=== PATIENT | male | born 1970 | race Caucasian/White ===

== ENCOUNTER 2017-11-21 08:00 | Emergency (ER) | payer OTHER, SELFPAY ==
[2017-11-21 08:02] VITALS: BP 144/76; PULSE 90; RESP 17; TEMP 36.9; O2SAT 96; BMI 34.4
--- NOTE | 2017-11-21 08:16 | VDLE_ITS ---
Reason For Study: swelling RIGHT LEFT GSV is normal. GSV is normal. CFV is compressible, spontaneous, phasic, CFV is compressible, spontaneous, phasic, competent and demonstrates normal competent, and demonstrates normal augmentation. augmentation. FV is compressible, spontaneous, phasic, FV is compressible, spontaneous, phasic, competent and demonstrates normal competent and demonstrates normal augmentation. augmentation. POP V is compressible, spontaneous, phasic, POP V is compressible, spontaneous, phasic, competent and demonstrates normal competent and demonstrates normal augmentation. augmentation. T/P Trunk is compressible. T/P Trunk is compressible. PTV is compressible. PTV is compressible. RT PerV is compressible. LT PerV is compressible. Procedure Exam performed portable in ED. The exam was diagnostic. A preliminary report was called and/or faxed to Dr. Young. Interpretation Summary 1. Bilateral lower extremities with no DVT or SVT. Ordering Physician: Walt Young Performed By: Jhonathan Corey RVT
--- NOTE | 2017-11-21 08:19 | ED.VISSUMM ---
- ER Visit Summary Date of Service: 11/21/17 Chief Complaint: [] Left leg pain swelling for months History of Present Illness: The patient is a 47 M [] as a dedicated truck driver smoker reports he has left leg pain swelling for months he was seen by his physicians put on Lasix as at one point time he had bilateral intermittent leg swelling he is on his feet a lot apparently was thought to be dependent edema. He indicates that he has had persistent swelling in the left leg and the right leg symptoms are resolved, and very mild pain behind behind the left knee, no trauma no paresthesias, no history of DVT PE or DE no fever no cough no chest pain abdominal pain eating drinking well bowel bladder habits are normal review of systems otherwise negative he has no history of CHF renal disorders Physical Examination: [] Head neck chest abdomen unremarkable vital signs are normal he is awake and alert back is unremarkable he has full range of motion of all 4 extremities including the legs the left leg there is 1+ edema to the anterior rosales region the ankle foot are unremarkable good perfusion normal dorsi and plantarflexion normal foot movement normal knee hip movement complains of some pain behind the knee but the exam here is unremarkable there is no signs of mass or Beard's cyst the knee exam shows normal flexion extension normal stability tib-fib unremarkable the left lower extremity is his chief complaint he has no symptoms with reference to the right lower extremity the right lower extremity exam is completely unremarkable neurovascular function examination normal he is able to walk without difficulty Test Results: [] Emergency Department Course and Treatment: [] His complaints differential is extensive and x-ray will be obtained duplex scan Duplex scan shows no signs of DVT, the x-ray of knee shows nothing acute see those reports I explained all the patient's given all the above at this time the patient will be asked to use Naprosyn as needed 500 twice daily for 5 days only in addition he is to stay on all his meds and he is will be referred to Dr. Herman Cheung orthopedics and also instruct off his family physician for further management he understands that the exact etiology of the above is unclear further outpatient management Treatment Plan: [] Disposition: [] Stable home Impression: [] Left lower extremity edema and pain etiology unclear This note was generated with [employer] software. It may contain incorrect words, spelling, and punctuation that were not noted in review of the chart prior to signing ED Disposition - Plan for ED Patient: Chief Complaint: Edema Referrals: Shira Zuniga DO [Primary Care Provider] -
--- NOTE | 2017-11-21 08:20 | RAD_ITS ---
STUDY: X-RAY - LEFT KNEE REASON FOR EXAM: Male, 47 years old. Posterior knee pain. No known injury. TECHNIQUE: 4 view(s) of the knee. COMPARISON: None. FINDINGS: Normal visualized distal femur. Normal visualized proximal tibia and fibula. Normal proximal tibiofibular articulation. Normal medial femorotibial compartment. Normal lateral femorotibial compartment. Normal patellofemoral articulation. The soft tissue structures are unremarkable. RAD/Knee 4 or More Views IMPRESSION: Normal x-ray examination of the knee. Electronically Signed: Jaxson Kramer MD at 9:18 EDT Tel [phone], Service support ,
[2017-11-21] MEDS: Naproxen 500 MG Tablet PO (08:21)
--- NOTE | 2017-11-21 09:29 | ED.DEP ---
ED Disposition - Plan for ED Patient: Chief Complaint: Edema Instructions: ED Leg Swelling Unilateral Prescriptions: Naproxen [Naprosyn] 500 mg PO BID PRN #20 tab Referrals: Shira Zuniga DO [Primary Care Provider] - Herman Cheung DO [STAFF PHYSICIAN] -
[2017-11-21 09:46] VITALS: BP 136/89; PULSE 68; RESP 18; O2SAT 98
== END 2017-11-21 09:46 | disposition home or self-care (01) ==
LOC: ED 09:11
PROVIDERS: Emergency Provider Emergency Medicine; Family Provider Family Medicine; PCP Family Medicine
DX: R60.0 Localized edema (principal); M79.605 Pain in left leg
CPT/HCPCS: 73564; 93970; 99283

== ENCOUNTER → 2018-03-13 05:40 | Outpatient (CLI) | payer OTHER, SELFPAY | PROVIDERS: Family Provider Family Medicine; PCP Family Medicine; Visit Provider Ophthalmology | DX: Z01.818 Encounter for other preprocedural examination (principal) ==

== ENCOUNTER 2018-03-14 06:36 | Day surgery (SDC) | payer OTHER, SELFPAY ==
[2018-03-14] VITALS (7 sets, daily range): BP systolic 124–146; BP diastolic 81–114; PULSE 61–79; RESP 16; TEMP 36.3–36.7; O2SAT 96–98; BMI 36.1
[2018-03-14] MEDS: Tetracaine 0.5% Ophthalmic Bottle 1 DRP OP (07:30)
--- NOTE | 2018-03-14 08:40 | DCINST_ITS ---
Discharge Diet: No Restrictions Discharge Activity: - - Take it easy the rest of the day of surgery. Be careful not to trip or fall. Avoid bumping the operated eye and do not rub the eye. You may stay alone, but need to be able to call and/or come in if necessary. Try to sleep on the unoperated side or on your back tonight. Call your doctor if you observe: - - new or increased pain, a worsening of vision, or if you have any questions. Also call the office if you are experiencing a severe headache on the operative side, nausea or vomiting. Allergies/Adverse Reactions: Allergies Ohpoahm-Pzn-Nts Reductase Inhibitor Adverse Reaction (Verified 03/07/18 10:34) painful joints Medications to take at Discharge Multivitamins,Ther W-Minerals [Multivitamin With Minerals] 1 tab PO DAILY Aspirin E.C. [Ecotrin] 81 mg PO DAILY@0800 03/16/17 Naproxen [Naprosyn] 500 mg PO BID PRN #20 tab 11/21/17 Primary Care Physician: Shira Zuniga DO [Primary Care Provider] - Test Results: Test results from this visit will be discussed in further detail at your follow- up appointment, if applicable. -Take a pain reliever such as Tylenol, Aspirin or Ibuprofen if needed for eye aching or pain. If this is not enough relief for you pain, call your doctor (or the doctor chief [facility] division), even at night. -You are scheduled for a follow-up appointment at [facility] the day after surgery. You should have someone drive you. -Transient pain and irritation are due to the incision that was made at the time of surgery and do not indicate any trouble. Our office numbers are or toll-free . If there is no answer, or if it is after our normal business hours, call your surgeon. Our home phone numbers are: Dr. Carvalho Dr. Vuong Dr. Junior Dr. Carter If you are still unable to reach your doctor, call the answering service and [facility] [place] , and the roto rooter operator can contact the on-call doctor through a long-range beeper system. INSTRUCTIONS FOLLOWING TOPICAL ANESTHETIC CATARACT SURGERY Protect operated eye with glasses or metal shield at all times. Instill one drop of Cipro (or other antibiotic drop), one drop of Prednisolone and one drop of Flurbiprofen in the operated eye four times a day (breakfast, lunch, dinner and bedtime) until the doctor tells you to quit or decrease them. Wait 3-5 minutes between each drop. Your first drop for today was given after surgery. INSTRUCTIONS FOLLOWING RETROBULBAR CATARACT SURGERY Keep the eye patch and metal shield on until you see your surgeon the day after surgery - these will be removed in the office that day. Do not drive while the patch is on your eye. You will be instructed about the use of drops for the operated eye at that visit.
== END 2018-03-14 09:40 | disposition home or self-care (01) ==
LOC: SDC 06:37 → AC 06:38
PROVIDERS: Family Provider Family Medicine; PCP Family Medicine; Visit Provider Ophthalmology
PROC: (CPT 66984; principal; 2018-03-14 08:10)
DX: H25.042 Posterior subcapsular polar age-related cataract, left eye (principal); Z96.1 Presence of intraocular lens; Z79.899 Other long term (current) drug therapy; F17.200 Nicotine dependence, unspecified, uncomplicated; Z85.828 Personal history of other malignant neoplasm of skin; Z79.82 Long term (current) use of aspirin; I10 Essential (primary) hypertension
CPT/HCPCS: 66984; J7120

== ENCOUNTER → 2018-10-09 14:42 | Outpatient (CLI) | payer OTHER, SELFPAY ==
[2018-10-08 14:49] VITALS: BMI 32.9
[2018-10-09 14:51] LABS: Bacteria 0 SEEN /hpf (None Seen); Mucous, Urine 0 SEEN /hpf (<or=2+); Red Blood Cells-Urine 0 SEEN /hpf (0-5)
[2018-10-09 15:27] LABS: Color, Urine Straw (Yellow); Glucose, Dipstick 1000 mg/dl (Normal); Ketone-Dipstick 5 mg/dl (Negative); Leukocyte Esterase-Dipstick Negative /ul (Negative); Nitrite-Dipstick Negative (Negative); Occult Blood-Urine Negative /ul (Negative); Protein-Dipstick Negative (Negative); Specific Gravity, Urine 1.015 (1.002-1.030); Urine Bilirubin Dipstick Negative (Negative); Urine Clarity Clear (Clear); Urine Urobilinogen Normal (Normal)
[2018-10-09 15:51] LABS: Squamous Epithelial Cells - UA 0-5 SEEN /hpf (0-5)
[2018-10-09 15:52] LABS: White Blood Cells 0-5 SEEN /hpf (0-5)
== END ==
PROVIDERS: Family Provider Family Medicine; PCP Family Medicine; Referring Provider Physician Assistant; Visit Provider Physician Assistant
DX: M54.5 Low back pain (principal)
CPT/HCPCS: 81001; 87086

== ENCOUNTER → 2019-01-15 | Outpatient (CLI) | payer OTHER, SELFPAY ==
[2019-01-15 10:58] VITALS: BMI 32.9
== END | disposition home or self-care (01) ==
LOC: LABSPEC 14:33
PROVIDERS: Family Provider Family Medicine; PCP Family Medicine; Referring Provider Physician Assistant; Visit Provider Physician Assistant
DX: J02.9 Acute pharyngitis, unspecified (principal)
CPT/HCPCS: 87081

== ENCOUNTER → 2019-08-01 16:56 | Outpatient (CLI) | payer OTHER, SELFPAY ==
[2019-07-31 16:13] VITALS: BMI 32.9
[2019-08-01 16:58] LABS: Bacteria 0 SEEN /hpf (None Seen); Mucous, Urine 0 SEEN /hpf (<or=2+); Red Blood Cells-Urine 0 SEEN /hpf (0-5); White Blood Cells 0 SEEN /hpf (0-5)
[2019-08-01 17:09] LABS: Color, Urine Yellow (Yellow); Glucose, Dipstick 1000 mg/dl (Normal); Ketone-Dipstick 5 mg/dl (Negative); Leukocyte Esterase-Dipstick Negative /ul (Negative); Nitrite-Dipstick Negative (Negative); Occult Blood-Urine Negative /ul (Negative); Protein-Dipstick Negative (Negative); Urine Bilirubin Dipstick Negative (Negative); Urine Clarity Clear (Clear); Urine Urobilinogen Normal (Normal)
[2019-08-01 17:27] LABS: Calcium Oxalate Crystals Ur 1+ /hpf (<or=2+); Squamous Epithelial Cells - UA 0-5 SEEN /hpf (0-5)
== END ==
PROVIDERS: Family Provider Family Medicine; PCP Family Medicine; Referring Provider Physician Assistant Surgical; Visit Provider Physician Assistant Surgical
DX: R10.9 Unspecified abdominal pain (principal)
CPT/HCPCS: 81001; 87086; 87088

== ENCOUNTER → 2020-01-07 | Outpatient (CLI) | payer OTHER, SELFPAY ==
[2019-07-31 16:13] VITALS: BMI 32.9
== END | disposition home or self-care (01) ==
LOC: LABSPEC 12:30
PROVIDERS: PCP Family Medicine; Referring Provider Dermatology; Visit Provider Dermatology
DX: L02.411 Cutaneous abscess of right axilla (principal); B95.61 Methicillin susceptible Staphylococcus aureus infection as the cause of diseases classified elsewhere; D23.39 Other benign neoplasm of skin of other parts of face
CPT/HCPCS: 87070; 87077; 87186; 87205

== ENCOUNTER 2020-02-18 06:23 | Observation (INO) | payer OTHER, SELFPAY ==
[2020-01-14 13:41] VITALS: BMI 32.9
[2020-02-18] VITALS (9 sets, daily range): BP systolic 139–168; BP diastolic 75–99; PULSE 67–103; RESP 17–18; TEMP 36.2–36.8; O2SAT 94–97; BMI 38.9; BMI 34.1
--- NOTE | 2020-02-18 06:29 | EKG12_ITS ---
Test Reason : REPEAT Blood Pressure : / mmHG Vent. Rate : 094 BPM Atrial Rate : 094 BPM P-R Int : 168 ms QRS Dur : 084 ms QT Int : 360 ms P-R-T Axes : 068 014 046 degrees QTc Int : 450 ms Normal sinus rhythm Nonspecific T wave abnormality Abnormal ECG Confirmed by LOR BARKER, NADIA ([id number]), editor map JOSÉ ANTONIO HUFFMAN ([id number]) on 02/23/2020 10:50:13 AM Referred By: Confirmed By:NADIA HOROWITZ MD
--- NOTE | 2020-02-18 06:29 | RAD_ITS ---
STUDY: X-RAY CHEST REASON FOR EXAM: Male, 50 years old. CP TECHNIQUE: Single AP portable view of the chest. COMPARISON: None. FINDINGS: The lungs are clear and expanded. There is no demonstrated pleural abnormality. Normal size heart. Normal mediastinum and tommy. Normal visualized pulmonary arteries. Normal visualized aortic arch and descending thoracic aorta. Normal visualized thoracic spine. Normal visualized ribs, clavicles, and shoulders. There is no demonstrated abnormality of the visualized soft tissue structures of the upper abdomen. RAD/Chest 1 View (Portable) IMPRESSION: Normal x-ray examination of the chest. Electronically Signed: Abraham Saucedo, at 7:14 EDT Tel , Service support ,
[2020-02-18] MEDS: Aspirin 81 MG TAB.CHEW 324 MG PO (06:33)
[2020-02-18 06:38] LABS: Absolute Lymphocyte Count 4.16 X10^3/uL (0.83-4.51); Absolute Neutrophil Count 6.2 X10^3/uL (2.0-7.7); Basophil# 0.09 X10^3/uL; Basophil% 0.7 % (0-1); Eosinophil# 0.63 X10^3/uL; Eosinophils% 5.2 % (0-5); Hematocrit 47.5 % (40-54); Hemoglobin 16.7 g/dL (13.0-16.5); Lymphocyte # 4.16 X10^3/ul (4.0); Lymphocyte % 34.1 % (19-41); Mean Corp Hgb Conc 35.2 g/dL (32-36); Mean Corpuscular Hgb 31.8 pg (27.0-32.0); Mean Corpuscular Volume 90.5 fL (80-94); Mean Platelet Vol. 10.9 fl (6.2-12.0); Monocyte# 1.04 X10^3/uL; Monocyte% 8.5 % (0-10); NRBC Flagged by Analyzer 0 % (0-5); Neutrophil # 6.21 X10^3/uL (2.7-7.7); Neutrophil % 50.9 % (47-70); Platelet Count 198 K/mm3 (150-450); RBC Distribution Width CV 12.1 % (11.6-14.6); RBC Distribution Width SD 40.1 fl (35.1-43.9); Red Blood Count 5.25 M/mm3 (4.6-6.2); White Blood Count 12.2 K/mm3 (4.4-11.0)
[2020-02-18] MEDS: Ondansetron 4 MG/2 ML Vial IV (06:38)
[2020-02-18] MEDS: Morphine 4 MG/ML Syringe IV ×2 (06:38→07:31)
--- NOTE | 2020-02-18 06:38 | ED.DCSUM_ITS ---
- ER Visit Summary Date of Service: 02/18/20 Chief Complaint: Chest pain History of Present Illness: The patient is a 50 M presenting with chest pain. Patient states this woke him up at 2:30 AM. Pain has been waxing and waning since. Currently 8 out of 10. He has substernal pain that radiates to his jaw. Pain is associated with diaphoresis and shortness of breath. Denies nausea or vomiting. He has a history of high triglycerides. He takes aspirin daily. He is a smoker. He has a family history of early heart disease. 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 No history of PE/DVT. He also complains of gradual onset headache which started 3 days ago. Physical Examination: Vitals are stable. Patient is afebrile. Alert no acute distress. HEENT exam is unremarkable. Neck is supple. Lungs are clear and equal bilaterally. Heart is regular rate and rhythm. Abdomen is soft nontender nondistended. Extremities are unremarkable. Skin is warm and dry. No focal neurologic deficit. Remainder of exam is unremarkable. Emergency Department Course and Treatment: Patient was given aspirin, morphine, Zofran. EKG is sinus tachycardia rate of 102. CBC shows white count 12.2. Chemistries show glucose 190. Troponin is negative. D-dimer negative. Chest x-ray shows no acute process. Patient's pain is improved, he was given additional dose of morphine. CT head shows normal unenhanced CT scan of the brain. Repeat EKG is unchanged. On reevaluation, he is resting comfortably and is chest pain-free. Discussed with hospitalist for observation. Disposition: Observation Impression: Chest pain This note was generated with [employer] dictation software. It may contain incorrect words, spelling, and punctuation that were not noted in review of the chart prior to signing ED Disposition - Plan for ED Patient: Referrals: Shira Zuniga DO [Primary Care Provider] -
[2020-02-18 06:55] LABS: D-Dimer Quantitative (DVT/PE) 0.47 FEU/ug/m (0.27-0.49)
--- NOTE | 2020-02-18 07:02 | CT_ITS ---
STUDY: CT BRAIN WITHOUT CONTRAST REASON FOR EXAM: Male, 50 years old. CP RADIATES TO JAW, RIBEIRO RADIATION DOSAGE (If Supplied By Facility): CTDIvol = ( 44.99 ) mGy, DLP = ( 762.36 ) mGycm TECHNIQUE: Transaxial CT imaging of the brain was performed without administration of intravenous contrast material. Individualized dose optimization techniques were used for this CT. COMPARISON: CT scan brain 03/16/2017. FINDINGS: Normal soft tissue structures. Normal calvarium. Normal size ventricles and extra-axial spaces for the patient''s age. Normal white matter tracts of the cerebral hemispheres. Normal basal ganglia and thalami. Normal brainstem. Normal cerebellum. There is mild atherosclerotic calcification of the cavernous carotid arteries. There is no intracranial hemorrhage. There are no findings of an acute ischemic infarction. There is a small polyp or retention cyst in the left sphenoid sinus. There is no evidence for acute sinusitis. CT/Brain/Head without Contrast IMPRESSION: Normal unenhanced CT scan of the brain. Mild atherosclerotic calcification of the cavernous carotid arteries. Electronically Signed: Richmond Flores MD at 7:30 EDT , Service support ,
[2020-02-18 07:05] LABS: Anion Gap 10 (5-15); BUN 17 mg/dL (7-18); BUN/Creat Ratio 19.2 RATIO (10-20); Chloride 105 mmol/L (98-107); Creatinine, Serum 0.89 mg/dL (0.70-1.30); EST Glomerular Filtration Rate 97 mL/min (>60); Est Glom Filt Rate - Afr Amer 117 mL/min (>60); Estimated Creatinine Clearance 87.34 ml/min; Glucose 190 mg/dL (74-106); Sodium Level 137 mmol/L (136-145)
--- NOTE | 2020-02-18 07:35 | EKG12_ITS ---
Test Reason : CP Blood Pressure : / mmHG Vent. Rate : 102 BPM Atrial Rate : 102 BPM P-R Int : 174 ms QRS Dur : 082 ms QT Int : 360 ms P-R-T Axes : 071 023 064 degrees QTc Int : 469 ms Sinus tachycardia Nonspecific T wave abnormality Abnormal ECG Confirmed by LOR BARKER, NADIA ([id number]), communications editor JOSÉ ANTONIO HUFFMAN ([id number]) on 02/23/2020 10:50:42 AM Referred By: Confirmed By:NADIA HOROWITZ MD
[2020-02-18] MEDS: Acetaminophen 500 MG Tablet 1000 MG PO (07:37)
--- NOTE | 2020-02-18 07:56 | HP.PCM_ITS ---
Problem List (1) TIA (transient ischemic attack) Status: Acute (2) New onset type 2 diabetes mellitus Status: Acute (3) HTN (hypertension) Status: Chronic Qualifiers: Hypertension type: essential hypertension Qualified Code(s): I10 - Essential (primary) hypertension (4) HLD (hyperlipidemia) Status: Chronic Qualifiers: Hyperlipidemia type: unspecified Qualified Code(s): E78.5 - Hyperlipidemia, unspecified (5) Obesity (BMI 30.0-34.9) Status: Chronic (6) Tobacco use Status: Chronic History of Present Illness Date of Admission: 02/18/20 Chief Complaint: Chest pain, paresthesias R sided, headache The patient is a 50 y/o M w/ PMHx: Tobacco use, Obesity, HTN, HLD who presents to the [facility] ED on 02/18/20 with history of 3 days of right lateral and posterior head headache described as a throbbing, worse with movement with blurry vision, right-sided discomfort and eye changes greater ongoing rated 7-8 out of 10 in severity within onset at approximately 2:30 AM upon day of ED presentation awakening him from sleep midsternal chest discomfort described as a pressure like sensation rated 8 out of 10 in severity with improvement following ED evaluation and and interventions to 3 out of 10 in severity with resolution upon evaluation with at that time also concurrent right upper extremity as well as right lower extremity and bilateral lower face and perioral paresthesias with improvement of right lower extremity and right upper extremity paresthesias limited to hand only upon ED presentation. Per discussion with patient spouse he had similar presentation although less severe approximately 10 years prior and had stroke evaluation at that time with eventual diagnosis of complex migraine. He denies any light or sound sensitivity at this time. Work-up in the ED included T 98, heart rate 103, BP 168/82, respiratory rate 18, 97% on room air, CBC with WC 12.2, hemoglobin 16.7, platelet 198 with no evidence of left shift, d-dimer 0.47, BMP with glucose 190 with patient noting that he had a Mountain Dew prior to presentation, troponin less than 0.015, EKG with sinus rhythm with no acute evidence of ischemia, chest x-ray with no acute cardiopulmonary findings, CT head with with no acute intracranial findings with noted mild atherosclerotic calcification of the cavernous carotid arteries. In the ED patient ministered Tylenol, aspirin, morphine 4 mg IV x2 and Zofran therapy. Patient with resolution of chest discomfort following morphine while in the ED. Past Medical History Past Medical History (Chronic Problems): Chronic Problems (Last Reviewed 01/14/20 @ 12:41 by Marquita Whittaker) HTN (hypertension) (Chronic) HLD (hyperlipidemia) (Chronic) Obesity (BMI 30.0-34.9) (Chronic) Tobacco use (Chronic) Nonischemic cardiomyopathy (Chronic) Allergies Ubrnmlr-Hgr-Xcv Reductase Inhibitor Adverse Reaction (Verified 02/18/20 06:26) painful joints Home Medications: Ambulatory Orders Medication Instructions Recorded Ascorbic Acid [Vitamin C] 1,000 mg PO DAILY 02/18/20 Aspirin [Aspir 81] 81 mg PO DAILY 02/18/20 Multivitamin 1 ea PO DAILY 02/18/20 Surgical History: - - Skin cancer interventions. Psychiatric History: No pertinent psych hx Lives: Spouse/ Significant Other Smoking Status: Current every day smoker - With ongoing 1.5 pack/day cigarette tobacco usage down from 2 pack/day previously. Tobacco Use: Cigarettes Alcohol: Occasional Drugs: None - *Family History Maternal History Items: Heart Disease - Patient notes a maternal family history of heart disease with CABG at age 69 required. Paternal History Items: Heart Disease - Patient notes a significant paternal family history of heart disease with patient's father's first UT at age 45. Review of Systems Constitutional: Reports: Malaise, Weakness, Fatigue. Denies: Anorexia, Chills, Fever, Weight Change HEENT: Reports: Head Aches, Visual Changes. Denies: Sinus Congestion, Sinus Drainage Cardiovascular: Reports: Chest Pain, Chest Pressure, Heaviness. Denies: Chest Tightness, Light Headedness, Orthopnea, Palpitations, Syncope Respiratory: Denies: Cough, Shortness of Breath, Shortness of breath at rest, Shortness of breath upon exertion, Sputum production, Wheezing Gastrointestinal: Denies: Abdominal Pain, Nausea, Vomiting Genitourinary: Denies: Dysuria Musculoskeletal: Reports: Joint Pain, Neck Pain. Denies: Joint Tenderness Skin: Denies: Rash, Wounds Neurological: Reports: Blurred vision, Numbness, Tingling. Denies: Focal weakness Psychiatric: Denies: Anxiety, Depression, Homicidal Ideations, Suicidal Ideations Hematologic/ Lymphatic: Denies: Easy Bruising, Easy Bleeding VTE Information - Inpt Only VTE Present on Admission: No VTE Mechan Device Prophylaxis: SCD's VTE Pharm Prophylaxis ordered?: Yes Patient Problems: Active and Suspected Problems (Last Reviewed 01/14/20 @ 12:41 by Marquita Whittaker) TIA (transient ischemic attack) (Acute) New onset type 2 diabetes mellitus (Acute) Subjective: Seated upright in the PCU bed, mildly fatigued appearance, notes feeling improved since initial ED presentation with resolution of chest discomfort, right-sided primarily ongoing headache, less severe, paresthesias still to right hand primarily fifth and fourth digits as well as bilateral lower sections of the face and perioral but less pronounced. Objective: Physical Examination: General: awake, alert, oriented x 3 and cooperative, seated upright in the PCU bed in no apparent distress, chest discomfort resolved, still mild right-sided headache. Skin: normal color, turgor, no icterus, cyanosis. HEENT: AT/NC, EOMI, PERRLA, MMM, no carotid bruits or JVD noted. Lungs: CTA bilaterally, moderate effort, mild decrease BL bases, no rales, ronchi or wheezing. Heart: Regular rate and rhythm; no gallop, rub audible. Abdomen: soft, obese, NTTP, ND, normal BS, no HSM. Extremities: no cyanosis, clubbing, or edema. Neurological: patient awake, alert, oriented x 3; cognitive function intact; pupils equally reactive to light and accomodation; cranial nerves II-XII grossly normal, moving all 4 extremities, no focal deficits, strength preserved, negative Babinski, finger-nose and [id number] appropriate, vision intact as well as peripheral burton of vision, subjective paresthesias to bilateral jaw region, perioral, right upper extremity hand primarily fifth and fourth digits with complete resolution of previous right lower extremity and right arm aside from hand paresthesias as noted. Psychiatric: affect appears mildly fatigued otherwise normal, no acute evidence of depressive or anxiety feelings. - Physical Exam Vitals/I&O's: Vital Signs Temp Pulse Resp BP Pulse Ox 98.0 F 103 H 18 168/82 H 97 02/18/20 06:24 02/18/20 06:24 02/18/20 06:24 02/18/20 06:24 02/18/20 06:24 Oxygen Delivery Method Room Air Weight: 233 lb 11.04 oz Body Mass Index (BMI) 38.9 Laboratory Results 02/18/20 06:30: WBC 12.2 H, RBC 5.25, Hgb 16.7 H, Hct 47.5, MCV 90.5, MCH 31.8, MCHC 35.2, RDW Std Deviation 40.1, RDW Coeff of Leela 12.1, Plt Count 198, MPV 10.9, Immature Gran % (Auto) 0.600, Neut % (Auto) 50.9, Lymph % (Auto) 34.1, Zapata % (Auto) 8.5, Eos % (Auto) 5.2 H, Baso % (Auto) 0.7, Absolute Neuts (auto) 6.2, Absolute Lymphs (auto) 4.16, Nucleated RBC % 0 02/18/20 06:30: Sodium 137, Potassium 4.0, Chloride 105, Carbon Dioxide 22.0, Anion Gap 10, BUN 17, Creatinine 0.89, Estim Creat Clear Calc 87.34, Est GFR (MDRD) Af Amer 117, Est GFR (MDRD) Non-Af 97, BUN/Creatinine Ratio 19.2, Glucose 190 H, Calcium 9.0, Troponin I < 0.015 02/18/20 06:30: D-Dimer Quant (PE/DVT) 0.47 Assessment/Plan All Active Problems (Last Reviewed 01/14/20 @ 12:41 by Marquita Whittaker) TIA (transient ischemic attack) (Acute) New onset type 2 diabetes mellitus (Acute) Pharyngitis (Acute) URI (upper respiratory infection) (Acute) Lumbar strain (Acute) Glucosuria (Acute) Chest pain (Acute) The patient is a 50 y/o M w/ PMHx: Tobacco use, Obesity, HTN, HLD who presents to the [facility] ED on 02/18/20 with history of 3 days of right lateral and posterior head headache described as a throbbing, worse with movement with blurry vision, right-sided discomfort and eye changes greater ongoing rated 7-8 out of 10 in severity within onset at approximately 2:30 AM upon day of ED presentation awakening him from sleep midsternal chest discomfort described as a pressure like sensation rated 8 out of 10 in severity with improvement following ED evaluation and and interventions to 3 out of 10 in severity with resolution upon evaluation with at that time also concurrent right upper extremity as well as right lower extremity and bilateral lower face and perioral paresthesias with improvement of right lower extremity and right upper extremity paresthesias limited to hand only. 1. Right-sided paresthesias, upper and lower extremity as well as facial, headache concerning for TIA/CVA versus Complex migraine: Work-up in the ED included T 98, heart rate 103, BP 168/82, respiratory rate 18, 97% on room air, CBC with WC 12.2, hemoglobin 16.7, platelet 198 with no evidence of left shift, d-dimer 0.47, BMP with glucose 190 with patient noting that he had a Mountain Dew prior to presentation, troponin less than 0.015, EKG with sinus rhythm with no acute evidence of ischemia, chest x-ray with no acute cardiopulmonary findings, CT head with with no acute intracranial findings with noted mild atherosclerotic calcification of the cavernous carotid arteries. Will admit to PCU, will obtain MRI Brain, MRA Head and Neck, also recent history of notable cervical discomfort therefore will obtain MRI cervical spine concurrently in case also possible etiology of paresthesias, obtain ECHO, PT/OT/Speech/Nutrition evaluation per protocol. Will allow permissive HTN, maintain on asa and add plavix, noted statin allergy, will obtain AM FLP, HgbA1c obtained and as noted confirmed diabetic with interventions as noted, obtain TSH. Maintain on fall precautions. Given presentation and prior history of complex migraine if MRI unremarkable would initiate IV VPA 500mg Q6 hours, IV Decadron 4mg Q6 hours, IV Toradol 30mg Q8 hours and PO Neurontin 100mg TID with meals. Will consider neurology consultation also once r esults are obtained. 2. Chest Pain: EKG in ED rhythm with no acute evidence of ischemia, CXR w/ no acute cardiopulmonary findings, initial trop x1. Will place on a monitored bed to assure no acute myocardial infarction with serial cardiac enzymes and EKGs. Given acute presentation #1 we will defer any stress testing but if MRI unremarkable and safe to pursue will obtain 02/19/2020 a.m. cardiac stress testing. Patient with chest pain admission with cardiac catheterization 2017 with normal left main coronary artery, dominant left circumflex artery with no significant stenosis, nondominant right coronary artery with no significant stenosis, left anterior descending artery with no high-grade stenosis with a normal EF of 53% at that time. ASA, NG, morphine. 3. Hypertension: Not on regimen per current list, given acute presentation will allow permissive pending MRI. 4. Hyperlipidemia: Not on regimen with statin allergy listed, FLP to be obtained in a.m. 5. Hyperglycemia with confirmed new onset diabetes mellitus type II: Admission hemoglobin 190, hemoglobin A1c obtained and noted to be 9.3%, will initiate ADA diet, consult nutrition for education and teaching, maintain on insulin sliding scale with Accu-Cheks with planned oral metformin upon discharge strong encouragement for lifestyle and diet changes. 6. Tobacco Abuse: Encouraged cessation, inpatient consultation per RT, NR if desired. 7. Obesity: Weight loss and lifestyle changes encouraged. 8. DVT prophylaxis: SCDs, Lovenox. OBSV E&M: 34790 Initial observation care L3
--- NOTE | 2020-02-18 09:42 | MRI_ITS ---
STUDY: MRA OF THE HEAD WITHOUT CONTRAST REASON FOR EXAM: Male, 50 years old. Right arm numbness TECHNIQUE: 3-D [id number]-[id number] (TOF) imaging was performed with MIPs. The study was performed unenhanced. COMPARISON: None. FINDINGS: Bilateral base of skull carotids, bifurcations, anterior and middle cerebral arteries and proximal branches are patent. Posterior communicating arteries are not seen Posterior cerebral arteries and superior cerebellar arteries and proximal branches are patent. Vertebral arteries, basilar arteries are patent. MRI/MRA Head ONLY without Contrast IMPRESSION: 1. Unremarkable tejon of Vargas and proximal branches. Electronically Signed: Ray Stout, at 17:33 EDT Tel , Service support ,
--- NOTE | 2020-02-18 09:42 | MRI_ITS ---
STUDY: MRA NECK WITHOUT CONTRAST REASON FOR EXAM: Male, 50 years old. Right arm numbness TECHNIQUE: Source images were obtained, MIPs were performed. The study was performed unenhanced. COMPARISON: None. FINDINGS: Examination is moderately degraded due to lack of IV contrast and motion artifact. Diagnostic information is available. Origins and intramediastinal portions of the great vessels are evaluated in a limited fashion due to pulsation artifact. Bilateral common carotid, internal and external carotid arteries are patent. Intraosseous cervical vertebral arteries are patent. MRI/MRA Neck without Contrast IMPRESSION: Unremarkable cervical arteries. Electronically Signed: Ray Stout, at 17:46 EDT Tel , Service support ,
--- NOTE | 2020-02-18 09:44 | ECHOCS_ITS ---
Reason For Study: TIA/CVA Procedure This was a 2D Doppler, Color Flow transthoracic echocardiogram. Contrast injection was performed. The study was technically difficult. Exam performed in department. Left Ventricle Normal LV size. The estimated ejection fraction is 55-60 %. No evidence for diastolic dysfunction. No regional wall motion abnormalities noted. Right Ventricle Normal RV size. Normal systolic function. Atria Normal left atrium. Normal right atrium. No doppler evidence for ASD. Mitral Valve There is no mitral valve stenosis. No mitral valve insufficiency. Tricuspid Valve There is no tricuspid stenosis. Trivial tricuspid valve insufficiency. Unable to estimate RV systolic pressure due to insufficient tricuspid regurgitant envelope. Aortic Valve There is no aortic stenosis. No aortic valve insufficiency. Pulmonic Valve There is no pulmonic valvular stenosis. No pulmonic valve insufficiency. Great Vessels Normal aortic root. Pericardium/Pleural No pericardial effusion. Medication Diluted definity 2ml given slow IV push to enhance endocardial definition. Performed a rapid injection of agitated mix of 9 cc saline and 1cc air to assess for atrial septal defect. MMode/2D Measurements & Calculations LVIDd: 4.9 cm IVSd: 1.0 cm LA dimension: 3.5 cm LVIDs: 3.2 cm LVPWd: 1.4 cm RVDd: 3.4 cm FS: 35.1 % LAV(MOD-bp): 43.6 ml LA A4 area: 15.1 cm2 RA A4 area: 12.7 cm2 LAV(MOD-bp) Indexed: 20.6 ml/m2 LAV(MOD-sp2): 49.0 ml LAV(MOD-sp4): 36.8 ml Time Measurements MV dec time: 0.24 sec Doppler Measurements & Calculations MV E max dov: 59.9 cm/sec Lat Peak E' Dov: 14.5 cm/sec Med Peak E' Dov: 8.5 cm/sec MV A max dov: 91.3 cm/sec E/E' lat: 4.1 E/E' med: 7.0 MV E/A: 0.66 MV V2 max: 100.9 cm/sec MV P1/2t max dov: 73.1 cm/sec Ao V2 max: 141.9 cm/sec MV max P.1 mmHg MV P1/2t: 61.0 msec Ao max P.1 mmHg MV V2 mean: 55.0 cm/sec MV dec slope: 351.0 cm/sec2 MV mean P.5 mmHg MV V2 VTI: 17.4 cm MVA(P1/2t): 3.6 cm2 LV V1 max: 106.9 cm/sec PA V2 max: 131.0 cm/sec LV V1 max P.6 mmHg Interpretation Summary The estimated ejection fraction is 55-60 %. No evidence for diastolic dysfunction. The study was technically difficult. Contrast injection was performed. Ordering Physician: Chastity Strickland Referring Physician: Shira Zuniga Performed By: Steven Castellanos RCS
--- NOTE | 2020-02-18 09:46 | MRI_ITS ---
STUDY: MRI BRAIN WITHOUT CONTRAST REASON FOR EXAM: Male, 50 years old. Headache, numbness TECHNIQUE: Standardized multiplanar fat and water weighted pulse sequences were obtained. COMPARISON: 18 February 2020 FINDINGS: Brain parenchyma is intact without focal lesions, mass effect, extra parenchymal fluid collections, hydrocephalus or herniation. Major vascular flow structures are intact. Craniocervical junction is unremarkable. MRI/Brain without Contrast IMPRESSION: 1. Unremarkable brain MRI. Electronically Signed: Ray Stout, at 17:17 EDT Tel , Service support ,
[2020-02-18 09:47] LABS: Magnesium 2.2 mg/dL (1.6-2.6)
[2020-02-18] MEDS: 0.9% Normal Saline 1,000 ML 100 ML IV ×2 (09:48→22:21)
--- NOTE | 2020-02-18 09:50 | MRI_ITS ---
STUDY: MRI CERVICAL SPINE WITHOUT CONTRAST REASON FOR EXAM: Male, 50 years old. Headache right arm numbness TECHNIQUE: Standardized fat and water weighted pulse sequences were obtained in the sagittal and axial planes. COMPARISON: June 15, 2014, April 15, 2014 FINDINGS: Examination is mildly degraded due to patient''s body habitus. Assessment of foraminal patency is moderately degraded/limited. Diagnostic information is available. Craniocervical junction and cervical spine are intact and aligned with normal marrow and paraspinal soft tissues. BMI is elevated. Spinal cord is mildly compressed centrally at C4-C5 and on the right at C5-C6 due to ventral spondylosis. There are multilevel various degree criminal stenoses. Spinal cord is normal in size with minor flattening of the compressing levels. Cord signal is difficult to evaluate and is probably normal. Degenerative change has expectedly progressed since 2013 within the interval of 6 years. MRI/Spine Cervical (Routine) IMPRESSION: 1. 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 2. Elevated BMI. This is associated with accelerated spinal degenerative disease. Electronically Signed: Ray Stout, at 17:39 EDT Tel , Service support ,
[2020-02-18 10:16] LABS: Hemoglobin A1c 9.3 % (3.8-5.6)
[2020-02-18 10:17] LABS: Thyroid Stim Hormone (TSH) 2.38 uIU/mL (0.358-3.74)
[2020-02-18] MEDS: Famotidine 20 MG Tablet PO ×2 (11:33→22:14)
[2020-02-18] MEDS: Clopidogrel Bisulfate 75 MG Tablet PO (11:33)
[2020-02-18] MEDS: Enoxaparin 40 MG/0.4 ML Syringe SC (11:34)
[2020-02-18] MEDS: Insulin Lispro 100 UNIT/ML INSULN.PEN SC ×3 (11:39→22:11)
[2020-02-18 11:46] LABS: Bedside Glucose 172 mg/dL (70-110)
[2020-02-18] MEDS: LORazepam 2 MG/ML Syringe 0.5 MG IV (15:30)
[2020-02-18 17:45] LABS: Bedside Glucose 171 mg/dL (70-110)
--- NOTE | 2020-02-18 17:46 | NURSING ---
Update provided to , Samantha via phone.
[2020-02-18] MEDS: dexAMETHasone 4 MG/ML Vial IV (19:11)
[2020-02-18] MEDS: Ketorolac 15 MG/ML Vial IV ×2 (19:13→22:14)
[2020-02-18] MEDS: Gabapentin 100 MG Capsule PO (19:15)
[2020-02-18] MEDS: 0.9% Saline Lock 10 ML Syringe IV (22:14)
[2020-02-18] MEDS: Temazepam 15 MG Capsule PO (22:29)
[2020-02-19] MEDS: dexAMETHasone 4 MG/ML Vial IV ×3 (00:22→11:28)
[2020-02-19 03:00] VITALS: PULSE 59
[2020-02-19 04:00] VITALS: BP 137/94; PULSE 85; RESP 18; TEMP 36.8; O2SAT 96
[2020-02-19] MEDS: 0.9% Saline Lock 10 ML Syringe IV (05:52)
[2020-02-19] MEDS: Ketorolac 15 MG/ML Vial IV (05:53)
[2020-02-19] MEDS: Clopidogrel Bisulfate 75 MG Tablet PO (05:54)
[2020-02-19] MEDS: Aspirin 81 MG TAB.CHEW PO (05:54)
--- NOTE | 2020-02-19 05:55 | EKG12_ITS ---
Test Reason : AM EKG Blood Pressure : / mmHG Vent. Rate : 082 BPM Atrial Rate : 082 BPM P-R Int : 172 ms QRS Dur : 086 ms QT Int : 380 ms P-R-T Axes : 067 005 047 degrees QTc Int : 443 ms Normal sinus rhythm Normal ECG When compared with ECG of 18-FEB-2020 07:46, MANUAL COMPARISON REQUIRED, DATA IS UNCONFIRMED Confirmed by LOR BARKER, NADIA ([id number]), telegraph editor JOSÉ ANTONIO HUFFMAN ([id number]) on 02/23/2020 11:01:28 AM Referred By: DR ABARCA Confirmed By:NADIA HOROWITZ MD
[2020-02-19 06:13] LABS: Basophil# 0.03 X10^3/uL; Basophil% 0.3 % (0-1); Eosinophil# 0.01 X10^3/uL; Eosinophils% 0.1 % (0-5); Hematocrit 47.5 % (40-54); Hemoglobin 15.7 g/dL (13.0-16.5); Lymphocyte % 13.5 % (19-41); Mean Corp Hgb Conc 33.1 g/dL (32-36); Mean Corpuscular Hgb 30.4 pg (27.0-32.0); Mean Corpuscular Volume 91.9 fL (80-94); Mean Platelet Vol. 11.3 fl (6.2-12.0); Monocyte# 0.19 X10^3/uL; NRBC Flagged by Analyzer 0 % (0-5); Neutrophil # 8.03 X10^3/uL (2.7-7.7); Neutrophil % 83.6 % (47-70); Platelet Count 182 K/mm3 (150-450); RBC Distribution Width CV 12.3 % (11.6-14.6); RBC Distribution Width SD 41.1 fl (35.1-43.9); Red Blood Count 5.17 M/mm3 (4.6-6.2); White Blood Count 9.6 K/mm3 (4.4-11.0)
[2020-02-19 06:32] LABS: ALB/GLOB Ratio 0.9 RATIO (0.9-2.4); AST(SGOT) 37 U/L (15-37); Alanine Aminotransfer ALT/SGPT 81 U/L (16-61); Albumin, Serum 3.3 g/dL (3.2-5.0); Alkaline Phosphatase 85 U/L (45-117); Anion Gap 8 (5-15); BUN 17 mg/dL (7-18); BUN/Creat Ratio 17.4 RATIO (10-20); Calcium,Total 8.7 mg/dL (8.5-10.1); Chloride 104 mmol/L (98-107); Cholesterol 273 mg/dL (200); Creatinine, Serum 0.98 mg/dL (0.70-1.30); EST Glomerular Filtration Rate 87 mL/min (>60); Est Glom Filt Rate - Afr Amer 105 mL/min (>60); Estimated Creatinine Clearance 91.18 ml/min; Globulin 3.7 g/dL (2.2-4.2); Glucose 304 mg/dL (74-106); High Density Lipoprotein 26 mg/dL; Potassium 4.3 mmol/L (3.5-5.1); Sodium Level 135 mmol/L (136-145); Triglycerides 864 mg/dL
[2020-02-19 06:51] VITALS: BP 139/81; PULSE 77; RESP 18; TEMP 36.4; O2SAT 95
[2020-02-19 07:00] VITALS: PULSE 71
--- NOTE | 2020-02-19 07:09 | PCM.PN.HOSP ---
Patient Problems: Active and Suspected Problems (Last Reviewed 01/14/20 @ 12:41 by Marquita Whittaker) TIA (transient ischemic attack) (Acute) New onset type 2 diabetes mellitus (Acute) Vitals/I&O's: Vital Signs Temp Pulse Resp BP Pulse Ox 97.5 F L 77 18 139/81 H 95 02/19/20 06:51 02/19/20 06:51 02/19/20 06:51 02/19/20 06:51 02/19/20 06:51 Oxygen Delivery Method Room Air Weight: 231 lb Body Mass Index (BMI) 34.1 Intake and Output for Last 24 Hours 02/17/20 02/18/20 02/19/20 23:59 23:59 23:59 Intake Total 1191.66 / 1191.66 753.34 / 753.34 Balance 1191.66 / 1191.66 753.34 / 753.34 Laboratory Results 02/18/20 09:24: Troponin I < 0.015 02/18/20 09:24: Magnesium 2.2 02/18/20 09:24: Hemoglobin A1c 9.3 H 02/18/20 09:24: TSH 2.38 02/18/20 11:32: POC Glucose 172 H 02/18/20 12:40: Troponin I < 0.015 02/18/20 17:29: POC Glucose 171 H 02/19/20 05:35: WBC Pending, RBC Pending, Hgb Pending, Hct Pending, MCV Pending, MCH Pending, MCHC Pending, RDW Std Deviation Pending, RDW Coeff of Leela Pending, Plt Count Pending, Neut % (Auto) Pending, Absolute Neuts (auto) Pending 02/19/20 05:35: Sodium 135 L, Potassium 4.3, Chloride 104, Carbon Dioxide 23.0, Anion Gap 8, BUN 17, Creatinine 0.98, Estim Creat Clear Calc 91.18, Est GFR (MDRD) Af Amer 105, Est GFR (MDRD) Non-Af 87, BUN/Creatinine Ratio 17.4, Glucose 304 H, Calcium 8.7, Total Bilirubin 0.30, AST 37, ALT 81 H, Alkaline Phosphatase 85, Total Protein 7.0, Albumin 3.3, Globulin 3.7, Albumin/Globulin Ratio 0.9, Triglycerides 864 H, Cholesterol 273 H, LDL Cholesterol TNP, VLDL Cholesterol TNP, HDL Cholesterol 26 L Current Medications Acetaminophen (Tylenol) 650 mg PO Q6H PRN PRN PRN Reason: Pain Score 1-10/Temp > 100.7 F Al Hydroxide/Mg Hydroxide (Mylanta Ii) 30 ml PO Q6H PRN PRN PRN Reason: Gastric Burning Albuterol Sulfate (Ventolin Aerosols) 2.5 mg INHALATION Q2H PRN PRN PRN Reason: Dyspnea, wheezing Aspirin (Aspirin, Baby) 81 mg PO DAILY@0800 [facility] Last Admin: 02/19/20 05:54 Dose: 81 mg Documented by: Clopidogrel Bisulfate (Plavix) 75 mg PO DAILY [facility] Last Admin: 02/19/20 05:54 Dose: 75 mg Documented by: Dexamethasone Sodium Phosphate (Decadron) 4 mg IV Q6 [facility] Last Admin: 02/19/20 05:53 Dose: 4 mg Documented by: Dextrose (D50w Syringe) 0 gm IV X1 PRN; Protocol PRN Reason: Hypoglycemia Enoxaparin Sodium (Lovenox) 40 mg SC DAILY [facility] Last Admin: 02/18/20 11:34 Dose: 40 mg Documented by: Famotidine (Pepcid) 20 mg PO BID [facility] Last Admin: 02/18/20 22:14 Dose: 20 mg Documented by: Fenofibrate (Tricor) 145 mg PO DAILY [facility] Gabapentin (Neurontin) 100 mg PO TIDCM [facility] Last Admin: 02/18/20 19:15 Dose: 100 mg Documented by: Glucagon () 1 mg IM .X1 PRN PRN Reason: Hypoglycemia Guaifenesin (Robitussin) 20 ml PO Q4H PRN PRN PRN Reason: COUGH Hydralazine HCl (Apresoline Iv) 5 mg IV Q30M PRN PRN Reason: to maintain BP goals Hydromorphone HCl (Dilaudid Inj) 0.5 mg IV Q4H PRN PRN PRN Reason: Pain Score 6-10/10 Sodium Chloride () 1,000 mls @ 100 mls/hr IV .Q10H [facility] Last Infusion: 02/19/20 06:58 Dose: 100 mls/hr Documented by: Valproic Acid 500 mg/ Dextrose 55 mls @ 50 mls/hr IV Q6 [facility] Last Infusion: 02/19/20 06:58 Dose: Infused Documented by: Insulin Human Lispro (Humalog Kwikpen (Bk)) 0 unit SC [facility]; Protocol Last Admin: 02/19/20 07:00 Dose: Not Given Documented by: Ketorolac Tromethamine (Toradol (Bkc)) 15 mg IV Q8 [facility] Stop: 02/23/20 18:09 Last Admin: 02/19/20 05:53 Dose: 15 mg Documented by: Labetalol HCl (Trandate) 10 - 20 mg IV Q10M PRN PRN PRN Reason: to maintain BP goals Magnesium Hydroxide (Milk Of Magnesia) 30 ml PO DAILY PRN PRN PRN Reason: Constipation Nitroglycerin (Nitrostat) 0.4 mg SUBLINGUAL Q5M PRN PRN Reason: CARDIAC/CHEST PAIN Ondansetron HCl (Zofran) 4 mg IV Q8H PRN PRN PRN Reason: NAUSEA/VOMITING Oxycodone HCl (Oxyir) 5 mg PO Q4H PRN PRN PRN Reason: Pain Score 4-5/10 Prochlorperazine Edisylate (Compazine Iv) 5 mg IV Q4H PRN PRN PRN Reason: Breakthrough Nausea/Vomiting Psyllium Hydrophilic Mucilloid (Metamucil) 1 packet PO DAILY PRN PRN PRN Reason: Constipation Senna/Docusate Sodium (Senokot-S, Maren-Colace) 2 tablet PO BID PRN PRN PRN Reason: Constipation Sodium Chloride () 10 - 40 ml IV UD PRN PRN Reason: SALINE FLUSH Last Admin: 02/19/20 05:52 Dose: 10 ml Documented by: Temazepam (Restoril) 15 mg PO QHS PRN PRN PRN Reason: INSOMNIA Last Admin: 02/18/20 22:29 Dose: 15 mg Documented by: Throat Lozenges (Cepacol Sore Throat Lozenge) 1 lozenge MUCOUS MEM Q2H PRN PRN PRN Reason: SORE THROAT STROKE Vital Signs/Narrative: Vital Signs Temp Pulse Resp BP Pulse Ox 02/19/20 06:51 97.5 F L 77 18 139/81 H 95 02/19/20 04:00 98.2 F 85 18 137/94 H 96 Medical Necessity - Tobacco Use Smoking Status: Current every day smoker Tobacco Use: Cigarettes Assessment/Plan All Active Problems (Last Reviewed 01/14/20 @ 12:41 by Marquita Whittaker) TIA (transient ischemic attack) (Acute) New onset type 2 diabetes mellitus (Acute) Pharyngitis (Acute) URI (upper respiratory infection) (Acute) Lumbar strain (Acute) Glucosuria (Acute) Chest pain (Acute)
[2020-02-19 07:10] LABS: Bedside Glucose 323 mg/dL (70-110)
[2020-02-19] MEDS: Fenofibrate 145 MG Tablet PO (09:54)
[2020-02-19] MEDS: Gabapentin 100 MG Capsule PO ×2 (09:54→11:27)
[2020-02-19] MEDS: Famotidine 20 MG Tablet PO (09:55)
[2020-02-19] MEDS: Enoxaparin 40 MG/0.4 ML Syringe SC (09:55)
--- NOTE | 2020-02-19 10:05 | DCINST_ITS ---
- Discharge Diagnoses Current Active Problems: 1. 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 Chest Pain, non-cardiac 3. Elevated BP without HTN (BP improved, normalized, normally SBP 100-110 at home) 4. Hyperlipidemia 5. Hyperglycemia with confirmed new onset diabetes mellitus type II 6. Tobacco Abuse 7. Obesity You will use the following diet at home:: Calorie/Carbohydrate Controlled (specify 1200, 1400, etc), Cardiac - Please maintain 1800 ADA, cardiac diet. Your food should be the consistency of: Regular Your liquids should be the consistency of: Regular/Thin Discharge Activity: - - Please continue routine activity but avoid anything that exacerbations neck discomfort. Please defer to Neurosurgery for any specific parameters once evaluated. Call your doctor if you observe: Fever of 101 or Higher, Inability to urinate, Inability to have a bowel movement, Shortness of breath, Dizziness, Fainting spells, Chest pain, Uncontrolled pain, - - Recurrent headaches and/or numbness/tingling to you extremities. Instructions: Understanding Neck Problems, Protecting Your Neck: Posture and Body Mechanics, Using a Blood Sugar Log, Long-Term Complications of Diabetes, What Is Type 2 Diabetes?, Oral Therapy for Type 2 Diabetes, Healthy Meals for Diabetes, Diabetes: Understanding Carbohydrates, Eating Out When You Have Diabetes, Exercise to Manage Your Blood Sugar, What Are Migraine and Tension Headaches?, Migraines and Cluster Headaches, Self-Care for Headaches, Why Do You Smoke?, Planning to Quit Smoking, Getting Support for Quitting Smoking, Coping with Smoking Withdrawal, Preventing Migraine Headaches: Triggers, Preventing Migraine Headaches: Medications and Lifestyle Changes Additional Instructions: During the admission you were evaluated for several concurrent processes: (1) Complex Migraine: This was felt likely brought on secondary to your cervical spine disease and recent discomfort. Please complete the medrol dose pack and gabapentin low dose. If you have recurrent migraines we may add additional agents. (2) Cervical spine disease: You have noted degenerative disease and cervical mild compression contributing to your right sided numbness/tingling. Please continue medrol dose pack to completion and plan follow-up with Neurosurgery and arranged. (3) New onset diabetes mellitus type II: YOU are diabetic. Please continue the newly initiated regimen and plan continued close follow-up with your primary care to assure regimen changes, following blood sugar trends and repeat HgbA1c trending. (4) TIA Treatment: We will still treat you as a concurrent transient ischemic attack. You did NOT have a stroke. The symptoms you had are more likely secondary to #1 and #2 as noted above. We will still continue aggressive treatment including continued aspirin, addition of tricor for your cholesterol given statin allergy and new diabetic treatment as noted. Your blood pressure at home per discussions is normally low normal therefore we have agreed to defer lisinopril low dose addition now but if repeat blood pressure testing at your PCP visit is elevated above goal we strongly recommend this regimen be initiated. Your total cholesterol was 273, triglycerides 864, HDL 26. The goal is to have your healthy cholesterol > 40. Avoiding tobacco products, eating healthy as well as regular aerobic exercise can help to increase the HDL. (5) Chest pain: The chest pain you experienced is not from your heart. The stress test is negative and your heart squeezed normally. The court recording monitor you wore showed no problem with the rhythm of your heart. Additionally, the cardiac enzyme series performed remained normal. Sometimes chest pain can come from a problem with the muscles or skeleton and/or associated with straining or doing some strenuous activity you do not normally perform. Generally Aleve or Motrin will help allieviate this discomfort if these medications are appropriate for you to take. Chest pain can also be associated with anxiety and with this you frequently have racing heart, trouble sleeping and irritability. It can also come from gastroesophageal reflux disease or heartburn. People who smoke experience increased heartburn because nicotine decreases the pressure in the lower esophageal sphincter and causes reflux. This type of discomfort is well treated with drinking a large glass of cold water which strips the acid out of the esophagus or taking Mylanta, Maalox or Pepto- Bismol. Other foods to avoid if you have reflux are chocolate, peppermint and calcium containing products such as Tums. Allergies/Adverse Reactions: Allergies Vzoubbf-Seg-Cos Reductase Inhibitor Adverse Reaction (Verified 02/18/20 06:26) painful joints Medications to take at Discharge Ascorbic Acid [Vitamin C] 1,000 mg PO DAILY 02/18/20 Aspirin [Aspir 81] 81 mg PO DAILY 02/18/20 Multivitamin 1 ea PO DAILY 02/18/20 Famotidine [Pepcid] 20 mg PO BID #60 tab 02/19/20 Fenofibrate [Tricor] 145 mg PO DAILYCM #30 tab 02/19/20 Gabapentin [Neurontin] 100 mg PO TIDCM #90 cap 02/19/20 Metformin HCl 500 mg PO BID #60 tab 02/19/20 MethylPREDNISolone DosePak [Medrol DosePak] 4 mg PO UD #1 box 02/19/20 The following prescriptions were given: MethylPREDNISolone DosePak [Medrol DosePak] 4 mg PO UD #1 box Transmission Status: Received by [facility] Metformin HCl 500 mg PO BID #60 tab Transmission Status: Received by [facility] Gabapentin [Neurontin] 100 mg PO TIDCM #90 cap Transmission Status: Received by [facility] Famotidine [Pepcid] 20 mg PO BID #60 tab Transmission Status: Received by [facility] Fenofibrate [Tricor] 145 mg PO DAILYCM #30 tab Transmission Status: Received by [facility] Primary Care Physician: Shira Zuniga DO [Primary Care Provider] - (Follow-up with Dr. Miles within 3- 5 days to review admission. ) Please follow up with your Primary Care Physician in: Follow-up with Dr. Miles within 3-5 days to review admission. Test Results: Test results from this visit will be discussed in further detail at your follow- up appointment, if applicable. Please Follow Up With: Ruben Jose When: Follow-up first open visit at [facility]. Proposed Discharge Date: 02/19/20
--- NOTE | 2020-02-19 10:29 | DS.PCM_ITS ---
Discharge Date and Diagnosis - Problem List Patient Problems: Active and Suspected Problems (Last Reviewed 01/14/20 @ 12:41 by Marquita Whittaker) TIA (transient ischemic attack) (Acute) New onset type 2 diabetes mellitus (Acute) Date of Admission: 02/18/20 Date of Discharge: 02/19/20 - Primary Discharge Diagnosis Acute Problems: 1. 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 Chest Pain, non-cardiac 3. Elevated BP without HTN (BP improved, normalized, normally SBP 100-110 at home) 4. Hyperlipidemia 5. Hyperglycemia with confirmed new onset diabetes mellitus type II 6. Tobacco Abuse 7. Obesity - Secondary Discharge Diagnosis Chronic Problems: Chronic Problems (Last Reviewed 01/14/20 @ 12:41 by Marquita Whittaker) HTN (hypertension) (Chronic) HLD (hyperlipidemia) (Chronic) Obesity (BMI 30.0-34.9) (Chronic) Tobacco use (Chronic) Nonischemic cardiomyopathy (Chronic) Hospital Course and Treatment Imaging Results: 02/19/20 05:55 Nuclear Stress Test - Chemical [NM] AM (NON MEDS) Neurology SOC Operations: None Procedures: EKG, Stress test Summary of Care Provided: The patient is a 50 y/o M w/ PMHx: Tobacco use, Obesity, HTN, HLD who presented to the [facility] ED on 02/18/20 with history of 3 days of right lateral and posterior head headache described as a throbbing, worse with movement with blurry vision, right-sided discomfort and eye changes greater ongoing rated 7-8 out of 10 in severity within onset at approximately 2:30 AM upon day of ED presentation awakening him from sleep midsternal chest discomfort described as a pressure like sensation rated 8 out of 10 in severity with improvement following ED evaluation and and interventions to 3 out of 10 in severity with resolution upon evaluation with at that time also concurrent right upper extremity as well as right lower extremity and bilateral lower face and perioral paresthesias with im provement of right lower extremity and right upper extremity paresthesias limited to hand only upon ED presentation. Per discussion with patient spouse he had similar presentation although less severe approximately 10 years prior and had stroke evaluation at that time with eventual diagnosis of complex migraine. He denies any light or sound sensitivity at this time. Work-up in the ED included T 98, heart rate 103, BP 168/82, respiratory rate 18, 97% on room air, CBC with WC 12.2, hemoglobin 16.7, platelet 198 with no evidence of left shift, d-dimer 0.47, BMP with glucose 190 with patient noting that he had a Mountain Dew prior to presentation, troponin less than 0.015, EKG with sinus rhythm with no acute evidence of ischemia, chest x-ray with no acute cardiopulmonary findings, CT head with with no acute intracranial findings with noted mild atherosclerotic calcification of the cavernous carotid arteries. In the ED patient administered Tylenol, aspirin, morphine 4 mg IV x2 and Zofran therapy. Patient with resolution of chest discomfort following morphine while in the ED. Patient admitted to the PCU, MRI brain obtained and noted to be unremarkable with no obvious acute infarct therefore eventually NIH stroke scale was discontinued, MRA of the head and neck unremarkable, cervical MRI with noted mild spondylitic cord compression at C4-C5 and C5-C6 associated with accelerated spinal degenerative disease. Given initial concerns of possible TIA/CVA, patient maintained on aspirin, initial addition of Plavix, FLP notable and with statin allergy placed on TriCor given elevated triglycerides with hemoglobin A1c obtained given hyperglycemia upon admission with new onset diabetes (hemoglobin A1c 9.3%) therefore ADA diet initiated with education and teaching and planned metformin initiation upon discharge. Given patient ongoing headache and history of prior complex migraine he was initiated on regimen of scheduled Depacon, Decadron, gabapentin low-dose as well as scheduled low-dose Toradol with clinical improvement therefore transition to Medrol Dosepak and low-dose gabapentin at discharge. SOC neurology was consulted and agreed with treatments initiated and agreed that likely cervical neck findings exacerbated in late onset of possible complex migraine. [facility] neurology agreed with continued Medrol dose pack, gabapentin, treatment with aspirin, addition of TriCor and new onset diabetic regimen as well as treatment with planned outpatient neurosurgery evaluation for cervical spine findings. Patient discharged to home following stress testing on 02/19/2020 given conc urrent chest pain complaints noted to be unremarkable for inducible ischemia with stable appearing EKG repeats and serial cardiac enzymes remained unremarkable. In addition to neurosurgery patient to follow-up with primary care physician within 3 to 5 days. DAY OF DISCHARGE PROGRESS NOTE: Subjective: Patient without acute event overnight per self and nursing report. Patient noted resolution of prior paresthesias and chest discomfort but had mild ongoing headache similar to prior although improved since initial ED presentation especially with migraine regimen initiation. Patient denies fever, chills, nausea, emesis, abdominal pain, chest pain or dyspnea. Patient agreeable to discharge to home. Patient will be discharged with follow-up with primary care physician within 3-5 days in addition to follow-up with neurosurgery. Objective: T 97.5, heart rate 77, BP 135/81, respiratory rate 18, 95% on room air. Physical Examination: General: awake, alert, oriented x 3 and cooperative, seated upright in the PCU bed, NAD. Skin: normal color, turgor, no icterus, cyanosis. HEENT: AT/NC, EOMI, PERRLA, MMM. Lungs: CTA bilaterally, moderate effort, mild decrease BL bases, no rales, ronch i or wheezing; Heart: Regular rate and rhythm; no gallop, rub audible. Abdomen: soft, obese, NTTP, ND, normal BS. Extremities: no cyanosis, clubbing, or edema. Neurological: patient awake, alert, oriented x 3; cognitive function appears intact upon questioning,; pupils equally reactive to light and accomodation; cranial nerves II-XII grossly normal, moving all 4 extremities, strength appropriate. Psychiatric: affect appears mildly overloaded with discussions about new onset diabetes, treatment of complex migraine and cervical spine findings but seems to understand the importance of medical treatment, no acute evidence of depressive or anxiety feelings. Assessment and Plan: Please see hospital summary above. Patient Problems: Active and Suspected Problems (Last Reviewed 01/14/20 @ 12:41 by Marquita Whittaker) TIA (transient ischemic attack) (Acute) New onset type 2 diabetes mellitus (Acute) - Physical Exam Vitals/I&O's: Vital Signs Temp Pulse Resp BP Pulse Ox 97.5 F L 71 18 139/81 H 95 02/19/20 06:51 02/19/20 07:00 02/19/20 06:51 02/19/20 06:51 02/19/20 06:51 Oxygen Delivery Method Room Air Weight: 231 lb Body Mass Index (BMI) 34.1 Intake and Output for Last 24 Hours 02/17/20 02/18/20 02/19/20 23:59 23:59 23:59 Intake Total 1191.66 / 1191.66 765.01 / 765.01 Balance 1191.66 / 1191.66 765.01 / 765.01 Laboratory Results 02/18/20 11:32: POC Glucose 172 H 02/18/20 12:40: Troponin I < 0.015 02/18/20 17:29: POC Glucose 171 H 02/19/20 05:35: WBC 9.6, RBC 5.17, Hgb 15.7, Hct 47.5, MCV 91.9, MCH 30.4, MCHC 33.1 D, RDW Std Deviation 41.1, RDW Coeff of Leela 12.3, Plt Count 182, MPV 11.3, Immature Gran % (Auto) 0.500, Neut % (Auto) 83.6 H, Lymph % (Auto) 13.5 L, Lamb % (Auto) 2.0, Eos % (Auto) 0.1, Baso % (Auto) 0.3, Absolute Neuts (auto) 8.0 H, Absolute Lymphs (auto) 1.30, Nucleated RBC % 0 02/19/20 05:35: Sodium 135 L, Potassium 4.3, Chloride 104, Carbon Dioxide 23.0, Anion Gap 8, BUN 17, Creatinine 0.98, Estim Creat Clear Calc 91.18, Est GFR (MDRD) Af Amer 105, Est GFR (MDRD) Non-Af 87, BUN/Creatinine Ratio 17.4, Glucose 304 H, Calcium 8.7, Total Bilirubin 0.30, AST 37, ALT 81 H, Alkaline Phosphatase 85, Total Protein 7.0, Albumin 3.3, Globulin 3.7, Albumin/Globulin Ratio 0.9, Triglycerides 864 H, Cholesterol 273 H, LDL Cholesterol TNP, VLDL Cholesterol TNP, HDL Cholesterol 26 L 02/19/20 06:49: POC Glucose 323 H Current Medications Acetaminophen (Tylenol) 650 mg PO Q6H PRN PRN PRN Reason: Pain Score 1-10/Temp > 100.7 F Al Hydroxide/Mg Hydroxide (Mylanta Ii) 30 ml PO Q6H PRN PRN PRN Reason: Gastric Burning Albuterol Sulfate (Ventolin Aerosols) 2.5 mg INHALATION Q2H PRN PRN PRN Reason: Dyspnea, wheezing Aspirin (Aspirin, Baby) 81 mg PO DAILY@0800 [facility] Last Admin: 02/19/20 05:54 Dose: 81 mg Documented by: Clopidogrel Bisulfate (Plavix) 75 mg PO DAILY [facility] Last Admin: 02/19/20 05:54 Dose: 75 mg Documented by: Dexamethasone Sodium Phosphate (Decadron) 4 mg IV Q6 [facility] Last Admin: 02/19/20 05:53 Dose: 4 mg Documented by: Dextrose (D50w Syringe) 0 gm IV X1 PRN; Protocol PRN Reason: Hypoglycemia Enoxaparin Sodium (Lovenox) 40 mg SC DAILY [facility] Last Admin: 02/19/20 09:55 Dose: 40 mg Documented by: Famotidine (Pepcid) 20 mg PO BID [facility] Last Admin: 02/19/20 09:55 Dose: 20 mg Documented by: Fenofibrate (Tricor) 145 mg PO DAILYCM [facility] Last Admin: 02/19/20 09:54 Dose: 145 mg Documented by: Gabapentin (Neurontin) 100 mg PO TIDCM [facility] Last Admin: 02/19/20 09:54 Dose: 100 mg Documented by: Glucagon () 1 mg IM .X1 PRN PRN Reason: Hypoglycemia Guaifenesin (Robitussin) 20 ml PO Q4H PRN PRN PRN Reason: COUGH Hydralazine HCl (Apresoline Iv) 5 mg IV Q30M PRN PRN Reason: to maintain BP goals Hydromorphone HCl (Dilaudid Inj) 0.5 mg IV Q4H PRN PRN PRN Reason: Pain Score 6-10/10 Sodium Chloride () 1,000 mls @ 100 mls/hr IV .Q10H [facility] [place] Last Infusion: 02/19/20 09:54 Dose: 100 mls/hr Documented by: Valproic Acid 500 mg/ Dextrose 55 mls @ 50 mls/hr IV Q6 [facility] [place] Last Infusion: 02/19/20 06:58 Dose: Infused Documented by: Insulin Human Lispro (Humalog Kwikpen (Bkc)) 0 unit SC ACHS [facility]; Protocol Last Admin: 02/19/20 07:00 Dose: Not Given Documented by: Ketorolac Tromethamine (Toradol (Bkc)) 15 mg IV Q8 [facility] Stop: 02/23/20 18:09 Last Admin: 02/19/20 05:53 Dose: 15 mg Documented by: Labetalol HCl (Trandate) 10 - 20 mg IV Q10M PRN PRN PRN Reason: to maintain BP goals Magnesium Hydroxide (Milk Of Magnesia) 30 ml PO DAILY PRN PRN PRN Reason: Constipation Nitroglycerin (Nitrostat) 0.4 mg SUBLINGUAL Q5M PRN PRN Reason: CARDIAC/CHEST PAIN Ondansetron HCl (Zofran) 4 mg IV Q8H PRN PRN PRN Reason: NAUSEA/VOMITING Oxycodone HCl (Oxyir) 5 mg PO Q4H PRN PRN PRN Reason: Pain Score 4-5/10 Prochlorperazine Edisylate (Compazine Iv) 5 mg IV Q4H PRN PRN PRN Reason: Breakthrough Nausea/Vomiting Psyllium Hydrophilic Mucilloid (Metamucil) 1 packet PO DAILY PRN PRN PRN Reason: Constipation Senna/Docusate Sodium (Senokot-S, Maren-Colace) 2 tablet PO BID PRN PRN PRN Reason: Constipation Sodium Chloride () 10 - 40 ml IV UD PRN PRN Reason: SALINE FLUSH Last Admin: 02/19/20 05:52 Dose: 10 ml Documented by: Temazepam (Restoril) 15 mg PO QHS PRN PRN PRN Reason: INSOMNIA Last Admin: 02/18/20 22:29 Dose: 15 mg Documented by: Throat Lozenges (Cepacol Sore Throat Lozenge) 1 lozenge MUCOUS MEM Q2H PRN PRN PRN Reason: SORE THROAT Discharge Activity: - - Please continue routine activity but avoid anything that exacerbations neck discomfort. Please defer to Neurosurgery for any specific parameters once evaluated. Call your doctor if you observe: Fever of 101 or Higher, Inability to urinate, Inability to have a bowel movement, Shortness of breath, Dizziness, Fainting spells, Chest pain, Uncontrolled pain, - - Recurrent headaches and/or numbness/tingling to you extremities. Home Medications: Medications to take at Discharge Ascorbic Acid [Vitamin C] 1,000 mg PO DAILY 02/18/20 Aspirin [Aspir 81] 81 mg PO DAILY 02/18/20 Multivitamin 1 ea PO DAILY 02/18/20 Famotidine [Pepcid] 20 mg PO BID #60 tab 02/19/20 Fenofibrate [Tricor] 145 mg PO DAILYCM #30 tab 02/19/20 Gabapentin [Neurontin] 100 mg PO TIDCM #90 cap 02/19/20 Metformin HCl 500 mg PO BID #60 tab 02/19/20 MethylPREDNISolone DosePak [Medrol DosePak] 4 mg PO UD #1 box 02/19/20 Following Prescrptions Were Given to Patient: MethylPREDNISolone DosePak [Medrol DosePak] 4 mg PO UD #1 box Transmission Status: Received by [facility] Metformin HCl 500 mg PO BID #60 tab Transmission Status: Received by [facility] Gabapentin [Neurontin] 100 mg PO TIDCM #90 cap Transmission Status: Received by [facility] Famotidine [Pepcid] 20 mg PO BID #60 tab Transmission Status: Received by [facility] Fenofibrate [Tricor] 145 mg PO DAILYCM #30 tab Transmission Status: Received by [facility] Primary Care Physician: Shira Zuniga DO [Primary Care Provider] - (Follow-up with Dr. Miles within 3- 5 days to review admission. ) Please follow up with your Primary Care Physician in: Follow-up with Dr. Miles within 3-5 days to review admission. Please Follow Up With: Ruben Jose When: Follow-up first open visit at [facility]. Patient Instructions: Understanding Neck Problems, Protecting Your Neck: Posture and Body Mechanics, Using a Blood Sugar Log, Long-Term Complications of Diabetes, What Is Type 2 Diabetes?, Oral Therapy for Type 2 Diabetes, Healthy Meals for Diabetes, Diabetes: Understanding Carbohydrates, Eating Out When You Have Diabetes, Exercise to Manage Your Blood Sugar, What Are Migraine and Tension Headaches?, Migraines and Cluster Headaches, Self-Care for Headaches, Why Do You Smoke?, Planning to Quit Smoking, Getting Support for Quitting Smoking, Coping with Smoking Withdrawal, Preventing Migraine Headaches: Triggers, Preventing Migraine Headaches: Medications and Lifestyle Changes Disposition: Home Minutes spent on discharge:: 35 Patient Condition:: Fair Medical Necessity - Tobacco Use Smoking Status: Current every day smoker Tobacco Use: Cigarettes Meaningful Use Info Meaningful Use Diagnoses (Choose all that apply): None applicable OBSV E&M: 52672 Observation care discharge
--- NOTE | 2020-02-19 10:50 | STRESSREP ---
Stress Test Report Date: 02/19/2020 Procedure: Pharmacologic stress nuclear imaging study Indications: [Chest pain] Consent: Per the patient Procedure: The patient underwent pharmacologic (Regadenoson) evaluation with a peak heart rate of 120 beats per minute (70%predicted maximal heart rate) and a peak blood pressure of 140/94 mmHg. The baseline ECG demonstrated normal sinus rhythm. EKG during lexiscan infusion revealed no significant ischemic changes. EKG post infusion revealed no significant ischemic changes [There were no cardiac dysrhythmias pretest, during pharmacologic infusion, or recovery]. [There was no complaint of chest discomfort during pharmacologic infusion or recovery]. The examination was discontinued secondary to completion of protocol. Impression: 1. Lexiscan stress test test is negative for Lexiscan infusion induced EKG changes of ischemia. 2. Lexiscan stress test test is negative for Lexiscan infusion induced chest pain. 3. Results of the nuclear portion of the test is as below Myocardial perfusion imaging study: Technique: The patient was injected with 14.5 millicuries of technetium 99m Cardiolite and subsequently rest SPECT Cardiolite nuclear imaging was obtained in the horizontal long, vertical long, and short axis views. The patient underwent pharmacologic (Regadenoson) evaluation. Please see above for details. The patient was injected with 44 millicuries of technetium 99m Cardiolite and subsequently stress SPECT Cardiolite nuclear imaging was obtained in the horizontal long, vertical long, and short axis views. A gated Cardiolite study at peak stress was obtained. Interpretation: Rest and stress SPECT Cardiolite nuclear imaging status post realignment, normalization, and attenuation correction demonstrate no evidence of significant ischemia or infarction. Gated images reveal no significant regional wall motion abnormalities. The reported LVEF is 59 %. Impression: 1. There is no evidence of significant ischemia or infarction. 2. Estimated ejection fraction is 59%. This note was generated with [employer] software. It may contain incorrect words, spelling, and punctuation that were not noted in checking the note before signing.
[2020-02-19 10:58] VITALS: BP 135/81; PULSE 77; RESP 18; TEMP 36.4; O2SAT 95
[2020-02-19 11:00] VITALS: PULSE 99
[2020-02-19] MEDS: Insulin Lispro 100 UNIT/ML INSULN.PEN SC (11:19)
[2020-02-19 11:46] LABS: Bedside Glucose 261 mg/dL (70-110)
[2020-02-20 09:40] LABS: Bedside Glucose 289 mg/dL (70-110)
[2020-02-20 09:40] LABS: Bedside Glucose 302 mg/dL (70-110)
== END 2020-02-19 12:55 | disposition home or self-care (01) ==
LOC: ED 06:51 → PCU 08:10
PROVIDERS: Admitting Provider Family Medicine; Emergency Provider Emergency Medicine; PCP Family Medicine; Visit Provider Family Medicine
DX: G45.9 Transient cerebral ischemic attack, unspecified (principal); R07.89 Other chest pain; E78.5 Hyperlipidemia, unspecified; E11.65 Type 2 diabetes mellitus with hyperglycemia; E66.9 Obesity, unspecified; R00.0 Tachycardia, unspecified; I42.8 Other cardiomyopathies; F17.210 Nicotine dependence, cigarettes, uncomplicated; Z79.82 Long term (current) use of aspirin; Z85.828 Personal history of other malignant neoplasm of skin; Z82.49 Family history of ischemic heart disease and other diseases of the circulatory system; Z68.38 Body mass index [BMI] 38.0-38.9, adult
CPT/HCPCS: 36415; 70450; 70544; 70547; 70551; 71045; 72141; 78452; 80048; 80053; 80061; 82962; 83036; 83735; 84443; 84484; 85025; 85379; 92523; 93005; 93017; 93306; 94762; 96361; 96365; 96366; 96372; 96375; 96376; 97161; 97802; 99218; 99285; 99406; A9500; J7030; Q9957; A4216; C8929; G0378; J2405; J2785

== ENCOUNTER 2020-04-18 07:30 | Outpatient (RCR) | payer OTHER, SELFPAY ==
[2020-02-18 16:21] VITALS: BMI 34.1
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
--- NOTE | 2020-07-04 18:04 | HP.PT.NRP ---
LUPE ROGERS was seen in my office for initial evaluation on 03/23/20. The following Plan of Care was established for this patient: Initial Frequency: 2-3x /Week Initial Duration: 4-6 Weeks Patient/Client Instruction: Educate patient on: Condition, Plan of Care, Risk Factors, Benefits of Fitness Program For the Purpose of:: To improve self management Therapeutic Exercise to Include: Strength training, Body mechanics, Postural training, Flexibilty training, Neuromotor development, Scapular Strength/Stabilization For the Purpose of:: To decrease pain, To increase ROM, To improve muscle performance and motor function, To increase tolerance to activity/condition/position, To improve ability of physical actions for home/community/work/leisure Manual Therapy Techniques to Include: Functional dry needling For the Purpose of:: To decrease pain, To decrease swelling/inflammation, To improve nutrient delivery to tissue TENS: Yes IF ES: Yes Cryotherapy (ice pack, ice massage): Yes Thermo therapy (hot pack): Yes Ultrasound (thermal/non thermal): Yes For the Purpose of:: To decrease pain, To improve nutrient delivery to tissue This patient was last seen in our office 04/18/20. Pertinent comments regarding their Physical therapy will appear below: This patient has not returned to Physical Therapy and is appropriate to return to MD for further follow-up as needed. At this point I will be discontinuing this patient from physical therapy. I would be happy to see this patient again in the future if found appropriate by the physician. Thank you! Diane Rosales, PT, Cert MDT
== END 2020-04-18 19:00 | disposition home or self-care (01) ==
LOC: PT 07:30
PROVIDERS: PCP Family Medicine
DX: M50.10 Cervical disc disorder with radiculopathy, unspecified cervical region (principal)
CPT/HCPCS: 97012; 97035; 97110; 97112; 97162; 97530

== ENCOUNTER 2020-11-18 13:58 | Outpatient (RCR) | payer OTHER, SELFPAY ==
[2020-02-18 16:21] VITALS: BMI 34.1
[2020-11-18] MEDS: COVID-19 VACC, MRNA(PFIZER)/PF 30 MCG/0.3 ML SYRINGE IM (16:08)
[2020-12-09] MEDS: COVID-19 VACC, MRNA(PFIZER)/PF 30 MCG/0.3 ML SYRINGE IM (15:56)
== END 2020-11-18 23:59 ==
LOC: IMMUN 13:58
PROVIDERS: PCP Family Medicine; Visit Provider Family Medicine
DX: Z23 Encounter for immunization (principal)
CPT/HCPCS: 0001A; 0002A; 91300

== ENCOUNTER → 2021-05-29 09:29 | Outpatient (CLI) | payer OTHER, SELFPAY ==
[2021-05-29 09:47] LABS: Absolute Lymphocyte Count 2.59 X10^3/uL (0.83-4.51); Absolute Neutrophil Count 6.4 X10^3/uL (2.0-7.7); Basophil# 0.07 X10^3/uL; Basophil% 0.7 % (0-1); Eosinophil# 0.46 X10^3/uL; Eosinophils% 4.5 % (0-5); Hematocrit 47.7 % (40-54); Hemoglobin 15.9 g/dL (13.0-16.5); Lymphocyte # 2.59 X10^3/ul (0.83-4.51); Lymphocyte % 25.4 % (19-41); Mean Corp Hgb Conc 33.3 g/dL (32-36); Mean Corpuscular Hgb 30.9 pg (27.0-32.0); Mean Corpuscular Volume 92.6 fL (80-94); Mean Platelet Vol. 10.7 fl (6.2-12.0); Monocyte# 0.66 X10^3/uL; Monocyte% 6.5 % (0-10); NRBC Flagged by Analyzer 0 % (0-5); Neutrophil # 6.38 X10^3/uL (2.7-7.7); Neutrophil % 62.6 % (47-70); Platelet Count 193 K/mm3 (150-450); RBC Distribution Width CV 13.1 % (11.6-14.6); RBC Distribution Width SD 44.4 fl (35.1-43.9); Red Blood Count 5.15 M/mm3 (4.6-6.2); White Blood Count 10.2 K/mm3 (4.4-11.0)
[2021-05-29 10:28] LABS: Hemoglobin A1c 6.4 % (3.8-5.6)
[2021-05-29 10:38] LABS: ALB/GLOB Ratio 1.1 RATIO (0.9-2.4); AST(SGOT) 26 U/L (15-37); Alanine Aminotransfer ALT/SGPT 47 U/L (16-61); Albumin, Serum 3.7 g/dL (3.2-5.0); Alkaline Phosphatase 61 U/L (45-117); Anion Gap 9 (5-15); BUN 10 mg/dL (7-18); BUN/Creat Ratio 10.1 RATIO (10-20); Calcium,Total 8.8 mg/dL (8.5-10.1); Chloride 110 mmol/L (98-107); Cholesterol 161 mg/dL (200); Creatinine, Serum 0.99 mg/dL (0.70-1.30); EST Glomerular Filtration Rate 85 mL/min (>60); Est Glom Filt Rate - Afr Amer 103 mL/min (>60); Globulin 3.3 g/dL (2.2-4.2); Glucose 125 mg/dL (74-106); High Density Lipoprotein 37 mg/dL; PSA,Total - Annual Screen 0.39 ng/mL (0.00-4.00); Potassium 4.2 mmol/L (3.5-5.1); Sodium Level 142 mmol/L (136-145); Triglycerides 131 mg/dL; Very Low Density Lipoprotein 26 mg/dL (5-40)
[2021-05-29 11:34] LABS: Microalbumin,Random Urine 7.2 mg/L (NO RANGE EST.); Microalbumin:Creatinine Ratio 5.9 mg/g CRE (<30 mg/g CRE)
== END ==
PROVIDERS: PCP Family Medicine; Referring Provider Family Medicine; Visit Provider Family Medicine
DX: Z00.00 Encounter for general adult medical examination without abnormal findings (principal); E11.65 Type 2 diabetes mellitus with hyperglycemia; Z12.5 Encounter for screening for malignant neoplasm of prostate
CPT/HCPCS: 36415; 80053; 80061; 82043; 82570; 83036; 84153; 85025; G0103

== ENCOUNTER 2021-09-20 13:34 | Outpatient (CLI) | payer OTHER, SELFPAY | END 2021-09-20 23:59 | disposition short-term general hospital (02) | LOC: LABSPEC 09-21 07:51 | PROVIDERS: PCP Family Medicine; Visit Provider Family Medicine | DX: R06.02 Shortness of breath (principal); R05.9 Cough, unspecified; R09.81 Nasal congestion; J02.9 Acute pharyngitis, unspecified; R53.83 Other fatigue; R52 Pain, unspecified | CPT/HCPCS: 87635; U0003; U0005 ==

== ENCOUNTER 2021-11-13 10:41 | Outpatient (CLI) | payer OTHER, SELFPAY ==
--- NOTE | 2021-11-13 11:45 | MRI_ITS ---
STUDY: MRI RIGHT KNEE REASON FOR EXAM: Anterior right knee pain inferior to the patella. TECHNIQUE: Standardized fat and water weighted pulse sequences were obtained in all 3 orthogonal planes. COMPARISON: Radiographs 02/01/2021, MRI images 07/09/2015. FINDINGS: Normal medial meniscus. Normal hyaline cartilage of the medial femorotibial compartment. Normal medial femoral condyle and tibial plateau. Normal medial collateral ligamentous complex (MCL). Normal distal semimembranosus, gracilis and semitendinosus tendons. Normal lateral meniscus. Normal hyaline cartilage of the lateral femorotibial compartment. Normal lateral femoral condyle and tibial plateau. Normal proximal tibiofibular articulation. Normal lateral collateral (fibular) ligament. Normal popliteus tendon. Normal biceps femoris tendon. Normal anterior cruciate ligament (ACL). Normal posterior cruciate ligament (PCL). Normal congruent patellofemoral articulation. Normal hyaline cartilage of the patellofemoral compartment. Normal medial and lateral patellar retinaculum. Normal visualized quadriceps tendon. Normal patellar tendon. Normal Hoffa''s fat pad. There is a small joint effusion. There is a thin medial patellar plica. There is mild edema in the anterior subcutis adipose space. The otherwise visualized osseous structures are unremarkable. MRI/Lower Ext Joint Only (Routine) IMPRESSION: Small joint effusion. No demonstrated meniscal or ligamentous injury. Electronically Signed: Dennis Gomez MD at 13:33 EDT ,
== END 2021-11-13 23:59 | disposition home or self-care (01) ==
LOC: MRI 10:43
PROVIDERS: PCP Family Medicine; Referring Provider Physician Assistant; Visit Provider Physician Assistant
DX: M23.91 Unspecified internal derangement of right knee (principal); M25.561 Pain in right knee
CPT/HCPCS: 73721

== ENCOUNTER 2021-12-20 10:30 | Outpatient (RCR) | payer OTHER, SELFPAY ==
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
== END 2021-12-20 19:00 | disposition home or self-care (01) ==
LOC: PT 10:30
PROVIDERS: PCP Family Medicine; Referring Provider Physician Assistant; Visit Provider Physician Assistant
DX: M25.561 Pain in right knee (principal); M79.4 Hypertrophy of (infrapatellar) fat pad
CPT/HCPCS: 97110; 97161

== ENCOUNTER 2022-02-01 14:58 | Emergency (ER) | payer OTHER, SELFPAY ==
[2022-02-01 14:59] VITALS: BP 150/92; PULSE 93; RESP 18; TEMP 36.8; O2SAT 95; BMI 34.4
--- NOTE | 2022-02-01 15:27 | ED.VIS.GI ---
HPI HPI - GI History of Present Illness Chief Complaint: Abd Pain Informant: patient Abdominal Pain/Flank Pain Onset: Days (2-3) Context: Gradual Onset Timing: Waxes and wanes Quality: Aching and Sharp Location: LLQ Worsened by: Movement (Bending forward) Relieved by: Nothing Nausea/Vomiting/Emesis GI Symptom: Negative for Nausea and Vomiting Diarrhea/Melena/Hematochezia GI Symptom: Positive for Hematochezia; Negative for Diarrhea and Melena Onset: Today Episodes: 1 Narrative Narrative: Patient presents with left lower quadrant abdominal pain that has been getting worse over the past 2 to 3 days. Patient states is a constant dull pain but is sharp at times. Patient states it waxes and wanes at times. Patient states it is mainly in the left lower quadrant. Patient states it occasionally radiates into the suprapubic area. Patient states it is worse whenever he bends forward. Patient denies any nausea or vomiting. Patient states he had 1 episode of hematochezia today but states all of his other bowel movements today have not had any blood. Patient denies any urinary complaints. PFSH [facility] Medical History Chest pain Exposure to COVID-19 virus Glucosuria HLD (hyperlipidemia) HTN (hypertension) Lumbar strain New onset type 2 diabetes mellitus Nonischemic cardiomyopathy Obesity (BMI 30.0-34.9) Pharyngitis TIA (transient ischemic attack) Tobacco use URI (upper respiratory infection) Home Medications ascorbic acid (vitamin C) 1,000 mg PO DAILY 02/18/20 [History Last Taken 02/17/20 09:00] aspirin 81 mg PO DAILY 02/18/20 [History Last Taken 02/17/20 09:00] multivitamin 1 ea PO DAILY 02/18/20 [History Last Taken 02/17/20 09:00] fenofibrate nanocrystallized 145 mg tablet ea PO 11/20/21 [History Last Taken Unknown] glipizide 10 mg tablet, extended release 24 hr ea PO 11/20/21 [History Last Taken Unknown] meloxicam 15 mg tablet 15 mg PO DAILY #30 tab 11/20/21 [Rx Last Taken Unknown] ciprofloxacin HCl 500 mg PO BID #20 tablet 02/01/22 [Rx Last Taken Unknown] metronidazole 500 mg PO Q6H #40 tab 02/01/22 [Rx Last Taken Unknown] Allergy/AdvReac Type Severity Reaction Status Date / Time [id number] Reductase AdvReac painful Verified 02/01/22 14:59 Inhibitor joints [Ltzzpvk-[id number]-Wjq Reductase Inhibitor] Social History Smoking Status: Current every day smoker tobacco type: cigarettes alcohol intake: current Alcohol type: beer ROS ROS ED Constitutional Constitutional ED: Denies chills or fever(s) Eyes Eyes: Denies blurry vision or change in vision ENT ENT ED: Denies rhinorrhea or sore throat Cardiovascular Cardiovascular: Denies chest pain or palpitations Respiratory/Chest Respiratory/Chest: Denies cough or dyspnea Gastrointestinal Gastrointestinal: Reports abdominal pain; Denies nausea or vomiting Genitourinary Genitourinary ED: Denies dysuria or hematuria Musculoskeletal Musculoskeletal: Denies back pain or neck pain Integumentary Denies abscess or rash Neurologic Neurologic: Denies headache(s) or weakness Allergic/Immunologic Allergic/Immunologic ED: Denies mouth swelling or urticaria EXAM Physical Exam Const Vital Signs: 02/01/22 14:59 02/01/22 16:59 02/01/22 18:00 Temperature 98.3 F Temperature Source Temporal Pulse Rate 93 72 78 Respiratory Rate 18 14 14 Blood Pressure 150/92 H 136/76 H 134/64 H Blood Pressure Mean 111 96 87 Pulse Ox 95 98 98 Oxygen Delivery Method Room Air Room Air Room Air Positive well nourished and well developed General Appearance ED: well developed and NAD HEENT Reports moist mucous membranes Neck supple and no JVD Resp normal respiratory effort and clear to auscultation bilaterally Cardio regular rate, regular rhythm and no murmurs GI normal to inspection, nondistended, normoactive bowel sounds Auscultation: normoactive bowel sounds Palpation: soft and tender LLQ; Negative for guarding or rebound tenderness present Extremity normal to inspection General Extremety ED: Negative for edema or tenderness General Extremity: Negative for edema Neuro oriented x3, CN's II-XII intact bilaterally and no sensory deficits noted Sensorium / Orientation: alert Motor Exam: strength 5/5 throughout Psych mental status grossly normal Skin no rashes or lesions noted MDM MDM MDM Narrative Medical decision making narrative: Patient was given IV fluids, morphine, and Zofran. CBC shows a mild leukocytosis of 15.5. Comprehensive metabolic profile was essentially within normal limits. Urinalysis does not show any evidence of urinary tract infection or hematuria. CT scan of the abdomen pelvis was obtained. There is distal descending diverticulitis noted. There is no evidence of any abscess or perforation. This was interpreted by the radiologist and reviewed by myself. Patient was given a dose of Cipro and Flagyl here. Patient was given prescriptions for Cipro and Flagyl. Patient was instructed to follow-up with his primary care physician in 5 to 7 days. Patient understood and was agreeable with the plan. All questions were answered. Lab Data Attestation: I reviewed the patient's lab results. Labs: Laboratory Results - last 24 hr 02/01/22 02/01/22 02/01/22 15:45 15:45 16:20 WBC 15.5 H RBC 5.27 Hgb 16.2 Hct 48.3 MCV 91.7 MCH 30.7 MCHC 33.5 RDW Std Deviation 42.5 RDW Coeff of Leela 12.7 Plt Count 202 MPV 11.2 Immature Gran % (Auto) 0.500 Neut % (Auto) 68.9 Lymph % (Auto) 17.4 L Dooly % (Auto) 9.6 Eos % (Auto) 3.0 Baso % (Auto) 0.6 Absolute Neuts (auto) 10.7 H Absolute Lymphs (auto) 2.70 Nucleated RBC % 0 Sodium 140 Potassium 3.6 Chloride 108 H Carbon Dioxide 25.0 Anion Gap 7 BUN 15 Creatinine 0.90 Estim Creat Clear Calc 101.39 Est GFR (MDRD) Af Amer 114 Est GFR (MDRD) Non-Af 94 BUN/Creatinine Ratio 16.6 Glucose 113 H Calcium 9.7 Total Bilirubin 0.30 AST 17 ALT 38 Alkaline Phosphatase 64 Total Protein 7.5 Albumin 4.0 Globulin 3.5 Albumin/Globulin Ratio 1.1 Urine Color Yellow Urine Clarity Clear Urine pH 5.0 Ur Specific Humphreys 1.025 Urine Protein Negative Urine Glucose (UA) Normal Urine Ketones Negative Urine Occult Blood Negative Urine Nitrite Negative Urine Bilirubin Negative Urine Urobilinogen Normal Ur Leukocyte Esterase Negative Urine RBC 0 SEEN Urine WBC 0 SEEN Ur Squamous Epith Cells 0 SEEN Urine Bacteria 0 SEEN Urine Mucus 0 SEEN Radiography Diagnostic Testing: Clinical Impression(s) from Imaging Studies Abdomen/Pelvis CT 02/01/22 15:33 IMPRESSION: 1. Distal descending colon acute diverticulitis. No pneumoperitoneum or focal fluid collection. 2. Annular wall thickening of the proximal sigmoid colon without adjacent stranding could be artifact from nondistention versus neoplasm versus muscular hyperplasia versus subclinical colitis. Follow-up colonoscopy recommended, if not recently performed. Electronically Signed: Tank Contreras MD ([place]) at 18:08 EDT , Discharge Plan Triage Chief Complaint: Abd Pain ED Provider: Mani Shaw Dx/Rx/DC Orders Clinical Impression: Diverticulitis large intestine, Abdominal pain, acute, left lower quadrant Instructions: ED Diverticulitis Prescriptions: New metronidazole [metronidazole] 500 MG tablet 500 mg PO Q6H Qty: 40 RF: 0 ciprofloxacin HCl [ciprofloxacin HCl] 500 MG tablet 500 mg PO BID Qty: 20 RF: 0 No Action glipizide 10 mg tablet extended release 24hr PO RF: 0 fenofibrate nanocrystallized 145 mg tablet PO RF: 0 meloxicam 15 mg tablet 15 mg PO DAILY Qty: 30 RF: 0 multivitamin 1 EACH tablet 1 ea PO DAILY RF: 0 ascorbic acid (vitamin C) 1,000 MG tablet 1,000 mg PO DAILY RF: 0 aspirin 81 MG tablet,delayed release (DR/EC) 81 mg PO DAILY RF: 0 Primary Care Provider: Leonidas Miles Referrals: Leonidas Miles DO [Primary Care Provider] - 5-7 Days Disposition Disposition: Home, Self Care
--- NOTE | 2022-02-01 15:33 | CT_ITS ---
STUDY: CT ABDOMEN AND PELVIS WITH CONTRAST REASON FOR EXAM: Male, 51 years old. Left lower quadrant pain for 2 days RADIATION DOSAGE (If Supplied By Facility): CTDIvol = ( 14.76 ) mGy, DLP = ( 1183.54 ) mGycm TECHNIQUE: Transaxial images were obtained from the dome of the diaphragm to the symphysis pubis without oral contrast. Oral and amp; IV Gastrografin and amp; 100mL Isovue-300 was administered. Sagittal and coronal images were reconstructed. Individualized dose optimization techniques were used for this CT. COMPARISON: None. FINDINGS: The visualized lung bases are unremarkable. The visualized portions of the heart are within normal limits. Normal liver. Normal gallbladder and extrahepatic biliary system. Normal spleen. Normal pancreas. Normal bilateral adrenal glands. Normal right kidney. Normal left kidney. Normal visualized stomach. Normal small intestine. There is diverticulosis, with thickening of the distal descending colon wall, and pericolonic inflammation changes consistent with acute diverticulitis. Relative wall thickening of the proximal sigmoid colon on image 85 of series 2 without adjacent stranding. The appendix is visualized and appears normal. There is diffuse atherosclerotic calcification of the abdominal aorta, without a demonstrated aneurysm. Normal inferior vena cava. Normal retroperitoneum. Normal urinary bladder. Normal abdominal wall. There are diffuse degenerative changes of the visualized lumbar spine. CT/Abdomen/Pelvis WITH Contrast IMPRESSION: 1. Distal descending colon acute diverticulitis. No pneumoperitoneum or focal fluid collection. 2. Annular wall thickening of the proximal sigmoid colon without adjacent stranding could be artifact from nondistention versus neoplasm versus muscular hyperplasia versus subclinical colitis. Follow-up colonoscopy recommended, if not recently performed. Electronically Signed: Tank Contreras MD ([place]) at 18:08 EDT ,
[2022-02-01] MEDS: 0.9% Normal Saline 1,000 ML 1000 ML IV (15:47)
[2022-02-01] MEDS: Ondansetron 4 MG/2 ML Vial IV (15:47)
[2022-02-01] MEDS: Morphine 4 MG/ML Syringe IV (15:47)
[2022-02-01 16:07] LABS: Absolute Neutrophil Count 10.7 X10^3/uL (2.0-7.7); Basophil# 0.09 X10^3/uL; Basophil% 0.6 % (0-1); Eosinophil# 0.47 X10^3/uL; Hematocrit 48.3 % (40-54); Hemoglobin 16.2 g/dL (13.0-16.5); Lymphocyte % 17.4 % (19-41); Mean Corp Hgb Conc 33.5 g/dL (32-36); Mean Corpuscular Hgb 30.7 pg (27.0-32.0); Mean Corpuscular Volume 91.7 fL (80-94); Mean Platelet Vol. 11.2 fl (6.2-12.0); Monocyte# 1.49 X10^3/uL; Monocyte% 9.6 % (0-10); NRBC Flagged by Analyzer 0 % (0-5); Neutrophil # 10.66 X10^3/uL (2.7-7.7); Neutrophil % 68.9 % (47-70); Platelet Count 202 K/mm3 (150-450); RBC Distribution Width CV 12.7 % (11.6-14.6); RBC Distribution Width SD 42.5 fl (35.1-43.9); Red Blood Count 5.27 M/mm3 (4.6-6.2); White Blood Count 15.5 K/mm3 (4.4-11.0)
[2022-02-01 16:18] LABS: ALB/GLOB Ratio 1.1 RATIO (0.9-2.4); AST(SGOT) 17 U/L (15-37); Alanine Aminotransfer ALT/SGPT 38 U/L (16-61); Alkaline Phosphatase 64 U/L (45-117); Anion Gap 7 (5-15); BUN 15 mg/dL (7-18); BUN/Creat Ratio 16.6 RATIO (10-20); Calcium,Total 9.7 mg/dL (8.5-10.1); Chloride 108 mmol/L (98-107); EST Glomerular Filtration Rate 94 mL/min (>60); Est Glom Filt Rate - Afr Amer 114 mL/min (>60); Estimated Creatinine Clearance 101.39 ml/min; Globulin 3.5 g/dL (2.2-4.2); Glucose 113 mg/dL (74-106); Potassium 3.6 mmol/L (3.5-5.1); Protein, Total 7.5 g/dL (6.4-8.2); Sodium Level 140 mmol/L (136-145)
[2022-02-01 16:23] LABS: Bacteria 0 SEEN /hpf (None Seen); Mucous, Urine 0 SEEN /hpf (<or=2+); Red Blood Cells-Urine 0 SEEN /hpf (0-5); Squamous Epithelial Cells - UA 0 SEEN /hpf (0-5); White Blood Cells 0 SEEN /hpf (0-5)
[2022-02-01 16:26] LABS: Color, Urine Yellow (Yellow); Glucose, Dipstick Normal (Normal); Ketone-Dipstick Negative (Negative); Leukocyte Esterase-Dipstick Negative /ul (Negative); Nitrite-Dipstick Negative (Negative); Occult Blood-Urine Negative /ul (Negative); Protein-Dipstick Negative (Negative); Specific Gravity, Urine 1.025 (1.002-1.030); Urine Bilirubin Dipstick Negative (Negative); Urine Clarity Clear (Clear); Urine Urobilinogen Normal (Normal)
[2022-02-01 16:59] VITALS: BP 136/76; PULSE 72; RESP 14; O2SAT 98
[2022-02-01 18:00] VITALS: BP 134/64; PULSE 78; RESP 14; O2SAT 98
[2022-02-01] MEDS: metroNIDAZOLE 500 MG Tablet PO (19:08)
[2022-02-01] MEDS: Ciprofloxacin 500 MG Tablet PO (19:08)
== END 2022-02-01 19:09 | disposition home or self-care (01) ==
PROVIDERS: Emergency Provider Emergency Medicine; PCP Family Medicine; Visit Provider Emergency Medicine
DX: K57.32 Diverticulitis of large intestine without perforation or abscess without bleeding (principal); I42.8 Other cardiomyopathies; E11.9 Type 2 diabetes mellitus without complications; R10.32 Left lower quadrant pain; I10 Essential (primary) hypertension; E78.5 Hyperlipidemia, unspecified; F17.210 Nicotine dependence, cigarettes, uncomplicated; E66.9 Obesity, unspecified; Z79.82 Long term (current) use of aspirin; Z79.84 Long term (current) use of oral hypoglycemic drugs; Z79.1 Long term (current) use of non-steroidal anti-inflammatories (NSAID); Z86.73 Personal history of transient ischemic attack (TIA), and cerebral infarction without residual deficits
CPT/HCPCS: 74177; 80053; 81001; 85025; 96374; 96375; 99284; J7030; Q9967; A4216; J2405

== ENCOUNTER 2022-07-18 09:00 | Day surgery (SDC) | payer OTHER, SELFPAY ==
[2022-07-18] VITALS (8 sets, daily range): BP systolic 113–156; BP diastolic 81–103; PULSE 78–90; RESP 16; TEMP 36.6–37.2; O2SAT 97–100; BMI 33.2
--- NOTE | 2022-07-18 | COLBX_PTH ---
PATIENT: LUPE ROGERS LOC: [facility] U#:[id number] AGE/SX: 52/M ROOM: RE07/18/[address]: Dr. Joseph Bee DO : 1970 BED: DIS: 07/18/2022 SPEC #: [id number] RECD: 07/18/22 13:17 STATUS: KYLE REAníbal #: [id number] JACKIE: 07/18/22 00:[address]: Joseph Bee DEPT: SURGICAL PATHOLOGY RECD BY: Nickolas Nelson ENTERED: 07/18/22 13:18 SP TYPE: COLON BX OTHR DR: Dr. Leonidas Miles DO Tissues: A - Ileum, NOS B - COLON BIOPSY Procedures: Surgery Specimen Level IV HEADER OPERATION: Colonoscopy (MAC), biopsies PRE-OP DIAGNOSIS: Diverticulitis, constipation TISSUE SUBMITTED: A. Terminal ileum biopsy, B. Random colon biopsy MICROSCOPIC DIAGNOSIS A. Terminal ileum biopsy: Fragments of small intestinal mucosa, no pathologic diagnosis. B. Random colon biopsy: Fragments of colonic mucosa, no pathologic diagnosis. /SJ: 07/19/22 MICROSCOPIC DESCRIPTION Slides are reviewed. GROSS DESCRIPTION A. Received is one container labeled with the patient name and designated terminal ileumThe specimen consists of two irregular fragments of light florian soft tissue that in aggregate measure 0.8 x 0.4 x 0.1 cm. The specimen is totally submitted in one cassette. B. Received is one container labeled with the patient name and designated random colon. The specimen consists of multiple irregular fragments of light florian soft tissue that in aggregate measure 2 x 0.6 x 0.1 cm. The specimen is totally submitted in one cassette. /ANA PAULA:lesly 07/18/2022 TC:4 CPT:88529 x2
[2022-07-18] MEDS: Lactated Ringers 1,000 ML 15 ML IV (09:27)
[2022-07-18 09:51] LABS: Bedside Glucose 181 mg/dL (74-106)
--- NOTE | 2022-07-18 10:11 | PCM.HP.BLA ---
History and Physical Date of Admission: 07/18/22 FRANCISCO ROGERS, is a 52 M who presents to the office today for Initial consult. Francisco established with this clinic 05.09.22 following [facility] ED presentation 02.01.22 with LLQ abdominal pain with worsening of intensity with one episode of bloody stools. Biochemical workup and imaging performed with suggestion of diverticulitis and he was discharged with cipro and flagyl. During office presentation he had continued difficulty with postprandial rectal pressure (usually just flatulence, no BM) and increased flatulence and LLQ tenderness several times a week. BM varies between constipation and diarrhea: He has BM most days with incomplete evacuation and small movements with individual pellets for 3-5 days and will then have either normal movements or several days of loose stools. PMH DMII; skin cancer s/p MOHS; HTN; hyperlipidemia; sleep apnea CT abd/pel 02.01.22 with diverticulosis with changes consistent with diverticulitis of descending and sigmoid colon. ROS Const Constitutional: No anorexia, fatigue, fever(s), weight change or sleep problems Eyes Eyes: No change in vision ENT ENT: No abnormal hearing, difficulty swallowing, mouth lesions, tongue swelling or throat swelling Resp Respiratory: No cough or shortness of breath Cardio Cardiology: No chest pain at rest, chest pain with exertion, shortness of breath or dyspnea on exertion Gastro GI: No difficulty swallowing Genitourinary Male: No difficulty urinating or burning urination Musc Musculoskeletal: No joint pain, joint swelling, muscle weakness or decreased muscle mass Skin Skin: No hair loss in leg, yellowing of the eye, itchy eyes, rash, skin ulcer or skin swelling Neuro Neurology: No abnormal hearing, abnormal movements, confusion, unsteady gait/balance or memory loss Psych Psychiatric: No anxiety, No confusion and No memory loss Endo Endocrine: No fatigue or weight change Aller/Imm Allergy/Immunologic: No itchy eyes, throat swelling or tongue swelling Remy/Lymp Hematologic/Lymphatic: No easy bleeding, easy bruising or enlarged lymph nodes Exam Const General: cooperative and comfortable Nutritional Appearance: average body habitus and well nourished HENCO Head: normal to inspection Ears: hearing grossly normal bilaterally Nose: external nose normal Face and sinus: normal facial exam Mouth: oral mucosae normal Throat: posterior oropharynx normal Eyes General: appearance normal, both eyes and all related structures Neck Neck: normal visual inspection Chest Chest palpation & inspection: normal inspection of the chest and normal palpation of entire chest wall Resp Effort & Inspection: normal respiratory effort Auscultation: Bilateral: Clear to Auscultation Cardio Palpation: normal PMI Rate: regular rate Rhythm: regular rhythm GI Inspection: normal to inspection Auscultation: normal bowel sounds Percussion: normal to percussion Palpation: no hepatosplenomegaly Skin General: no rashes or lesions noted Neuro General: patient alert Extrem General: normal to inspection Psych Affect: normal affect Quality Reporting Tobacco Screening ([facility] 138) Smoking Status: Current every day smoker Assessment and Plan Assessment and Plan (1) Constipation: ?Status:?Chronic ?Plan: I think his chronic constipation is multifactorial.? I think is secondary to diabetes mellitus, poor diet, lack of fiber and diverticular disease.? Recommended Fiber Choice 1 tab a day.? Also this could be secondary to scarring secondary to chronic diverticulitis.? I will give him a course of antibiotic therapy as he is having left lower quadrant pain associated with cramping and obstipation.? He will call me in approximately 14 days to see how he is doing regarding his symptoms of chronic constipation.? Also recommended aloe vera twice a day and chromium vitamin supplement as it will help stabilize his blood sugars. (2) Diverticulitis: ?Status:?Resolved ?Plan: We will repeat his CBC and check his ESR CRP have not any residual inflammation as he still having symptoms of diverticulitis. ? ? ? Orders: Orders CRP Today K57.92 - Diverticulitis of intestine, part unspecified, without perforation or abscess without bleeding, K59.00 - Constipation, unspecified ? CBC W/Diff, Automated Today K57.92 - Diverticulitis of intestine, part unspecified, without perforation or abscess without bleeding, K59.00 - Constipation, unspecified ? Erythrocyte Sed Rate Today K57.92 - Diverticulitis of intestine, part unspecified, without perforation or abscess without bleeding, K59.00 - Constipation, unspecified ? Medications: New levofloxacin 500 mg? PO DAILY 14 tabs 0RF ? ? Changed From metronidazole 500 mg? PO Q6H 40 tabs ? ? To metronidazole 500 mg? PO Q8H 14 days 42 tabs 0RF ? ? Discontinued ciprofloxacin HCl ?? Discontinued Reason:? Discontinued by PCP/other physicians 500 mg? PO BID 20 TABLETS 0RF ? ? I have examined the patient and the H&P has been reviewed. There are no clinical changes since date of exam.
--- NOTE | 2022-07-18 10:55 | OP.COLON_ITS ---
Patient Name: Francicso Caputo Procedure Date: 07/18/2022 10:17 AM Date of : 1970 Age: 52 Procedure: Colonoscopy Indications: Screening for colorectal malignant neoplasm Providers: Joseph Bee DO Medicines: Monitored Anesthesia Care Patient Profile: This is a 52 year old male. Refer to note in patient chart for documentation of history and physical. Last Colonoscopy: none. The patient's first colonoscopy is today. Complications: No immediate complications. Procedure: Pre-Anesthesia Assessment: - Prior to the procedure, a History and Physical was performed, and patient medications and allergies were reviewed. The patient is competent. The risks and benefits of the procedure and the sedation options and risks were discussed with the patient. All questions were answered and informed consent was obtained. Patient identification and proposed procedure were verified by the physician in the pre-procedure area. Mental Status Examination: alert and oriented. Airway Examination: normal oropharyngeal airway and neck mobility. Respiratory Examination: clear to auscultation. CV Examination: normal. Prophylactic Antibiotics: The patient does not require prophylactic antibiotics. Prior Anticoagulants: The patient has taken no previous anticoagulant or antiplatelet agents. ASA Grade Assessment: II - A patient with mild systemic disease. After reviewing the risks and benefits, the patient was deemed in satisfactory condition to undergo the procedure. The anesthesia plan was to use moderate sedation / analgesia (conscious sedation). Immediately prior to administration of medications, the patient was re-assessed for adequacy to receive sedatives. The heart rate, respiratory rate, oxygen saturations, blood pressure, adequacy of pulmonary ventilation, and response to care were monitored throughout the procedure. The physical status of the patient was re-assessed after the procedure. After I obtained informed consent, the scope was passed under direct vision. Throughout the procedure, the patient's blood pressure, pulse, and oxygen saturations were monitored continuously. The Colonoscope was introduced through the anus and advanced to the terminal ileum. The colonoscopy was performed without difficulty. The patient tolerated the procedure well. The quality of the bowel preparation was good. Scope In: 10:29:49 AM Scope Withdrawal Time 0 hours 13 minutes 14 seconds Scope Out: 10:47:44 AM Total Procedure Duration Time 0 hours 17 minutes 55 seconds Findings: The perianal and digital rectal examinations were normal. An area of moderately congested mucosa was found in the entire colon. Biopsies were taken with a cold forceps for histology. Verification of patient identification for the specimen was done. Estimated blood loss was minimal. A few small-mouthed diverticula were found in the recto-sigmoid colon and sigmoid colon. The terminal ileum appeared normal. Biopsies were taken with a cold forceps for histology. Verification of patient identification for the specimen was done. Estimated blood loss was minimal. Non-bleeding external and internal hemorrhoids were found during retroflexion. The hemorrhoids were moderate and Grade I (internal hemorrhoids that do not prolapse). Impression: - Congested mucosa in the entire examined colon. Biopsied. - Diverticulosis in the recto-sigmoid colon and in the sigmoid colon. - The examined portion of the ileum was normal. Biopsied. Recommendation: - Discharge patient to home. - Resume previous diet. - Continue present medications. - Await pathology results. - Repeat colonoscopy in 10 years for surveillance. Procedure Code(s): --- Professional --- 76570, Colonoscopy, flexible; with biopsy, single or multiple CPT copyright 2017 [employer]. All rights reserved. The codes documented in this report are preliminary and upon proc tech review may be revised to meet current compliance requirements. Joseph Bee DO 07/18/2022 10:55:15 AM This report has been signed electronically. Number of Addenda: 0 Note Initiated On: 07/18/2022 10:17 AM
--- NOTE | 2022-07-18 10:56 | OP.CCLET_ITS ---
07/18/2022 Leonidas Miles [address] [facility] [place] [address] Re : Colonoscopy procedure for Francisco Caputo Dear Dr. Miles This procedure was performed on Monday, July 18, 2022. My impressions and recommendations are as follows: Impressions : - Congested mucosa in the entire examined colon. Biopsied. - Diverticulosis in the recto-sigmoid colon and in the sigmoid colon. - The examined portion of the ileum was normal. Biopsied. Recommendations : - Discharge patient to home. - Resume previous diet. - Continue present medications. - Await pathology results. - Repeat colonoscopy in 10 years for surveillance. My findings are described in the full procedure note, which is enclosed. If I can be of further assistance, please feel free to contact me at . Sincerely, Joseph Bee, 07/18/2022 10:55:15 AM This report has been signed electronically.
== END 2022-07-18 11:40 | disposition home or self-care (01) ==
LOC: EN 09:00 → AC 09:01
PROVIDERS: PCP Family Medicine; Referring Provider Internal Medicine Gastroenterology; Visit Provider Internal Medicine Gastroenterology
PROC: 0DJD8ZZ Inspection of Lower Intestinal Tract, Via Natural or Artificial Opening Endoscopic (ICD-10-PCS; CPT 45378; principal; 2022-07-18 10:10)
DX: Z12.11 Encounter for screening for malignant neoplasm of colon (principal); E11.9 Type 2 diabetes mellitus without complications; K57.30 Diverticulosis of large intestine without perforation or abscess without bleeding; K64.0 First degree hemorrhoids; K59.09 Other constipation; F17.200 Nicotine dependence, unspecified, uncomplicated; Z79.82 Long term (current) use of aspirin; Z79.84 Long term (current) use of oral hypoglycemic drugs; Z79.899 Other long term (current) drug therapy; Z87.19 Personal history of other diseases of the digestive system
CPT/HCPCS: 45380; 82962; 88305; J7120; J2405

== ENCOUNTER → 2022-09-14 | Outpatient (CLI) | payer OTHER, SELFPAY ==
--- NOTE | 2022-09-14 11:50 | RAD_ITS ---
INDICATION: neck pain EXAMINATION/TECHNIQUE: X-RAY - XR Spine Cervical 2 or 3 Views COMPARISON: None. FINDINGS: VERTEBRAE: Preserved vertebral body height. No fracture. No spondylolisthesis. Loss of the normal cervical lordosis. No significant facet arthropathy. DISCS: Disc spaces are maintained. Minor endplate spurring at C4-5 and C5-6 NECK SOFT TISSUES: No prevertebral soft tissue widening. LUNG APICES: Clear. RAD/Cerv Spine 2 or 3 Views IMPRESSION: Mild spondylosis No evidence of acute fracture or spondylolisthesis. Electronically Signed: Ryan Bhatia MD at 19:18 EST ,
== END | disposition home or self-care (01) ==
LOC: MTRAD 11:50
PROVIDERS: PCP Family Medicine; Referring Provider Physician Assistant; Visit Provider Physician Assistant
DX: M47.812 Spondylosis without myelopathy or radiculopathy, cervical region (principal); M54.2 Cervicalgia
CPT/HCPCS: 72040

== ENCOUNTER 2022-10-14 10:58 | Observation (INO) | payer OTHER, SELFPAY ==
[2022-10-14] VITALS (12 sets, daily range): BP systolic 137–183; BP diastolic 82–101; PULSE 67–114; RESP 14–20; TEMP 36.4–36.9; O2SAT 95–98; BMI 34.4; BMI 33.4
--- NOTE | 2022-10-14 11:09 | CT_ITS ---
INDICATION: Neuro deficit, acute, stroke suspected EXAMINATION: CT BRAIN - CT Head Stroke Protocol W/O Contrast Injection TECHNIQUE: Multiple axial images were obtained of the head without intravenous contrast. A radiation dose optimization technique was used for this scan. IV Contrast dosage and agent: None. COMPARISON: 02/18/2020 FINDINGS: BRAIN PARENCHYMA: No intra- or extra-axial hemorrhage. No evidence of acute infarct. No intracranial mass or mass effect. There is preservation of the elam/white matter interface. Posterior fossa structures are unremarkable. CSF SPACES: Appropriate for age. No hydrocephalus. Basal cisterns are patent. CALVARIUM, SKULL BASE, PARANASAL SINUSES AND MASTOID AIR CELLS: Clear. No discrete lytic or blastic abnormalities. ORBITS: Both globes, extraocular muscles, optic nerves and retrobulbar fat appear unremarkable. ASPECTS Score for Acute Strokes: 10 CT/STROKE Brain/Head without Cont IMPRESSION: Negative Brain CT without contrast. N.B. : The above Results were Read Back by Pete Darling MD to Walter Cahpa MD, and understanding confirmed on 10/14/2022 11:32:36 (ET). Electronically Signed: Pete Darling MD at 11:34 EST ,
--- NOTE | 2022-10-14 11:09 | EKG12_ITS ---
Test Reason : DIZZINESS Blood Pressure : / mmHG Vent. Rate : 105 BPM Atrial Rate : 105 BPM P-R Int : 160 ms QRS Dur : 076 ms QT Int : 318 ms P-R-T Axes : 071 035 053 degrees QTc Int : 420 ms Sinus tachycardia Nonspecific T wave abnormality Abnormal ECG Confirmed by LOR BARKER, NADIA ([id number]), fashion editor JOSÉ ANTONIO HUFFMAN ([id number]) on 10/15/2022 11:43:39 AM Referred By: JEN Confirmed By:NADIA HOROWITZ MD
--- NOTE | 2022-10-14 11:16 | EDS_ITS ---
HPI History of Present Illness Chief Complaint: Dizziness Informant: patient and spouse/S.O. Onset/Context/Timing Onset: Today Narrative Narrative: Presents for evaluation of sudden symptoms started around 9 AM. States she just finished breakfast in the garage was getting ready work on car. Reported he had blurry vision bilaterally, spaced out people are talking to him he did not recall this. When he came around, he states there was pain to his right arm and both face with numbness. He states he had to focus on what he was trying to say. He has headache. He now describes chest tightness. Denies cardiac history he had nonischemic cardiomyopathy 10 years ago from viral syndrome from some sort of bite for significant other with a heart cath that was negative. He is a diabetic on oral medications. He states he feels a little shaky. He drinks occasionally but not every day he did drink last night. Denies vomiting. Denies recent travel or surgeries or immobilizations. No history of PE or DVT. Prior similar symptoms: No PFSH PFS Medical History Alcohol use Cardiology follow-up encounter Chest pain Diabetes Dietary restriction Exposure to COVID-19 virus Glucosuria H/O Mohs micrographic surgery for skin cancer History of echocardiogram History of stress test HLD (hyperlipidemia) HTN (hypertension) Leg cramps Lumbar strain Malignant neoplasm of skin New onset type 2 diabetes mellitus Nonischemic cardiomyopathy Obesity (BMI 30.0-34.9) KRISTOFER (obstructive sleep apnea) Pharyngitis TIA (transient ischemic attack) Tobacco use URI (upper respiratory infection) Varicose veins of both lower extremities Home Medications ascorbic acid (vitamin C) 1,000 mg tablet 1,000 mg PO DAILY supplement 02/18/20 [History Last Taken 10/14/22] aspirin 81 mg tablet,delayed release 81 mg PO DAILY health maintenance 02/18/20 [History Last Taken 10/14/22] multivitamin 1 ea PO DAILY supplement 02/18/20 [History Last Taken 10/14/22] fenofibrate nanocrystallized 145 mg tablet 145 mg PO DAILY 11/20/21 [History Last Taken 10/13/22] glipizide 10 mg tablet, extended release 24 hr 10 mg PO DAILY 11/20/21 [History Last Taken 10/14/22] Allergy/AdvReac Type Severity Reaction Status Date / Time Xtppbgi-SLV-IsT Reductase AdvReac painful Verified 10/14/22 11:05 Inhibitor joints [Emsatyj-Isa-Yjk Reductase Inhibitor] Family History Father Heart disease Hypertension Hypercholesteremia Surgical History History of cardiac catheterization Hx of left cataract extraction Hx of right cataract extraction Social History Smoking Status: Current every day smoker tobacco type: cigarettes alcohol intake: current Alcohol type: beer ROS ROS ED Constitutional Constitutional ED: Denies chills, fever(s) or sweats Eyes Eyes: Reports change in vision ENT ENT ED: Denies dysphagia or sore throat Cardiovascular Cardiovascular: Reports chest pain; Denies leg edema, palpitations or racing heartbeat Respiratory/Chest Respiratory/Chest: Denies cough, dyspnea or dyspnea on exertion Gastrointestinal Gastrointestinal: Denies abdominal pain, diarrhea, nausea or vomiting Genitourinary Genitourinary ED: Denies dysuria, hematuria or urinary frequency Musculoskeletal Musculoskeletal: Denies back pain, extremity pain or neck pain Integumentary Denies rash or wounds Neurologic Neurologic: Reports headache(s) and paresthesias; Denies weakness EXAM Physical Exam Const Vital Signs: 10/14/22 10:59 10/14/22 11:05 10/14/22 11:44 Temperature 98.2 F Temperature Source Temporal Pulse Rate 114 H 102 H Respiratory Rate 20 H Respiratory Effort Normal Respiratory Pattern Normal Blood Pressure 183/101 H 158/86 H Blood Pressure Mean 128 Pulse Ox 96 Oxygen Delivery Method Room Air 10/14/22 11:45 10/14/22 11:34 10/14/22 11:48 Temperature Temperature Source Pulse Rate 101 H 105 H Respiratory Rate 18 Respiratory Effort Respiratory Pattern Blood Pressure 157/97 H 161/92 H Blood Pressure Mean 117 Pulse Ox 96 95 Oxygen Delivery Method Room Air Room Air 10/14/22 11:55 Temperature Temperature Source Pulse Rate 105 H Respiratory Rate Respiratory Effort Respiratory Pattern Blood Pressure 149/82 H Blood Pressure Mean Pulse Ox Oxygen Delivery Method Positive well nourished and well developed General Appearance ED: well developed and NAD HEENT Reports moist mucous membranes normocephalic and atraumatic Eyes PERRL, EOMs intact bilaterally and conjunctivae normal Eyes Narrative: Visual burton intact in all 4 quadrants. No nystagmus. General Eye ED: Yes normal appearance of both eyes Neck no lymphadenopathy and supple General: Negative for tenderness Chest Wall Chest: Negative for tenderness Resp normal respiratory effort and normal air movement Effort and Inspection: symmetric chest movement; Negative for respiratory distress Cardio regular rhythm and no murmurs Rate: tachycardic Peripheral Pulses: pulses 2+ throughout GI normal to inspection, nondistended, normoactive bowel sounds and non-tender Palpation: Negative for guarding or rebound tenderness present Back/Spine no CVA tenderness and no thoracic nor lumbar tenderness Extremity normal to inspection General Extremety ED: Negative for edema or tenderness General Extremity: Negative for edema Neuro oriented x3, CN's II-XII intact bilaterally and no sensory deficits noted Neuro Narrative: NIH of 0. Normal cerebellar upper and lower extremities. No paresthesias. Sensorium / Orientation: awake and alert Skin no rashes or lesions noted and no wounds MDM MDM MDM Narrative Medical decision making narrative: Interventions / MDM: Differential diagnosis:TIA, ACS, cervical radiculopathy Diagnosis considered but do not suspect:Pulmonary embolism however no hypoxia My EKG interpretation: Sinus rate of 105, No ST changes T wave inversions inferior lateral leads this is new compared to 2019. Imaging independently reviewed and interpreted by myself: CT brain in addition discussion with radiologist no acute process. 1 view chest x-ray no acute process. External documents reviewed: N/A Test considered but not ordered:N/A ED course: Patient NIH of 0 reporting blurry vision with no focal deficits. CT brain was obtained. He had bilateral facial pain and paresthesias which is not typical of stroke symptoms. He is deals with radiculopathy of the right arm however he reports left arm pain also. He has new EKG changes with T wave inversions. After CT brain bedside swallow per nursing is given aspirin nitroglycerin x3 his chest tightness improved. He had residual left shoulder pain on the left for which morphine was given. His initial troponin was normal. Glucose 454 he is on oral medicines, normal anion gap therefore no DKA. He reports he ate just before arrival he took his diabetes medicines this morning. Due to new EKG changes, I do feel her work admission for further work-up. Re-evaluation: stable Disposition discussed with patient/family/significant other: Significant other and patient Case discussed with consulting clinician: Hospitalist, Dr. Sharp Lab Data Attestation: I reviewed the patient's lab results. Labs: Laboratory Results - last 24 hr 10/14/22 10/14/22 10/14/22 11:02 11:08 11:08 WBC 11.0 RBC 5.30 Hgb 16.2 Hct 48.6 MCV 91.7 MCH 30.6 MCHC 33.3 RDW Std Deviation 43.1 RDW Coeff of Leela 12.9 Plt Count 214 MPV 11.0 Immature Gran % (Auto) 0.700 Neut % (Auto) 55.8 Lymph % (Auto) 31.8 Mercer % (Auto) 8.1 Eos % (Auto) 2.9 Baso % (Auto) 0.7 Absolute Neuts (auto) 6.2 Absolute Lymphs (auto) 3.50 Nucleated RBC % 0 PT 12.6 INR 1.0 APTT 24.5 Sodium Potassium Chloride Carbon Dioxide Anion Gap BUN Creatinine Estim Creat Clear Calc Est GFR (MDRD) Af Amer Est GFR (MDRD) Non-Af BUN/Creatinine Ratio Glucose Calcium Troponin I High Sens POC Glucose 454 H* 10/14/22 11:08 WBC RBC Hgb Hct MCV MCH MCHC RDW Std Deviation RDW Coeff of Leela Plt Count MPV Immature Gran % (Auto) Neut % (Auto) Lymph % (Auto) Mercer % (Auto) Eos % (Auto) Baso % (Auto) Absolute Neuts (auto) Absolute Lymphs (auto) Nucleated RBC % PT INR APTT Sodium 136 Potassium 4.7 Chloride 102 Carbon Dioxide 26.0 Anion Gap 8 BUN 22 H Creatinine 1.49 H Estim Creat Clear Calc 60.56 Est GFR (MDRD) Af Amer 64 Est GFR (MDRD) Non-Af 53 L BUN/Creatinine Ratio 14.8 Glucose 431 H Calcium 9.1 Troponin I High Sens 12 POC Glucose Radiography Diagnostic Testing: Clinical Impression(s) from Imaging Studies Brain CT 10/14/22 11:09 IMPRESSION: Negative Brain CT without contrast. N.B. : The above Results were Read Back by Pete Darling MD to Walter Chapa MD, and understanding confirmed on 10/14/2022 11:32:36 (ET). Electronically Signed: Pete Darling MD at 11:34 EST , ADDENDUM: 10/14/22 1141 IMPRESSION: Negative Brain CT without contrast. N.B. : The above Results were Read Back by Pete Darling MD to Walter Chapa MD, and understanding confirmed on 10/14/2022 11:32:36 (ET). Electronically Signed: Pete Darling MD at 11:34 EST , Chest X-Ray 10/14/22 11:19 IMPRESSION: Normal x-ray examination of the chest. Electronically Signed: Pete Darling MD at 11:34 EST , EKG Initial EKG: Attestation: I personally reviewed and interpreted this EKG as follows: Comments: Sinus rate of 105, No ST changes T wave inversions inferior lateral leads this is new compared to 2019. Discharge Plan Dx/Rx/DC Orders Clinical Impression: Chest pain, Abnormal ECG, Hyperglycemia due to type 2 diabetes mellitus Disposition Disposition: Acute Care Hospital [facility] Discharge Date/Time: 10/14/22 12:53
[2022-10-14 11:19] LABS: Absolute Neutrophil Count 6.2 X10^3/uL (2.0-7.7); Basophil# 0.08 X10^3/uL; Basophil% 0.7 % (0-1); Eosinophil# 0.32 X10^3/uL; Eosinophils% 2.9 % (0-5); Hematocrit 48.6 % (40-54); Hemoglobin 16.2 g/dL (13.0-16.5); Lymphocyte % 31.8 % (19-41); Mean Corp Hgb Conc 33.3 g/dL (32-36); Mean Corpuscular Hgb 30.6 pg (27.0-32.0); Mean Corpuscular Volume 91.7 fL (80-94); Monocyte# 0.89 X10^3/uL; Monocyte% 8.1 % (0-10); NRBC Flagged by Analyzer 0 % (0-5); Neutrophil # 6.15 X10^3/uL (2.7-7.7); Neutrophil % 55.8 % (47-70); Platelet Count 214 K/mm3 (150-450); RBC Distribution Width CV 12.9 % (11.6-14.6); RBC Distribution Width SD 43.1 fl (35.1-43.9)
--- NOTE | 2022-10-14 11:19 | RAD_ITS ---
STUDY: X-RAY CHEST REASON FOR EXAM: Male, 52 years old. Mental status change TECHNIQUE: Single AP portable view of the chest. COMPARISON: None. FINDINGS: EKG leads overlie the chest The lungs are clear and expanded. There is no demonstrated pleural abnormality. Normal size heart. Normal mediastinum and tommy. Normal visualized pulmonary arteries. Normal visualized aortic arch and descending thoracic aorta. Normal visualized thoracic spine. Normal visualized ribs, clavicles, and shoulders. There is no demonstrated abnormality of the visualized soft tissue structures of the upper abdomen. RAD/Chest 1 View IMPRESSION: Normal x-ray examination of the chest. Electronically Signed: Pete Darling MD at 11:34 EST ,
[2022-10-14 11:20] LABS: Bedside Glucose 454 mg/dL (74-106)
[2022-10-14 11:28] LABS: Partial Thromboplast Time 24.5 Seconds (24.1-36.2); Prothrombin Time (Protime)PT. 12.6 SECONDS (11.7-14.9)
[2022-10-14 11:34] LABS: Anion Gap 8 (5-15); BUN 22 mg/dL (7-18); BUN/Creat Ratio 14.8 RATIO (10-20); Calcium,Total 9.1 mg/dL (8.5-10.1); Chloride 102 mmol/L (98-107); Creatinine, Serum 1.49 mg/dL (0.70-1.30); EST Glomerular Filtration Rate 53 mL/min (>60); Est Glom Filt Rate - Afr Amer 64 mL/min (>60); Estimated Creatinine Clearance 60.56 ml/min; Glucose 431 mg/dL (74-106); Potassium 4.7 mmol/L (3.5-5.1); Sodium Level 136 mmol/L (136-145); Troponin-I HS (w/2H Reflex) 12 pg/mL (3.0-78.0)
[2022-10-14] MEDS: Aspirin 81 MG TAB.CHEW 324 MG PO (11:41)
[2022-10-14] MEDS: Nitroglycerin SL (ED/IMG/CATH) 0.4 MG TABLET SL ×3 (11:44→11:55)
[2022-10-14] MEDS: Morphine 4 MG/ML Syringe IV (12:19)
--- NOTE | 2022-10-14 12:29 | MRI_ITS ---
HISTORY: dizziness, visual disturbances. TECHNIQUE: Multiplanar and multisequence MR images of the brain were obtained without contrast. 284 images. COMPARISON: CT prior day, MRI 02/18/2020. FINDINGS: Motion artifact lowers the sensitivity of examination. BRAIN PARENCHYMA: No significant signal abnormality in the brain parenchyma. No abnormal focus of restricted diffusion. No acute intracranial hemorrhage identified. CSF SPACES: Cerebral ventricles, cortical sulci, and other extra-axial CSF spaces within normal limits in size. No significant midline shift or other mass effect.No extra-axial fluid collection. VASCULAR SYSTEM: Major intracranial flow voids are maintained. PARANASAL SINUSES AND MASTOID AIR CELLS: Minimal paranasal sinus mucosal thickening. ORBITS: Bilateral lens resections. MRI/Brain without Contrast IMPRESSION: Unremarkable examination. No evidence for acute infarct or other significant signal abnormality in the brain. Electronically Signed: Shanique Betancourt MD at 11:24 EST ,
--- NOTE | 2022-10-14 12:29 | ECHOD_ITS ---
Reason For Study: Chest Pain Procedure This was a 2D Doppler, Color Flow transthoracic echocardiogram. Exam performed portable in patient room. Left Ventricle Normal LV size. The estimated ejection fraction is 53 %. Stage 1 diastolic dysfunction. No regional wall motion abnormalities noted. Right Ventricle Normal RV size. Normal systolic function. Atria Normal left atrium. Normal right atrium. Mitral Valve Normal mitral valve. Tricuspid Valve Normal tricuspid valve. Aortic Valve Trisinus/trileaflet aortic valve. Pulmonic Valve Normal pulmonic valve. Great Vessels Normal aortic root. The pulmonary artery is normal size. Normal inferior vena cava. Pericardium/Pleural No pericardial effusion. MMode/2D Measurements & Calculations LVIDd: 5.3 cm IVSd: 1.2 cm Ao root diam: 2.6 cm LVIDs: 3.9 cm LVPWd: 1.1 cm RVDd: 3.7 cm FS: 26.6 % LAV(MOD-bp): 23.6 ml LVAd ap4: 31.9 cm2 SV(MOD-sp4): 50.9 ml LAV(MOD-bp) Indexed: 10.6 ml/m2 LVLd ap4: 9.1 cm LAV(MOD-sp2): 23.4 ml EDV(MOD-sp4): 91.4 ml LAV(MOD-sp4): 21.9 ml EDV(sp4-el): 95.1 ml LVAs ap4: 18.3 cm2 LVLs ap4: 7.0 cm ESV(MOD-sp4): 40.5 ml ESV(sp4-el): 40.7 ml EF(MOD-sp4): 55.6 % EF(sp4-el): 57.2 % SV(sp4-el): 54.4 ml LA A4 area: 11.6 cm2 LA dimension(2D): 3.8 cm RA A4 area: 10.2 cm2 Time Measurements MV dec time: 0.23 sec Doppler Measurements & Calculations MV E max dov: 59.9 cm/sec Lat Peak E' Dov: 12.8 cm/sec Med Peak E' Dov: 8.2 cm/sec MV A max dov: 65.2 cm/sec E/E' lat: 4.7 E/E' med: 7.3 MV E/A: 0.92 Ao V2 max: 112.7 cm/sec LV V1 max: 94.6 cm/sec MV dec slope: 259.6 cm/sec2 Ao max P.1 mmHg LV V1 max P.6 mmHg Ao V2 mean: 78.9 cm/sec Ao mean P.9 mmHg Ao V2 VTI: 21.5 cm PA V2 max: 130.5 cm/sec ECHO/Echo Complete Interpretation Summary Normal LV size. The estimated ejection fraction is 53 %. Stage 1 diastolic dysfunction. Structurally normal valves. Ordering Physician: Leonidas Sharp Referring Physician: Leonidas Miles Performed By: Misti Mccarty RDCS, RVT
[2022-10-14 13:16] LABS: Reflex Troponin-HS? (from REC) Y
[2022-10-14] MEDS: 0.9% Normal Saline 1,000 ML 100 ML IV ×2 (13:30→23:57)
--- NOTE | 2022-10-14 14:24 | EKG12_ITS ---
Test Reason : CP Blood Pressure : / mmHG Vent. Rate : 077 BPM Atrial Rate : 077 BPM P-R Int : 168 ms QRS Dur : 078 ms QT Int : 360 ms P-R-T Axes : 071 014 053 degrees QTc Int : 407 ms Normal sinus rhythm Nonspecific T wave abnormality Abnormal ECG When compared with ECG of 19-FEB-2020 05:31, Nonspecific T wave abnormality, worse in Inferior leads Nonspecific T wave abnormality now evident in Anterior leads Confirmed by LOR BARKER, NADIA ([id number]), offline editor JOSÉ ANTONIO HUFFMAN ([id number]) on 10/16/2022 9:36:56 AM Referred By: AKHIL Confirmed By:NADIA HOROWITZ MD
[2022-10-14 14:44] LABS: Troponin-I HS 9 pg/mL (3.0-78.0)
[2022-10-14] MEDS: Insulin Lispro 100 UNIT/ML INSULN.PEN SC ×2 (16:43→20:48)
--- NOTE | 2022-10-14 16:54 | MRI_ITS ---
STUDY: MRI CERVICAL SPINE WITHOUT CONTRAST REASON FOR EXAM: Male, 52 years old. RT arm pain, weakness TECHNIQUE: Standardized fat and water weighted pulse sequences were obtained in the sagittal and axial planes. COMPARISON: MRI of the cervical spine dated February 18, 2020 FINDINGS: Normal foramen magnum and brainstem-cervical cord junction. Normal craniovertebral junction. Normal anterior atlantoaxial articulation. Normal odontoid process. There is reversal of the normal cervical lordosis. Normal vertebral bodies and posterior osseous elements. C2-3: Normal endplates. Diffuse disc desiccation. Normal disc height and morphology. Normal central canal and intervertebral neural foramina. C3-4: Normal endplates. Diffuse disc desiccation. Normal disc height and morphology. Normal central canal and intervertebral neural foramina. C4-5: Normal endplates. Diffuse disc desiccation with mild to moderate disc space narrowing resulting in broad-based disc herniation as well as a prominent midline disc protrusion causing compression on anterior aspect of the cord slightly more eccentric to the left and causing moderate central canal stenosis. Severe right foraminal stenosis is present due to combined uncovertebral facet joint hypertrophy with nerve root compression. Normal left neural foramen. C5-6: Normal endplates. Diffuse disc desiccation with moderate disc space narrowing cause in a diffuse disc bulge and superimposed midline to left paracentral disc protrusion causing midline and left anterior compression of the spinal cord with mild to moderate central canal stenosis. Mild right foraminal stenosis. Normal left neural foramen. C6-7: Normal endplates. Diffuse disc desiccation. Normal disc height and morphology. Normal central canal and intervertebral neural foramina. C7-T1: Normal endplates. Normal disc height, signal and morphology. Normal central canal and intervertebral neural foramina. Normal cervical cord. There is no demonstrated cervical cord syrinx cavity. Normal visualized soft tissue structures. MRI/Spine Cervical (Routine) IMPRESSION: 1. Multilevel degenerative changes, as described above. 2. Severe right foraminal stenosis with nerve root compression at C4-C5 3. Mild to moderate central canal stenosis with compression on the anterior aspect of the cord from disc bulges at C4-C5 and C5-C6 Electronically Signed: Kendell Rubin MD at 11:51 EST ,
--- NOTE | 2022-10-14 16:57 | CT_ITS ---
STUDY: CTA HEAD AND NECK WITH CONTRAST REASON FOR EXAM: Male, 52 years old. Facial numbness and arm pain. RADIATION DOSAGE (If Supplied By Facility): CTDIvol = ( 25.52 ) mGy, DLP = ( 1176.28 ) mGycm TECHNIQUE: CT angiography was performed with a multi-detector CT scanner. Data acquisition was obtained from the skull base through the vertex following intravenous administration of IV 100mL Isovue-370. MIP images were reconstructed from the axial data set. Post-processing of the angiographic images was performed, with multiplanar reformation and 3D reconstruction. Individualized dose optimization techniques were used for this CT. COMPARISON: CT abdomen, October 14, 2022. FINDINGS: Normal bilateral petrous carotid arteries. There is calcified plaque formation of the right cavernous carotid artery, without a cross-sectional luminal stenosis. There is calcified plaque formation of the left cavernous carotid artery, without a cross-sectional luminal stenosis. Normal right A1 segments of the anterior cerebral artery. Normal left A1 segments of the anterior cerebral artery. The axillary Normal bilateral A2 segments of the anterior cerebral arteries. Normal right M1 and M2 segments of the middle cerebral arteries, with a normal M1 bifurcation. Normal left M1 and M2 segments of the middle cerebral arteries, with a normal M1 bifurcation. Normal right posterior communicating artery (PCOM). Normal left posterior communicating artery (PCOM). Normal bilateral vertebral arteries. Normal basilar artery with a normal basilar bifurcation. The visualized bilateral superior cerebellar (SCA) arteries are normal. Normal bilateral P1, P2 and visualized P3 segments of the posterior cerebral arteries. There is no demonstrated aneurysm of the [place]. There is no demonstrated abnormality of the visualized brain. AORTIC ARCH: Normal visualized aortic arch. Normal origins of the brachiocephalic, left common carotid, and left subclavian arteries. RIGHT CAROTID ARTERIES: Normal right common carotid artery (CCA). Normal right common carotid bulb. Normal origin of the right internal carotid (ICA) artery without a hemodynamically significant stenosis. Normal visualized cervical portion of the right internal carotid artery. Normal origin of the right external carotid artery (ECA). LEFT CAROTID ARTERIES: Normal left common carotid artery (CCA). Normal left common carotid bulb. Normal origin of the left internal carotid (ICA) artery without a hemodynamically significant stenosis. Normal visualized cervical portion of the left internal carotid artery. Normal origin of the left external carotid artery (ECA). VERTEBRAL ARTERIES: Normal bilateral vertebral arteries. CT/CTA Head AND Neck W/ Contrast IMPRESSION: Minimal atherosclerotic changes of the carotid siphons. Otherwise normal CTA Head and neck with contrast. Electronically Signed: Howard Leija DO at 18:44 EST ,
[2022-10-14 17:06] LABS: Bedside Glucose 296 mg/dL (74-106)
[2022-10-14 17:33] LABS: Troponin-I HS 11 pg/mL (3.0-78.0)
--- NOTE | 2022-10-14 17:41 | HP.PCM.HOS_ITS ---
HPI - General General Date of Admission: 10/14/22 Date of Service: 10/14/22 Chief Complaint: Chest pain, facial numbness HPI Narrative LUPE ROGERS, is a 52 M who presents to the emergency room at [facility] after being transported for evaluation of facial numbness, chest discomfort, blurred vision, and difficulty speaking (forming sentences) which started approximately 10 AM this morning. Patient also complained of pain in both of his arms-he has had a history of arm pain however as he has a history of severe disc disease of his neck. Patient denied any focal weakness, he denied any slurred speech, he did say that his vision was blurred at one time because he felt as if he was going to pass out. Patient denied any dizziness, and he denied any syncope. At the time of my examination, patient is still complaining of chest discomfort which she describes as sharp in nature, patient's cardiac enzymes have been un remarkable. Labs were performed in the emergency room, patient CBC was unremarkable, patient's creatinine was elevated at 1.49 and his BUN was 22. Patient's glucose level was 431-patient's states that the patient has been on a high dose of prednisone for his degenerative disc disease of his neck recently, he has a history of diabetes however. Brain CT was performed without contrast, this was unremarkable, patient had chest x-ray which was also unremarkable. EKG was performed which showed some T wave changes in the lateral precordial leads which appear to be different from the previous EKG he had done several years ago. Patient related to a past history of cardiomyopathy, he had seen a product test engineer many years ago and ultimately the cardiomyopathy resolved and his EF returned to normal. The etiology of the cardiomyopathy was felt to be viral in nature. Patient will be placed in observation status on PCU, NIH scores will be monitored, patient is already on an 81 mg aspirin per day at home this will be continued, patient will have an MRI of the brain performed and in addition I have decided to order a CTA of the head and neck. Finally, patient's cardiac enzymes will be cycled, if they remain normal, patient will have an exercise stress test performed tomorrow. Patient was to have an MRI of his cervical spine performed on Saturday of this week in preparation for possible decompressive surgery of his neck, I will attempt to order this and have it done while he is hospitalized [facility] Medical History Alcohol use Cardiology follow-up encounter Chest pain Diabetes Dietary restriction Exposure to COVID-19 virus Glucosuria H/O Mohs micrographic surgery for skin cancer History of echocardiogram History of stress test HLD (hyperlipidemia) HTN (hypertension) Leg cramps Lumbar strain Malignant neoplasm of skin New onset type 2 diabetes mellitus Nonischemic cardiomyopathy Obesity (BMI 30.0-34.9) KRISTOFER (obstructive sleep apnea) Pharyngitis TIA (transient ischemic attack) Tobacco use URI (upper respiratory infection) Varicose veins of both lower extremities Home Medications ascorbic acid (vitamin C) 1,000 mg tablet 1,000 mg PO DAILY supplement 02/18/20 [History Last Taken 10/14/22] aspirin 81 mg tablet,delayed release 81 mg PO DAILY health maintenance 02/18/20 [History Last Taken 10/14/22] multivitamin 1 ea PO DAILY supplement 02/18/20 [History Last Taken 10/14/22] fenofibrate nanocrystallized 145 mg tablet 145 mg PO DAILY 11/20/21 [History Last Taken 10/13/22] glipizide 10 mg tablet, extended release 24 hr 10 mg PO DAILY 11/20/21 [History Last Taken 10/14/22] Allergy/AdvReac Type Severity Reaction Status Date / Time Bdhjhlg-QPZ-TqQ Reductase AdvReac painful Verified 10/14/22 11:05 Inhibitor joints [Iyxbvvg-Qjp-Tjv Reductase Inhibitor] Family History Father Heart disease Hypertension Hypercholesteremia Surgical History History of cardiac catheterization Hx of left cataract extraction Hx of right cataract extraction Social History Smoking Status: Current every day smoker tobacco type: cigarettes alcohol intake: current Alcohol type: beer ROS Constitutional Constitutional: Denies anorexia, change in weight, chills, fatigue, fever(s), night sweats or weakness Eyes Eyes: Reports blurry vision and change in vision bilateral; Denies discharge from eye(s) or eye pain ENT HEENT: Denies abnormal hearing, dysphagia or ear pain Cardiovascular Cardiovascular: Reports chest pain and lightheadedness; Denies claudication, dyspnea on exertion, edema or palpitations Respiratory/Chest Respiratory/Chest: Denies cough, hemoptysis, shortness of breath at rest or shortness of breath with exertion Gastrointestinal Gastrointestinal: Denies abdominal pain, constipation, diarrhea, hematemesis, hematochezia, melena, nausea or vomiting Genitourinary Genitourinary: Denies dysuria, hematuria, urinary frequency, urinary hesitancy, urinary incontinence or urinary urgency Musculoskeletal Musculoskeletal: Reports myalgias and other Details: Bilateral arm and shoulder pain ; Denies back pain, joint pain, joint stiffness, joint swelling or neck pain Neurologic Neurologic: Reports numbness and other Details: Difficulty forming sentences during the patient's episode today at home ; Denies abnormal gait, abnormal speech, dizziness, focal weakness, headache(s), loss of vision, other visual disturbances, paresthesias, syncope or tingling Psychiatric Psychiatric: Denies anxiety, cognitive impairment, depression, irritability, mood swings or suicidal ideation Endocrine Endocrinology: Denies change in body appearance, cold intolerance, excessive sweating, heat intolerance, polydipsia or polyuria Hematologic/Lymphatic Hematologic/Lymphatic: Denies none, anemia, easy bleeding, easy bruising or lymphadenopathy Allergic/Immunologic Allergic/Immunologic: Denies rhinitis, urticaria, eczemia or asthma Vital Signs Vital Signs Vital Signs: 10/14/22 10:59 10/14/22 11:05 10/14/22 11:44 Temperature 98.2 F Temperature Source Temporal Pulse Rate 114 H 102 H Respiratory Rate 20 H Respiratory Effort Normal Respiratory Pattern Normal Blood Pressure 183/101 H 158/86 H Blood Pressure Mean 128 Blood Pressure Source Blood Pressure Position Blood Pressure Location Pulse Ox 96 Oxygen Delivery Method Room Air 10/14/22 11:45 10/14/22 11:34 10/14/22 11:48 Temperature Temperature Source Pulse Rate 101 H 105 H Respiratory Rate 18 Respiratory Effort Respiratory Pattern Blood Pressure 157/97 H 161/92 H Blood Pressure Mean 117 Blood Pressure Source Blood Pressure Position Blood Pressure Location Pulse Ox 96 95 Oxygen Delivery Method Room Air Room Air 10/14/22 11:55 10/14/22 12:44 10/14/22 13:13 Temperature 98.2 F 98 F Temperature Source Temporal Oral Pulse Rate 105 H 96 97 Respiratory Rate 16 14 Respiratory Effort Respiratory Pattern Blood Pressure 149/82 H 139/92 H 150/92 H Blood Pressure Mean 107 111 Blood Pressure Source Monitor Blood Pressure Position Semi-Fowlers Blood Pressure Location Right Arm Pulse Ox 95 97 Oxygen Delivery Method Room Air Room Air 10/14/22 15:17 10/14/22 16:33 Temperature 98.5 F Temperature Source Oral Pulse Rate 84 Respiratory Rate 18 Respiratory Effort Respiratory Pattern Blood Pressure 145/86 H Blood Pressure Mean 105 Blood Pressure Source Monitor Blood Pressure Position Semi-Fowlers Blood Pressure Location Right Arm Pulse Ox 95 97 Oxygen Delivery Method Room Air Room Air Weight Weight: 105.7 kg Body Mass Index (BMI) 33.4 Physical Exam Const alert, oriented x3, no apparent distress, average body habitus and healthy appearing General Appearance: cooperative, well kempt and well developed Orientation / Consciousness: awake, oriented to person, oriented to place and oriented to time HEENT normocephalic, head/scalp atraumatic, hearing grossly normal bilaterally and moist oral mucous membranes Eyes PERRL, EOMs intact bilaterally and conjunctivae normal Neck supple, no JVD, thyroid normal and no carotid bruits General: trachea midline Resp normal respiratory effort, no retractions, no use of accessory muscles and clear to auscultation bilaterally Auscultation: Negative for rales, rhonchi or wheezes Cardio regular rate, regular rhythm, S1 normal heart sound, S2 normal heart sound, no murmurs, no rub and no gallops GI normal to inspection, nondistended, normoactive bowel sounds, soft to palpation, non-tender and non-distended Extremity no clubbing, cyanosis or edema Skin no rashes or lesions noted General Skin Exam: no breakdown Neuro oriented x3, CN's II-XII intact bilaterally, moves all extremities, no focal motor deficits and no sensory deficits noted Sensorium / Orientation: awake, alert, oriented to person, oriented to place and oriented to time Speech: speech normal Psych affect normal Results Lab / Micro Data Result Diagrams: 10/14/22 11:08 10/14/22 11:08 Labs: Laboratory Results - last 24 hr 10/14/22 11:02: POC Glucose 454 H* 10/14/22 11:08: WBC 11.0, RBC 5.30, Hgb 16.2, Hct 48.6, MCV 91.7, MCH 30.6, MCHC 33.3, RDW Std Deviation 43.1, RDW Coeff of Leela 12.9, Plt Count 214, MPV 11.0, Immature Gran % (Auto) 0.700, Neut % (Auto) 55.8, Lymph % (Auto) 31.8, [place] % (Auto) 8.1, Eos % (Auto) 2.9, Baso % (Auto) 0.7, Absolute Neuts (auto) 6.2, Absolute Lymphs (auto) 3.50, Nucleated RBC % 0 10/14/22 11:08: PT 12.6, INR 1.0, APTT 24.5 10/14/22 11:08: Sodium 136, Potassium 4.7, Chloride 102, Carbon Dioxide 26.0, Anion Gap 8, BUN 22 H, Creatinine 1.49 H, Estim Creat Clear Calc 60.56, Est GFR (MDRD) Af Amer 64, Est GFR (MDRD) Non-Af 53 L, BUN/Creatinine Ratio 14.8, Glucose 431 H, Calcium 9.1, Troponin I High Sens 12 10/14/22 14:03: Troponin I High Sens 9 10/14/22 16:32: POC Glucose 296 H 10/14/22 16:56: Troponin I High Sens [address] 10/14/22 11:09 IMPRESSION: Negative Brain CT without contrast. N.B. : The above Results were Read Back by Pete Darling MD to Walter Chapa MD, and understanding confirmed on 10/14/2022 11:32:36 (ET). Electronically Signed: Pete Darling MD at 11:34 EST Reading Location ID and State: [facility] / [place] , Service support , ADDENDUM: 10/14/22 1141 IMPRESSION: Negative Brain CT without contrast. N.B. : The above Results were Read Back by Pete Darling MD to Walter Chapa MD, and understanding confirmed on 10/14/2022 11:32:36 (ET). Electronically Signed: Pete Darling MD at 11:34 EST , Chest X-Ray 10/14/22 11:19 IMPRESSION: Normal x-ray examination of the chest. Electronically Signed: Pete Darling MD at 11:34 EST , Assessment & Plan Assessment/Plan (1) Chest pain: PLAN: Plan 1. Facial paresthesias-etiology unclear-patient will be placed in observation status on PCU, NIH scores will be monitored, patient will remain on 81 mg aspirin daily, he will have an MRI of the brain performed as well as a CT of the head and neck performed. #2 chest pain-etiology unclear, patient's cardiac enzymes remain normal at this time and he still complains of sharp chest discomfort, patient will have an echocardiogram performed tomorrow, cardiac enzymes will continue to be cycled, patient will have an exercise stress test tomorrow if enzymes remain normal. #3 bilateral arm pain-I think this is probably secondary to degenerative disc disease of his cervical spine-I will attempt to obtain an MRI of the cervical spine while he is hospitalized during this admission, patient was scheduled to have one done this Saturday, he requires premedication for the MRI and I think it is better for the patient to have his cervical MRI performed while he is here in the hospital rather than come back on Saturday to have it performed. #4 degenerative disc disease of the cervical spine-complicates care, medical course, recovery, and prognosis #5 type 2 diabetes-blood sugars will be monitored, sliding scale insulin will be administered as needed, blood sugars may be elevated at this time due to his rec ent use of prednisone. #6 hyperlipidemia-patient is on Tricor as an outpatient, this will be held d uring his hospitalization, patient has an allergy to statins Total clinical time spent by myself addressing the patient's medical issues, reviewing all of the data, and collaborating with patient's care team: 75- minutes Charges/Coding Visit Charges Inpatient E&M: 90608 Init Hosp L3
[2022-10-14] MEDS: oxyCODONE 5 MG Tablet PO (18:35)
[2022-10-14 22:05] LABS: Bedside Glucose 280 mg/dL (74-106)
[2022-10-15] VITALS (11 sets, daily range): BP systolic 127–174; BP diastolic 74–98; PULSE 65–86; RESP 14–18; TEMP 36.5–36.8; O2SAT 93–99; BMI 33.4
--- NOTE | 2022-10-15 05:55 | EKG12_ITS ---
Test Reason : AM EKG Blood Pressure : / mmHG Vent. Rate : 073 BPM Atrial Rate : 073 BPM P-R Int : 172 ms QRS Dur : 082 ms QT Int : 376 ms P-R-T Axes : 073 025 071 degrees QTc Int : 414 ms Sinus rhythm with marked sinus arrhythmia Nonspecific T wave abnormality Abnormal ECG When compared with ECG of 14-OCT-2022 14:24, MANUAL COMPARISON REQUIRED, DATA IS UNCONFIRMED Confirmed by LOR BARKER, NADIA ([id number]), photograph editor JOSÉ ANTONIO HUFFMAN ([id number]) on 10/16/2022 9:33:59 AM Referred By: Dave Meredith Confirmed By:NADIA HOROWITZ MD
[2022-10-15] MEDS: Aspirin E.C. 81 MG Tablet PO (06:16)
[2022-10-15 07:00] LABS: Bedside Glucose 164 mg/dL (74-106)
[2022-10-15 07:01] LABS: Cholesterol 242 mg/dL (200); High Density Lipoprotein 38 mg/dL; Triglycerides 426 mg/dL
[2022-10-15] MEDS: 0.9% Saline Lock 10 ML Syringe IV (09:08)
[2022-10-15] MEDS: LORazepam 2 MG/ML Syringe IV (09:08)
[2022-10-15] MEDS: glipiZIDE XL 5 MG Tablet 10 MG PO (11:00)
[2022-10-15 11:15] LABS: Bedside Glucose 198 mg/dL (74-106)
--- NOTE | 2022-10-15 12:48 | STRESSREP ---
Stress Test Report Exercise myocardial perfusion stress test. 52-year-old man with a history of a cardiomyopathy and chest pain Stress protocol: Resting EKG demonstrates normal sinus rhythm with a rate of 74 bpm resting blood pressure is 164/102 mmHg. The patient exercised according to the regular Robert protocol for a total duration of 5 minutes attaining a maximum heart rate of 155 bpm which was 91% of maximum predicted heart rate; the maximum workload was 7 metabolic equivalents. At rest there were no ST or T wave changes noted to suggest ischemia and at peak exercise upsloping ST changes only were noted which did not meet the criteria for ischemia. No clinical angina was noted the test was terminated due to the target heart rate being achieved/fatigue. The peak blood pressure was 222/110 mmHg. Rate-pressure product was 33,900. Myocardial perfusion protocol. 14.0 mCi of technetium 99m sestamibi was injected at rest. The patient exercised according to regular Robert protocol for total duration of 5 minutes and at peak exercise 44.4 mCi of technetium 99m sestamibi was injected stress images were obtained stress and rest images were reconstructed in comparing the short axis vertical long and horizontal long axis. Gated images were also obtained. Perfusion SPECT analysis: Review of the stress images demonstrate normal uptake of tracer noted in all areas of the myocardium with mild reduction noted in the anterior wall. The resting images similarly demonstrate normal uptake of tracer noted in all areas of the myocardium, and similar changes noted in the anterior wall.. No areas of reversibility are noted to suggest ischemia no previous infarct was noted. Gated SPECT analysis: The gated ejection fraction is 46%. Conclusion: Normal exercise myocardial perfusion stress test at a moderate workload Mildly reduced ejection fraction. Hypertensive response to exercise
--- NOTE | 2022-10-15 15:17 | DCINST_ITS ---
Discharge Instructions Diet Discharge Diet: 1800 Calorie Control Diet Activity Discharge Activity: Return to Normal Activity Weight Bearing Status: Full weight bearing Follow Up Care Test Results: Test results from this visit will be discussed in further detail at your follow- up appointment, if applicable. Discharge Plan Admission Admit Date/Time: 10/14/22 12:22 Primary Reason for Your Visit: facial parathesias, chest pain Attending Provider: Leonidas Sharp Primary Care Provider: Leonidas Miles Discharge Orders/Prescriptions Prescriptions: New rosuvastatin [Crestor] 10 mg tablet 10 mg PO DAILY Qty: 90 0RF fenofibrate micronized 200 mg capsule 200 mg PO DAILY Qty: 90 0RF Continued glipizide 10 mg tablet extended release 24hr 10 mg PO DAILY multivitamin 1 EACH tablet 1 ea PO DAILY ascorbic acid (vitamin C) 1,000 MG tablet 1,000 mg PO DAILY aspirin 81 MG tablet,delayed release (DR/EC) 81 mg PO DAILY Discontinued fenofibrate nanocrystallized 145 mg tablet 145 mg PO DAILY Referrals / Follow Up: Leonidas Miles DO [Primary Care Provider] - Disposition Disposition (needs filled in before D/C Order can be placed): Home, Self Care
--- NOTE | 2022-10-15 15:22 | PCM.DC.SUM ---
Providers Date of Admission: 10/14/22 Date of Discharge: 10/15/22 Primary Care Physician: Dr. Leonidas Miles, Reason For Visit: CHEST PAIN, DIZZINESS Diagnosis Discharge Diagnosis (1) Chest pain: Status: Acute Code(s): R07.9 - Chest pain, unspecified Plan 1. Facial paresthesias-etiology unclear-patient will be placed in observation status on PCU, NIH scores will be monitored, patient will remain on 81 mg aspirin daily, he will have an MRI of the brain performed as well as a CT of the head and neck performed. #2 chest pain-etiology unclear, patient's cardiac enzymes remain normal at this time and he still complains of sharp chest discomfort, patient will have an echocardiogram performed tomorrow, cardiac enzymes will continue to be cycled, patient will have an exercise stress test tomorrow if enzymes remain normal. #3 bilateral arm pain-I think this is probably secondary to degenerative disc disease of his cervical spine-I will attempt to obtain an MRI of the cervical spine while he is hospitalized during this admission, patient was scheduled to have one done this Saturday, he requires premedication for the MRI and I think it is better for the patient to have his cervical MRI performed while he is here in the hospital rather than come back on Saturday to have it performed. #4 degenerative disc disease of the cervical spine-complicates care, medical course, recovery, and prognosis #5 type 2 diabetes-blood sugars will be monitored, sliding scale insulin will be administered as needed, blood sugars may be elevated at this time due to his recent use of prednisone. #6 hyperlipidemia-patient is on Tricor as an outpatient, this will be held during his hospitalization, patient has an allergy to statins Total clinical time spent by myself addressing the patient's medical issues, reviewing all of the data, and collaborating with patient's care team: 75-minutes Medications at Discharge Home Medications ascorbic acid (vitamin C) 1,000 mg tablet 1,000 mg PO DAILY supplement 02/18/20 aspirin 81 mg tablet,delayed release 81 mg PO DAILY health maintenance 02/18/20 multivitamin 1 ea PO DAILY supplement 02/18/20 glipizide 10 mg tablet, extended release 24 hr 10 mg PO DAILY diabetes 11/20/21 fenofibrate micronized 200 mg capsule 200 mg PO DAILY #90 caps 10/15/22 rosuvastatin 10 mg tablet (Crestor) 10 mg PO DAILY #90 tabs 10/15/22 Hospital Course Operations None Procedures 2-D Echocardiogram and Stress test Summary of Care Provided Minutes Spent on Discharge: 32 Hospital Course: This 52-year-old white male was seen in the emergency room at [facility] after being transported by squad for evaluation of facial numbness, chest discomfort, difficulty forming sentences, and blurred vision which started at 10 AM that morning. Work-up in the emergency room included a brain CT without contrast which was unremarkable, EKG was performed which shows some T wave changes in the lateral precordial leads, chest x-ray was unremarkable. Patient had cardiac enzymes performed which were normal, patient's creatinine was elevated at 1.49 BUN was 22. Patient's glucose level was 431-this was felt to be secondary to recent administration of corticosteroids for degenerative disc disease of the neck. Patient was placed in observation status on PCU, NIH scores were monitored, patient underwent an MRI and a CTA of the head and neck all of which were unremarkable. Patient's cardiac enzymes remain negative, he underwent an echocardiogram which was unremarkable, patient then underwent a nuclear stress test which showed no evidence of reversible ischemic changes. Finally, patient had an MRI of his neck due to chronic cervical neck pain, this showed degenerative disc disease of the cervical spine-patient was to follow-up with an orthopedic surgeon regarding treatment. On 10/15/2022, patient was seen and examined: On examination he appeared in good health and spirits. Vital signs as documented. Skin warm and dry and without overt rashes. Neck without JVD, neck was supple, trachea midline, thyroid was normal. Lungs clear bilaterally, normal air movement was noted. Heart exam notable for regular rhythm, normal sounds and absence of murmurs, rubs or gallops. Abdomen unremarkable and without evidence of organomegaly, masses, or abdominal aortic enlargement. Bowel sounds are present, abdomen is not distended. Extremities nonedematous, no cyanosis was noted, no clubbing was noted. Neuro: Cranial nerves II through XII are grossly intact, no focal motor deficits were noted, sensation to light touch and pinprick intact, motor exam 5/5 throughout. Psych: Patient is alert and oriented x3, he does not appear anxious or depressed, he does not appear agitated. On 10/15/2022, patient was seen and examined and felt to be in stable condition for discharge home, the etiology of the patient's symptomology was unknown, patient was instructed to take a baby aspirin daily and go on a statin. Weight / BMI Weight Weight: 105.7 kg Body Mass Index (BMI) 33.4 ABG / Lab / Microbiology Data Result Diagrams: 10/14/22 11:08 10/14/22 11:08 Laboratory: Laboratory Results - last 24 hr 10/14/22 16:32: POC Glucose 296 H 10/14/22 16:56: Troponin I High Sens 11 10/14/22 20:45: POC Glucose 280 H 10/15/22 06:11: Triglycerides 426 H, Cholesterol 242 H, LDL Cholesterol TNP, VLDL Cholesterol TNP, HDL Cholesterol 38 L 10/15/22 06:15: POC Glucose 164 H 10/15/22 10:55: POC Glucose 198 H Radiography Diagnostic Testing: Radiology Impression Brain MRI 10/14/22 12:29 IMPRESSION: Unremarkable examination. No evidence for acute infarct or other significant signal abnormality in the brain. Electronically Signed: Shanique Betancourt MD at 11:24 EST , Echocardiogram 10/14/22 12:29 Interpretation Summary Normal LV size. The estimated ejection fraction is 53 %. Stage 1 diastolic dysfunction. Structurally normal valves. Ordering Physician: Leonidas Sharp Referring Physician: Leonidas Miles Performed By: Misti Mccarty, MAKENNACS, RVT Cervical Spine MRI 10/14/22 16:54 IMPRESSION: 1. Multilevel degenerative changes, as described above. 2. Severe right foraminal stenosis with nerve root compression at C4-C5 3. Mild to moderate central canal stenosis with compression on the anterior aspect of the cord from disc bulges at C4-C5 and C5-C6 Electronically Signed: Kendell Rubin MD at 11:51 EST Reading Location ID and State: [facility] / [place] , Service support , Head/Neck CTA 10/14/22 16:57 IMPRESSION: Minimal atherosclerotic changes of the carotid siphons. Otherwise normal CTA Head and neck with contrast. Electronically Signed: Howard Leija DO at 18:44 EST Reading Location ID and State: [facility] / [place] Tel [phone], Service support , D/C Instructions Discharge Diet: 1800 Calorie Control Diet Weight Bearing Status: Full weight bearing Meaningful Use Info Meaningful Use Diagnoses (Choose all that apply): None applicable Discharge Plan Admission Admit Date/Time: 10/14/22 12:22 Primary Reason for Your Visit: facial parathesias, chest pain Attending Provider: Leonidas Sharp Primary Care Provider: Leonidas Miles Discharge Orders/Prescriptions Prescriptions: New rosuvastatin [Crestor] 10 mg tablet 10 mg PO DAILY Qty: 90 0RF fenofibrate micronized 200 mg capsule 200 mg PO DAILY Qty: 90 0RF Continued glipizide 10 mg tablet extended release 24hr 10 mg PO DAILY multivitamin 1 EACH tablet 1 ea PO DAILY ascorbic acid (vitamin C) 1,000 MG tablet 1,000 mg PO DAILY aspirin 81 MG tablet,delayed release (DR/EC) 81 mg PO DAILY Discontinued fenofibrate nanocrystallized 145 mg tablet 145 mg PO DAILY Referrals / Follow Up: Leonidas Miles DO [Primary Care Provider] - Disposition Disposition (needs filled in before D/C Order can be placed): Home, Self Care Charges/Coding Visit Charges Inpatient E&M: 75908 Disch Hosp >30min
== END 2022-10-15 15:22 | disposition home or self-care (01) ==
LOC: ED 12:25 → PCU 13:52
PROVIDERS: Admitting Provider Internal Medicine; Emergency Provider Emergency Medicine; PCP Family Medicine; Visit Provider Internal Medicine
DX: R07.89 Other chest pain (principal); I42.8 Other cardiomyopathies; E11.65 Type 2 diabetes mellitus with hyperglycemia; R42 Dizziness and giddiness; E78.5 Hyperlipidemia, unspecified; F17.210 Nicotine dependence, cigarettes, uncomplicated; Z79.84 Long term (current) use of oral hypoglycemic drugs; M25.512 Pain in left shoulder; Z79.82 Long term (current) use of aspirin; M50.30 Other cervical disc degeneration, unspecified cervical region; I10 Essential (primary) hypertension; Z79.899 Other long term (current) drug therapy; R20.0 Anesthesia of skin; G47.33 Obstructive sleep apnea (adult) (pediatric); E66.9 Obesity, unspecified; Z68.33 Body mass index [BMI] 33.0-33.9, adult; R94.31 Abnormal electrocardiogram [ECG] [EKG]
CPT/HCPCS: 36415; 70450; 70496; 70498; 70551; 71045; 72141; 78452; 80048; 80061; 82962; 84484; 85025; 85610; 85730; 93005; 93017; 93306; 96361; 96374; 96375; 99221; 99285; A9500; J7030; Q9967; A4216; G0378

== ENCOUNTER → 2022-10-18 | Outpatient (CLI) | payer OTHER, SELFPAY ==
[2022-10-18 12:45] LABS: Hemoglobin A1c 8.7 % (3.8-5.6)
[2022-10-20 10:46] LABS: Fructosamine 336 umol/L (0-285)
== END | disposition home or self-care (01) ==
PROVIDERS: PCP Family Medicine; Referring Provider Orthopaedic Surgery; Visit Provider Orthopaedic Surgery
DX: E11.9 Type 2 diabetes mellitus without complications (principal)
CPT/HCPCS: 36415; 82985; 83036

== ENCOUNTER → 2022-11-09 | Outpatient (CLI) | payer OTHER, SELFPAY ==
[2022-11-11 20:26] LABS: Fructosamine 281 umol/L (0-285)
== END | disposition home or self-care (01) ==
LOC: MTLAB 12:34
PROVIDERS: PCP Family Medicine; Referring Provider Family Medicine; Visit Provider Family Medicine
DX: E11.40 Type 2 diabetes mellitus with diabetic neuropathy, unspecified (principal)
CPT/HCPCS: 36415; 82985

== ENCOUNTER → 2022-11-19 | Outpatient (CLI) | payer OTHER, SELFPAY ==
[2022-11-19 16:03] LABS: Hemoglobin A1c 8.1 % (3.8-5.6)
== END | disposition home or self-care (01) ==
LOC: MTLAB 11:40
PROVIDERS: PCP Family Medicine; Referring Provider Orthopaedic Surgery; Visit Provider Orthopaedic Surgery
DX: E11.9 Type 2 diabetes mellitus without complications (principal)
CPT/HCPCS: 36415; 83036

== ENCOUNTER → 2023-01-17 | Outpatient (CLI) | payer OTHER, SELFPAY ==
[2023-01-17 10:37] LABS: Hemoglobin A1c 7.2 % (3.8-5.6)
== END | disposition home or self-care (01) ==
LOC: MTLAB 09:16
PROVIDERS: PCP Family Medicine; Referring Provider Orthopaedic Surgery; Visit Provider Orthopaedic Surgery
DX: E11.9 Type 2 diabetes mellitus without complications (principal)
CPT/HCPCS: 36415; 83036

== ENCOUNTER → 2023-07-30 | Outpatient (CLI) | payer OTHER, SELFPAY ==
[2023-08-05 08:29] LABS: Absolute Lymphocyte Count 2.15 X10^3/uL (0.83-4.51); Absolute Neutrophil Count 5.4 X10^3/uL (2.0-7.7); Basophil# 0.08 X10^3/uL; Basophil% 0.9 % (0-1); Eosinophil# 0.52 X10^3/uL; Eosinophils% 5.8 % (0-5); Hematocrit 46.9 % (40-54); Hemoglobin 15.4 g/dL (13.0-16.5); Lymphocyte # 2.15 X10^3/ul (0.83-4.51); Lymphocyte % 23.9 % (19-41); Mean Corp Hgb Conc 32.8 g/dL (32-36); Mean Corpuscular Hgb 30.2 pg (27.0-32.0); Monocyte# 0.81 X10^3/uL; NRBC Flagged by Analyzer 0 % (0-5); Neutrophil # 5.41 X10^3/uL (2.7-7.7); Platelet Count 209 K/mm3 (150-450); RBC Distribution Width CV 12.7 % (11.6-14.6); RBC Distribution Width SD 43.4 fl (35.1-43.9)
[2023-08-05 08:57] LABS: Anion Gap 5 (5-15); BUN 15 mg/dL (7-18); BUN/Creat Ratio 16.1 RATIO (10-20); Calcium,Total 9.2 mg/dL (8.5-10.1); Chloride 109 mmol/L (98-107); Creatinine, Serum 0.93 mg/dL (0.70-1.30); EST Glomerular Filtration Rate 91 mL/min (>60); Est Glom Filt Rate - Afr Amer 110 mL/min (>60); Glucose 223 mg/dL (74-106); Potassium 4.1 mmol/L (3.5-5.1); Sodium Level 137 mmol/L (136-145)
[2023-08-05 09:03] LABS: Magnesium 2.4 mg/dL (1.6-2.6)
[2023-08-05 09:46] LABS: HIV - WCH Non-Reactive (Nonreactive); Hepatitis B Surface Antibody Non-Reactive; Hepatitis C Antibody Non-Reactive (Nonreactive)
[2023-08-05 10:11] LABS: Hemoglobin A1c 8.4 % (3.8-5.6)
[2023-08-06 05:07] LABS: Hepatitis A AB, Total Negative (Negative)
== END | disposition home or self-care (01) ==
LOC: PAT 08-28 12:22
PROVIDERS: Anesthesiology; PCP Family Medicine; Visit Provider Orthopaedic Surgery
DX: Z01.818 Encounter for other preprocedural examination (principal)
CPT/HCPCS: 36415; 80048; 83036; 83735; 85025; 86703; 86706; 86708; 86803; 87081; 93005

== ENCOUNTER 2024-03-11 09:30 | Observation (INO) | payer OTHER, SELFPAY ==
[2024-03-11] VITALS (15 sets, daily range): BP systolic 124–161; BP diastolic 74–96; PULSE 63–89; RESP 15–28; TEMP 36.5–36.7; O2SAT 93–98; BMI 31.2; BMI 30.4
--- NOTE | 2024-03-11 09:32 | ED.VIS.CHEST ---
HPI History of Present Illness Chief Complaint: Chest Pain Informant: patient Onset/Context/Timing Onset: Today Activity at onset: sudden Timing: Continuous Quality: Positive for Heaviness and Tightness Location: Left Chest Worsened By: Nothing Relieved By: Nothing Associated Symptoms: Positive for Dyspnea, Acid Reflux and Palpitations; Negative for Nausea, Vomiting, Diaphoresis, Cough, Fever or Lightheadedness Narrative Narrative: Patient presents with chest pain that began this morning. Patient states he was getting ready for work around 2 AM when the pain began. Patient states the pain is mainly over the left side of his chest that radiates into his neck, left shoulder, and left arm. Patient describes the pain as tightness and heaviness. Patient states nothing makes it better and nothing makes it worse. Patient states it has been constant for the past several hours. Patient does admit to some shortness of breath and palpitations. Patient also admits to some recent reflux symptoms. CVD Risk Factors: Positive for Diabetes, Hypercholesterolemia, Family History 1' </=55 and Smoking; Negative for Hypertension PE Risk Factors: Positive for Cancer (Skin cancer); Negative for Recent Travel/Surgery, Recent Immobilization, Prior DVT or PE or OCP + Smoking + >/=35 PFSH PFS Medical History Arthritis High cholesterol Injury of head and neck Syncope History of diverticulitis Smoker Hyperglycemia due to type 2 diabetes mellitus Abnormal ECG Alcohol use Diabetes Dietary restriction Cardiology follow-up encounter History of echocardiogram History of stress test H/O Mohs micrographic surgery for skin cancer Malignant neoplasm of skin Varicose veins of both lower extremities Exposure to COVID-19 virus Tobacco use Obesity (BMI 30.0-34.9) HLD (hyperlipidemia) HTN (hypertension) New onset type 2 diabetes mellitus TIA (transient ischemic attack) Pharyngitis URI (upper respiratory infection) Lumbar strain Glucosuria Nonischemic cardiomyopathy Chest pain Home Medications ?Medication ?Instructions ?Recorded ?Last Taken ?Type ascorbic acid (vitamin C) 1,000 mg 1,000 mg PO DAILY supplement 02/18/20 03/10/24 History tablet aspirin 81 mg tablet,delayed 81 mg PO DAILY health maintenance 02/18/20 03/11/24 History release multivitamin 1 ea PO DAILY supplement 02/18/20 10/14/22 History citalopram 20 mg tablet 10 - 20 mg PO QHS 03/11/24 03/10/24 History fenofibrate nanocrystallized 145 145 mg PO DAILY 03/11/24 Unknown History mg tablet gabapentin 300 mg capsule 300 - 600 mg PO QHS PRN PRN pain 03/11/24 03/10/24 History tirzepatide 5 mg/0.5 mL 5 mg subcut MO 03/11/24 03/09/24 History subcutaneous pen injector (Maco) Allergy/AdvReac Type Severity Reaction Status Date / Time [id number] Reductase AdvReac painful Verified 03/11/24 09:36 Inhibitor (Azduckq-Bpw-Ljq joints Reductase Inhibitor) Family History Father Heart disease Hypertension Hypercholesteremia Surgical History Hx of colonoscopy History of cardiac catheterization Hx of right cataract extraction Hx of left cataract extraction Social History Smoking Status: Current every day smoker tobacco type: cigarettes alcohol intake: current Alcohol type: beer ROS ROS ED Constitutional Constitutional ED: Denies chills or fever(s) Eyes Eyes: Denies blurry vision or change in vision ENT ENT ED: Denies rhinorrhea or sore throat Cardiovascular Cardiovascular: Reports chest pain and palpitations Respiratory/Chest Respiratory/Chest: Reports dyspnea; Denies cough Gastrointestinal Gastrointestinal: Denies nausea or vomiting Genitourinary Genitourinary ED: Denies dysuria or hematuria Musculoskeletal Musculoskeletal: Reports neck pain; Denies back pain Integumentary Denies abscess or rash Neurologic Neurologic: Reports headache(s); Denies weakness Allergic/Immunologic Allergic/Immunologic ED: Denies mouth swelling or urticaria EXAM Physical Exam Const Vital Signs: 03/11/24 09:31 03/11/24 09:31 03/11/24 09:40 Temperature 97.7 F L Temperature Source Temporal Pulse Rate 78 84 Respiratory Rate 28 H 21 H Blood Pressure 158/95 H 158/95 H Blood Pressure Mean 116 116 Pulse Ox 96 98 Oxygen Delivery Method Room Air Room Air Room Air 03/11/24 10:31 03/11/24 11:00 03/11/24 11:49 Temperature Temperature Source Pulse Rate 68 89 64 Respiratory Rate 19 H 16 Blood Pressure 161/93 H 145/85 H 145/78 H Blood Pressure Mean 115 105 Pulse Ox 95 98 Oxygen Delivery Method Room Air Room Air 03/11/24 11:54 03/11/24 12:00 03/11/24 12:01 Temperature Temperature Source Pulse Rate 82 83 81 Respiratory Rate 18 Blood Pressure 135/83 H 127/75 H 127/75 H Blood Pressure Mean 92 Pulse Ox 93 Oxygen Delivery Method Room Air 03/11/24 12:09 Temperature Temperature Source Pulse Rate 71 Respiratory Rate 25 H Blood Pressure 128/83 H Blood Pressure Mean 98 Pulse Ox 93 Oxygen Delivery Method Room Air Positive well nourished and obese Nutritional Appearance: obese HEENT Reports moist mucous membranes Neck supple and no JVD Resp normal respiratory effort Auscultation: wheezes expiratory wheezes (Slight) Cardio regular rate and regular rhythm GI soft to palpation, non-tender and non-distended Extremity normal to inspection Neuro oriented x3, CN's II-XII intact bilaterally and no sensory deficits noted Sensorium / Orientation: awake and alert Motor Exam: strength 5/5 throughout Psych mental status grossly normal Heart Score History: Moderately Suspicious ECG: Nonspecific Repolarization Age: >45 - <65 years Risk Factors: >/= 3 Risk Factors or History of CAD Troponin: </= Normal Limit Score: 5 MDM MDM MDM Narrative Medical decision making narrative: Differential diagnosis includes cardiac dysrhythmia, cardiac ischemia, pulmonary embolism, pneumonia, pneumothorax, electrolyte abnormality, and musculoskeletal pain. EKG will be obtained to assess for cardiac dysrhythmia and cardiac ischemia. Chest x-ray will be obtained to assess for pneumonia and pneumothorax. CBC will be obtained to assess for leukocytosis and anemia. Basic metabolic profile will be obtained to assess for electrolyte abnormality and renal function. High-sensitivity troponin will be obtained to assess for cardiac ischemia. 2-hour repeat high-sensitivity troponin will be obtained to assess for ongoing cardiac ischemia. D-dimer will be obtained to assess for pulmonary embolism. Lab Data Attestation: I reviewed the patient's lab results. Lab results narrative: CBC was reviewed and was within normal limits. Basic metabolic profile was reviewed. Glucose was mildly elevated at 210. D-dimer was reviewed and was normal at 0.34. High-sensitivity troponin was reviewed and was normal at 7. Labs: Laboratory Results - last 24 hr 03/11/24 03/11/24 09:35 12:03 WBC 9.0 RBC 5.31 Hgb 16.2 Hct 48.3 MCV 91.0 MCH 30.5 MCHC 33.5 RDW Std Deviation 43.7 RDW Coeff of Leela 13.0 Plt Count 202 MPV 10.5 Immature Gran % (Auto) 0.400 Neut % (Auto) 55.2 Lymph % (Auto) 28.6 [place] % (Auto) 7.4 Eos % (Auto) 7.5 H Baso % (Auto) 0.9 Absolute Neuts (auto) 5.0 Absolute Lymphs (auto) 2.58 Nucleated RBC % 0 D-Dimer Quant (PE/DVT) 0.34 Sodium 137 Potassium 3.8 Chloride 106 Carbon Dioxide 25.0 Anion Gap 6 BUN 14 Creatinine 1.02 Estim Creat Clear Calc 98.70 Est GFR (MDRD) Af Amer 98 Est GFR (MDRD) Non-Af 81 BUN/Creatinine Ratio 13.7 Glucose 210 H Hemoglobin A1c 6.0 H Calcium 9.3 Troponin I High Sens 7 7 Radiography Chest X-Ray - ED: 1 View, Read by ED Physician, Read by Radiologist and No Acute Disease Diagnostic Testing: Clinical Impression(s) from Imaging Studies Chest X-Ray 03/11/24 09:40 IMPRESSION: Hyperinflation. The lungs are clear. Electronically Signed: Jaxson Kramer MD at 10:03 EDT , Portable 1 view chest x-ray was obtained. On my independent interpretation, lung burton are hyperinflated but clear. There is normal cardiac silhouette. Bony thorax is normal. There is no acute process noted. Radiologist also interpreted the x-ray and agrees. EKG Initial EKG: Attestation: I personally reviewed and interpreted this EKG as follows: Interpretation: Sinus Rhythm (81) and Non-Specific ST Changes Comments: EKG was obtained. On my independent interpretation, it showed a normal sinus rhythm with a rate of 81. AL interval, QRS interval, and QTc intervals were all normal. [place] was normal. There are nonspecific ST-T wave changes. Prior EKG tracings: available for review Prior: Unchanged (08/05/2023) Management Discussion w/another healthcare provider: Hospitalist Treatment and Re-Evaluation :: Smoking cessation was discussed. Patient was ordered aspirin and nitroglycerin here. Patient had a normal stress test with an ejection fraction of 46% on 10/15/2022. Patient was advised of his findings. Patient has a HEART score of 5. Because of this, recommended admission to the hospital. Patient is agreeable with plan. Case was discussed with the hospitalist. He will admit the patient to his service. Patient and spouse understood and were agreeable with the plan. All questions were answered. Discharge Plan Dx/Rx/DC Orders Clinical Impression: Chest pain, Diabetes, Tobacco use Disposition Disposition: Acute Care Hospital [facility] Discharge Date/Time: 03/11/24 12:53
--- NOTE | 2024-03-11 09:39 | EKG12_ITS ---
Test Reason : CP Blood Pressure : / mmHG Vent. Rate : 081 BPM Atrial Rate : 081 BPM P-R Int : 168 ms QRS Dur : 088 ms QT Int : 374 ms P-R-T Axes : 070 003 048 degrees QTc Int : 434 ms Normal sinus rhythm Nonspecific T wave abnormality Abnormal ECG Confirmed by NICOLASA BARKER, YOLA ([id number]), material expeditor JOSÉ ANTONIO HUFFMAN ([id number]) on 03/18/2024 10:26:02 A M Referred By: SHANNA Confirmed By:DUKE BALDWIN MD
--- NOTE | 2024-03-11 09:40 | RAD_ITS ---
STUDY: X-RAY CHEST REASON FOR EXAM: Male, 54 years old. Chest pain TECHNIQUE: Single AP portable view of the chest. COMPARISON: Comparison is made with prior study of October 14, 2022. FINDINGS: EKG electrodes are seen. Hyperinflation. The lungs are clear. There is no demonstrated pleural abnormality. Normal size heart. Normal mediastinum and tommy. Normal visualized pulmonary arteries. Normal visualized aortic arch and descending thoracic aorta. Normal visualized thoracic spine. Normal visualized ribs, clavicles, and shoulders. There is no demonstrated abnormality of the visualized soft tissue structures of the upper abdomen. RAD/Chest 1 View (Portable) IMPRESSION: Hyperinflation. The lungs are clear. Electronically Signed: Jaxson Kramer MD at 10:03 EDT ,
[2024-03-11] MEDS: Aspirin 81 MG TAB.CHEW 324 MG PO (09:43)
[2024-03-11 09:51] LABS: Absolute Lymphocyte Count 2.58 X10^3/uL (0.83-4.51); Basophil# 0.08 X10^3/uL; Basophil% 0.9 % (0-1); Eosinophil# 0.68 X10^3/uL; Eosinophils% 7.5 % (0-5); Hematocrit 48.3 % (40-54); Hemoglobin 16.2 g/dL (13.0-16.5); Lymphocyte # 2.58 X10^3/ul (0.83-4.51); Lymphocyte % 28.6 % (19-41); Mean Corp Hgb Conc 33.5 g/dL (32-36); Mean Corpuscular Hgb 30.5 pg (27.0-32.0); Mean Platelet Vol. 10.5 fl (6.2-12.0); Monocyte# 0.67 X10^3/uL; Monocyte% 7.4 % (0-10); NRBC Flagged by Analyzer 0 % (0-5); Neutrophil # 4.98 X10^3/uL (2.7-7.7); Neutrophil % 55.2 % (47-70); Platelet Count 202 K/mm3 (150-450); RBC Distribution Width SD 43.7 fl (35.1-43.9); Red Blood Count 5.31 M/mm3 (4.6-6.2)
[2024-03-11 10:01] LABS: D-Dimer Quantitative (DVT/PE) 0.34 FEU/ug/m (0.27-0.49)
[2024-03-11 11:00] LABS: Anion Gap 6 (5-15); BUN 14 mg/dL (7-18); BUN/Creat Ratio 13.7 RATIO (10-20); Calcium,Total 9.3 mg/dL (8.5-10.1); Chloride 106 mmol/L (98-107); Creatinine, Serum 1.02 mg/dL (0.70-1.30); EST Glomerular Filtration Rate 81 mL/min (>60); Est Glom Filt Rate - Afr Amer 98 mL/min (>60); Glucose 210 mg/dL (74-106); Potassium 3.8 mmol/L (3.5-5.1); Sodium Level 137 mmol/L (136-145); Troponin-I HS (w/2H Reflex) 7 pg/mL (3.0-78.0)
[2024-03-11 11:44] LABS: Reflex Troponin-HS? (from REC) Y
[2024-03-11] MEDS: Nitroglycerin SL (ED/IMG/CATH) 0.4 MG TABLET SL ×3 (11:49→12:01)
[2024-03-11] MEDS: Morphine 4 MG/ML Syringe IV (12:12)
[2024-03-11 12:24] LABS: Troponin-I HS 7 pg/mL (3.0-78.0)
--- NOTE | 2024-03-11 12:40 | HP.PCM.HOS_ITS ---
HPI - General General Date of Admission: 03/11/24 Date of Service: 03/11/24 Chief Complaint: chest pain HPI Narrative LUPE ROGERS, is a 54 M who presents with chest pain. Symptoms began at 2 AM while patient was getting ready for work. Had left-sided chest pain, radiated down his left arm. Associated diaphoresis and shortness of breath. Patient has a history of spinal stenosis but typically gets neuropathy down his right arm. This was different than that. He presented to the emergency room where he underwent a workup with D-dimer that was negative and 2 troponins are negative. He did have resolution of his symptoms with nitroglycerin. He was also having headache which actually got better with the nitroglycerin. [facility] Medical History Arthritis High cholesterol Injury of head and neck Syncope History of diverticulitis Smoker Hyperglycemia due to type 2 diabetes mellitus Abnormal ECG Alcohol use Diabetes Dietary restriction Cardiology follow-up encounter History of echocardiogram History of stress test H/O Mohs micrographic surgery for skin cancer Malignant neoplasm of skin Varicose veins of both lower extremities Exposure to COVID-19 virus Tobacco use Obesity (BMI 30.0-34.9) HLD (hyperlipidemia) HTN (hypertension) New onset type 2 diabetes mellitus TIA (transient ischemic attack) Pharyngitis URI (upper respiratory infection) Lumbar strain Glucosuria Nonischemic cardiomyopathy Chest pain Home Medications ?Medication ?Instructions ?Recorded ?Last Taken ?Type ascorbic acid (vitamin C) 1,000 mg 1,000 mg PO DAILY supplement 02/18/20 10/14/22 History tablet aspirin 81 mg tablet,delayed 81 mg PO DAILY health maintenance 02/18/20 10/14/22 History release multivitamin 1 ea PO DAILY supplement 02/18/20 10/14/22 History citalopram 20 mg tablet 10 - 20 mg PO QHS 03/11/24 03/10/24 History fenofibrate nanocrystallized 145 145 mg PO DAILY 03/11/24 Unknown History mg tablet gabapentin 300 mg capsule 300 - 600 mg PO QHS PRN PRN pain 03/11/24 03/10/24 History tirzepatide 5 mg/0.5 mL 5 mg subcut MO 03/11/24 03/09/24 History subcutaneous pen injector (Mounjaro) Allergy/AdvReac Type Severity Reaction Status Date / Time Jyutdjl-LLA-GyC Reductase AdvReac painful Verified 03/11/24 09:36 Inhibitor (Vtelbuq-Zzz-Zbx joints Reductase Inhibitor) Family History Father Heart disease Hypertension Hypercholesteremia Surgical History Hx of colonoscopy History of cardiac catheterization Hx of right cataract extraction Hx of left cataract extraction Social History Smoking Status: Current every day smoker tobacco type: cigarettes alcohol intake: current Alcohol type: beer ROS ROS Narrative All review of systems were negative except as mentioned above in the history of present illness and the other review of systems. Vital Signs Vital Signs Vital Signs: 03/11/24 09:31 03/11/24 09:31 03/11/24 09:40 Temperature 36.5 C L Temperature Source Temporal Pulse Rate 78 84 Respiratory Rate 28 H 21 H Blood Pressure 158/95 H 158/95 H Blood Pressure Mean 116 116 Pulse Ox 96 98 Oxygen Delivery Method Room Air Room Air Room Air 03/11/24 10:31 03/11/24 11:00 03/11/24 11:49 Temperature Temperature Source Pulse Rate 68 89 64 Respiratory Rate 19 H 16 Blood Pressure 161/93 H 145/85 H 145/78 H Blood Pressure Mean 115 105 Pulse Ox 95 98 Oxygen Delivery Method Room Air Room Air 03/11/24 11:54 03/11/24 12:00 03/11/24 12:01 Temperature Temperature Source Pulse Rate 82 83 81 Respiratory Rate 18 Blood Pressure 135/83 H 127/75 H 127/75 H Blood Pressure Mean 92 Pulse Ox 93 Oxygen Delivery Method Room Air 03/11/24 12:09 Temperature Temperature Source Pulse Rate 71 Respiratory Rate 25 H Blood Pressure 128/83 H Blood Pressure Mean 98 Pulse Ox 93 Oxygen Delivery Method Room Air Weight Weight: 98.8 kg Body Mass Index (BMI) 31.2 Physical Exam Const alert and no apparent distress General Appearance: cooperative HEENT normocephalic and head/scalp atraumatic Eyes conjunctivae normal Resp normal respiratory effort, no retractions, no use of accessory muscles and clear to auscultation bilaterally Cardio regular rate, regular rhythm, S1 normal heart sound and S2 normal heart sound GI normal to inspection, nondistended, normoactive bowel sounds, soft to palpation, non-tender and non-distended Extremity normal to inspection, full ROM and no clubbing, cyanosis or edema Neuro Sensorium / Orientation: awake and alert Psych affect normal Results Lab / Micro Data 03/11/24 09:35 03/11/24 09:35 Labs: Laboratory Results - last 24 hr 03/11/24 09:35: WBC 9.0, RBC 5.31, Hgb 16.2, Hct 48.3, MCV 91.0, MCH 30.5, MCHC 33.5, RDW Std Deviation 43.7, RDW Coeff of Leela 13.0, Plt Count 202, MPV 10.5, Immature Gran % (Auto) 0.400, Neut % (Auto) 55.2, Lymph % (Auto) 28.6, [place] % (Auto) 7.4, Eos % (Auto) 7.5 H, Baso % (Auto) 0.9, Absolute Neuts (auto) 5.0, Absolute Lymphs (auto) 2.58, Nucleated RBC % 0, D-Dimer Quant (PE/DVT) 0.34, Sodium 137, Potassium 3.8, Chloride 106, Carbon Dioxide 25.0, Anion Gap 6, BUN 14, Creatinine 1.02, Estim Creat Clear Calc 98.70, Est GFR (MDRD) Af Amer 98, Est GFR (MDRD) Non-Af 81, BUN/Creatinine Ratio 13.7, Glucose 210 H, Calcium 9.3, Troponin I High Sens 7 03/11/24 12:03: Troponin I High Sens 7 Imaging Radiology Impression Chest X-Ray 03/11/24 09:40 IMPRESSION: Hyperinflation. The lungs are clear. Electronically Signed: Jaxson Kramer MD at 10:03 EDT , Assessment & Plan Assessment/Plan (1) Unstable angina: PLAN: Plan Unstable angina * Resolved * troponins negative x2. D-dimer negative. * Plan for stress in AM. Check FLP * Continue ASA. H/p myocarditis * remote. Had a non-ischemic cardiomyopathy. * check echo DM2 * takes Monjauro * SSI * check a1c VTE prophylaxis: low risk. not indicated. Charges/Coding Visit Charges Inpatient E&M: 49604 Init Hosp L2
--- NOTE | 2024-03-11 12:53 | ECHOD_ITS ---
Reason For Study: CARDIOMYOPATHY Procedure This was a 2D Doppler, Color Flow transthoracic echocardiogram. Exam performed portable in patient room. Left Ventricle Normal LV size. Left ventricular systolic function is normal. The left ventricular ejection fraction is 55 %. No regional wall motion abnormalities noted. Right Ventricle Normal right ventricle. Normal systolic function. Atria Normal left atrium. Normal right atrium. Mitral Valve Normal mitral valve. Tricuspid Valve Normal tricuspid valve. Aortic Valve Trisinus/trileaflet aortic valve. Pulmonic Valve Normal pulmonic valve. Great Vessels Normal aortic root. The pulmonary artery is normal size. Normal inferior vena cava. Pericardium/Pleural No pericardial effusion. MMode/2D Measurements & Calculations LVIDd: 5.1 cm IVSd: 1.0 cm Ao root diam: 3.0 cm LVIDs: 3.6 cm LVPWd: 0.96 cm RVDd: 3.5 cm FS: 30.4 % LAV(MOD-bp): 43.4 ml LVAd ap4: 36.0 cm2 SV(MOD-sp4): 74.1 ml LAV(MOD-bp) Indexed: 20.1 ml/m2 LVLd ap4: 8.7 cm LAV(MOD-sp2): 42.0 ml EDV(MOD-sp4): 123.2 ml LAV(MOD-sp4): 37.0 ml EDV(sp4-el): 126.3 ml LVAs ap4: 20.7 cm2 LVLs ap4: 7.4 cm ESV(MOD-sp4): 49.1 ml ESV(sp4-el): 49.1 ml EF(MOD-sp4): 60.2 % EF(sp4-el): 61.1 % SV(sp4-el): 77.2 ml LA A4 area: 15.9 cm2 LA dimension(2D): 3.6 cm RA A4 area: 15.1 cm2 TAPSE: 2.2 cm Time Measurements MV dec time: 0.19 sec Doppler Measurements & Calculations MV E max dov: 76.8 cm/sec Lat Peak E' Dov: 16.4 cm/sec Med Peak E' Dov: 11.8 cm/sec MV A max dov: 46.7 cm/sec E/E' lat: 4.7 E/E' med: 6.5 MV E/A: 1.6 Ao V2 max: 127.9 cm/sec LV V1 max: 115.0 cm/sec PA V2 max: 84.0 cm/sec Ao max P.5 mmHg LV V1 max P.3 mmHg ECHO/Echo Complete Interpretation Summary Normal LV size. Left ventricular systolic function is normal. The left ventricular ejection fraction is 55 %. Structurally normal valves. Ordering Physician: Mani Lubin Referring Physician: KIMMY RONDON Performed By: Gavi Alvarenga, RDCS
--- NOTE | 2024-03-11 15:36 | EKG12_ITS ---
Test Reason : AM EKG Blood Pressure : / mmHG Vent. Rate : 063 BPM Atrial Rate : 063 BPM P-R Int : 176 ms QRS Dur : 080 ms QT Int : 438 ms P-R-T Axes : 075 032 059 degrees QTc Int : 448 ms Sinus rhythm with marked sinus arrhythmia Nonspecific T wave abnormality Abnormal ECG When compared with ECG of 11-MAR-2024 20:01, MANUAL COMPARISON REQUIRED, DATA IS UNCONFIRMED Confirmed by Pedro Pablo Boo ([id number]), editor farm journal JOSÉ ANTONIO UHFFMAN ([id number]) on 03/13/2024 6:19:01 AM Referred By: NAVEED Confirmed By:Pedro Pablo Boo
[2024-03-11] MEDS: Morphine 2 MG/ML Syringe IV ×2 (15:38→20:20)
[2024-03-11] MEDS: 0.9% Saline Lock 10 ML Syringe IV (15:44)
[2024-03-11 15:50] LABS: Bedside Glucose 109 mg/dL (74-106)
[2024-03-11 16:20] LABS: Troponin-I HS 8 pg/mL (3.0-78.0)
[2024-03-11] MEDS: Nitroglycerin (INPATIENT USE) 0.4 MG TAB.SUBL SL ×3 (19:40→19:56)
--- NOTE | 2024-03-11 21:26 | EKG12_ITS ---
Test Reason : CP Blood Pressure : / mmHG Vent. Rate : 065 BPM Atrial Rate : 065 BPM P-R Int : 170 ms QRS Dur : 086 ms QT Int : 420 ms P-R-T Axes : 062 014 019 degrees QTc Int : 436 ms Normal sinus rhythm with sinus arrhythmia Nonspecific T wave abnormality Abnormal ECG When compared with ECG of 11-MAR-2024 15:04, MANUAL COMPARISON REQUIRED, DATA IS UNCONFIRMED Confirmed by Pedro Pablo Boo ([id number]), editor publications JOSÉ ANTONIO HUFFMAN ([id number]) on 03/13/2024 6:20:32 AM Referred By: TEVIN Confirmed By:Pedro Pablo Boo
[2024-03-11 21:36] LABS: Bedside Glucose 100 mg/dL (74-106)
[2024-03-12 03:35] VITALS: BP 149/72; PULSE 72; RESP 14; TEMP 36.6; O2SAT 98
--- NOTE | 2024-03-12 05:55 | EKG12_ITS ---
Test Reason : routine Blood Pressure : / mmHG Vent. Rate : 069 BPM Atrial Rate : 069 BPM P-R Int : 166 ms QRS Dur : 078 ms QT Int : 434 ms P-R-T Axes : 075 003 056 degrees QTc Int : 465 ms Normal sinus rhythm with sinus arrhythmia Normal ECG When compared with ECG of 11-MAR-2024 09:27, MANUAL COMPARISON REQUIRED, DATA IS UNCONFIRMED Confirmed by Pedro Pablo Boo ([id number]), loan expeditor JOSÉ ANTONIO HUFFMAN ([id number]) on 03/13/2024 6:21:31 AM Referred By: Confirmed By:Pedro Pablo Boo
[2024-03-12 06:15] VITALS: BP 130/73; PULSE 55; RESP 14; TEMP 36.6; O2SAT 98
[2024-03-12] MEDS: Aspirin E.C. 81 MG Tablet PO (06:21)
[2024-03-12 06:55] LABS: Cholesterol 194 mg/dL (200); High Density Lipoprotein 42 mg/dL; Triglycerides 250 mg/dL; Very Low Density Lipoprotein 50 mg/dL (5-40)
[2024-03-12 07:00] LABS: Bedside Glucose 128 mg/dL (74-106)
--- NOTE | 2024-03-12 09:04 | STRESSREP_ITS ---
Stress Test Report Date: 03/12/2024 Procedure: Exercise tolerance test/imaging study Indications: Chest pain Consent: Per the patient Procedure: The patient exercised on a Robert protocol for 6 minutes and 15 seconds achieving a peak heart rate of 146 bpm (87% predicted maximal heart rate) with a peak blood pressure 182/90 mmHg and a peak MET capacity of 7.7 METs. The baseline ECG demonstrated sinus rhythm. The peak exercise ECG demonstrated no ischemic changes. There were no cardiac dysrhythmias pretest, during exercise, or recovery. The functional capacity was considered average. There was no complaint of chest discomfort during exercise or recovery. The examination was discontinued secondary to target heart rate being achieved and dyspnea. The patient was injected with 14.2 mCi of technetium 99m Cardiolite and subsequently rest SPECT Cardiolite nuclear imaging was obtained in the horizontal long, vertical long, and short axis views. Post-exercise, the patient was injected with 44.6 mCi of technetium 99m Cardiolite and subsequently stress SPECT Cardiolite nuclear imaging was obtained in the horizontal long, vertical long, and short axis views. A gated Cardiolite study at peak stress was obtained. Rest and stress SPECT Cardiolite nuclear imaging status post realignment, normalization, and attenuation correction, demonstrates mildly reduced perfusion of the anterior wall at rest which actually improves on the postexercise images. Consider attenuation artifact.. There is end systolic thickening and brightening. The gated Cardiolite study demonstrates myocardial thickening and inward wall motion. The reported LVEF is 51%. Impression: 1. Technically adequate (percent predicted maximal heart rate greater than 85%) exercise tolerance test 2. Peak exercise ECG with no ischemic changes. No chest pain reported with exercise. 3. There were no cardiac dysrhythmias pretest, during exercise, or recovery 4. Rest and stress SPECT Cardiolite nuclear imaging demonstrate no fixed or reversible perfusion defects.. 5. The gated Cardiolite study reports an LVEF of 51%. This note was generated with NetDragonation software. It may contain incorrect words, spelling, and punctuation that were not noted in checking the note before signing.
[2024-03-12 09:15] VITALS: BP 161/91; PULSE 82; RESP 16; TEMP 36.5; O2SAT 99
--- NOTE | 2024-03-12 09:28 | PN.HOSP_ITS ---
Reason for Visit Reason for Visit: Diagnoses Unstable angina (03/11/24) Subjective Subjective Has some chest pain last night but resolved. No associated shortness of breath. Objective Data Objective Data Vital Signs: Vital Signs Temp Pulse Resp BP Pulse Ox O2 Del Method O2 Flow Rate 36.5 C L 82 16 161/91 H 99 Room Air 2 03/12/24 09:15 03/12/24 09:15 03/12/24 09:15 03/12/24 09:15 03/12/24 09:15 03/12/24 09:15 03/11/24 20:29 Oxygen Flow Rate (L/min) 2 Oxygen Delivery Method Room Air Weight: 96.2 kg Body Mass Index (BMI) 30.4 Intake & Output: Intake and Output for Last 24 Hours 03/10/24 03/11/24 03/12/24 23:59 23:59 23:59 Intake Total 400 / 400 Output Total 0 / 0 Balance 400 / 400 0 / 0 Lab / Micro Data 03/11/24 09:35 03/11/24 09:35 Labs: Laboratory Results - last 24 hr 03/11/24 09:35: WBC 9.0, RBC 5.31, Hgb 16.2, Hct 48.3, MCV 91.0, MCH 30.5, MCHC 33.5, RDW Std Deviation 43.7, RDW Coeff of Leela 13.0, Plt Count 202, MPV 10.5, Immature Gran % (Auto) 0.400, Neut % (Auto) 55.2, Lymph % (Auto) 28.6, [place] % (Auto) 7.4, Eos % (Auto) 7.5 H, Baso % (Auto) 0.9, Absolute Neuts (auto) 5.0, Absolute Lymphs (auto) 2.58, Nucleated RBC % 0, D-Dimer Quant (PE/DVT) 0.34, Sodium 137, Potassium 3.8, Chloride 106, Carbon Dioxide 25.0, Anion Gap 6, BUN 14, Creatinine 1.02, Estim Creat Clear Calc 98.70, Est GFR (MDRD) Af Amer 98, Est GFR (MDRD) Non-Af 81, BUN/Creatinine Ratio 13.7, Glucose 210 H, Hemoglobin A1c 6.0 H, Calcium 9.3, Troponin I High Sens 7 03/11/24 12:03: Troponin I High Sens 7 07/10/24 15:32: POC Glucose 109 H 03/11/24 15:40: Troponin I High Sens 8 03/11/24 21:17: POC Glucose 100 03/12/24 06:17: Triglycerides 250 H, Cholesterol 194, LDL Cholesterol 102, VLDL Cholesterol 50 H, HDL Cholesterol 42 03/12/24 06:23: POC Glucose 128 H Radiography Diagnostic Testing: Radiology Impression Chest X-Ray 03/11/24 09:40 IMPRESSION: Hyperinflation. The lungs are clear. Electronically Signed: Jaxson Kramer MD at 10:03 EDT , Echocardiogram 03/11/24 12:53 Interpretation Summary Normal LV size. Left ventricular systolic function is normal. The left ventricular ejection fraction is 55 %. Structurally normal valves. Ordering Physician: Mani Lubin Referring Physician: KIMMY RONDON Performed By: Gavi Alvarenga RDCS Physical Exam Const alert and no apparent distress HEENT head/scalp atraumatic and moist oral mucous membranes Neuro oriented x3 Sensorium / Orientation: awake and alert Assessment & Plan Assessment/Plan (1) Chest pain: PLAN: Plan Chest pain * Resolved. Workup negative. Noncardiac. Possible patient may have had some radicular left-sided pain due to his known spinal stenosis and then may have panicked and may have had a panic attack along with that. * troponins negative x2. D-dimer negative. * Stress test negative * Continue ASA. H/p myocarditis * remote. Had a non-ischemic cardiomyopathy. * Echo shows an EF of 55%. DM2 * takes Monjauro * SSI * check a1c Degenerative disc disease * Pulled up his MRI from October 2022 where he had multilevel degenerative changes. Severe right foraminal stenosis with nerve root compression at C4-5 and mild to moderate central canal stenosis with compression on the anterior aspect of the cord with disc bulges at C4-C5 and C5-C6. * I personally reviewed those images with the patient and his at bedside. Explained that he is at high risk for radiculopathy. Patient has seen a chiropractor. I did advise against high velocity maneuvers with his neck as that may potentiate his core stenosis and possible lead to paralysis. His did ask about if he can resume motorcycle riding. I explained I will have any new recommendations for that just other than the inherent risks associated with operating motorcycle. * I did advise the patient that if he does have worsening paresthesias numbness, weakness of his extremities, despite this workup being negative, it could be a sign of worsening disc disease and potential concern for cord compression or even paralysis. I advised to come to the emergency room if he were to experience anything like that. VTE prophylaxis: low risk. not indicated.
--- NOTE | 2024-03-12 11:21 | DS.PCM_ITS ---
Providers Date of Admission: 03/11/24 Primary Care Physician: Dr. Kimmy Miles, DO Reason For Visit: CHEST PAIN, DIABETES Diagnosis Discharge Diagnosis (1) Chest pain: Status: Acute Code(s): R07.9 - Chest pain, unspecified Plan Chest pain * Resolved. Workup negative. Noncardiac. Possible patient may have had some radicular left-sided pain due to his known spinal stenosis and then may have panicked and may have had a panic attack along with that. * troponins negative x2. D-dimer negative. * Stress test negative * Continue ASA. H/p myocarditis * remote. Had a non-ischemic cardiomyopathy. * Echo shows an EF of 55%. DM2 * takes Monjauro * SSI * check a1c Degenerative disc disease * Pulled up his MRI from October 2022 where he had multilevel degenerative changes. Severe right foraminal stenosis with nerve root compression at C4-5 and mild to moderate central canal stenosis with compression on the anterior aspect of the cord with disc bulges at C4-C5 and C5-C6. * I personally reviewed those images with the patient and his at bedside. Explained that he is at high risk for radiculopathy. Patient has seen a chiropractor. I did advise against high velocity maneuvers with his neck as that may potentiate his core stenosis and possible lead to paralysis. His did ask about if he can resume motorcycle riding. I explained I will have any new recommendations for that just other than the inherent risks associated with operating motorcycle. * I did advise the patient that if he does have worsening paresthesias numbness, weakness of his extremities, despite this workup being negative, it could be a sign of worsening disc disease and potential concern for cord compression or even paralysis. I advised to come to the emergency room if he were to experience anything like that. VTE prophylaxis: low risk. not indicated. Medications at Discharge Home Medications ascorbic acid (vitamin C) 1,000 mg tablet 1,000 mg PO DAILY supplement 02/18/20 aspirin 81 mg tablet,delayed release 81 mg PO DAILY health maintenance 02/18/20 multivitamin 1 ea PO DAILY supplement 02/18/20 citalopram 20 mg tablet 10 - 20 mg PO QHS 03/11/24 fenofibrate nanocrystallized 145 mg tablet 145 mg PO DAILY 03/11/24 gabapentin 300 mg capsule 300 - 600 mg PO QHS PRN PRN pain 03/11/24 tirzepatide 5 mg/0.5 mL subcutaneous pen injector (Mounjaro) 5 mg subcut MO 03/11/24 Hospital Course Operations None Procedures 2-D Echocardiogram and Stress test Summary of Care Provided Minutes Spent on Discharge: 35 Hospital Course: Patient presents with chest pain and shortness of breath. Patient also had left arm paresthesias. Patient underwent cardiac workup which was negative. Patient had history of myocarditis in the past which is why an echocardiogram was performed and showed an EF of 51%. Did review his past CT images of his neck that showed cord compression at C4-C5 and C5-C6. It is possible patient may have had some radicular symptoms in his left arm that he may have sustained panic attack. Patient acknowledged that without even bring that up. But did advise the patient to seek treatment if he does have worsening radicular symptoms in his extremities. Weight / BMI Weight Weight: 96.2 kg Body Mass Index (BMI) 30.4 ABG / Lab / Microbiology Data 03/11/24 09:35 03/11/24 09:35 Laboratory: Laboratory Results - last 24 hr 03/11/24 09:35: Hemoglobin A1c 6.0 H 03/11/24 12:03: Troponin I High Sens 7 03/11/24 15:32: POC Glucose 109 H 03/11/24 15:40: Troponin I High Sens 8 03/11/24 21:17: POC Glucose 100 03/12/24 06:17: Triglycerides 250 H, Cholesterol 194, LDL Cholesterol 102, VLDL Cholesterol 50 H, HDL Cholesterol 42 03/12/24 06:23: POC Glucose 128 H Radiography Diagnostic Testing: Radiology Impression Echocardiogram 03/11/24 12:53 Interpretation Summary Normal LV size. Left ventricular systolic function is normal. The left ventricular ejection fraction is 55 %. Structurally normal valves. Ordering Physician: Mani Lubin Referring Physician: KIMMY MILES Performed By: Gavi Alvarenga, KEEGAN D/C Instructions Discharge Diet: 1999 Calorie Control Diet Meaningful Use Info Meaningful Use Meaningful Use Diagnoses (Choose all that apply): None applicable Ischemic Stroke Statin Dosing Therapy Reference: STATIN DOSE THERAPY REFERENCE: * Patients > 75 years receive moderate or high dose statin therapy. * Patients 75 years or YOUNGER should receive HIGH intensity statin dose unless contraindicated. You will be required to document reason for non-treatment if statin daily dose does not meet guidelines. HIGH DOSE STATIN THERAPY DAILY Atorvastatin > than or = to 40 mg Rosuvastatin > than or = to 20 mg Amlodipine + Atorvastatin > than or = to 2.5/40 mg Ezetimibe + Simvastatin 10/80 mg Simvastatin 80mg Discharge Plan Admission Admit Date/Time: 03/11/24 12:34 Primary Reason for Your Visit: Chest pain Attending Provider: Mani Lubin Primary Care Provider: Kimmy Miles Instructions Additional Instructions / Restrictions: Your cardiac workup was negative. You did not have a heart attack. Per our review with of your MRI from 2022, you do have significant narrowing in your neck. Because of that, you may be at risk for further numbness, and or weakness in your extremities. If you do experience that and if it does not go away after a brief period of time, notify your physician or return to the emergency room. Discharge Orders/Prescriptions Prescriptions: Continued multivitamin 1 EACH tablet 1 ea PO DAILY ascorbic acid (vitamin C) 1,000 MG tablet 1,000 mg PO DAILY aspirin 81 MG tablet,delayed release (DR/EC) 81 mg PO DAILY citalopram 20 mg tablet 10 - 20 mg PO QHS gabapentin 300 mg capsule 300 - 600 mg PO QHS PRN PRN (Reason: pain) fenofibrate nanocrystallized 145 mg tablet 145 mg PO DAILY Patient Comments: PT DOESNT ALWAYS REMEMBER TO TAKE Mounjaro 5 mg/0.5 mL pen injector 5 mg subcut MO Referrals / Follow Up: Kimmy Miles DO [Primary Care Provider] - Disposition Disposition (needs filled in before D/C Order can be placed): Home, Self Care Charges/Coding Visit Charges Inpatient E&M: 26677 Disch Hosp >30min
--- NOTE | 2024-03-12 11:53 | PHA.DC.MR.R ---
Pharmacy [place] Med Reconciliation Pharmacy Service has performed discharge medication reconciliation for this patient. No new medications at time of discharge medication review. Medications reviewed are from previously reported home medications. The patient's discharge medication list was reviewed for discrepancies and discrepancies were resolved. Medications at Discharge Home Medications ascorbic acid (vitamin C) 1,000 mg tablet 1,000 mg PO DAILY supplement 02/18/20 aspirin 81 mg tablet,delayed release 81 mg PO DAILY health maintenance 02/18/20 multivitamin 1 ea PO DAILY supplement 02/18/20 citalopram 20 mg tablet 10 - 20 mg PO QHS depression/anxiety 03/11/24 fenofibrate nanocrystallized 145 mg tablet 145 mg PO DAILY cholesterol 03/11/24 gabapentin 300 mg capsule 300 - 600 mg PO QHS PRN PRN pain 03/11/24 tirzepatide 5 mg/0.5 mL subcutaneous pen injector (Mounjaro) 5 mg subcut MO diabetes 03/11/24
--- NOTE | 2024-03-12 12:14 | CASEMGMT ---
Discharge order in, RN CM into pt room. Pt denies any home going needs at this time. Pt denies any questions or concerns.
== END 2024-03-12 12:31 | disposition home or self-care (01) ==
LOC: ED 12:23 → PCU 13:38
PROVIDERS: Emergency Provider Emergency Medicine; PCP Family Medicine
DX: R07.89 Other chest pain (principal); I42.8 Other cardiomyopathies; E11.9 Type 2 diabetes mellitus without complications; I10 Essential (primary) hypertension; Z79.82 Long term (current) use of aspirin; R06.02 Shortness of breath; Z79.85 Long-term (current) use of injectable non-insulin antidiabetic drugs; E78.5 Hyperlipidemia, unspecified; Z79.899 Other long term (current) drug therapy
CPT/HCPCS: 36415; 71045; 78452; 80048; 80061; 82962; 83036; 84484; 85025; 85379; 93005; 93017; 93306; 96374; 96376; 99221; 99283; A9500; A4216; G0378

== ENCOUNTER → 2025-02-12 | Outpatient (CLI) | payer OTHER, SELFPAY ==
[2025-02-12 12:35] LABS: Absolute Lymphocyte Count 2.14 X10^3/uL (0.83-4.51); Absolute Neutrophil Count 8.6 X10^3/uL (2.0-7.7); Basophil# 0.09 X10^3/uL; Basophil% 0.8 % (0-1); Eosinophil# 0.34 X10^3/uL; Eosinophils% 2.8 % (0-5); Hematocrit 49.8 % (40-54); Hemoglobin 16.6 g/dL (13.0-16.5); Lymphocyte # 2.14 X10^3/ul (0.83-4.51); Lymphocyte % 17.9 % (19-41); Mean Corp Hgb Conc 33.3 g/dL (32-36); Mean Corpuscular Hgb 30.8 pg (27.0-32.0); Mean Corpuscular Volume 92.4 fL (80-94); Mean Platelet Vol. 11.9 fl (6.2-12.0); Monocyte# 0.84 X10^3/uL; NRBC Flagged by Analyzer 0 % (0-5); Neutrophil # 8.55 X10^3/uL (2.7-7.7); Neutrophil % 71.3 % (47-70); POSITIVE COUNT YES; Platelet Count 179 K/mm3 (150-450); RBC Distribution Width SD 44.1 fl (35.1-43.9); Red Blood Count 5.39 M/mm3 (4.6-6.2)
[2025-02-12 13:11] LABS: Differential Indicated SCAN CRITERIA MET
[2025-02-12 13:12] LABS: Differential Comment SCANNED
[2025-02-12 14:01] LABS: Cholesterol 167 mg/dL (<=200); High Density Lipoprotein 60 mg/dL; Low Density Lipoprotein Calc. 94 mg/dL; Triglycerides 63 mg/dL; Very Low Density Lipoprotein 13 mg/dL (5-40); cholesterol:hdl ratio screen 2.77
[2025-02-12 14:26] LABS: Hemoglobin A1c 6.1 % (<=5.6)
[2025-02-12 14:28] LABS: ALB/GLOB Ratio 1.7 RATIO (0.9-2.4); AST(SGOT) 22 U/L (<=37); Alanine Aminotransfer ALT/SGPT 24 U/L (<=46); Albumin, Serum 4.4 g/dL (3.5-5.0); Alkaline Phosphatase 70 U/L (40-129); Anion Gap 12 (5-15); BUN 13 mg/dL (4-19); BUN/Creat Ratio 16.4 RATIO (10-20); Calcium,Total 9.3 mg/dL (7.6-11.0); Carbon Dioxide 22.8 mmol/L (21.0-32.0); Chloride 105 mmol/L (98-108); EST Glomerular Filtration Rate 105 (>60); Globulin 2.7 g/dL (2.2-4.2); Glucose 122 mg/dL (70-99); Potassium 4.2 mmol/L (3.3-5.1); Protein, Total 7.1 g/dL (5.9-8.4); Sodium Level 140 mmol/L (133-145); Total Bilirubin 0.28 mg/dL (0.00-1.30)
[2025-02-12 15:02] LABS: CRP < 3.00 mg/L (0.0-3.0)
--- OUTSIDE RECORDS SUMMARY | 2025-02-12 17:49 | XMS RPT_ITS | CCD ---
Author Organization [facility] Care Team Providers Care Financial Sales Representative Name Role Phone Roof CUTTER MACHINE, Felice Chambers Unavailable Norma RN, Enedina Diaz Unavailable Unavailable Gordon Nino Unavailable Unavailable Dr. Kimmy Miles Primary Care Provider [phone] Dr. Kimmy Miles Referring Provider Alexei BARAJAS PA Jeffery Attending Provider [phone] Dr. Kimmy Miles Primary Care Provider [phone] Dr. Kimmy Miles Referring Provider KARL Schaeffer Attending Provider Dr. Joseph Bee Attending Provider [phone] Dr. Kimmy Miles Primary Care Provider [phone] Dr. Kimmy Miles Referring Provider Dr. Joseph Bee Attending Provider [phone] Dr. Joseph Bee Referring Provider [phone] Dr. Joseph Bee Other Provider [phone] Kimmy Miles Primary Care Provider [phone] Dr. Joseph Bee Attending Provider [phone] Dr. Kimmy Miles Referring Provider Latrice LYON, CUTTER MACHINE-Leonel Alvarado Attending Provider [phone] Dr. Angus Finn Attending Provider [phone] Walter Chapa Emergency Provider Dr. Kimmy Sharp Admit Provider Dr. Kimmy Sharp Attending Provider Dr. Kimmy Sharp Other Provider Dr. Torey Rodriguez Attending Provider [phone] Kimmy Miles Primary Care Provider Dr. Kimmy Miles Referring Provider Latrice CUTTER MACHINE, CUTTER MACHINEAnniaC Flavia Alvarado Attending Provider [phone] Dr. Angus Finn Attending Provider Dr. Torey Rodriguez Attending Provider [phone] Kimmy Sharp Referring Provider Dr. Walter Chapa Emergency Provider Dr. Kimmy Sharp Admit Provider Dr. Kimmy Sharp Attending Provider Dr. Kimmy Sharp Other Provider Dr. Kimmy Miles Primary Care Provider [phone] Stephanie Coe Attending Provider Dr. Angus Finn Referring Provider Torey Rodriguez Attending Unavailable Ginger, Kimmy Primary Care Unavailable Ginger, Kimmy Primary Care Unavailable Jopperi, Mani Admitting Unavailable Jopperi, Mani Consulting Unavailable Jopperi, Mani Attending Unavailable Jopperi, Mani Admitting Unavailable Jopperi, Mani Consulting Unavailable Jopperi, Mani Attending Unavailable Ginger, Kimmy Primary Care Unavailable Ginger, Kimmy Primary Care Unavailable Angus Finn Admitting Unavailable Angus Finn Attending Unavailable Jopperi, Mani Attending Unavailable Jopperi, Mani Admitting Unavailable Ginger, Kimmy Primary Care Unavailable Ginger, Kimmy Referring Unavailable Angus Finn Attending Unavailable Ginger, Kimmy Primary Care Unavailable Angus Finn Referring Unavailable Stephanie Coe Attending Unavailable Ginger, Kimmy Primary Care Unavailable SaravananStephanie wallace Attending Unavailable Allergies Allergy Classification Reported Allergen(s) Allergy Type Date of Onset Reaction(s) Facility (5 sources) codeine drug allergy 3 Vomiting [facility] Work Phone: (5 sources) simvastatin drug allergy 3 Myalgias [facility] Work Phone: (9 sources) Emafpwo-Eff-Ayo Reductase Inhibitor; Translations: [Jtyrryp-Vky-Pe a Reductase Inhibitor] Propensity to adverse reactions 2 painful joints [facility] Medications Current Medications Medication Drug Class(es) Dates Sig (Normalized) Sig (Original) ascorbic acid 1000 mg oral tablet (13 sources) Start: 02-18-2020 take 1000 mg by mouth once daily Ascorbic Acid (Vitamin C) Active 1000 MG PO DAILY February 17, 2020 11:00pm Start: 11-15-2015 take 1 tablet by jeanne th once daily SM VITAMIN C 500 MG TABS 1 po qd ASCORBIC ACID [id number] Shira Zuniga DO fenofibrate 200 mg oral capsule (20 sources) Peroxisome Proliferator Receptor alpha Agonist Start: 10-15-2022 take 200 mg by mouth once daily Fenofibrate Micronized Active 200 MG PO DAILY October 15, 2022 12:00am Start: 11-20-2021 End: 10-15-2022 take 145 mg by mouth once daily Fenofibrate Nanocrystallized Discontinued 145 MG PO DAILY November 19, 2021 11:00pm October 15, 2022 3:19pm Start: 02-19-2020 End: 02-01-2021 take 145 mg by mouth once daily at mealtime Fenofibrate Nanocrystallized Discontinued 145 MG PO DAILY WITH MEALS February 18, 2020 11:00pm February 01, 2021 7:09am Start: 04-17-2017 take 1 tablet by jeanne th once daily TRICOR 145 MG TABS One tablet by mouth daily FENOFIBRATE [id number] Felice Mccarty CUTTER MACHINE glipiZIDE er 10 mg 24 hr extended release oral tablet (8 sources) Sulfonylurea Start: 11-20-2021 take 10 mg by mouth once daily Glipizide Active 10 MG PO DAILY November 19, 2021 11:00pm levoFLOXacin 500 mg oral tablet (1 source) Quinolone Antimicrobial Start: 05-09-2022 take 500 mg by mouth once daily Levofloxacin Active 500 MG PO DAILY May 09, 2022 12:00am Multivitamin preparation (8 sources) Start: 02-18-2020 Multivitamin Active 1 EACH PO DAILY February 18, 2020 6:27am Start: 02-18-2020 Multivitamin A ctive 1 EACH PO DAILY February 17, 2020 11:00pm Start: 02-18-2020 Multivitamin A ctive 1 EACH PO DAILY February 18, 2020 12:00am rosuvastatin calcium 10 mg oral tablet (5 sources) HMG-CoA Reductase Inhibitor Start: 07-30-2023 take 1 tablet by mouth every other day Rosuvastatin (Crestor) 10 mg tablet Active 10 MG PO .QOD July 30, 2023 12:00am Start: 10-15-2022 End: 07-30-2023 take 1 tablet by mouth once daily Rosuvastatin (Crestor) 10 mg tablet Discontinued 10 MG PO DAILY October 15, 2022 12:00am July 30, 2023 9:11am Completed/Discontinued Medications Medication Drug Class(es) Dates Sig (Normalized) Sig (Original) acetaminophen / HYDROcodone (10 sources) Opioid Agonist Start: 05-26-2013 End: 06-16-2014 take 1 tablet by mouth every four hours as needed VICODIN 5-500 MG TABS One tablet by mouth every 4 hours as needed HYDROCODONE-ACETAM INOPHEN [id number] Conrad Rowland MD Start: 05-26-2013 take 1 tablet by jeanne th every four hours as needed VICODIN 5-500 MG TABS One tablet by mout h every 4 hours as needed HYDROCODONE-ACETAMINOPHEN [id number] Enedina Green RN amoxicillin 500 mg oral capsule (8 sources) Penicillin-class Antibacterial Start: 01-19-2019 End: 01-29-2019 take 1000 mg by mouth twice daily Amoxicillin Discontinued 1000 MG PO TWICE A DAY 40 10 January 18, 2019 11:00pm January 28, 2019 11:06pm aspirin 81 mg chewable tablet (20 sources) Nonsteroidal Anti-inflammatory Drug Start: 02-19-2020 End: 02-19-2020 take 81 mg by mouth once daily Aspirin Discontinued 81 MG PO DAILY@0800 February 18, 2020 11:00pm February 19, 2020 9:29am Start: 02-18-2020 take 81 mg by mouth once daily Aspirin Active 81 MG PO DAILY February 17, 2020 11:00pm Start: 03-16-2017 End: 10-08-2018 take 81 mg by mouth once daily Aspirin Discontinued 81 MG PO DAILY@0800 March 15, 2017 11:00pm October 08, 2018 2:49pm Start: 02-05-2011 take 1 tablet by jeanne th once daily ASPIRIN 81 MG TABS One tablet by mouth daily ASPIRIN [id number] Kim Avendaño atorvastatin 20 mg oral tablet (10 sources) HMG-CoA Reductase Inhibitor Start: 05-26-2013 End: 05-28-2013 take 1 tablet by mouth once daily LIPITOR 20 MG TABS One tablet by mouth daily ATORVASTATIN CALCIUM [id number] Sherlyn Coelho PA-C carvedilol 3.125 mg oral tablet (20 sources) alpha-Adrenergic Dannie, beta-Adrenergic Dannie Start: 05-26-2013 take 1 tablet by mouth once daily COREG 3.125 MG TABS One tablet by mouth daily CARVEDILOL [id number] Enedina Green RN Start: 02-05-2011 End: 04-19-2017 take 3.125 mg by mouth twice daily Carvedilol Discontinued 3.125 MG PO TWICE A DAY September 16, 2013 12:00am April 19, 2017 2:32pm ciprofloxacin 500 mg oral tablet (7 sources) Quinolone Antimicrobial Start: 02-01-2022 End: 05-09-2022 take 500 mg by mouth twice daily Ciprofloxacin Hcl Discontinued 500 MG PO TWICE A DAY January 31, 2022 11:00pm May 09, 2022 2:32pm clopidogrel 75 mg oral tablet (5 sources) P2Y12 Platelet Inhibitor Start: 04-17-2017 take 1 tablet by mouth once daily PLAVIX 75 MG TABS One tablet by mouth daily CLOPIDOGREL BISULFATE [id number] Felice Mccarty CUTTER MACHINE cyclobenzaprine hydrochloride 10 mg oral tablet (16 sources) Muscle Relaxant Start: 10-08-2018 End: 08-06-2019 take 10 mg by mouth three times daily Cyclobenzaprine Discontinued 10 MG PO THREE TIMES A DAY 19 01July 31, 2019 12:00am August 06, 2019 12:07am diclofenac potassium 50 mg oral tablet (10 sources) Nonsteroidal Anti-inflammatory Drug Start: 10-29-2016 DICLOFENAC POTASSIUM 50 MG TABS as needed DICLOFENAC POTASSIUM [id number] Felice Chambers Bibiana CUTTER MACHINE ezetimibe 10 mg oral tablet (10 sources) Dietary Cholesterol Absorption Inhibitor Start: 05-19-2012 End: 05-26-2013 take 1 tablet by mouth once daily ZETIA 10 MG TABS one tablet by mouth daily EZETIMIBE [id number] Enedina Green RN famotidine 20 mg oral tablet (8 sources) Histamine-2 Receptor Antagonist Start: 02-19-2020 End: 02-01-2021 take 20 mg by mouth twice daily Famotidine Discontinued 20 MG PO TWICE A DAY 60 February 18, 2020 11:00pm February 01, 2021 7:09am fish oil (10 sources) Start: 05-19-2012 End: 05-26-2013 take 1 tablet by mouth once daily FISH OIL CAPS One tablet by mouth daily OMEGA-3 FATTY ACIDS CAPS [id number] Enedina Green RN Start: 05-19-2012 take 1 tablet by jeanne th once daily FISH OIL CAPS One tablet by mouth daily OMEGA-3 FATTY ACIDS CAPS [id number] Pietro Apple MD gabapentin 100 mg oral capsule (8 sources) Anti-epileptic Agent Start: 02-19-2020 End: 02-01-2021 take 100 mg by mouth three times daily at mealtime Gabapentin Discontinued 100 MG PO 3 TIMES DAILY WITH MEALS 90 February 18, 2020 11:00pm February 01, 2021 7:08am lisinopril 5 mg oral tablet (15 sources) Angiotensin Converting Enzyme Inhibitor Start: 05-26-2013 End: 05-28-2013 take 1 tablet by mouth once daily LISINOPRIL 5 MG TABS One tablet by mouth daily LISINOPRIL [id number] Sherlyn Coelho PA-C Start: 02-05-2011 take 1 tablet by jeanne th twice daily LISINOPRIL 2.5 MG TABS One tablet by mouth twice daily LISINOPRIL [id number] Pietro Apple MD meloxicam 15 mg oral tablet (10 sources) Nonsteroidal Anti-inflammatory Drug Start: 11-20-2021 End: 11-20-2021 take 15 mg by mouth once daily Meloxicam Discontinued 15 MG PO DAILY November 19, 2021 11:00pm November 20, 2021 7:33am metFORMIN hydrochloride 500 mg oral tablet (8 sources) Biguanide Start: 02-19-2020 End: 02-01-2021 take 500 mg by mouth twice daily Metformin Discontinued 500 MG PO TWICE A DAY 60 February 18, 2020 11:00pm February 01, 2021 7:08am methylPREDNISolone 4 mg oral tablet (15 sources) Corticosteroid Start: 03-19-2022 End: 03-25-2022 take 1 tablet by mouth once Methylprednisolone (Medrol (Aleks)) 4 mg tablets,dose pack Discontinued 4 MG PO per package directions 20 02March 18, 2022 11:00pm March 24, 2022 11:04pm Start: 02-19-2020 End: 02-01-2021 Methylprednisolone Discontin ued 4 MG PO DIRECTED 1 February 18, 2020 11:00pm February 01, 2021 7:08am metroNIDAZOLE 500 mg oral tablet (14 sources) Nitroimidazole Antimicrobial Start: 05-09-2022 End: 05-23-2022 take 500 mg by mouth every eight hours Metronidazole Discontinued 500 MG PO Q8H 42 14 May 09, 2022 2:31pm May 22, 2022 11:03pm Start: 02-01-2022 End: 05-09-2022 take 500 mg by mouth every six hours Metronidazole Discontinued 500 MG PO EVERY 6 HOURS 40 January 31, 2022 11:00pm May 09, 2022 2:34pm Multivitamin,Dr-Ityv-Fkuvmwc s (8 sources) Start: 09-16-2013 End: 10-08-2018 take 1 tablet by mouth once daily Multivitamin,Ib-Jqcd-Lxmliign Discontinued 1 TABLET PO DAILY September 16, 2013 10:41am October 08, 2018 3:49pm Start: 09-16-2013 End: 10-08-2018 take 1 tablet by mouth once daily Multivitamin,Aa-Ogsq-Nczgxczm Discontinu ed 1 TABLET PO DAILY September 16, 2013 12:00am October 08, 2018 2:49pm Start: 09-16-2013 End: 10-08-2018 take 1 tablet by mouth once daily Multivitamin,Om-Sfdf-Wmkqkbhs Discontinu ed 1 TABLET PO DAILY September 16, 2013 1:00am October 08, 2018 3:49pm naproxen 500 mg oral tablet (8 sources) Nonsteroidal Anti-inflammatory Drug Start: 11-21-2017 End: 10-08-2018 take 500 mg by mouth twice daily as needed Naproxen Discontinued 500 MG PO TWICE DAILY NEEDED November 20, 2017 11:00pm October 08, 2018 2:49pm phentermine hydrochloride 37.5 mg oral tablet (10 sources) Sympathomimetic Amine Anorectic Start: 11-15-2015 End: 04-17-2017 take 1 tablet by mouth once daily PHENTERMINE HCL 37.5 MG TABS 1 po daily PHENTERMINE HCL [id number] Shira Zuniga DO simvastatin 20 mg oral tablet (10 sources) HMG-CoA Reductase Inhibitor Start: 02-05-2011 End: 05-19-2012 take 1 tablet by mouth at bedtime ZOCOR 20 MG TABS One tablet by mouth at bedtime. SIMVASTATIN [id number] Pietro Apple MD SUMAtriptan 100 mg oral tablet (10 sources) Serotonin-1b and Serotonin-1d Receptor Agonist Start: 05-26-2013 End: 06-16-2014 take 1 tablet by mouth once daily as needed, then take 3 tablets by mouth every week as needed IMITREX 100 MG TABS One tablet by mouth daily as needed for migraine, no more than 3 per week SUMATRIPTAN SUCCINATE [id number] Enedina Green RN traMADol hydrochloride 50 mg oral tablet (5 sources) Opioid Agonist Start: 11-15-2015 take 1 tablet by mouth every eight hours as needed for pain TRAMADOL HCL 50 MG TABS 1 po every 8 hours as needed for pain TRAMADOL HCL [id number] Shira Zuniga DO triamcinolone acetonide 40 mg/ml injectable suspension (2 sources) Corticosteroid Start: 10-25-2021 End: 10-25-2021 Kenalog (triamcinolone acetonide) 40 mg/mL suspension for injection Discontinued 80 MG INTRAARTIC ONCE 2 October 25, 2021 10:28am October 25, 2021 11:41am Start: 02-01-2021 End: 02-01-2021 Kenalog (triamcinolone aceto nide) 40 mg/mL suspension for injection Discontinued 80 MG INTRAARTIC ONCE 2 February 01, 2021 7:53am February 01, 2021 9:06am valACYclovir 1000 mg oral tablet (7 sources) Herpesvirus Nucleoside Analog DNA Polymerase Inhibitor, Herpes Simplex Virus Nucleoside Analog DNA Polymerase Inhibitor, Herpes Zoster Virus Nucleoside Analog DNA Polymerase Inhibitor Start: 03-19-2022 End: 03-26-2022 take 1000 mg by mouth three times daily Valacyclovir Discontinued 1000 MG PO THREE TIMES A DAY 22 03March 18, 2022 11:00pm March 25, 2022 11:03pm Problems Active Problems Problem Classification Problem Date Documented Da te Episodic/Chronic Abdominal pain (7 sources) Acute abdominal pain; Translations: [Left lower quadrant pain] 02-09-2022 Episodic Coronary atherosclerosis and other heart disease (1 source) Unstable angina; Translations: [Unstable angina] Onset: Chronic Diabetes mellitus with complications (5 sources) Hyperglycemia due to type 2 diabetes mellitus; Translations: [Type 2 diabetes mellitus with hyperglycemia] 10-14-2022 Chronic Diabetes mellitus without complication (11 sources) Type 2 diabetes mellitus; Translations: [Type 2 diabetes mellitus without complications] 10-25-2021 Chronic Diabetes mellitus without complication (8 sources) Glycosuria; Translations: [Glycosuria] 10-25-2021 Episodic Disorders of lipid metabolism (13 sources) Hyperlipidemia; Translations: [Hyperlipidemia, unspecified] Onset: 1 02-05-2011 Chronic Diverticulosis and diverticulitis (20 sources) Diverticulitis; Translations: [Diverticulitis of intestine, part unspecified, without perforation or abscess without bleeding] Chronic Essential hypertension (13 sources) Hypertensive disorder; Translations: [Essential (primary) hypertension] Onset: 1 02-05-2011 Chronic Immunizations and screening for infectious disease (8 sources) Contact with or exposure to other viral diseases; Translations: [Exposure to COVID-19 virus] 10-25-2021 Episodic Joint disorders and dislocations; trauma-related (15 sources) Derangement of knee; Translations: [Derangement of right knee] Onset: 5 06-23-2015 Chronic Nonspecific chest pain (20 sources) Precordial pain; Translations: [Chest pain] Onset: 1 02-05-2011 Episodic Other and ill-defined heart disease (5 sources) Cardiomegaly; Translations: [Cardiomegaly] Onset: 1 02-05-2011 Chronic Other gastrointestinal disorders (7 sources) Constipation; Translations: [Constipation, unspecified] 05-09-2022 Episodic Other gastrointestinal disorders (6 sources) Constipation, unspecified; Translations: [Constipation, unspecified] Episodic Other nervous system disorders (3 sources) Paresthesia of upper limb; Translations: [Anesthesia of skin] 10-18-2022 Episodic Other non-traumatic joint disorders (10 sources) Pain in right knee; Translations: [Right knee pain] Episodic Other nutritional; endocrine; and metabolic disorders (5 sources) Obesity; Translations: [Obesity, unspecified] Onset: 6 12-05-2015 Chronic Other nutritional; endocrine; and metabolic disorders (8 sources) Obese class I; Translations: [Obesity, unspecified] 10-25-2021 Chronic Other screening for suspected conditions (not mental disorders or infectious disease) (5 sources) Electrocardiogram abnormal; Translations: [Abnormal electrocardiogram [ECG] [EKG]] 10-14-2022 Episodic Other upper respiratory infections (16 sources) Upper respiratory infection; Translations: [Acute upper respiratory infection, unspecified] 10-25-2021 Episodic Maren-; endo-; and myocarditis; cardiomyopathy (13 sources) Dilated cardiomyopathy; Translations: [Cardiomyopathy] Onset: 1 02-05-2011 Chronic Residual codes; unclassified (8 sources) Tobacco use and exposure - finding; Translations: [Tobacco use] 10-25-2021 Episodic Screening or history of mental health and substance abuse (5 sources) Tobacco dependence syndrome; Translations: [Nicotine dependence, unspecified, uncomplicated] Onset: 1 02-05-2011 Chronic Spondylosis; intervertebral disc disorders; other back problems (19 sources) Herniation of nucleus pulposus; Translations: [Other cervical disc displacement, unspecified cervical region] 09-17-2022 Chronic Spondylosis; intervertebral disc disorders; other back problems (5 sources) Neck pain; Translations: [Cervicalgia] 09-12-2022 Episodic Sprains and strains (8 sources) Low back strain; Translations: [Strain of muscle, fascia and tendon of lower back, initial encounter] 10-25-2021 Episodic Transient cerebral ischemia (8 sources) Transient cerebral ischemia; Translations: [Transient cerebral ischemic attack, unspecified] 10-25-2021 Chronic Unclassified (5 sources) Sleep apnea; Translations: [Sleep apnea, unspecified] Onset: 02-05-2011 Chronic Viral infection (8 sources) Herpes zoster; Translations: [Zoster without complications] Episodic Past or Other Problems Problem Classification Problem Date Documented Da te Episodic/Chronic Conditions associated with dizziness or vertigo (5 sources) Dizziness and giddiness; Translations: [Dizziness and giddiness] Onset: 02-05-2011 02-05-2011 Episodic Joint disorders and dislocations; trauma-related (5 sources) Tear of lateral meniscus of knee; Translations: [Other tear of lateral meniscus, current injury, unspecified knee, initial encounter] Onset: 02-14-2015 02-14-2015 Episodic Other aftercare (5 sources) Other skilled nursing (current) drug therapy; Translations: [Other intermodal truck driver (current) drug therapy] Onset: 02-05-2011 02-05-2011 Episodic Other non-traumatic joint disorders (10 sources) Knee pain; Translations: [Pain in right knee] Onset: 02-14-2015 02-14-2015 Episodic Unclassified (10 sources) Family history of ischemic heart disease; Translations: [Chronic pain syndrome] Onset: 02-05-2011 02-05-2011 Episodic Results Test Name Value Interpretation Reference Range Facility 12 Lead EKGon 03-12-2024 12 Lead EKG [facility] Cardiovascular Services [address] [place] [address] 12 Lead EKG 03/11/24 1504 MR#: [id number] Acct: [id number] Name: LUPE ROGERS Rep #: [id number] : 1970 54 From: Pedro Pablo Boo MD Attending Dr: Dr. Mani Lubin DO Status: DIS JOAQUIN Ordering Dr: Mani Lubin DO Date: 03/12/24 Location: [facility] Sex: M C Admitted: 03/11/24 Test Reason : routine Blood Pressure : / mmHG Vent. Rate : 069 BPM Atrial Rate : 069 BPM P-R Int : 166 ms QRS Dur : 078 ms QT Int : 434 ms P-R-T Axes : 075 003 056 degrees QTc Int : 465 ms Normal sinus rhythm with sinus arrhythmia Normal ECG When compared with ECG of 11-MAR-2024 09:27, MANUAL COMPARISON REQUIRED, DATA IS UNCONFIRMED Confirmed by Pedro Pablo Boo ([id number]), continuity editor JOSÉ ANTONIO HUFFMAN ([id number]) on 03/13/2024 6:21:31 AM Referred By: Confirmed By:Pedro Pablo Boo 03/13/24 0621 Date Pedro Pablo Boo MD CC: Dr. Mani Lubin, DO; Dr. Kimmy Miles, DO Signed Normal [facility] Bedside Glucoseon 03-12-2024 FINGERSTICK GLU 128 mg/dL High 74-106 [facility] Comment on above: Result Comment: BROOKLYNN MARIANO OF PATIENT CARE PER NURSING PROTOCOL Performed By: #### L 501.080 #### [facility] Laboratory [address] [place], [address] Lipid Profileon 03-12-2024 Cholesterol [Mass/Vol] 194 mg/dL Normal 200 [facility] Comment on above: Result Comment: <200 mg/dL Desirable 200-240 mg/dL Borderline >240 mg/dL High Risk Performed By: #### L 500.4100 ####[facility] [address] [place], [address] Cholesterol in HDL [Mass/Vol] 42 mg/dL Normal [facility] Comment on above: Result Comment: The drugs N-Acetylcysteine and Metamizole may falsely depress this assay. Reference Range HDL <40 mg/dL Low HDL Cholesterol HDL >or= 60 mg/dL High HDL Cholesterol Performed By: #### L 500.4100 ####[facility] [address] [place], [address] Cholesterol in LDL [Mass/Vol] 102 mg/dL Normal 0-130 [facility] Comment on above: Performed By: #### L 500.4100 ####[facility] [address] [place], [address] Cholesterol in VLDL [Mass/Vol] 50 mg/dL High 5-40 [facility] Comment on above: Performed By: #### L 500.4100 ####[facility] [address] [place], [address] Triglyceride [Mass/Vol] 250 mg/dL High [facility] Comment on above: Result Comment: The drugs N-Acetylcysteine and Metamizole may falsely depress this assay. Serum Triglycerides Reference Interval Normal <150 mg/dL Borderline high 150 - 199 mg/dL High 200 - 499 mg/dL Very High > or = 500 mg/dL Performed By: #### L 500.4100 ####[facility] [address] [facility] [place], [address] Stress Reporton 03-12-2024 Stress Report [facility] [address] [place] [address] MR#: [id number] Acct: [id number] Name: LUPE ROGERS Rep #: [id number] : 1970 54 From: Stephanie Coe MD Primary Care: Dr. Kimmy Miles, DO Status: ADM JOAQUIN Referring Dr: Sex: M C Stress Test Report Date: 03/12/2024 Procedure: Exercise tolerance test/imaging study Indications: Chest pain Consent: Per the patient Procedure: The patient exercised on a Robert protocol for 6 minutes and 15 seconds achieving a peak heart rate of 146 bpm (87% predicted maximal heart rate) with a peak blood pressure 182/90 mmHg and a peak MET capacity of 7.7 METs. The baseline ECG demonstrated sinus rhythm. The peak exercise ECG demonstrated no ischemic changes. There were no cardiac dysrhythmias pretest, during exercise, or recovery. The functional capacity was considered average. There was no complaint of chest discomfort during exercise or recovery. The examination was discontinued secondary to target heart rate being achieved and dyspnea. The patient was injected with 14.2 mCi of technetium 99m Cardiolite and subsequently rest SPECT Cardiolite nuclear imaging was obtained in the horizontal long, vertical long, and short axis views. Post-exercise, the patient was injected with 44.6 mCi of technetium 99m Cardiolite and subsequently stress SPECT Cardiolite nuclear imaging was obtained in the horizontal long, vertical long, and short axis views. A gated Cardiolite study at peak stress was obtained. Rest and stress SPECT Cardiolite nuclear imaging status post realignment, normalization, and attenuation correction, demonstrates mildly reduced perfusion of the anterior wall at rest which actually improves on the postexercise images. Consider attenuation artifact.. There is end systolic thickening and brightening. The gated Cardiolite study demonstrates myocardial thickening and inward wall motion. The reported LVEF is 51%. Impression: 1. Technically adequate (percent predicted maximal heart rate greater than 85%) exercise tolerance test 2. Peak exercise ECG with no ischemic changes. No chest pain reported with exercise. 3. There were no cardiac dysrhythmias pretest, during exercise, or recovery 4. Rest and stress SPECT Cardiolite nuclear imaging demonstrate no fixed or reversible perfusion defects.. 5. The gated Cardiolite study reports an LVEF of 51%. This note was generated with [employer] software. It may contain incorrect words, spelling, and punctuation that were not noted in checking the note before signing. 03/12/24906 Date Stephanie Coe MD CC: Dr. Mani Lubin DO; Dr. Mani Shaw DO; Dr. Kimmy Miles DO Date Dictated: 03/12/24903 Date Transcribed: 03/12/24903 Territory Sales Representative: REID Signed Normal [facility] 12 Lead EKGon 03-11-2024 12 Lead EKG [facility] Cardiovascular Services [address] [place] [address] 12 Lead EKG 03/11/242000 MR#: [id number] Acct: [id number] Name: LUPE ROGERS Rep #: [id number] : 1970 54 From: Pedro Pablo Boo MD Attending Dr: Dr. Mani Lubin DO Status: DIS JOAQUIN Ordering Dr: Mani Lubin DO Date: 03/11/24 Location: U Sex: M C Admitted: 03/11/24 Test Reason : CP Blood Pressure : / mmHG Vent. Rate : 065 BPM Atrial Rate : 065 BPM P-R Int : 170 ms QRS Dur : 086 ms QT Int : 420 ms P-R-T Axes : 062 014 019 degrees QTc Int : 436 ms Normal sinus rhythm with sinus arrhythmia Nonspecific T wave abnormality Abnormal ECG When compared with ECG of 11-MAR-2024 15:04, MANUAL COMPARISON REQUIRED, DATA IS UNCONFIRMED Confirmed by Pedro Pablo Boo ([id number]), continuity editor JOSÉ ANTONIO HUFFMAN ([id number]) on 03/13/2024 6:20:32 AM Referred By: TEVIN Confirmed By:Pedro Pablo Boo 03/13/24619 Date Pedro Pablo Boo MD CC: Dr. Mani Lubin DO; Dr. Kimmy Miles DO Signed Normal [facility] 12 Lead EKG [facility] Cardiovascular Services [address] [place] [address] 12 Lead EKG 03/12/24 0556 MR#: [id number] Acct: [id number] Name: LUPE ROGERS Rep #: [id number] : 1970 54 From: Pedro Pablo Boo MD Attending Dr: Dr. Mani Lubin DO Status: DIS JOAQUIN Ordering Dr: Mani Lubin DO Date: 03/11/24 Location: [facility] Sex: M C Admitted: 03/11/24 Test Reason : AM EKG Blood Pressure : / mmHG Vent. Rate : 063 BPM Atrial Rate : 063 BPM P-R Int : 176 ms QRS Dur : 080 ms QT Int : 438 ms P-R-T Axes : 075 032 059 degrees QTc Int : 448 ms Sinus rhythm with marked sinus arrhythmia Nonspecific T wave abnormality Abnormal ECG When compared with ECG of 11-MAR-2024 20:01, MANUAL COMPARISON REQUIRED, DATA IS UNCONFIRMED Confirmed by Pedro Pablo Boo ([id number]), continuity editor JOSÉ ANTONIO HUFFMAN ([id number]) on 03/13/2024 6:19:01 AM Referred By: NAVEED Confirmed By:Pedro Pablo Boo 03/13/24618 Date Pedro Pablo Boo MD CC: Dr. Mani Lubin DO; Dr. Kimmy Miles DO Signed Normal [facility] 12 Lead EKG [facility] Cardiovascular Services [address] [place] [address] 12 Lead EKG 03/11/24 0927 MR#: [id number] Acct: [id number] Name: LUPE ROGERS Rep #: [id number] : 1970 54 From: Leonard Stevens MD Attending Dr: Dr. Mani Lubin DO Status: DIS JOAQUIN Ordering Dr: Mani Shaw DO Date: 03/11/24 Location: [facility] Sex: M C Admitted: 03/11/24 Test Reason : CP Blood Pressure : / mmHG Vent. Rate : 081 BPM Atrial Rate : 081 BPM P-R Int : 168 ms QRS Dur : 088 ms QT Int : 374 ms P-R-T Axes : 070 003 048 degrees QTc Int : 434 ms Normal sinus rhythm Nonspecific T wave abnormality Abnormal ECG Confirmed by NICOLASA BARKER, YOLA ([id number]), continuity editor JOSÉ ANTONIO HUFFMAN ([id number]) on 03/18/2024 10:26:02 AM Referred By: ES Confirmed By:DUKE STEVENS MD 03/18/24 1026 Date Leonard Stevens MD CC: Dr. Mani Lubin DO; Dr. Mani Shaw DO; Dr. Kimmy Miles DO Signed Normal [facility] Basic Metabolic Profile (BMP )on 03-11-2024 BUN/CRE 13.7 RATIO Normal 10-20 [facility] Comment on above: Order Comment: 1Y Performed By: #### L 501.5458, L500.2500, L300.8000, L100.0100 ####[facility] [address] [place], [address] CA,Total 9.3 mg/dL Normal 8.5-10.1 [facility] Comment on above: Order Comment: 1Y Performed By: #### L 501.5425, L500.2500, L300.8000, L100.0100 ####[facility] [address] [place], [address] Chloride [Moles/Vol] 106 mmol/L Normal 98-107 [facility] Comment on above: Order Comment: 1Y Performed By: #### L 501.5425, L500.2500, L300.8000, L100.0100 ####[facility] [address] [place], [address] CO2 [Moles/Vol] 25.0 mmol/L Normal 21.0-32.0 [facility] Comment on above: Order Comment: 1Y Performed By: #### L 501.5425, L500.2500, L300.8000, L100.0100 ####[facility] [address] [place], [address] Creatinine [Mass/Vol] 1.02 mg/dL Normal 0.70-1.30 [facility] Comment on above: Order Comment: 1Y Result Comment: The validity of the calculated GFR GFRAA in patients over 70 years has not been determined. Clinical correlation is essential. Performed By: #### L 501.5425, L500.2500, L300.8000, L100.0100 ####[facility] [address] [place], [address] ECRCL 98.70 ml/min Normal [facility] Comment on above: Order Comment: 1Y Performed By: #### L 501.5425, L500.2500, L300.8000, L100.0100 ####[facility] [address] [place], [address] EST GFR - AA 98 mL/min Normal >60 [facility] Comment on above: Order Comment: 1Y Result Comment: Afri can Cymro GFR Calc Performed By: #### L 501.5425, L500.2500, L300.8000, L100.0100 ####[facility] [address] [place], [address] GAP 6 Normal 5-15 [facility] Comment on above: Order Comment: 1Y Performed By: #### L 501.5425, L500.2500, L300.8000, L100.0100 ####[facility] [address] [place], [address] GFR/1.73 sq M.predicted among non-blacks MDRD (S/P/Bld) [Vol rate/Area] 81 mL/min/{1.73_m2} Normal >60 [facility] Comment on above: Order Comment: 1Y Result Comment: Non- GFR Calc Performed By: #### L 501.5425, L500.2500, L300.8000, L100.0100 ####[facility] [address] [place], [address] Glucose [Mass/Vol] 210 mg/dL High 74-[address] [facility] Comment on above: Order Comment: 1Y Result Comment: Gluc ose result greater than or equal to 200 mg/dL suggests DIABETES MELLITUS per A.D.A. criteria. Performed By: #### L 501.5425, L500.2500, L300.8000, L100.0100 ####[facility] [address] [place], [address] Potassium [Moles/Vol] 3.8 mmol/L Normal 3.5-5.1 [facility] Comment on above: Order Comment: 1Y Performed By: #### L 501.5425, L500.2500, L300.8000, L100.0100 ####[facility] [address] [place], [address] Sodium [Moles/Vol] 137 mmol/L Normal 136-[address] [facility] Comment on above: Order Comment: 1Y Performed By: #### L 501.5425, L500.2500, L300.8000, L100.0100 ####[facility] [address] [place], [address] Urea nitrogen [Mass/Vol] 14 mg/dL Normal 7-18 [facility] Comment on above: Order Comment: 1Y Performed By: #### L 501.5425, L500.2500, L300.8000, L100.0100 ####[facility] [address] [place], [address] Bedside Glucoseon 03-11-2024 FINGERSTICK GLU 100 mg/dL Normal 74-106 [facility] Comment on above: Result Comment: [place] GEMENT OF PATIENT CARE PER NURSING PROTOCOL Performed By: #### L 501.4020 #### [facility] Laboratory [address] [place], [address] FINGERSTICK GLU 109 mg/dL High 74-106 [facility] Comment on above: Result Comment: [place] GEMENT OF PATIENT CARE PER NURSING PROTOCOL Performed By: #### L 501.080 #### [facility] [address] [place], [address] CBC W/Diff, Automatedon 03-02 Absolute Lymph 2.58 X10 3/uL Normal 0.83-4.51 [facility] Comment on above: Performed By: #### L 501.5425, L500.2500, L300.8000, L100.0100 ####[facility] [address] [place], [address] Absolute Neut 5.0 X10 3/uL Normal 2.0-7.7 [facility] Comment on above: Performed By: #### L 501.5425, L500.2500, L300.8000, L100.0100 ####[facility] [address] [place], [address] Basophils/100 WBC (Bld) 0.9 % Normal 0-1 [facility] Comment on above: Performed By: #### L 501.5425, L500.2500, L300.8000, L100.0100 ####[facility] [address] [place], [address] Eosinophils/100 WBC (Bld) 7.5 % High 0-5 [facility] Comment on above: Performed By: #### L 501.5425, L500.2500, L300.8000, L100.0100 ####[facility] [address] [place], [address] Erythrocyte distribution width (RBC) [Ratio] 13.0 % Normal 11.6-14.6 [facility] Comment on above: Performed By: #### L 501.5425, L500.2500, L300.8000, L100.0100 ####[facility] [address] [place], [address] Hematocrit (Bld) [Volume fraction] 48.3 % Normal 40-54 [facility] Comment on above: Performed By: #### L 501.5425, L500.2500, L300.8000, L100.0100 ####[facility] [address] [place], [address] Hemoglobin (Bld) [Mass/Vol] 16.2 g/dL Normal 13.0-16.5 [facility] Comment on above: Performed By: #### L 501.5425, L500.2500, L300.8000, L100.0100 ####[facility] [address] [place], [address] IG% 0.400 Normal 0.0-0.9 [facility] Comment on above: Result Comment: IG% - Immature Granulocytes (promyelocytes, myelocytes and metamyelocytes) > 1% indicates that a LEFT SHIFT is Present. Performed By: #### L 501.5425, L500.2500, L300.8000, L100.0100 ####[facility] [address] [place], [address] Lymphocytes/100 WBC (Bld) 28.6 % Normal 19-41 [facility] Comment on above: Performed By: #### L 501.5425, L500.2500, L300.8000, L100.0100 ####[facility] [address] [place], [address] MCH (RBC) [Entitic mass] 30.5 pg Normal 27.0-32.0 [facility] Comment on above: Performed By: #### L 501.5425, L500.2500, L300.8000, L100.0100 ####[facility] [address] [place], [address] MCHC (RBC) [Mass/Vol] 33.5 g/dL Normal 32-36 [facility] Comment on above: Performed By: #### L 501.5425, L500.2500, L300.8000, L100.0100 ####[facility] [address] [place], [address] MCV (RBC) [Entitic vol] 91.0 fL Normal 80-94 [facility] Comment on above: Performed By: #### L 501.5425, L500.2500, L300.8000, L100.0100 ####[facility] [address] [place], [address] Monocytes/100 WBC (Bld) 7.4 % Normal 0-10 [facility] Comment on above: Performed By: #### L 501.5425, L500.2500, L300.8000, L100.0100 ####[facility] [address] [place], [address] Neutrophils/100 WBC (Bld) 55.2 % Normal 47-70 [facility] Comment on above: Performed By: #### L 501.5425, L500.2500, L300.8000, L100.0100 ####[facility] [address] [place], [address] Nucleated RBC (Bld) [#/Vol] 0 10*3/uL Normal 0-5 [facility] Comment on above: Performed By: #### L 501.5425, L500.2500, L300.8000, L100.0100 ####[facility] [address] [place], [address] Platelet mean volume (Bld) [Entitic vol] 10.5 fL Normal 6.2-12.0 [facility] Comment on above: Performed By: #### L 501.5425, L500.2500, L300.8000, L100.0100 ####[facility] [address] [place], [address] Platelets (Bld) [#/Vol] 202 10*3/uL Normal 150-450 [facility] Comment on above: Performed By: #### L 501.5425, L500.2500, L300.8000, L100.0100 ####[facility] [address] [place], [address] RBC (Bld) [#/Vol] 5.31 10*6/uL Normal 4.6-6.2 [facility] Comment on above: Performed By: #### L 501.5425, L500.2500, L300.8000, L100.0100 ####[facility] [address] [place], [address] RDW SD 43.7 fl Normal 35.1-43.9 [facility] Comment on above: Performed By: #### L 501.5425, L500.2500, L300.8000, L100.0100 ####[facility] [address] [place], [address] WBC (Bld) [#/Vol] 9.0 10*3/uL Normal 4.4-11.[address] [facility] Comment on above: Performed By: #### L 501.5425, L500.2500, L300.8000, L100.0100 ####[facility] [address] [facility] [place], [address] Chest 1 View (Portable)on Chest 1 View (Portable) [facility] Imaging Services [address] [facility] [facility] [place] [address] Chest 1 View (Portable) MR#: [id number] Acct: [id number] Name: LUPE ROGERS Rep #: [id number] : 1970 M 54 From: Jaxson mccollum MD PCP: Dr. Kimmy Miels, Status: REG ER Study: Chest 1 View (Portable) Date of Exam: 03/11/24 Exam# [id number] Ordering Dr: Mani Shaw DO [id number] STUDY: X-RAY CHEST REASON FOR EXAM: Male, 54 years old. Chest pain TECHNIQUE: Single AP portable view of the chest. COMPARISON: Comparison is made with prior study of October 14, 2022. FINDINGS: EKG electrodes are seen. Hyperinflation. The lungs are clear. There is no demonstrated pleural abnormality. Normal size heart. Normal mediastinum and tommy. Normal visualized pulmonary arteries. Normal visualized aortic arch and descending thoracic aorta. Normal visualized thoracic spine. Normal visualized ribs, clavicles, and shoulders. There is no demonstrated abnormality of the visualized soft tissue structures of the upper abdomen. RAD/Chest 1 View (Portable) IMPRESSION: Hyperinflation. The lungs are clear. Electronically Signed: Jaxson Kramer MD at 10:03 EDT , CC: Dr. Mani Shaw, DO; Dr. Kimmy Miles, DO Territory Sales Representative: Signed Normal [facility] D-Dimer Quantitative (DVT/PE )on 03-11-2024 D-DIMER QUANT 0.34 FEU/ug/m Normal 0.27-0.49 [facility] Comment on above: Result Comment: NORM AL D-Dimer level (<0.50) indicates no DVT or PE. Performed By: #### L 501.5406, L500.2500, L300.8000, L100.0100 ####[facility] [address] [place], [place], [address] Echo Completeon 03-11-2024 Echo Complete [facility] Cardiovascular Services [address] [place] [address] Echo Complete 03/11/24 1557 MR#: [id number] Acct: [id number] Name: LUPE ROGERS Rep #: [id number] : 1970 54 From: Torey Rodriguez MD Attending Dr: Dr. Mani Lubin DO Status: ADM JOAQUIN Ordering Dr: Mani Lubin DO Date: 03/11/24 Location: PCU Sex: M C Admitted: 03/11/24 Reason For Study: CARDIOMYOPATHY Procedure This was a 2D Doppler, Color Flow transthoracic echocardiogram. Exam performed portable in patient room. Left Ventricle Normal LV size. Left ventricular systolic function is normal. The left ventricular ejection fraction is 55 %. No regional wall motion abnormalities noted. Right Ventricle Normal right ventricle. Normal systolic function. Atria Normal left atrium. Normal right atrium. Mitral Valve Normal mitral valve. Tricuspid Valve Normal tricuspid valve. Aortic Valve Trisinus/trileaflet aortic valve. Pulmonic Valve Normal pulmonic valve. Great Vessels Normal aortic root. The pulmonary artery is normal size. Normal inferior vena cava. Pericardium/Pleural No pericardial effusion. MMode/2D Measurements Calculations LVIDd: 5.1 cm IVSd: 1.0 cm Ao root diam: 3.0 cm LVIDs: 3.6 cm LVPWd: 0.96 cm RVDd: 3.5 cm FS: 30.4 % _ LAV(MOD-bp): 43.4 ml LVAd ap4: 36.0 cm2 SV(MOD-sp4): 74.1 ml LAV(MOD-bp) Indexed: 20.1 ml/m2 LVLd ap4: 8.7 cm LAV(MOD-sp2): 42.0 ml EDV(MOD-sp4): 123.2 ml LAV(MOD-sp4): 37.0 ml EDV(sp4-el): 126.3 ml LVAs ap4: 20.7 cm2 LVLs ap4: 7.4 cm ESV(MOD-sp4): 49.1 ml ESV(sp4-el): 49.1 ml EF(MOD-sp4): 60.2 % EF(sp4-el): 61.1 % _ SV(sp4-el): 77.2 ml LA A4 area: 15.9 cm2 LA dimension(2D): 3.6 cm _ RA A4 area: 15.1 cm2 TAPSE: 2.2 cm Time Measurements MV dec time: 0.19 sec Doppler Measurements Calculations MV E max demetrio: 76.8 cm/sec Lat Peak E' Demetrio: 16.4 cm/sec Med Peak E' Demetrio: 11.8 cm/sec MV A max demetrio: 46.7 cm/sec E/E' lat: 4.7 E/E' med: 6.5 MV E/A: 1.6 _ Ao V2 max: 127.9 cm/sec LV V1 max: 115.0 cm/sec PA V2 max: 84.0 cm/sec Ao max P.5 mmHg LV V1 max P.3 mmHg ECHO/Echo Complete Interpretation Summary Normal LV size. Left ventricular systolic function is normal. The left ventricular ejection fraction is 55 %. Structurally normal valves. Ordering Physician: Mani Lubin Referring Physician: KIMMY MILES Performed By: Gavi Alvarenga RDCS 03/11/241633 Date Torey Rodriguez MD CC: Dr. Mani Lubin DO; Dr. Kimmy Miles DO Date Dictated: 03/11/24 1557 Date Transcribed: 03/11/241633 Territory Sales Representative: Signed Julieta [facility] Emergency Department Summary on 03-11-2024 Emergency Department Summary [facility] Medical Records Department [address] [place] [address] Emergency Department Summary 03/11/24 MR#: [id number] Acct: [id number] Name: LUPE ROGERS Rep #: [id number] : 1970 54 From: Mani Shaw DO PCP: Dr. Kimmy Miles DO Status:ADM JOAQUIN Location: [place] [address] HPI History of Present Illness Chief Complaint: Chest Pain Informant: patient Onset/Context/Timing Onset: Today Activity at onset: sudden Timing: Continuous Quality: Positive for Heaviness and Tightness Location: Left Chest Worsened By: Nothing Relieved By: Nothing Associated Symptoms: Positive for Dyspnea, Acid Reflux and Palpitations; Negative for Nausea, Vomiting, Diaphoresis, Cough, Fever or Lightheadedness Narrative Narrative: Patient presents with chest pain that began this morning. Patient states he was getting ready for work around 2 AM when the pain began. Patient states the pain is mainly over the left side of his chest that radiates into his neck, left shoulder, and left arm. Patient describes the pain as tightness and heaviness. Patient states nothing makes it better and nothing makes it worse. Patient states it has been constant for the past several hours. Patient does admit to some shortness of breath and palpitations. Patient also admits to some recent reflux symptoms. CVD Risk Factors: Positive for Diabetes, Hypercholesterolemia , Family History 1' Negative for Hypertension PE Risk Factors: Positive for Cancer (Skin cancer); Negative for Recent Travel/Surgery, Recent Immobilization, Prior DVT or PE or OCP + Smoking + >/=35 PFSH PFSH Medical History Arthritis High cholesterol Injury of head and neck Syncope History of diverticulitis Smoker Hyperglycemia due to type 2 diabetes mellitus Abnormal ECG Alcohol use Diabetes Dietary restriction Cardiology follow-up encounter History of echocardiogram History of stress test H/O Mohs micrographic surgery for skin cancer Malignant neoplasm of skin Varicose veins of both lower extremities Exposure to COVID-19 virus Tobacco use Obesity (BMI 30.0-34.9) HLD (hyperlipidemia) HTN (hypertension) New onset type 2 diabetes mellitus TIA (transient ischemic attack) Pharyngitis URI (upper respiratory infection) Lumbar strain Glucosuria Nonischemic cardiomyopathy Chest pain Home Medications ???Medication ???Instructions ???Recorded ???Last Taken ???Type ascorbic acid (vitamin C) 1,000 mg 1,000 mg PO DAILY supplement 02/18/20 03/10/24 History tablet aspirin 81 mg tablet,delayed 81 mg PO DAILY health maintenance 02/18/20 03/11/24 History release multivitamin 1 ea PO DAILY supplement 02/18/20 10/14/22 History citalopram 20 mg tablet 10 - 20 mg PO QHS 03/11/24 03/10/24 History fenofibrate nanocrystallized 145 145 mg PO DAILY 03/11/24 Unknown History mg tablet gabapentin 300 mg capsule 300 - 600 mg PO QHS PRN PRN pain 03/11/24 03/10/24 History tirzepatide 5 mg/0.5 mL 5 mg subcut MO 03/11/24 03/09/24 History subcutaneous pen injector (Maco) Allergy/AdvReac Type Severity Reaction Status Date / Time Nheqcmi-OMY-FhN Reductase AdvReac painful Verified 03/11/24 09:36 Inhibitor (Hwhhslu-Lkk-Msm joints Reductase Inhibitor) Family History Father Heart disease Hypertension Hypercholesteremia Surgical History Hx of colonoscopy History of cardiac catheterization Hx of right cataract extraction Hx of left cataract extraction Social History Smoking Status: Current every day smoker tobacco type: cigarettes alcohol intake: current Alcohol type: beer ROS ROS ED Constitutional Constitutional ED: Denies chills or fever(s) Eyes Eyes: Denies blurry vision or change in vision ENT ENT ED: Denies rhinorrhea or sore throat Cardiovascular Cardiovascular: Reports chest pain and palpitations Respiratory/Chest Respiratory/Chest: Reports dyspnea; Denies cough Gastrointestinal Gastrointestinal: Denies nausea or vomiting Genitourinary Genitourinary ED: Denies dysuria or hematuria Musculoskeletal Musculoskeletal: Reports neck pain; Denies back pain Integumentary Denies abscess or rash Neurologic Neurologic: Reports headache(s); Denies weakness Allergic/Immunologic Allergic/Immunologic ED: Denies mouth swelling or urticaria EXAM Physical Exam Const Vital Signs: 03/11/24 09:31 03/11/24 09:31 03/11/24 09:40 Temperature 97.7 F L Temperature Source Temporal Pulse Rate 78 84 Respiratory Rate 28 H 21 H Blood Pressure 158/95 H 158/95 H Blood Pressure Mean 116 116 Pulse Ox 96 98 Oxygen Delivery Method (more content not included)... Normal [facility] H AND P Exam - Hospitaliston 03-11-2024 H&P Exam - Hospitalist [facility] Medical Records Department [address] [place] [address] H P Exam - Hospitalist 03/11/24 1240 MR#: [id number] Acct: [id number] Name: LUPE ROGERS Rep #: [id number] : 1970 54 From: Mani Lubin DO PCP: Dr. Kimmy Miles DO Status:ADM JOAQUIN Location: [place] [address] HPI - General General Date of Admission: 03/11/24 Date of Service: 03/11/24 Chief Complaint: chest pain HPI Narrative LUPE ROGERS, is a 54 M who presents with chest pain. Symptoms began at 2 AM while patient was getting ready for work. Had left-sided chest pain, radiated down his left arm. Associated diaphoresis and shortness of breath. Patient has a history of spinal stenosis but typically gets neuropathy down his right arm. This was different than that. He presented to the emergency room where he underwent a workup with D-dimer that was negative and 2 troponins are negative. He did have resolution of his symptoms with nitroglycerin. He was also having headache which actually got better with the nitroglycerin. [facility] Medical History Arthritis High cholesterol Injury of head and neck Syncope History of diverticulitis Smoker Hyperglycemia due to type 2 diabetes mellitus Abnormal ECG Alcohol use Diabetes Dietary restriction Cardiology follow-up encounter History of echocardiogram History of stress test H/O Mohs micrographic surgery for skin cancer Malignant neoplasm of skin Varicose veins of both lower extremities Exposure to COVID-19 virus Tobacco use Obesity (BMI 30.0-34.9) HLD (hyperlipidemia) HTN (hypertension) New onset type 2 diabetes mellitus TIA (transient ischemic attack) Pharyngitis URI (upper respiratory infection) Lumbar strain Glucosuria Nonischemic cardiomyopathy Chest pain Home Medications ???Medication ???Instructions ???Recorded ???Last Taken ???Type ascorbic acid (vitamin C) 1,000 mg 1,000 mg PO DAILY supplement 02/18/20 10/14/22 History tablet aspirin 81 mg tablet,delayed 81 mg PO DAILY health maintenance 02/18/20 10/14/22 History release multivitamin 1 ea PO DAILY supplement 02/18/20 10/14/22 History citalopram 20 mg tablet 10 - 20 mg PO QHS 03/11/24 03/10/24 History fenofibrate nanocrystallized 145 145 mg PO DAILY 03/11/24 Unknown History mg tablet gabapentin 300 mg capsule 300 - 600 mg PO QHS PRN PRN pain 03/11/24 03/10/24 History tirzepatide 5 mg/0.5 mL 5 mg subcut MO 03/11/24 03/09/24 History subcutaneous pen injector (Maco) Allergy/AdvReac Type Severity Reaction Status Date / Time Vzjtwtf-OVI-XgC Reductase AdvReac painful Verified 03/11/24 09:36 Inhibitor (Nnftmpu-Lwj-Aru joints Reductase Inhibitor) Family History Father Heart disease Hypertension Hypercholesteremia Surgical History Hx of colonoscopy History of cardiac catheterization Hx of right cataract extraction Hx of left cataract extraction Social History Smoking Status: Current every day smoker tobacco type: cigarettes alcohol intake: current Alcohol type: beer ROS ROS Narrative All review of systems were negative except as mentioned above in the history of present illness and the other review of systems. Vital Signs Vital Signs Vital Signs: 03/11/24 09:31 03/11/24 09:31 03/11/24 09:40 Temperature 36.5 C L Temperature Source Temporal Pulse Rate 78 84 Respiratory Rate 28 H 21 H Blood Pressure 158/95 H 158/95 H Blood Pressure Mean 116 116 Pulse Ox 96 98 Oxygen Delivery Method Room Air Room Air Room Air 03/11/24 10:31 03/11/24 11:00 03/11/24 11:49 Temperature Temperature Source Pulse Rate 68 89 64 Respiratory Rate 19 H 16 Blood Pressure 161/93 H 145/85 H 145/78 H Blood Pressure Mean 115 105 Pulse Ox 95 98 Oxygen Delivery Method Room Air Room Air 03/11/24 11:54 03/11/24 12:00 03/11/24 12:01 Temperature Temperature Source Pulse Rate 82 83 81 Respiratory Rate 18 Blood Pressure 135/83 H 127/75 H 127/75 H Blood Pressure Mean 92 Pulse Ox 93 Oxygen Delivery Method Room Air 03/11/24 12:09 Temperature Temperature Source Pulse Rate 71 Respiratory Rate 25 H Blood Pressure 128/83 H Blood Pressure Mean 98 Pulse Ox 93 Oxygen Delivery Method Room Air Weight Weight: 98.8 kg Body Mass Index (BMI) 31.2 Physical Exam Const alert and no apparent distress General Appearance: cooperative HEENT normocephalic and head/scalp atraumatic Eyes conjunctivae normal Resp normal respiratory effort, no retractions, no use of accessory muscl (more content not included)... Normal [facility] Hemoglobin A1con 03-11-2024 HbA1c (Bld) [Mass fraction] 6.0 % High 3.8-5.6 [facility] Comment on above: Result Comment: Norm al < 5.7 % Prediabetic 5.7 - 6.4 % Diabetic >or= 6.5 % Please note range changes. Performed By: #### L 501.4020 #### [facility] [address] [place], [place], [address] L501.4020on 03-11-2024 TROPONIN-I HS 8 pg/mL Normal 3.0-78.0 [facility] Comment on above: Order Comment: 'TROP ' Serial specimen #1, #2 or #3: 3 Result Comment: Plea se Note: New Test Units and Gender Specific Reference Ranges. For more information see Policy Stat Procedure [place] High Sensitivity Troponin (TNIH) and attachments. Performed By: #### L 501.4020 ####[facility] [address] [place], [place], [address] TROPONIN-I HS 7 pg/mL Normal 3.0-78.0 [facility] Comment on above: Result Comment: Alli arreola Note: New Test Units and Gender Specific Reference Ranges. For more information see Policy Stat Procedure [place] High Sensitivity Troponin (TNIH) and attachments. Performed By: #### L 501.4020 #### [facility] [address] [place], [place], [address] Order Comment: 1Y Performed By: #### L 501.5425, L500.2500, L300.8000, L100.0100 ####[facility] [address] [place], [place], [id number] Hepatitis A AB, Totalon HEPATITIS A,TOT Negative Normal Negative [facility] Comment on above: Result Comment: Comm ent: The HAV total antibody assay detects both IgG and IgM but does not differentiate between them. A negative result suggests susceptibility to infection. A positive result could be due to vaccination, previously resolved infection or active infection. Testing for HAV IgM should be performed if active HAV infection is suspected. [employer] offers profiles that will automatically reflex positive HAV total antibody results to IgM (e.g., panel #[id number] HAV Antibody w/ Rfx). Performed at: [address] [id number] Document Reviewer: Bari Driscoll PhD, Phone: [phone] Performed By: #### L 3100.0300, L500.2500, L3890.6005, L3890.6200, M100.651, L100.0100, L3890.6300 ####[facility] [address] [place], [place], [id number] MRSA/SAID NASAL SCREENon MRSA+SAID SCRN Reason for Exam: PREOP PREOP MRSA MRSA Negative S. AUREUS S. aureus Negative Normal [facility] Comment on above: Performed By: #### L 3100.0300, L500.2500, L3890.6005, L3890.6200, M100.651, L100.0100, L3890.6300 ####[facility] [address] [place], [address] Absolute lymphocyte countOrd ered By: Angus Finn on 08-05-2023 Lymphocytes Auto (Unsp spec) [#/Vol] 2.15 10*3/uL 0.83-4.51 [facility] Basic Metabolic Profile (BMP )on 08-05-2023 BUN/CRE 16.1 RATIO Normal 10-20 [facility] Comment on above: Performed By: #### L 3100.0300, L500.2500, L3890.6005, L3890.6200, M100.651, L100.0100, L3890.6300 #### [facility] [address] [place], [address] CA,Total 9.2 mg/dL Normal 8.5-10.1 [facility] Comment on above: Performed By: #### L 3100.0300, L500.2500, L3890.6005, L3890.6200, M100.651, L100.0100, L3890.6300 #### [facility] [address] [place], [address] Chloride [Moles/Vol] 109 mmol/L High 98-107 [facility] Comment on above: Performed By: #### L 3100.0300, L500.2500, L3890.6005, L3890.6200, M100.651, L100.0100, L3890.6300 #### [facility] [address] [place], [address] CO2 [Moles/Vol] 23.0 mmol/L Normal 21.0-32.0 [facility] Comment on above: Performed By: #### L 3100.0300, L500.2500, L3890.6005, L3890.6200, M100.651, L100.0100, L3890.6300 #### [facility] [address] [place], [address] Creatinine [Mass/Vol] 0.93 mg/dL Normal 0.70-1.30 [facility] Comment on above: Result Comment: The validity of the calculated GFR GFRAA in patients over 70 years has not been determined. Clinical correlation is essential. Performed By: #### L 3100.0300, L500.2500, L3890.6005, L3890.6200, M100.651, L100.0100, L3890.6300 #### [facility] [address] [place], [address] EST GFR - AA 110 mL/min Normal >60 [facility] Comment on above: Result Comment: Afri can Cymro GFR Calc Performed By: #### L 3100.0300, L500.2500, L3890.6005, L3890.6200, M100.651, L100.0100, L3890.6300 #### [facility] [address] [place], [address] GAP 5 Normal 5-15 [facility] Comment on above: Performed By: #### L 3100.0300, L500.2500, L3890.6005, L3890.6200, M100.651, L100.0100, L3890.6300 #### [facility] [address] [place], [address] GFR/1.73 sq M.predicted among non-blacks MDRD (S/P/Bld) [Vol rate/Area] 91 mL/min/{1.73_m2} Normal >60 [facility] Comment on above: Result Comment: Non- GFR Calc Performed By: #### L 3100.0300, L500.2500, L3890.6005, L3890.6200, M100.651, L100.0100, L3890.6300 #### [facility] [address] [place], [address] Glucose [Mass/Vol] 223 mg/dL High 74-[address] [facility] Comment on above: Result Comment: Gluc ose result greater than or equal to 200 mg/dL suggests DIABETES MELLITUS per A.D.A. criteria. Performed By: #### L 3100.0300, L500.2500, L3890.6005, L3890.6200, M100.651, L100.0100, L3890.6300 #### [facility] [address] [place], [address] Potassium [Moles/Vol] 4.1 mmol/L Normal 3.5-5.1 [facility] Comment on above: Performed By: #### L 3100.0300, L500.2500, L3890.6005, L3890.6200, M100.651, L100.0100, L3890.6300 #### [facility] [address] [place], [address] Sodium [Moles/Vol] 137 mmol/L Normal 136-[address] [facility] Comment on above: Performed By: #### L 3100.0300, L500.2500, L3890.6005, L3890.6200, M100.651, L100.0100, L3890.6300 #### [facility] [address] [place], [address] Urea nitrogen [Mass/Vol] 15 mg/dL Normal 7-18 [facility] Comment on above: Performed By: #### L 3100.0300, L500.2500, L3890.6005, L3890.6200, M100.651, L100.0100, L3890.6300 #### [facility] [address] [place], [address] Basophil percentageOrdered B y: Angus Finn on 08-05-2023 Basophils/100 WBC (Bld) 0.9 % 0-1 [facility] Chloride [Moles/Vol] 109 mmol/L 98-107 [facility] Eosinophils/100 WBC (Bld) 5.8 % 0-5 [facility] Glucose [Mass/Vol] 223 mg/dL 74-[address] [facility] Comment on above: Glucose result great er than or equal to 200 mg/dLsuggests DIABETES MELLITUS per A.D.A. criteria. Neutrophils (Bld) [#/Vol] 5.4 10*3/uL 2.0-7.7 [facility] Neutrophils/100 WBC (Bld) 60.0 % 47-70 [facility] Potassium [Moles/Vol] 4.1 mmol/L 3.5-5.1 [facility] Sodium [Moles/Vol] 137 mmol/L 136-[address] [facility] WBC (Bld) [#/Vol] 9.0 10*3/uL 4.4-11.[address] [facility] Blood erythrocytes count (nu mber/volume)Ordered By: Angus Finn on 08-05-2023 RBC (Bld) [#/Vol] 5.10 10*6/uL 4.6-6.2 [facility] Blood hemoglobin measurement (mass/volume)Ordered By: Angus Finn on 08-05-2023 Hemoglobin (Bld) [Mass/Vol] 15.4 g/dL 13.0-16.5 [facility] Blood lymphocytes/100 leukoc ytesOrdered By: Angus Finn on 08-05-2023 Lymphocytes/100 WBC (Bld) 23.9 % 19-41 [facility] Blood monocytes/100 leukocyt esOrdered By: Angus Finn on 08-05-2023 Monocytes/100 WBC (Bld) 9.0 % 0-10 [facility] Blood platelet mean volumeOr dered By: Angus Finn on 08-05-2023 Platelet mean volume (Bld) [Entitic vol] 11.0 fL 6.2-12.0 [facility] CBC W/Diff, Automatedon Absolute Lymph 2.15 X10 3/uL Normal 0.83-4.51 [facility] Comment on above: Performed By: #### L 3100.0300, L500.2500, L3890.6005, L3890.6200, M100.651, L100.0100, L3890.6300 #### [facility] [address] [place], [address] Absolute Neut 5.4 X10 3/uL Normal 2.0-7.7 [facility] Comment on above: Performed By: #### L 3100.0300, L500.2500, L3890.6005, L3890.6200, M100.651, L100.0100, L3890.6300 #### [facility] [address] [place], [address] Basophils/100 WBC (Bld) 0.9 % Normal 0-1 [facility] Comment on above: Performed By: #### L 3100.0300, L500.2500, L3890.6005, L3890.6200, M100.651, L100.0100, L3890.6300 #### [facility] [address] [place], [address] Eosinophils/100 WBC (Bld) 5.8 % High 0-5 [facility] Comment on above: Performed By: #### L 3100.0300, L500.2500, L3890.6005, L3890.6200, M100.651, L100.0100, L3890.6300 #### [facility] [address] [place], [address] Erythrocyte distribution width (RBC) [Ratio] 12.7 % Normal 11.6-14.6 [facility] Comment on above: Performed By: #### L 3100.0300, L500.2500, L3890.6005, L3890.6200, M100.651, L100.0100, L3890.6300 #### [facility] [address] [place], [address] Hematocrit (Bld) [Volume fraction] 46.9 % Normal 40-54 [facility] Comment on above: Performed By: #### L 3100.0300, L500.2500, L3890.6005, L3890.6200, M100.651, L100.0100, L3890.6300 #### [facility] [address] [place], [address] Hemoglobin (Bld) [Mass/Vol] 15.4 g/dL Normal 13.0-16.5 [facility] Comment on above: Performed By: #### L 3100.0300, L500.2500, L3890.6005, L3890.6200, M100.651, L100.0100, L3890.6300 #### [facility] [address] [place], [address] IG% 0.400 Normal 0.0-0.9 [facility] Comment on above: Result Comment: IG% - Immature Granulocytes (promyelocytes, myelocytes and metamyelocytes) > 1% indicates that a LEFT SHIFT is Present. Performed By: #### L 3100.0300, L500.2500, L3890.6005, L3890.6200, M100.651, L100.0100, L3890.6300 #### [facility] [address] [place], [address] Lymphocytes/100 WBC (Bld) 23.9 % Normal 19-41 [facility] Comment on above: Performed By: #### L 3100.0300, L500.2500, L3890.6005, L3890.6200, M100.651, L100.0100, L3890.6300 #### [facility] [address] [place], [address] MCH (RBC) [Entitic mass] 30.2 pg Normal 27.0-32.0 [facility] Comment on above: Performed By: #### L 3100.0300, L500.2500, L3890.6005, L3890.6200, M100.651, L100.0100, L3890.6300 #### [facility] [address] [place], [address] MCHC (RBC) [Mass/Vol] 32.8 g/dL Normal 32-36 [facility] Comment on above: Performed By: #### L 3100.0300, L500.2500, L3890.6005, L3890.6200, M100.651, L100.0100, L3890.6300 #### [facility] [address] [place], [address] MCV (RBC) [Entitic vol] 92.0 fL Normal 80-94 [facility] Comment on above: Performed By: #### L 3100.0300, L500.2500, L3890.6005, L3890.6200, M100.651, L100.0100, L3890.6300 #### [facility] [address] [place], [address] Monocytes/100 WBC (Bld) 9.0 % Normal 0-10 [facility] Comment on above: Performed By: #### L 3100.0300, L500.2500, L3890.6005, L3890.6200, M100.651, L100.0100, L3890.6300 #### [facility] [address] [place], [address] Neutrophils/100 WBC (Bld) 60.0 % Normal 47-70 [facility] Comment on above: Performed By: #### L 3100.0300, L500.2500, L3890.6005, L3890.6200, M100.651, L100.0100, L3890.6300 #### [facility] [address] [place], [address] Nucleated RBC (Bld) [#/Vol] 0 10*3/uL Normal 0-5 [facility] Comment on above: Performed By: #### L 3100.0300, L500.2500, L3890.6005, L3890.6200, M100.651, L100.0100, L3890.6300 #### [facility] [address] [place], [address] Platelet mean volume (Bld) [Entitic vol] 11.0 fL Normal 6.2-12.0 [facility] Comment on above: Performed By: #### L 3100.0300, L500.2500, L3890.6005, L3890.6200, M100.651, L100.0100, L3890.6300 #### [facility] [address] [place], [address] Platelets (Bld) [#/Vol] 209 10*3/uL Normal 150-450 [facility] Comment on above: Performed By: #### L 3100.0300, L500.2500, L3890.6005, L3890.6200, M100.651, L100.0100, L3890.6300 #### [facility] [address] [place], [address] RBC (Bld) [#/Vol] 5.10 10*6/uL Normal 4.6-6.2 [facility] Comment on above: Performed By: #### L 3100.0300, L500.2500, L3890.6005, L3890.6200, M100.651, L100.0100, L3890.6300 #### [facility] [address] [place], [address] RDW SD 43.4 fl Normal 35.1-43.9 [facility] Comment on above: Performed By: #### L 3100.0300, L500.2500, L3890.6005, L3890.6200, M100.651, L100.0100, L3890.6300 #### [facility] [address] [place], [place], [id number] WBC (Bld) [#/Vol] 9.0 10*3/uL Normal 4.4-11.[address] [facility] Comment on above: Performed By: #### L 3100.0300, L500.2500, L3890.6005, L3890.6200, M100.651, L100.0100, L3890.6300 #### [facility] [address] [place], [address] Determination of erythrocyte mean corpuscular volume (MCV)Ordered By: Angus Finn on 08-05-2023 MCV (RBC) [Entitic vol] 92.0 fL 80-94 [facility] HIV - WCHon 08-05-2023 HIV Non-Reactive Normal Nonreactive [facility] Comment on above: Order Comment: Reaso n for Exam: PAT Performed By: #### L 3100.0300, L500.2500, L3890.6005, L3890.6200, M100.651, L100.0100, L3890.6300 #### [facility] [address] [place], [place], [id number] HIV 1 and HIV-2 antibody ass ay with HIV-1 p24 antigen detectionOrdered By: Angus Finn on 08-05-2023 HIV 1+2 Ab+HIV1 p24 Ag IA Ql Non-Reactive Nonreactive [facility] Hematocrit Auto (Bld) [Volum e fraction]Ordered By: Angus Finn on 08-05-2023 Hematocrit (Bld) [Volume fraction] 46.9 % 40-54 [facility] Hemoglobin A1con 08-05-2023 HbA1c (Bld) [Mass fraction] 8.4 % High 3.8-5.6 [facility] Comment on above: Result Comment: Norm al < 5.7 % Prediabetic 5.7 - 6.4 % Diabetic >or= 6.5 % Please note range changes. Performed By: #### L 501.5200, L501.9985 #### [facility] [address] [place], [address] Hepatitis B Surface Antibody on 08-05-2023 HEP B Surf Ab Non-Reactive Normal [facility] Comment on above: Order Comment: Reaso n for Exam: PAT Result Comment: Non Reactive: Inconsistent with immunity less than <10 mIU/mL Reactive: Consistent with immunity greater than or equal to 10 mIU/mL Performed By: #### L 3100.0300, L500.2500, L3890.6005, L3890.6200, M100.651, L100.0100, L3890.6300 ####[facility] [address], [address] Hepatitis C Antibodyon 08-05 Hepatitis C Ab Non-Reactive Normal Nonreactive [facility] Comment on above: Order Comment: Reaso n for Exam: PAT Result Comment: Non Reactive: < 0.8 Equivocal: >/= 0.8 to < 1.0 Reactive: >/= 1.0 The CDC recommends that a reactive/equivocal HCV antibody result be followed up by the HCV Nucleic Acid Amplification test (574661) Performed By: #### L 3100.0300, L500.2500, L3890.6005, L3890.6200, M100.651, L100.0100, L3890.6300 ####[facility] [address] [place], [address] Laboratory - Chemistry and C hemistry - challengeOrdered By: Angus Finn on 08-05-2023 CO2 [Moles/Vol] 23.0 mmol/L 21.0-32.0 [facility] Urea nitrogen/Creatinine [Mass ratio] 16.1 mg/mg 10-20 [facility] Laboratory - Chemistry and C hemistry - challengeOrdered By: Jefferson Lama on 08-05-2023 Magnesium [Mass/Vol] 2.4 mg/dL 1.6-2.6 [facility] Laboratory - Hematology and Cell countsOrdered By: Angus Finn on 08-05-2023 Erythrocyte distribution width (RBC) [Entitic vol] 43.4 fL 35.1-43.9 [facility] Erythrocyte distribution width (RBC) [Ratio] 12.7 % 11.6-14.6 [facility] Immature granulocytes/100 WBC (Bld) 0.400 % 0.0-0.9 [facility] Comment on above: IG% - Immature Granu locytes (promyelocytes, myelocytes and metamyelocytes) > 1% indicates that a LEFT SHIFT is Present. MCH (RBC) [Entitic mass] 30.2 pg 27.0-32.0 [facility] Nucleated RBC/100 WBC (Bld) [Ratio] 0 % 0-5 [facility] MCHC Auto (RBC) [Mass/Vol]Or dered By: Angus Finn on 08-05-2023 MCHC (RBC) [Mass/Vol] 32.8 g/dL 32-36 [facility] Magnesiumon 08-05-2023 Magnesium [Mass/Vol] 2.4 mg/dL Normal 1.6-2.6 [facility] Comment on above: Performed By: #### L 501.5200, L501.9985 #### [facility] Laboratory [facility] [place], [address] No Panel InformationOrdered By: Angus Finn on 08-05-2023 Estimated GFR (MDRD) Amer 110 mL/min >60 [facility] Comment on above: GFR Calc Estimated GFR (MDRD) Non-Af Amer 91 mL/min >60 [facility] Comment on above: Non- GFR Calc Hepatitis A Antibody Total Negative Negative [facility] Comment on above: Comment: The HAV tot al antibody assay detects both IgG andIgM but does not differentiate between them. A negativeresult suggests susceptibility to infection. A positiveresult could be due to vaccination, previously resolvedinfection or active infection. Testing for HAV IgM shouldbe performed if active HAV infection is suspected. [facility] profiles that will automatically reflex positive HAVtotal antibody results to IgM (e.g., panel #[id number] HAVAntibody w/ Rfx).Performed at: [address] [id number] Director: Bari Driscoll PhD, Phone: [phone] Hepatitis C Antibody Non-Reactive Nonreactive [facility] Comment on above: Non Reactive: < 0.8 Equivocal: >/= 0.8 to < 1.0 Reactive: >/= 1.0The CDC recommends that a reactive/equivocal HCV antibody result be followed up by the HCV Nucleic Acid Amplificationtest (726985) Nasal Screen MRSA/MSSA [facility] Platelets bldOrdered By: Lily Finn on 08-05-2023 Platelets (Bld) [#/Vol] 209 10*3/uL 150-450 [facility] Serum hepatitis B virus surf cole antibody IgG detectionOrdered By: Angus Finn on 08-05-2023 HBV surface IgG Ql (S) Non-Reactive [facility] Comment on above: Non Reactive: Incons istent with immunity less than <10 mIU/mL Reactive: Consistent with immunity greater than or equal to 10 mIU/mL Serum or plasma calcium luis urement (mass/volume)Ordered By: Angus Finn on 08-05-2023 Calcium [Mass/Vol] 9.2 mg/dL 8.5-10.[address] [facility] Serum or plasma creatinine m easurement (mass/volume)Ordered By: Angus Finn on 08-05-2023 Creatinine [Mass/Vol] 0.93 mg/dL 0.70-1.30 [facility] Comment on above: The validity of the calculated GFR & GFRAA in patients over 70 years has not been determined. Clinical correlation is essential. Serum or plasma urea nitroge n measurement (mass/volume)Ordered By: Angus Finn on 08-05-2023 Urea nitrogen [Mass/Vol] 15 mg/dL 7-18 [facility] Thin prep Papanicolaou smear with manual screeningOrdered By: Angus Finn on 08-05-2023 Thin prep Papanicolaou smear with manual screening 5 5-15 [facility] Whole blood hemoglobin A1c/t otal hemoglobin ratio (mass fraction)Ordered By: Jefferson Lama on 08-05-2023 HbA1c (Bld) [Mass fraction] 8.4 % 3.8-5.6 [facility] Comment on above: Normal < 5.7 % Predi abetic 5.7 - 6.4 % Diabetic >or= 6.5 % Please note range changes. Whole blood hemoglobin A1c/t otal hemoglobin ratio (mass fraction)Ordered By: Dr. Finn on 11-19-2022 HbA1c (Bld) [Mass fraction] 8.1 % 3.8-5.6 [facility] Comment on above: Normal < 5.7 % Predi abetic 5.7 - 6.4 % Diabetic >or= 6.5 % Please note range changes. No Panel InformationOrdered By: Dr. Miles on 11-09-2022 Fructosamine 281 umol/L 0-285 [facility] Comment on above: Published reference interval for apparently healthysubjects between age 20 and 60 is 205 - 285 umol/L and in apoorly controlled diabetic population is 228 - 563 umol/Lwith a mean of 396 umol/L.Performed at: [facility] Director: Bari Driscoll PhD, Phone: [phone] No Panel InformationOrdered By: Dr. Finn on 10-18-2022 Fructosamine 336 umol/L 0-285 [facility] Comment on above: Published reference interval for apparently healthysubjects between age 20 and 60 is 205 - 285 umol/L and in apoorly controlled diabetic population is 228 - 563 umol/Lwith a mean of 396 umol/L.Performed at: [facility] [id number] Director: Bari Driscoll PhD, Phone: [phone] Whole blood hemoglobin A1c/t otal hemoglobin ratio (mass fraction)Ordered By: Dr. Finn on 10-18-2022 HbA1c (Bld) [Mass fraction] 8.7 % 3.8-5.6 [facility] Comment on above: Normal < 5.7 % Predi abetic 5.7 - 6.4 % Diabetic >or= 6.5 % Please note range changes. Basophil percentageOrdered B y: Dr. Sharp on 10-15-2022 Cholesterol [Mass/Vol] 242 mg/dL <200 [facility] Comment on above: <200 mg/dL Desirable 200-240 mg/dL Borderline >240 mg/dL High Risk Triglyceride [Mass/Vol] 426 mg/dL <199 [facility] Comment on above: The drugs N-Acetylcy steine and Metamizole may falsely depress this assay. TRIGLYCERIDE IS GREATER THAN 400 mg/dL. LDL RESULT IS INVALID AND WILL NOT BE REPORTED.Serum Triglycerides Reference Interval Normal <150 mg/dL Borderline high 150 - 199 mg/dL High 200 - 499 mg/dL Very High > or = 500 mg/dL Glucose Glucometer (BldC) [M ass/Vol]Ordered By: Dr. Sharp on 10-15-2022 Glucose [Mass/Vol] 198 mg/dL 74-[address] [facility] Comment on above: MANAGEMENT OF PATIEN T CARE PER NURSING PROTOCOL Serum or plasma cholesterol in HDL measurement (mass/volume)Ordered By: Dr. Sharp on 10-15-2022 Cholesterol in HDL [Mass/Vol] 38 mg/dL >40 [facility] Comment on above: The drugs N-Acetylcy steine and Metamizole may falsely depress this assay. Reference Range HDL <40 mg/dL Low HDL Cholesterol HDL >or= 60 mg/dL High HDL Cholesterol Serum or plasma cholesterol in VLDL measurement (mass/volume)Ordered By: Dr. Sharp on 10-15-2022 Cholesterol in VLDL [Mass/Vol] [facility] Comment on above: Test not performed Serum or plasma low density lipoprotein (LDL) cholesterol measurement (mass/volume)Ordered By: Dr. Sharp on 10-15-2022 Cholesterol in LDL [Mass/Vol] [facility] Comment on above: Test not performed Absolute lymphocyte countOrd ered By: Dr. Chapa on 10-14-2022 Lymphocytes Auto (Unsp spec) [#/Vol] 3.50 10*3/uL 0.83-4.51 [facility] Basophil percentageOrdered B y: Dr. Chapa on 10-14-2022 Basophils/100 WBC (Bld) 0.7 % 0-1 [facility] Chloride [Moles/Vol] 102 mmol/L 98-107 [facility] Eosinophils/100 WBC (Bld) 2.9 % 0-5 [facility] Glucose [Mass/Vol] 431 mg/dL 74-[address] [facility] Comment on above: Slight Lipemia, Resu lt may be falsely increased.Glucose result greater than or equal to 200 mg/dLsuggests DIABETES MELLITUS per A.D.A. criteria. Neutrophils (Bld) [#/Vol] 6.2 10*3/uL 2.0-7.7 [facility] Neutrophils/100 WBC (Bld) 55.8 % 47-70 [facility] Potassium [Moles/Vol] 4.7 mmol/L 3.5-5.1 [facility] Comment on above: Slight Hemolysis, Re sult may be falsely increased.-Slight Lipemia, Result may be falsely increased. Sodium [Moles/Vol] 136 mmol/L 136-[address] [facility] WBC (Bld) [#/Vol] 11.0 10*3/uL 4.4-11.0 [facility] Blood erythrocytes count (nu mber/volume)Ordered By: Dr. Chapa on 10-14-2022 RBC (Bld) [#/Vol] 5.30 10*6/uL 4.6-6.2 [facility] Blood hemoglobin measurement (mass/volume)Ordered By: Dr. Chapa on 10-14-2022 Hemoglobin (Bld) [Mass/Vol] 16.2 g/dL 13.0-16.5 [facility] Blood lymphocytes/100 leukoc ytesOrdered By: Dr. Chapa on 10-14-2022 Lymphocytes/100 WBC (Bld) 31.8 % 19-41 [facility] Blood monocytes/100 leukocyt esOrdered By: Dr. Chapa on 10-14-2022 Monocytes/100 WBC (Bld) 8.1 % 0-10 [facility] Blood platelet mean volumeOr dered By: Dr. Chapa on 10-14-2022 Platelet mean volume (Bld) [Entitic vol] 11.0 fL 6.2-12.0 [facility] Determination of erythrocyte mean corpuscular volume (MCV)Ordered By: Dr. Chapa on 10-14-2022 MCV (RBC) [Entitic vol] 91.7 fL 80-94 [facility] Hematocrit Auto (Bld) [Volum e fraction]Ordered By: Dr. Chapa on 10-14-2022 Hematocrit (Bld) [Volume fraction] 48.6 % 40-54 [facility] INR in Blood by Coagulation assayOrdered By: Dr. Chapa on 10-14-2022 INR Coag (Bld) [Relative time] 1.0 {INR} [facility] Laboratory - Chemistry and C hemistry - challengeOrdered By: Dr. Chapa on 10-14-2022 CO2 [Moles/Vol] 26.0 mmol/L 21.0-32.0 [facility] Comment on above: Slight Lipemia, Resu lt may be falsely increased. Urea nitrogen/Creatinine [Mass ratio] 14.8 mg/mg 10-20 [facility] Laboratory - CoagulationOrde red By: Dr. Chapa on 10-14-2022 aPTT Coag (Bld) [Time] 24.5 s 24.1-36.2 [facility] PT Coag (PPP) [Time] 12.6 s 11.7-14.9 [facility] Laboratory - Hematology and Cell countsOrdered By: Dr. Chapa on 10-14-2022 Erythrocyte distribution width (RBC) [Entitic vol] 43.1 fL 35.1-43.9 [facility] Erythrocyte distribution width (RBC) [Ratio] 12.9 % 11.6-14.6 [facility] Immature granulocytes/100 WBC (Bld) 0.700 % 0.0-0.9 [facility] Comment on above: IG% - Immature Granu locytes (promyelocytes, myelocytes and metamyelocytes) > 1% indicates that a LEFT SHIFT is Present. MCH (RBC) [Entitic mass] 30.6 pg 27.0-32.0 [facility] Nucleated RBC/100 WBC (Bld) [Ratio] 0 % 0-5 [facility] MCHC Auto (RBC) [Mass/Vol]Or dered By: Dr. Chapa on 10-14-2022 MCHC (RBC) [Mass/Vol] 33.3 g/dL 32-36 [facility] No Panel InformationOrdered By: Dr. Sharp on 10-14-2022 Troponin I High Sensitivity 11 pg/mL 3.0-78.0 [facility] Comment on above: Please Note: New Xochilt t Units and Gender Specific Reference Ranges. For more information see Policy Stat Procedure [place] High Sensitivity Troponin (TNIH) and attachments. No Panel InformationOrdered By: Dr. Chapa on 10-14-2022 Estimated Creatinine Clearance Calc 60.56 ml/min [facility] Estimated GFR (MDRD) Amer 64 mL/min >60 [facility] Comment on above: GFR Calc Estimated GFR (MDRD) Non-Af Amer 53 mL/min >60 [facility] Comment on above: Non- GFR Calc Platelets bldOrdered By: Dr. Chapa on 10-14-2022 Platelets (Bld) [#/Vol] 214 10*3/uL 150-450 [facility] Serum or plasma calcium ulis urement (mass/volume)Ordered By: Dr. Chapa on 10-14-2022 Calcium [Mass/Vol] 9.1 mg/dL 8.5-10.[address] [facility] Comment on above: Slight Lipemia, Resu lt may be falsely increased. Serum or plasma creatinine m easurement (mass/volume)Ordered By: Dr. Chapa on 10-14-2022 Creatinine [Mass/Vol] 1.49 mg/dL 0.70-1.30 [facility] Comment on above: Slight Lipemia, Resu lt may be falsely increased.The validity of the calculated GFR & GFRAA in patients over 70 years has not been determined. Clinical correlation is essential. Serum or plasma urea nitroge n measurement (mass/volume)Ordered By: Dr. Chapa on 10-14-2022 Urea nitrogen [Mass/Vol] 22 mg/dL 7-18 [facility] Comment on above: Slight Lipemia, Resu lt may be falsely increased. Thin prep Papanicolaou smear with manual screeningOrdered By: Dr. Chapa on 10-14-2022 Thin prep Papanicolaou smear with manual screening 8 5-15 [facility] Glucose Glucometer (BldC) [M ass/Vol]Ordered By: Joseph Bee on 07-18-2022 Glucose [Mass/Vol] 181 mg/dL 74-[address] [facility] Comment on above: MANAGEMENT OF PATIEN T CARE PER NURSING PROTOCOL Laboratory - Microbiology an d Antimicrobial susceptibilityon 09-20-2021 SARS-CoV-2 (COVID-19) RNA ASHLEY+probe Ql (Unsp spec) Not detected Not Detect [facility] Work Phone: Comment on above: Normal Reference Ran ge: Not DetectedMethod:(RT-PCR) real-time reverse transcriptase PCRLuminex MATTY Instrument*The Food and Drug Administration (FDA) has issued an Emergency Use Authorization (EAU) for the MATTY SARS-CoV-2 Assay for the rapid detection of the virus that causes COVID-19. This test has been validated, but the FDAs independent review of this validation is pending.*Negative results do not preclude infection and should not be used as the sole basis for treatment or patient management. Optimum specimen types and timing for peak viral levels during infections caused by SARS-CoV-2 have not been determined. Collection of multiple specimens from the same patient may be necessary to detect the virus. The possibility of a false negative result should be considered if the patient has clinical presentation or has had recent exposure. CNOVon 03-16-2020 CNOV Office Visit (SPNSLU) LUPE ROGERS ([id number]) 1970 M Date Time Provider Department 03/16/20 1:00 PM BLUE [place]) ALVARO During your visit today, we recorded the following information about you: Blue Cleveland PA-C 03/16/2020 1:45 PM Signed SPINE SURGERY NEW PATIENT PCP: No primary care provider on file. REFERRING PROVIDER: Call center SUBJECTIVE HISTORY OF PRESENT ILLNESS: Lupe Rogers is a 50 year old male presenting alone. CHIEF COMPLAINT: Posterior neck pain and pain between shoulder blades, with numbness and tingling into 4th and 5th digits. Only mild rare pain down arms. Pt has had sx's for about 3 weeks. Pt fell a couple weeks prior to onset of sx's. He tripped while running and fell on left shoulder and neck. Sx's didn't start until a coule weeks later. Occasional problem with balance being off. Denies weakness or lack of coordination of hands. Pt reports pain down right leg to the foot a couple times a week. Lasting up to a couple hours. No LBP Denies aggravating or relieving factors DURATION OF SYMPTOMS: 4 weeks PAIN EVALUATION 03/16/2020 1256 Pain Level: 4 Pain Location: Neck-Anterior Description: Aching;Throbbing Duration Amount of Time: 3 Duration Units: Weeks Frequency: Intermittent Intervention: Medication;Positioni ng DERMATOMAL DISTRIBUTION: Right: C7 Left: C7 AMBULATORY STATUS: [facility] ANTIPLATELET OR ANTICOAGULATION STATUS: No PREVIOUS CONSERVATIVE TREATMENTS: No treatment PREVIOUS SPINAL SURGERY: None There is no problem list on file for this patient. No past medical history on file. No past surgical history on file. No family history on file. Social History Tobacco Use - Smoking status: Not on file Substance Use Topics - Alcohol use: Not on file - Drug use: Not on file ALLERGIES Allergies not on file MEDICATIONS: metFORMIN (GLUCOPHAGE) 500 mg tablet Take 500 mg by mouth twice daily with meals. REVIEW OF SYSTEMS: PAIN ASSESSMENT: See HPI. GENERAL: Denies fever, chills malaise and weight loss. HEENT: No recent change in vision or hearing. CARDIOVASCULAR: Denies chest pain, history of A-fib, valvular disease, or pacemaker/ICD. RESPIRATORY: Denies SOB, sputum production, and hemoptysis. GI: Denies GI ulcers, inflammatory disease, or liver disease. : Denies change in frequency or urgency, kidney disease, and burning with urination. MUSCULOSKELETAL: Negative for joint pain or swelling, back pain or muscle pain., See HPI SKIN: Denies rash or itching. PSYCHOLOGICAL: Denies uncontrolled depression or anxiety. NEURO: Denies CVA, seizures, headaches. ENDOCRINE: type 2 DM HEMATOLOGY/LYMPHOLOG Y: Denies cancer, bleeding or clotting disorders, anemia,and DVT's. ALLERGIC/IMMUNOLOGIC AL: Denies risks for infection, or recent MRSA infections. Patient Entered Questionnaires PROMIS Score Percentiles Percentiles provide an indication of how the patient's score ranks in relation to the general population. Higher percentile rankings indicate better function/quality of life. 50th percentile is the average of the general population and indicates half of respondents had a worse score. Depression Screening: PHQ-9 Self-Harm (Item 9) response options: 0 Not at all 1 Several days 2 More than half the days 3 Nearly every day PHQ-9 Levels: 0-4 No to mild depression 5-9 Mild depression 10-14 Moderate depression 15-19 Moderately severe depression 20-27 Severe depression OBJECTIVE: PHYSICAL EXAM There were no vitals taken for this visit. GENERAL APPEARANCE: Well nourished, well developed, and no apparent distress. NEURO PSYCH: Patient oriented to person, place, and time. Mood pleasant. Benign affect. CARDIOVASCULAR: Palpable pulses. No edema noted. No varicosities. SKIN: Head, neck, trunk, and extremities dry, intact and without lesions. LYMPHATICS: No palpable nodes in cervical or axillae areas. Groin exam deferred. MUSCULOSKELETAL VISUAL INSPECTION CERVICAL: WNL THORACIC: WNL LUMBAR: WNL PALPATION: SPINOUS PROCESS: No pain. PARASPINALS: Tender to palpation posterior cervical area MUSCLE BULK: Normal and symmetrical in the upper AND lower extremities. MUSCLE TONE: Normal. MOTOR: 5/5 in all muscle groups. SENSORY: Normal sensory exam GAIT: Normal. REFLEXES: +2 to bilateral U/L extremities. PROPRIOCEPTION: Normal. LONG TRACT SIGNS: No clonus. No Hoffmans. STRAIGHT LEG TEST: Negative L'HERMITTES SIGN: Negative. SPURLING'S TEST: Negative. DATA REVIEW [facility] records reviewed [facility] records reviewed ASSESSMENT/PLAN No diagnosis found. Pt has cervical disc protrusion at C5-6 without significant foraminal stenosis. He will start PT. Mobic, Tramadol and Tizanidine called in. Pt will f/u again in 6 weeks. Consider C5-6 RINA Lupe Rogers will continue with medical management of his/her condition and has a condition that requires further workup. 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] Order(s):meloxicam (MOBIC) 15 mg tabletTake 1 tablet by mouth once daily.Disp: 30 tabletRfl: 0 traMADol (ULTRAM) 50 mg tabletTake 1 tablet by mouth every 6 hours as needed for up to 7 days.Disp: 28 tabletRfl: 0 tiZANidine (ZANAFLEX) 4 mg tabletTake 1 tablet by mouth every 8 hours as needed.Disp: 21 tabletRfl: 1 CONSULT TO PHYSICAL THERAPY [4612] Order #: [id number]: 1 FUTURE Prescriptions as of 03/16/2020 Sig: METFORMIN 500 MG TABLET Take 500 mg by mouth twice da* MELOXICAM 15 MG TABLET Take 1 tablet by mouth once d* TRAMADOL 50 MG TABLET Take 1 tablet by mouth every * TIZANIDINE 4 MG TABLET Take 1 tablet by mouth every * Problem List As Of Date: 03/16/2020 (None) Prescriptions ordered this encounter Disp Refills Start End MELOXICAM 15 MG TABLET 30 t* 0 03/16/2020 Route: ORAL Sig: Take 1 tablet by mouth once daily. TRAMADOL 50 MG TABLET 28 t* 0 03/16/2020 03/23/2020 Route: ORAL Sig: Take 1 tablet by mouth every 6 hours as needed for up to 7 days. TIZANIDINE 4 MG TABLET 21 t* 1 03/16/2020 Route: ORAL Sig: Take 1 tablet by mouth every 8 hours as needed. Encounter Status:Closed by BLUE [place] PA-C on 03/16/20 [facility] PROGRESSon 03-16-2020 PROGRESS HNO ID: [id number] Author: Blue Diaz (Alix) Ady Service: ? Author Type: Physician Coder Type: Progress Notes Filed: 03/16/2020 1:45 PM Note Text: SPINE SURGERY NEW PATIENT PCP: No primary care provider on file. REFERRING PROVIDER: Call center SUBJECTIVE HISTORY OF PRESENT ILLNESS: Lupe Rogers is a 50 year old male presenting alone. CHIEF COMPLAINT: Posterior neck pain and pain between shoulder blades, with numbness and tingling into 4th and 5th digits. Only mild rare pain down arms. Pt has had sx's for about 3 weeks. Pt fell a couple weeks prior to onset of sx's. He tripped while running and fell on left shoulder and neck. Sx's didn't start until a coule weeks later. Occasional problem with balance being off. Denies weakness or lack of coordination of hands. Pt reports pain down right leg to the foot a couple times a week. Lasting up to a couple hours. No LBP Denies aggravating or relieving factors DURATION OF SYMPTOMS: 4 weeks PAIN EVALUATION 03/16/2020 1256 Pain Level: 4 Pain Location: Neck-Anterior Description: Aching;Throbbing Duration Amount of Time: 3 Duration Units: Weeks Frequency: Intermittent Intervention: Medication;Positioni ng DERMATOMAL DISTRIBUTION: Right: C7 Left: C7 AMBULATORY STATUS: Independent [facility] ANTIPLATELET OR ANTICOAGULATION STATUS: No PREVIOUS CONSERVATIVE TREATMENTS: No treatment PREVIOUS SPINAL SURGERY: None There is no problem list on file for this patient. No past medical history on file. No past surgical history on file. No family history on file. Social History Tobacco Use - Smoking status: Not on file Substance Use Topics - Alcohol use: Not on file - Drug use: Not on file ALLERGIES Allergies not on file MEDICATIONS: metFORMIN (GLUCOPHAGE) 500 mg tablet Take 500 mg by mouth twice daily with meals. REVIEW OF SYSTEMS: PAIN ASSESSMENT: See HPI. GENERAL: Denies fever, chills malaise and weight loss. HEENT: No recent change in vision or hearing. CARDIOVASCULAR: Denies chest pain, history of A-fib, valvular disease, or pacemaker/ICD. RESPIRATORY: Denies SOB, sputum production, and hemoptysis. GI: Denies GI ulcers, inflammatory disease, or liver disease. : Denies change in frequency or urgency, kidney disease, and burning with urination. MUSCULOSKELETAL: Negative for joint pain or swelling, back pain or muscle pain., See HPI SKIN: Denies rash or itching. PSYCHOLOGICAL: Denies uncontrolled depression or anxiety. NEURO: Denies CVA, seizures, headaches. ENDOCRINE: type 2 DM HEMATOLOGY/LYMPHOLOG Y: Denies cancer, bleeding or clotting disorders, anemia,and DVT's. ALLERGIC/IMMUNOLOGIC AL: Denies risks for infection, or recent MRSA infections. Patient Entered Questionnaires PROMIS Score Percentiles Percentiles provide an indication of how the patient's score ranks in relation to the general population. Higher percentile rankings indicate better function/quality of life. 50th percentile is the average of the general population and indicates half of respondents had a worse score. Depression Screening: PHQ-9 Self-Harm (Item 9) response options: 0 Not at all 1 Several days 2 More than half the days 3 Nearly every day PHQ-9 Levels: 0-4 No to mild depression 5-9 Mild depression 10-14 Moderate depression 15-19 Moderately severe depression 20-27 Severe depression OBJECTIVE: PHYSICAL EXAM There were no vitals taken for this visit. GENERAL APPEARANCE: Well nourished, well developed, and no apparent distress. NEURO PSYCH: Patient oriented to person, place, and time. Mood pleasant. Benign affect. CARDIOVASCULAR: Palpable pulses. No edema noted. No varicosities. SKIN: Head, neck, trunk, and extremities dry, intact and without lesions. LYMPHATICS: No palpable nodes in cervical or axillae areas. Groin exam deferred. MUSCULOSKELETAL VISUAL INSPECTION CERVICAL: WNL THORACIC: WNL LUMBAR: WNL PALPATION: SPINOUS PROCESS: No pain. PARASPINALS: Tender to palpation posterior cervical area MUSCLE BULK: Normal and symmetrical in the upper AND lower extremities. MUSCLE TONE: Normal. MOTOR: 5/5 in all muscle groups. SENSORY: Normal sensory exam GAIT: Normal. REFLEXES: +2 to bilateral U/L extremities. PROPRIOCEPTION: Normal. LONG TRACT SIGNS: No clonus. No Hoffmans. STRAIGHT LEG TEST: Negative L'HERMITTES SIGN: Negative. SPURLING'S TEST: Negative. DATA REVIEW [facility] records reviewed [facility] records reviewed ASSESSMENT/PLAN No diagnosis found. Pt has cervical disc protrusion at C5-6 without significant foraminal stenosis. He will start PT. Mobic, Tramadol and Tizanidine called in. Pt will f/u again in 6 weeks. Consider C5-6 RINA Lupe Rogers will continue with medical management of his/her condition and has a condition that requires further workup. SIGNATURE: Blue Cleveland PA-C PATIENT NAME: Lupe Rogers DATE: March 16, 2020 TIME: 1:07 PM PAGER: Julieta [facility] PROGRESSon 02-22-2020 PROGRESS HNO ID: [id number] Author: Tavia Rey Service: ? Author Type: ? Type: Progress Notes Filed: 02/29/2020 1:21 PM Note Text: Patient name: Lupe Rogers Are you being referred by a [facility] Provider or [facility] Management Provider at [facility]? No If answer is YES please schedule directly with surgeon, triage does not need to be completed. Is this a self-referral No If not, who is the Referring Provider [facility] MRI/CT/myelogram within 12 months? Yes If NO, please refer to medical spine or PCP to complete above imaging, triage does not need to be completed MRI/CT/myelogram viewable in Epic: No If not, please provide [phone] to fax in imaging reports for review. Also, please inform patient to hand carry imaging disc to appointment. XR (spine) within 12 months: Not sure If YES,? please ask for the name/address of the facility where the XR was completed: Requested provider (First and Last name): Ruben Jose 1. Where are you having symptoms related to this visit? Numbness and tingling in face and right arm; severe headache; stabbing pain in back 2. Are you having any of the following symptoms: Difficulty walking No Numbness Yes Weakness Yes Trouble using your hands? No 3. Have you had any injections or physical therapy in the last 12 months? No If YES then please ask for the name/address of the facility where the injections and/or physical therapy was completed Have you tried any other kinds of non-surgical treatments in the last 12 months? (For example: NSAIDS, muscle relaxants, analgesics, oral steroids, Chiropractor, Acupuncture): chiropractor; muscle relaxants; oral steroids 4. Are you currently taking daily prescribed narcotic medications for your current symptoms (For example Oxycodone, Hydrocodone, Tramadol, Morphine, Other)? No 5. Have you had previous spinal surgery for this same symptoms? No If YES? please ask for the name of facility/address of where the surgery was completed: Additional Comments Normal [facility] CR-Chest 1 View (Portable) I MPORTon 02-18-2020 CR-Chest 1 View (Portable) IMPORT Images were obtained outside of [facility] [id number] CN Normal [facility] Lab Report: Basic Metabolic Profile (BMP)on 04-18-2017 Anion gap 6 mmol/L Invalid Interpretation Code 5-[address] Work Phone: [phone] BUN/Creatinine Ratio 14.6 RATIO Invalid Interpretation Code 10-[address] Work Phone: [phone] Calcium 9.0 mg/dL Invalid Interpretation Code 8.5-10.[address] [facility] Work Phone: [phone] Chloride 108 mmol/L High 98-[address] Work Phone: [phone] CO2 27.0 mmol/L Invalid Interpretation Code 21.0-32.[address] [facility] Work Phone: [phone] Creatinine 1.03 mg/dL Invalid Interpretation Code 0.70-1.30 [facility] Work Phone: [phone] eGFR (non-black) 83 mL/min/{1.73_m2} Invalid Interpretation Code >[address] [facility] Work Phone: [phone] eGFR (non-black) 100 mL/min/{1.73_m2} Invalid Interpretation Code >[address] [facility] Work Phone: [phone] Glucose 113 mg/dL High 70-[address] [facility] Work Phone: [phone] Potassium 4.1 mmol/L Invalid Interpretation Code 3.5-5.[address] [facility] Work Phone: [phone] Sodium 141 mmol/L Invalid Interpretation Code 136-[address] [facility] Work Phone: [phone] Urea nitrogen 15 mg/dL Invalid Interpretation Code 7-[address] [facility] Work Phone: [phone] Lab Report: CBC-Complete Blo od Cnt No Diffon 04-18-2017 Erythrocytes (RBC) 4.80 10*6/uL Invalid Interpretation Code 4.6-6.2 [facility]: [phone] Hematocrit (HCT) 44.4 % Invalid Interpretation Code 40-54 [facility]: [phone] Hemoglobin (HGB) 14.6 g/dL Invalid Interpretation Code 13.0-16.5 [place] [facility] Phone: [phone] MCH 30.4 pg Invalid Interpretation Code 27.0-32.0 [place] [facility] Phone: [phone] MCHC 32.9 G/GL Invalid Interpretation Code 32-[address] Work Phone: [phone] MCV 92.5 fL Invalid Interpretation Code 80-[address] Work Phone: [phone] Platelets 205 10*3/mm3 Invalid Interpretation Code 150-450 [place] [facility] Phone: [phone] PMV by Shawn 10.9 fL Invalid Interpretation Code 6.2-12.0 [facility] Phone: [phone] RDW-CA 12.6 % Invalid Interpretation Code 11.6-14.[address] Work Phone: [phone] red blood cell distribution width, size density 42.6 fL Invalid Interpretation Code 35.1-43.[address] Work Phone: [phone] WBC (Leukocytes) 7.0 10*3/uL Invalid Interpretation Code 4.4-11.[address] Work Phone: [phone] Lab Report: Lipid Profileon 04-18-2017 Cholesterol 178 mg/dL Invalid Interpretation Code [address] Work Phone: [phone] HDL Cholesterol 35 mg/dL Low [facility] Work Phone: [phone] LDL Cholesterol 112 mg/dL Invalid Interpretation Code 0-[address] Work Phone: [phone] Triglyceride 155 mg/dL Invalid Interpretation Code [facility] Work Phone: [phone] very low density lipoproteins 31 mg/dL Invalid Interpretation Code 5-[address] Work Phone: [phone] Lab Report: Liver Profileon 04-18-2017 Alanine aminotransferase (ALT) 86 U/L High 12-[address] Work Phone: [phone] Albumin 3.8 g/dL Invalid Interpretation Code 3.4-5.0 [facility]: [phone] Alkaline phosphatase (ALP) 63 U/L Invalid Interpretation Code 45-[address] Work Phone: [phone] Aspartate aminotransferase (AST) 35 U/L Invalid Interpretation Code 15-37 [place] [facility]: [phone] Bilirubin (direct) 0.11 mg/dL Invalid Interpretation Code 0.00-0.[address] Work Phone: [phone] Bilirubin (total) 0.30 mg/dL Invalid Interpretation Code 0.20-1.[address] Work Phone: [phone] Globulin 3.3 g/dL Invalid Interpretation Code 2.3-3.[address] Work Phone: [phone] Protein 7.1 g/dL Invalid Interpretation Code 6.4-8.2 [facility]: [phone] Lab Report: Partial Thrombop last Timeon 04-18-2017 aPTT 24.8 s Invalid Interpretation Code 24.1-36.2 [place] [facility] Phone: [phone] Lab Report: Prothrombin Time w/INRon 04-18-2017 Coagulation tissue factor induced in platelet poor plasma 12.7 s Invalid Interpretation Code 11.7-14.9 [place] [facility]: [phone] INR in blood by coagulation 1.0 {INR} Invalid Interpretation Code [facility] [employer]: [phone] Office Visit: [facility] 04-17-20 Dietary management education, guidance, and counseling (procedure) yes Invalid Interpretation Code [facility] Work Phone: [phone] Documentation of current medications (procedure) Done Invalid Interpretation Code [facility]: [phone] Fall risk assessment No Invalid Interpretation Code [facility] [employer]: [phone] Replaced Document: [facility] E CG Observationson 04-17-2017 electrocardiogram interpretation Sinus Rhythm - Nonspecific T-abnormality. ABNORMAL Invalid Interpretation Code [facility] Phone: [phone] GE use only - for [employer] import when terms are not otherwise specified 438 ms Invalid Interpretation Code [place] [facility] [employer]: [phone] P wave axis, electrocardiogram 63 deg Invalid Interpretation Code [facility] Phone: [phone] AR interval, electrocardiogram 160 ms Invalid Interpretation Code [facility] [employer]: [phone] Pulse (Heart Rate) 91 /min Invalid Interpretation Code [facility]: [phone] QRS axis, electrocardiogram 18 deg Invalid Interpretation Code [facility] Work Phone: [phone] QRS duration, electrocardiogram 96 ms Invalid Interpretation Code [facility] Phone: [phone] QT interval, electrocardiogram new path ms Invalid Interpretation Code [facility]: [phone] T wave axis, electrocardiogram -1 deg Invalid Interpretation Code [facility]: [phone] Office Visiton 10-29-2016 Alcoholism counseling (procedure) no Invalid Interpretation Code [facility] [facility] Phone: [phone] Dietary management education, guidance, and counseling (procedure) yes Invalid Interpretation Code [facility] Phone: [phone] Documentation of current medications (procedure) Done Invalid Interpretation Code [facility] Work Phone: [phone] Smoking cessation education (procedure) yes Invalid Interpretation [facility] Work Phone: [phone] Tobacco smoking status NHIS Never Invalid Interpretation Code [facility] Work Phone: [phone] Tobacco use CPHS Current every day smoker Invalid Interpretation Code [facility] Work Phone: [phone] Office Visiton 06-12-2014 Cholesterol 191 mg/dL Invalid Interpretation Code [facility] Work Phone: [phone] HDL Cholesterol 29 mg/dL Low [facility] Work Phone: [phone] Thyroid stimulating hormone (TSH) 2.61 u[iU]/mL Invalid Interpretation Code [facility] Work Phone: [phone] Triglyceride 516 mg/dL [facility] Work Phone: [phone] very low density lipoproteins 103 mg/dL [facility] Work Phone: [phone] Office Visiton 06-11-2014 Anion gap 8 mmol/L Invalid Interpretation Code [facility] Work Phone: [phone] BUN/Creatinine Ratio 17.8 mg/mg Invalid Interpretation Code [facility] Work Phone: [phone] Chloride 105 mmol/L Invalid Interpretation Code [facility] Work Phone: [phone] CO2 25.0 mmol/L Invalid Interpretation Code [facility] Work Phone: [phone] Creatinine 0.9 mg/dL Invalid Interpretation Code [facility] Work Phone: [phone] Erythrocytes (RBC) 5.01 10*6/uL Invalid Interpretation Code [facility] Work Phone: [phone] Glucose 101 mg/dL Invalid Interpretation Code [facility] Work Phone: [phone] Hematocrit (HCT) 44.9 % Invalid Interpretation Code [facility] Work Phone: [phone] Hemoglobin (HGB) 15.5 g/dL Invalid Interpretation Code [facility] Work Phone: [phone] MCH 30.9 pg Invalid Interpretation Code [facility] Work Phone: [phone] MCHC 34.5 g/dL Invalid Interpretation Code [facility] Work Phone: [phone] MCV 89.6 fL Invalid Interpretation Code [facility] Work Phone: [phone] Platelets 198 10*3/mm3 Invalid Interpretation Code [facility] Work Phone: [phone] Potassium 3.7 mmol/L Invalid Interpretation Code [facility] Work Phone: [phone] Sodium 138 mmol/L Invalid Interpretation Code [facility] [employer] Phone: [phone] Urea nitrogen 16 mg/dL Invalid Interpretation Code [facility] Work Phone: [phone] WBC (Leukocytes) 8.9 10*3/uL Invalid Interpretation Code [facility] Work Phone: [phone] Clinical Lists Update: 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 Kimmy Miles Work Phone: [facility] 10-15-2022 15:47-0500 Body temperature 98.2 [degF] Dr. Kimmy Miles Work Phone: [facility] 10-15-2022 15:47-0500 Diastolic blood pressure 74 mm[Hg] Dr. Kimmy Miles Work Phone: [facility] 10-15-2022 15:47-0500 Heart rate 84 /min Dr. Kimmy Miles Work Phone: [facility] 10-15-2022 15:47-0500 Respiratory rate 16 /min Dr. Kimmy Miles Work Phone: [facility] 10-15-2022 15:47-0500 SaO2% (BldA) [Mass fraction] 97 % Dr. Kimmy Miles Work Phone: [facility] 10-15-2022 15:47-0500 Systolic blood pressure 149 mm[Hg] Dr. Kimmy Miles Work Phone: [facility] 10-15-2022 10:56-0500 Body temperature 98.3 [degF] Dr. Kimmy Miles Work Phone: [facility] 10-15-2022 10:56-0500 Diastolic blood pressure 98 mm[Hg] Dr. Kimmy Miles Work Phone: [facility] 10-15-2022 10:56-0500 Heart rate 85 /min Dr. Kimmy Miles Work Phone: [facility] 10-15-2022 10:56-0500 Respiratory rate 18 /min Dr. Kimmy Miles Work Phone: [facility] 10-15-2022 10:56-0500 SaO2% (BldA) [Mass fraction] 97 % Dr. Kimmy Miles Work Phone: [facility] 10-15-2022 10:56-0500 Systolic blood pressure 145 mm[Hg] Dr. Kimmy Miles Work Phone: [facility] 10-14-2022 22:56-0500 Body mass index (BMI) [Ratio] 33.4 kg/m2 Dr. Kimmy Miles Work Phone: [facility] 10-14-2022 13:02-0500 Body height 177.[address] Kimmy Miles Work Phone: [facility] 10-14-2022 13:02-0500 Body weight 105.[address] Kimmy Miles Work Phone: [facility] 09-17-2022 08:19-0500 Body weight 111.[address] Kimmy Miles Work Phone: [facility] 08-17-2022 14:03-0500 Body height 177.[address] Kimmy Miles Work Phone: [facility] 08-17-2022 14:03-0500 Body mass index (BMI) [Ratio] 35.2 kg/m2 Dr. Kimmy Miles Work Phone: [facility] 08-17-2022 14:03-0500 Body weight 111.[address] Kimmy Miles Work Phone: [facility] 07-18-2022 11:15-0500 Body temperature 97.8 [degF] Dr. Kimmy Miles Work Phone: [facility] 07-18-2022 11:15-0500 Diastolic blood pressure 93 mm[Hg] Dr. Kimmy Miles Work Phone: [facility] 07-18-2022 11:15-0500 Heart rate 78 /min Dr. Kimmy Miles Work Phone: [facility] 07-18-2022 11:15-0500 Respiratory rate 16 /min Dr. Kimmy Miles Work Phone: [facility] 07-18-2022 11:15-0500 SaO2% (BldA) [Mass fraction] 99 % Dr. Kimmy Miles Work Phone: [facility] 07-18-2022 11:15-0500 Systolic blood pressure 156 mm[Hg] Dr. Kimmy Miles Work Phone: [facility] 07-18-2022 09:21-0500 Body height 177.[address] Kimmy Miles Work Phone: [facility] Work Phone: 07-18-2022 09:21-0500 Body mass index (BMI) [Ratio] 33.2 kg/m2 Dr. Kimmy Miles Work Phone: [facility] 07-18-2022 09:21-0500 Body weight [address] Kimmy Miles Work Phone: [facility] 03-19-2022 10:54-0400 Body temperature 98.2 [degF] Dr. Kimmy Miles Work Phone: [facility] Work Phone: 03-19-2022 10:54-0400 Diastolic blood pressure 82 mm[Hg] Dr. Kimmy Miles Work Phone: [facility] Work Phone: 03-19-2022 10:54-0400 Heart rate 91 /min Dr. Kimmy Miles Work Phone: [facility] Work Phone: 03-19-2022 10:54-0400 Respiratory rate 14 /min Dr. Kimmy Miles Work Phone: [facility] Work Phone: 03-19-2022 10:54-0400 SaO2% (BldA) [Mass fraction] 97 % Dr. Kimmy Miles Work Phone: [facility] Work Phone: 03-19-2022 10:54-0400 Systolic blood pressure 142 mm[Hg] Dr. Kimmy Miles Work Phone: [facility] Work Phone: 04-17-2017 11:43-0400 BMI (Body Mass Index) 34.06 kg/m2 Felice [facility] Work Phone: 04-17-2017 11:43-0400 BP Diastolic 78 mm[Hg] Felice Mccarty NP [facility] Work Phone: 04-17-2017 11:43-0400 BP Systolic 118 mm[Hg] Felice Mccarty NP [facility] Work Phone: 04-17-2017 11:43-0400 Height 177.8 cm Felice Mccarty NP [facility] Work Phone: 04-17-2017 11:43-0400 Pulse (Heart Rate) 91 /min Felice Mccarty NP [facility] Work Phone: 04-17-2017 11:43-0400 Weight 107.68 kg Felice Mccarty [employer] [facility] Work Phone: 11-15-2015 08:01-0400 BMI (Body Mass Index) 32.74 kg/m2 Enedina Green RN [facility] Work Phone: 11-15-2015 08:01-0400 Body Temperature 98.3 [degF] Enedina Green RN [facility] Work Phone: 11-15-2015 08:01-0400 BP Diastolic 92 mm[Hg] Enedina Green RN [facility] Work Phone: 11-15-2015 08:01-0400 BP Systolic 140 mm[Hg] Enedina Green RN [facility] Work Phone: 11-15-2015 08:01-0400 BSA (Body Surface Area) 2.21 m2 Enedina Green RN [facility] Work Phone: 11-15-2015 08:01-0400 Pulse (Heart Rate) 86 /min Enedina Green RN [facility] Work Phone: 11-15-2015 08:01-0400 Respiratory Rate 18 /min Enedina Green RN [facility] Work Phone: 11-15-2015 08:01-0400 Weight 103.51 kg Enedina Green RN [facility] Work Phone: 05-19-2012 09:21-0400 Height 177.8 cm Enedina Green RN [facility] Work Phone: Encounters Encounter Date Encounter Type Care Provider Facility Start: 03-11-2024 ambulatory Torey Rodriguez Facility:[facility] Start: 03-11-2024 End: 03-12-2024 ambulatory Mani Lubin Facility:[facility] Start: 08-29-2023 Encounter for other preprocedural examination Angus Finn [facility] Start: 08-09-2023 ambulatory Kimmy Miles Facility: [facility] Start: 08-05-2023 End: 08-05-2023 ambulatory Angus Finn Facility:[facility] Start: 08-05-2023 End: 08-05-2023 Non-patient / Non-visit Dr. Kimmy Miles Work Phone: [facility] Work Phone: Start: 07-30-2023 End: 07-30-[address] Kimmy Miles Work Phone: [facility] Work Phone: Start: 07-30-2023 End: 07-30-[address] Kimmy Miles Work Phone: [facility]-Pre-Admission Testing Work Phone: Start: 07-30-2023 End: 07-30-2023 ambulatory Kimmy Miles Facility:[facility] Start: 11-19-2022 End: 11-19-[address] Kimmy Miles Work Phone: [facility] Work Phone: Start: 11-19-2022 End: 11-19-[address] Kimmy Miles Work Phone: [facility] Start: 11-09-2022 End: 11-09-[address] iKmmy Miles Work Phone: [facility] Work Phone: Start: 11-09-2022 End: 11-09-[address] Kimmy Miles Work Phone: [facility] Start: 10-18-2022 End: 10-18-[address] Kimmy Miles Work Phone: [facility] Start: 10-18-2022 End: 10-18-[address] Kimmy Miles Work Phone: [facility] Start: 10-15-2022 Non-patient / Non-visit Dr. Kerri Miles Work Phone: [facility] Start: 10-15-2022 Non-patient / Non-visit Dr. Kerri Miles Work Phone: [facility] Start: 10-14-2022 Non-patient / Non-visit Dr. Kerri Miles Work Phone: [facility] Start: 10-14-2022 End: 10-14-2022 Non-patient / Non-visit Dr. Kimmy Miles Work Phone: [facility] Start: 10-14-2022 End: 10-15-2022 Evaluation and management of inpatient Dr. Kimmy Miles Work Phone: [facility]-Progressive Care Unit Start: 10-14-2022 End: 10-15-[address] Kimmy Miles Work Phone: [facility] Work Phone: Start: 09-17-2022 End: 09-17-[address] Kimmy Miles Work Phone: [facility] Start: 09-14-2022 End: 09-14-[address] Kimmy Miles Work Phone: [facility] Work Phone: Start: 09-14-2022 End: 09-14-[address] Kimmy Miles Work Phone: [facility] Start: 08-17-2022 End: 08-17-[address] Kimmy Miles Work Phone: [facility] Start: 07-18-2022 Non-patient / Non-visit Dr. Kerri Miles Work Phone: [facility] Start: 07-18-2022 End: 07-18-2022 Admission to same day surgery center Dr. Kimmy Miles Work Phone: [facility]-Endoscopy Start: 07-18-2022 End: 07-18-[address] Kimmy Miles Work Phone: [facility] Work Phone: Start: 05-09-2022 End: 05-09-[address] Kimmy Miles Work Phone: [facility] Start: 03-19-2022 End: 03-19-[address] Kimmy Miles Work Phone: [facility] Start: 11-20-2021 End: 11-20-[address] Kimmy Miles Work Phone: [facility] Start: 11-13-2021 End: 11-13-[address] Kimmy Miles Work Phone: [facility] Start: 10-25-2021 End: 10-25-[address] Kimmy Miles Work Phone: [facility] Start: 09-20-2021 End: 09-20-[address] Kimmy Miles Work Phone: [facility]-Laboratory, Specimen Procedures Date Procedure Procedure Detail Performing Clinician Start: 08-05-2023 Nasal Screen MRSA/MSSA Dr. Kimmy Miles Work Phone: Start: 10-15-2022 Radionuclide imaging of perfusion of myocardium under exercise stress Dr. Kimmy Miles Work Phone: Start: 10-14-2022 CT angiography of he ad and neck Dr. Kimmy Miles Work Phone: Start: 10-14-2022 MRI of cervical spine Yazan Miles Work Phone: Start: 10-14-2022 MRI of brain without contrast Dr. Kimmy Miles Work Phone: Start: 10-14-2022 Plain chest X-ray Dr. Jenny [place] Work Phone: Start: 10-14-2022 CT of head without contrast Dr. Kimmy Miles Work Phone: Start: 09-14-2022 X-ray of cervical spine Dr. Kimmy Miles Work Phone: Start: 07-18-[address] Kimmy zuleta Work Phone: Start: 11-13-2021 MRI of joint of lowe r extremity Dr. Kimmy Miles Work Phone: Start: 04-17-2017 End: 04-18-2017 *BMP Felice Chambers [facility] [employer] Work Phone: Start: 04-17-2017 End: 04-18-2017 *Hepatic Function Panel Felice Chambers [facility] [employer] Work Phone: Start: 04-17-2017 End: 04-18-2017 aPTT Felice Chambers [place] [employer] Work Phone: Start: 04-17-2017 End: 04-18-2017 CBC W Auto Differential panel - Blood Felice Chambers [place] [employer] Work Phone: Start: 04-17-2017 End: 04-18-2017 Coagulation factor induced.INR assay in platelet poor plasma Felice Chambers [employer] Work Phone: Start: 04-17-2017 End: 04-18-2017 Lipid panel [AGGREGATE] Felice Mccarty [employer] Work Phone: Start: 04-17-2017 End: 04-17-2017 Nurse, Teaching, Wound Check (no charge) Felice Mccarty [employer] Work Phone: Start: 10-29-2016 End: 11-08-2016 Drain/inject, joint/bursa Pedro Pablo Lowe Work Phone: Start: 10-03-2016 End: 10-10-2016 Drain/inject, joint/bursa Pedro Pablo Lowe Work Phone: Start: 12-12-2015 End: 01-02-2016 Drain/inject, joint/bursa Pedro Pablo Lowe Work Phone: Start: 06-23-2015 End: 06-30-2015 Drain/inject, joint/bursa Pedro Pablo Lowe Work Phone: Start: 02-14-2015 End: 02-23-2015 Drain/inject, joint/bursa Pedro Pablo Lowe Work Phone: Start: 05-28-2013 End: 05-28-2013 Follow Up Appt 6 months Sherlyn high PA-C Work Phone: Start: 05-28-2013 End: 05-28-2013 PFM Sherlyn Coelho PA-C Work Phone: Start: 08-06-2012 End: 10-29-2012 *Hepatic Function Panel Pietro Apple MD Start: 08-06-2012 End: 10-29-2012 Lipid panel [AGGREGATE] Pietro Apple MD Start: 05-19-2012 End: 06-23-2012 Echocardiography Pietro Apple MD Start: 05-19-2012 End: 05-19-2012 Electrocardiogram, complete Pietro Apple MD Start: 05-19-2012 End: 05-19-2012 Follow Up Appt 6 months Pietro Apple MD Plan of Treatment Date Care Activity Detail Author Start: 10-15-2022 Patient discharge [facility] Start: 10-14-2022 [facility] Start: 10-14-2022 Following clinical pathway protocol [facility] Start: 10-14-2022 Ambulation without limitation [facility] Start: 02-12-2023 Assessment of risk of venous thromboembolism [facility] Start: 10-14-2022 Care regimes management [facility] Start: 10-14-2022 Insertion of catheter into peripheral vein [facility] Start: 10-14-2022 Measuring intake and output [facility] Start: 10-14-2022 Notification of physician [facility] Start: 10-14-2022 Providing care according to standard [facility] Start: 10-14-2022 Referral to occupational therapist [facility] Start: 10-14-2022 Referral to service [facility] Start: 10-14-2022 [facility] Start: 10-14-2022 Admission procedure [facility] Start: 10-14-2022 Oxygen therapy [facility] Start: 07-18-2022 Colonoscopy w/biopsy single/multiple COLONOSCOPY AND BIOPSY [facility] Start: 07-18-2022 Patient discharge [facility] Start: 10-21-2017 End: 04-26-2017 *Hepatic Function Panel *Hepatic Function Panel [facility] Work Phone: Start: 10-21-2017 End: 04-26-2017 Lipid panel [AGGREGATE] *Lipid Profile CC PCP [facility] Work Phone: Start: 04-17-2017 End: 04-17-2017 Appointment Appointment [facility] Work Phone: Start: 04-17-2017 End: 04-18-2017 *BMP *BMP [facility] [employer] [employer] Work Phone: Start: 04-17-2017 End: 04-18-2017 *Hepatic Function Panel *Hepatic Function Panel [facility] Work Phone: Start: 04-17-2017 End: 04-18-2017 aPTT *PTT-Partial Thromboplastin Time [facility] Work Phone: Start: 04-17-2017 End: 04-18-2017 CBC W Auto Differential panel - Blood *CBC without Diff [facility] Work Phone: Start: 04-17-2017 End: 04-17-2017 Chest x-ray X-Ray, Chest, PA & Lateral [facility] Work Phone: Start: 04-17-2017 End: 04-18-2017 Coagulation factor induced.INR assay in platelet poor plasma *PT/INR [facility] Work Phone: Start: 04-17-2017 End: 04-17-2017 Electrocardiogram, complete EKG (In office) [facility] [employer] [facility] Work Phone: Start: 04-17-2017 End: 04-18-2017 Left Heart Cath Left Heart Cath [facility] Work Phone: Start: 04-17-2017 End: 04-18-2017 Lipid panel [AGGREGATE] *Lipid Profile CC PCP [facility] Work Phone: Start: 03-02-2016 End: 03-06-2016 Other Referral Other Referral [facility] Provider, [address], [place], [address] [facility] [employer] Work Phone: Start: 06-23-2015 End: 06-23-2015 Mri jnt of lwr extre w/o dye MRI Joint Lower Extremity [facility] [employer] Work Phone: Start: 02-14-2015 End: 02-14-2015 X-ray exam, knee, 4 or more X-Ray, K[facility] [employer] Work Phone: Start: 06-16-2014 End: 06-16-2014 *BMP *BMP [facility] Work Phone: Start: 06-16-2014 End: 06-16-2014 *Hepatic Function Panel *Hepatic Function Panel [facility] [employer] Work Phone: Start: 06-16-2014 End: 06-16-2014 Follow Up Appt 1 year Follow Up Appt 1 year [facility] Work Phone: Start: 06-16-2014 End: 06-16-2014 Follow Up Appt Other Follow Up Appt Other [facility] Work Phone: Start: 06-16-2014 End: 06-16-2014 Lipid panel [AGGREGATE] *Lipid Profile CC PCP [facility] Work Phone: Start: 06-16-2014 End: 06-16-2014 PFM PFM [facility] Work Phone: Start: 05-28-2013 End: 05-28-2013 *Hepatic Function Panel *Hepatic Function Panel [facility] Work Phone: Start: 05-28-2013 End: 05-28-2013 Follow Up Appt 6 months Follow Up Appt 6 months [facility] Work Phone: Start: 05-28-2013 End: 05-28-2013 Lipid panel [AGGREGATE] *Lipid Profile CC PCP [facility] Work Phone: Start: 05-28-2013 End: 05-28-2013 PFM PFM [facility] Work Phone: Start: 08-06-2012 End: 10-29-2012 *Hepatic Function Panel *Hepatic Function Panel [facility] Work Phone: Start: 08-06-2012 End: 10-29-2012 Lipid panel [AGGREGATE] *Lipid Profile [facility] Work Phone: Start: 05-19-2012 End: 05-19-2012 Echocardiography Echocardiogram (complete) [facility] Work Phone: Start: 05-19-2012 End: 05-19-2012 Electrocardiogram, complete EKG (In office) [facility] Work Phone: Start: 05-19-2012 End: 05-19-2012 Follow Up Appt 6 months Follow Up Appt 6 months [facility] Work Phone: C reactive protein [Mass/volume] in Serum or Plasma [facility] Work Phone: CBC W Auto Different ial panel - Blood [facility] Work Phone: Erythrocyte sediment ation rate [facility] Work Phone: MR Cervical spine [facility] Patient Education HYPERLIPIDEMIA [facility] Work Phone: Patient referral [facility] Work Phone: [facility] Immunizations Immunization Date Immunization Notes Care Provider Fa cility 12-09-2020 Covid (Pfizer) Dr. Kimmy julio Work Phone: [facility] 11-18-2020 Covid (Pfizer) Dr. Kimmy julio Work Phone: [facility] 06-11-[address] Kimmy Miles Work Phone: [facility] 06-12-2014 influenza, injectabl e, quadrivalent, preservative free Dr. Kimmy Miles Work Phone: [facility] 06-12-2014 influenza, seasonal, injectable Dr. Kimmy Miles Work Phone: [facility] Payers Date Payer Category Payer Self-pay [id number] 2023 Unknown [id number] [facility] [id number] 2013 Unknown [id number] Unknown [id number] 2.16.8 [id number] Unknown [id number] 2.16.8 [id number] Unknown [id number] 2.16.8 [id number] Unknown [id number] 2.16.8 [id number] Unknown [id number] 2.16.8 [id number] Unknown [id number] 2.16.8 [id number] Unknown [id number] 2.16.8 [id number] Unknown [id number] 2.16.8 [id number] Social History Date Type Detail Facility Start: 11-20-2021 End: 07-30-2023 Tobacco smoking status NHIS Unknown if ever smoked [facility] Start: 02-18-2020 Occasional [facility] Start: 02-18-2020 None [facility] Start: 02-18-2020 Spouse/ Signif icant Other [facility] Start: 02-19-2020 Cigarettes [facility] Start: 1970 Sex Assigned At Male [facility] Medical Equipment Procedure Code Equipment Code Equipment Origin al Text Equipment Identifier Dates PRELOADED LENS FDA Start: 03-14-2018 PRELOADED LENS FDA Start: 03-14-2018 PRELOADED LENS FDA Start: 03-14-2018 PRELOADED LENS FDA Start: 03-14-2018 PRELOADED LENS FDA Start: 03-14-2018 PRELOADED LENS FDA Start: 03-14-2018 PRELOADED LENS FDA Start: 03-14-2018 PRELOADED LENS FDA Start: 03-14-2018 Goals Date Patient Goal Desired Activity /State Functional Status Date Assessment Result Facility 10-15-2022 Functional status Ambulates [facility] Work Phone: Mental Status Date Assessment Result Facility 10-15-2022 Cognitive function Voice/Name [facility] Work Phone: 10-15-2022 Cognitive function Voice/Name [facility] Work Phone: 07-18-2022 Cognitive function Voice/Name [facility] Work Phone: Clinical Notes 10-14-2022 to 03-12-2024 Note Date & Type Note Facility 03-12-2024 Note [facility] Medical Records Department [address] [place] [address] Discharge Summary 03/12/24 1121 MR#: [id number] Acct: [id number] Name: LUPE ROGERS Rep #: [id number] : 1970 54 From: Mani Lubin DO PCP: Dr. Kimmy Miles, DO Status:ADM JOAQUIN Location: [place] [address] Providers Date of Admission: 03/11/24 Primary Care Physician: Dr. Kimmy Miles, DO Reason For Visit: CHEST PAIN, DIABETES Diagnosis Discharge Diagnosis (1) Chest pain: Status: Acute Code(s): R07.9 - Chest pain, unspecified Plan Chest pain * Resolved. Workup negative. Noncardiac. Possible patient may have had some radicular left-sided pain due to his known spinal stenosis and then may have panicked and may have had a panic attack along with that. * troponins negative x2. D-dimer negative. * Stress test negative * Continue ASA. H/p myocarditis * remote. Had a non-ischemic cardiomyopathy. * Echo shows an EF of 55%. DM2 * takes Monjauro * SSI * check a1c Degenerative disc disease * Pulled up his MRI from October 2022 where he had multilevel degenerative changes. Severe right foraminal stenosis with nerve root compression at C4-5 and mild to moderate central canal stenosis with compression on the anterior aspect of the cord with disc bulges at C4-C5 and C5-C6. * I personally reviewed those images with the patient and his at bedside. Explained that he is at high risk for radiculopathy. Patient has seen a chiropractor. I did advise against high velocity maneuvers with his neck as that may potentiate his core stenosis and possible lead to paralysis. His did ask about if he can resume motorcycle riding. I explained I will have any new recommendations for that just other than the inherent risks associated with operating motorcycle. * I did advise the patient that if he does have worsening paresthesias numbness, weakness of his extremities, despite this workup being negative, it could be a sign of worsening disc disease and potential concern for cord compression or even paralysis. I advised to come to the emergency room if he were to experience anything like that. VTE prophylaxis: low risk. not indicated. Medications at Discharge Home Medications ascorbic acid (vitamin C) 1,000 mg tablet 1,000 mg PO DAILY supplement 02/18/20 aspirin 81 mg tablet,delayed release 81 mg PO DAILY health maintenance 02/18/20 multivitamin 1 ea PO DAILY supplement 02/18/20 citalopram 20 mg tablet 10 - 20 mg PO QHS 03/11/24 fenofibrate nanocrystallized 145 mg tablet 145 mg PO DAILY 03/11/24 gabapentin 300 mg capsule 300 - 600 mg PO QHS PRN PRN pain 03/11/24 tirzepatide 5 mg/0.5 mL subcutaneous pen injector (Mounjaro) 5 mg subcut MO 03/11/24 Hospital Course Operations None Procedures 2-D Echocardiogram and Stress test Summary of Care Provided Minutes Spent on Discharge: 35 Hospital Course: Patient presents with chest pain and shortness of breath. Patient also had left arm paresthesias. Patient underwent cardiac workup which was negative. Patient had history of myocarditis in the past which is why an echocardiogram was performed and showed an EF of 51%. Did review his past CT images of his neck that showed cord compression at C4-C5 and C5-C6. It is possible patient may have had some radicular symptoms in his left arm that he may have sustained panic attack. Patient acknowledged that without even bring that up. But did advise the patient to seek treatment if he does have worsening radicular symptoms in his extremities. Weight / BMI Weight Weight: 96.2 kg Body Mass Index (BMI) 30.4 ABG / Lab / Microbiology Data 03/11/24 09:35 03/11/24 09:35 Laboratory: Laboratory Results - last 24 hr 03/11/24 09:35: Hemoglobin A1c 6.0 H 03/11/24 12:03: Troponin I High Sens 7 03/11/24 15:32: POC Glucose 109 H 03/11/24 15:40: Troponin I High Sens 8 03/11/24 21:17: POC Glucose 100 03/12/24 06:17: Triglycerides 250 H, Cholesterol 194, LDL Cholesterol 102, VLDL Cholesterol 50 H, HDL Cholesterol 42 03/12/24 06:23: POC Glucose 128 H Radiography Diagnostic Testing: Radiology Impression Echocardiogram 03/11/24 12:53 Interpretation Summary Normal LV size. Left ventricular systolic function is normal. The left ventricular ejection fraction is 55 %. Structurally normal valves. Ordering Physician: Mani Lubin Referring Physician: KIMMY MILES Performed By: Colette, Gavi, RDCS D/C Instructions Discharge Diet: 1999 Calorie Control Diet Meaningful Use Info Meaningful Use Meaningful Use Diagnoses (Choose all that apply): None applicable Ischemic Stroke Statin Dosing Therapy Reference: STATIN DOSE THERAPY REFER (more content not included)... [facility] 10-14-2022 History and physi kacie note Note Date/Time October 14, 2022 5:54pm [facility] Medical Records Department [address] [place] [address] H&P Exam - Hospitalist 10/14/22 1741 MR#: [id number] Acct: [id number] Name: LUPE ROGERS Rep #:[id number] : 1970 52 From: Kimmy Sharp DO PCP: Dr. Kimmy Miles, DO Status:ADM JOAQUIN Location: [place] [address] HPI - General General Date of Admission: 10/14/22 Date of Service: 10/14/22 Chief Complaint: Chest pain, facial numbness HPI Narrative LUPE ROGERS, is a 52 M who presents to the emergency room at [facility] after being transported for evaluation of facial numbness, chest discomfort, blurred vision, and difficulty speaking (forming sentences) which started approximately 10 AM this morning. Patient also complained of pain in both of his arms-he has had a history of arm pain however as he has a history ofsevere disc disease of his neck. Patient denied any focal weakness, he denied any slurred speech, he did say that his vision was blurred at one time because he felt as if he was going to pass out. Patient denied any dizziness, and he denied any syncope. At the time of my examination, patient is still complaining of chest discomfort which she describes as sharp in nature, patient's cardiac enzymes have been unremarkable. Labs were performed in the emergency room, patient CBC was unremarkable, patient's creatinine was elevated at 1.49 and his BUN was 22. Patient's glucose level was 431-patient's states that the patient has been on a high dose of prednisone for his degenerative disc disease of his neck recently, he has a history of diabetes however. Brain CT was performed without contrast, this was unremarkable, patient had chest x-ray which was also unremarkable. EKG was performed which showed some T wave changes in the lateral precordial leads which appear to be different from the previous EKG he had done several years ago. Patient related to a past history of cardiomyopathy, he had seen a casualty insurance claim adjuster many years ago and ultimately the cardiomyopathy resolved and his EF returned tonormal. The etiology of the cardiomyopathy was felt to be viral in nature. Patient will be placed in observation status on PCU, NIH scores will be monitored, patient is already on an 81 mg aspirin per day at home this will be continued, patient will have an MRI of the brain performed and in addition I have decided to order a CTA of the head and neck. Finally, patient's cardiac enzymes will be cycled, if they remain normal, patient will have an exercise stress test performed tomorrow. Patient was to have an MRI of his cervical spine performed on Saturday of this week in preparation for possible decompressive surgery of his neck, I will attempt to order this and have it done while he is hospitalized [facility] Medical History Alcohol use Cardiology follow-up encounter Chest pain Diabetes Dietary restriction Exposure to COVID-19 virus Glucosuria H/O Mohs micrographic surgery for skin cancer History of echocardiogram History of stress test HLD (hyperlipidemia) HTN (hypertension) Leg cramps Lumbar strain Malignant neoplasm of skin New onset type 2 diabetes mellitus Nonischemic cardiomyopathy Obesity (BMI 30.0-34.9) KRISTOFER (obstructive sleep apnea) Pharyngitis TIA (transient ischemic attack) Tobacco use URI (upper respiratory infection) Varicose veins of both lower extremities Home Medications ascorbic acid (vitamin C) 1,000 mg tablet 1,000 mg PO DAILY supplement 02/18/20 [History Last Taken 10/14/22] aspirin 81 mg tablet,delayed release 81 mg PO DAILY health maintenance 02/18/20 [History Last Taken 10/14/22] multivitamin 1 ea PO DAILY supplement 02/18/20 [History Last Taken 10/14/22] fenofibrate nanocrystallized 145 mg tablet 145 mg PO DAILY 11/20/21 [History Last Taken 10/13/22] glipizide 10 mg tablet, extended release 24 hr 10 mg PO DAILY 11/20/21 [History Last Taken 10/14/22] Allergy/AdvReac Type Severity Reaction Status Date / Time Upxihuo-DSE-MlS Reductase AdvReac painful Verified 10/14/22 11:05 Inhibitor joints [Ynhmnaf-Pvj-Byt Reductase Inhibitor] Family History Father Heart disease Hypertension Hypercholesteremia Surgical History History of cardiac catheterization Hx of left cataract extraction Hx of right cataract extraction Social History Smoking Status: Current every day smoker tobacco type: cigarettes alcohol intake: current Alcohol type: beer ROS Constitutional Constitutional: Denies anorexia, change in weight, chills, fatigue, fever(s), night sweats or weakness Eyes Eyes: Reports blurry vision and change in vision bilateral; Denies discharge from eye(s) or eye pain ENT HEENT: Denies abnormal hearing, dysphagia or ear pain Cardiovascular Cardiovascular: Reports chest pain and lightheadedness; Denies claudication, dyspnea on exertion, edema or palpitations Respiratory/Chest Respiratory/Chest: Denies cough, hemoptysis, shortness of breath at rest or shortness of breath with exertion Gastrointestinal Gastrointestinal: Denies abdominal pain, constipation, diarrhea, hematemesis, hematochezia, melena, nausea or vomiting Genitourinary Genitourinary: Denies dysuria, hematuria, urinary frequency, urinary hesitancy, urinary incontinence or urinary urgency Musculoskeletal Musculoskeletal: Reports myalgias and other Details: Bilateral arm and shoulder pain ; Denies back pain, joint pain, joint stiffness, joint swelling or neck pain Neurologic Neurologic: Reports numbness and other Details: Difficulty forming sentences during the patient's episode today at home ; Denies abnormal gait, abnormal speech, dizziness, focal weakness, headache(s), loss of vision, other visual disturbances, paresthesias, syncope or tingling Psychiatric Psychiatric: Denies anxiety, cognitive impairment, depression, irritability, mood swings or suicidal ideation Endocrine Endocrinology: Denies change in body appearance, cold intolerance, excessive sweating, heat intolerance, polydipsia or polyuria Hematologic/Lymphatic Hematologic/Lymphatic: Denies none, anemia, easy bleeding, easy bruising or lymphadenopathy Allergic/Immunologic Allergic/Immunologic: Denies rhinitis, urticaria, eczemia or asthma Vital Signs Vital Signs Vital Signs: 10/14/22 10:59 10/14/22 11:05 10/14/22 11:44 Temperature 98.2 F Temperature Source Temporal Pulse Rate 114 H 102 H Respiratory Rate 20 H Respiratory Effort Normal Respiratory Pattern Normal Blood Pressure 183/101 H 158/86 H Blood Pressure Mean 128 Blood Pressure Source Blood Pressure Position Blood Pressure Location Pulse Ox 96 Oxygen Delivery Method Room Air 10/14/22 11:45 10/14/22 11:34 10/14/22 11:48 Temperature Temperature Source Pulse Rate 101 H 105 H Respiratory Rate 18 Respiratory Effort Respiratory Pattern Blood Pressure 157/97 H 161/92 H Blood Pressure Mean 117 Blood Pressure Source Blood Pressure Position Blood Pressure Location Pulse Ox 96 95 Oxygen Delivery Method Room Air Room Air 10/14/22 11:55 10/14/22 12:44 10/14/22 13:13 Temperature 98.2 F 98 F Temperature Source Temporal Oral Pulse Rate 105 H 96 97 Respiratory Rate 16 14 Respiratory Effort Respiratory Pattern Blood Pressure 149/82 H 139/92 H 150/92 H Blood Pressure Mean 107 111 Blood Pressure Source Monitor Blood Pressure Position Semi-Fowlers Blood Pressure Location Right Arm Pulse Ox 95 97 Oxygen Delivery Method Room Air Room Air 10/14/22 15:17 10/14/22 16:33 Temperature 98.5 F Temperature Source Oral Pulse Rate 84 Respiratory Rate 18 Respiratory Effort Respiratory Pattern Blood Pressure 145/86 H Blood Pressure Mean 105 Blood Pressure Source Monitor Blood Pressure Position Semi-Fowlers Blood Pressure Location Right Arm Pulse Ox 95 97 Oxygen Delivery Method Room Air Room Air Weight Weight: 105.7 kg Body Mass Index (BMI) 33.4 Physical Exam Const alert, oriented x3, no apparent distress, average body habitus and healthy appearing General Appearance: cooperative, well kempt and well developed Orientation / Consciousness: awake, oriented to person, oriented to place and oriented to time HEENT normocephalic, head/scalp atraumatic, hearing grossly normal bilaterally and moist oral mucous membranes Eyes PERRL, EOMs intact bilaterally and conjunctivae normal Neck supple, no JVD, thyroid normal and no carotid bruits General: trachea midline Resp normal respiratory effort, no retractions, no use of accessory muscles and clearto auscultation bilaterally Auscultation: Negative for rales, rhonchi or wheezes Cardio regular rate, regular rhythm, S1 normal heart sound, S2 normal heart sound, no murmurs, no rub and no gallops GI normal to inspection, nondistended, normoactive bowel sounds, soft to palpation,non-tender and non-distended Extremity no clubbing, cyanosis or edema Skin no rashes or lesions noted General Skin Exam: no breakdown Neuro oriented x3, CN's II-XII intact bilaterally, moves all extremities, no focal motor deficits and no sensory deficits noted Sensorium / Orientation: awake, alert, oriented to person, oriented to place andoriented to time Speech: speech normal Psych affect normal Results Lab / Micro Data Result Diagrams: 10/14/22 11:08 10/14/22 11:08 Labs: Laboratory Results - last 24 hr 10/14/22 11:02: POC Glucose 454 H* 10/14/22 11:08: WBC 11.0, RBC 5.30, Hgb 16.2, Hct 48.6, MCV 91.7, MCH 30.6, MCHC33.3, RDW Std Deviation 43.1, RDW Coeff of Leela 12.9, Plt Count 214, MPV 11.0, Immature Gran % (Auto) 0.700, Neut % (Auto) 55.8, Lymph % (Auto) 31.8, Trego % (Auto) 8.1, Eos % (Auto) 2.9, Baso % (Auto) 0.7, Absolute Neuts (auto) 6.2, Absolute Lymphs (auto) 3.50, Nucleated RBC % 0 10/14/22 11:08: PT 12.6, INR 1.0, APTT 24.5 10/14/22 11:08: Sodium 136, Potassium 4.7, Chloride 102, Carbon Dioxide 26.0, Anion Gap 8, BUN 22 H, Creatinine 1.49 H, Estim Creat Clear Calc 60.56, Est GFR (MDRD) Af Amer 64, Est GFR (MDRD) Non-Af 53 L, BUN/Creatinine Ratio 14.8, Glucose 431 H, Calcium 9.1, Troponin I High Sens 12 10/14/22 14:03: Troponin I High Sens 9 10/14/22 16:32: POC Glucose 296 H 10/14/22 16:56: Troponin I High Sens [address] 10/14/22 11:09 IMPRESSION: Negative Brain CT without contrast. N.B. : The above Results were Read Back by Pete Darling MD to Walter Chapa MD, and understanding confirmed on 10/14/2022 11:32:36 (ET). Electronically Signed: Pete Darling MD at 11:34 EST , ADDENDUM: 10/14/22 1141 IMPRESSION: Negative Brain CT without contrast. N.B. : The above Results were Read Back by Pete Darling MD to Walter Chapa MD, and understanding confirmed on 10/14/2022 11:32:36 (ET). Electronically Signed: Pete Darling MD at 11:34 EST , Chest X-Ray 10/14/22 11:19 IMPRESSION: Normal x-ray examination of the chest. Electronically Signed: Pete Darling MD at 11:34 EST , Assessment & Plan Assessment/Plan (1) Chest pain: PLAN: Plan 1. Facial paresthesias-etiology unclear-patient will be placed in observation status on PCU, NIH scores will be monitored, patient will remain on 81 mg aspirin daily, he will have an MRI of the brain performed as well as a CT of thehead and neck performed. #2 chest pain-etiology unclear, patient's cardiac enzymes remain normal at this time and he still complains of sharp chest discomfort, patient will have an echocardiogram performed tomorrow, cardiac enzymes will continue to be cycled, patient will have an exercise stress test tomorrow if enzymes remain normal. #3 bilateral arm pain-I think this is probably secondary to degenerative disc disease of his cervical spine-I will attempt to obtain an MRI of the cervical spine while he is hospitalized during this admission, patient was scheduled to have one done this Saturday, he requires premedication for the MRI and I think itis better for the patient to have his cervical MRI performed while he is here [facility] rather than come back on Saturday to have it performed. #4 degenerative disc disease of the cervical spine-complicates care, medical course, recovery, and prognosis #5 type 2 diabetes-blood sugars will be monitored, sliding scale insulin will beadministered as needed, blood sugars may be elevated at this time due to his recent use of prednisone. #6 hyperlipidemia-patient is on Tricor as an outpatient, this will be held during his hospitalization, patient has an allergy to statins Total clinical time spent by myself addressing the patient's medical issues, reviewing all of the data, and collaborating with patient's care team: 75-minutes Charges/Coding Visit Charges Inpatient E&M: 17762 Init Hosp L3 10/14/22 5318 <Electronically signed by Kimmy Sharp DO> Cosigner Signature (if applicable): CC: Dr. Kimmy Miles DO; Dr. Kimmy Sharp DO~ Signed [facility] Work Phone: 1(456) 991-488302-12-[address] Chapa [facility] October 14, 2022 3:28pm Note Date/Time October 14, 2022 11:21am [facility] Medical Records Department [address] [place] [address] Emergency Department Summary 10/14/22 MR#: [id number] Acct: [id number] Name: LUPE ROGERS Rep #:[id number] : 1970 52 From: Walter Nicolas PCP: Dr. Kimmy Miles DO Status:ADM JOAQUIN Location: [place] [address] HPI History of Present Illness Chief Complaint: Dizziness Informant: patient and spouse/S.O. Onset/Context/Timing Onset: Today Narrative Narrative: Presents for evaluation of sudden symptoms started around 9 AM. States she justfinished breakfast in the garage was getting ready work on car. Reported he hadblurry vision bilaterally, spaced out people are talking to him he did not recall this. When he came around, he states there was pain to his right arm andboth face with numbness. He states he had to focus on what he was trying to say. He has headache. He now describes chest tightness. Denies cardiac history he had nonischemic cardiomyopathy 10 years ago from viral syndrome from some sort of bite for significant other with a heart cath that was negative. He is adiabetic on oral medications. He states he feels a little shaky. He drinks occasionally but not every day he did drink last night. Denies vomiting. Denies recent travel or surgeries or immobilizations. No history of PE or DVT. Prior similar symptoms: No PFSH PFSH Medical History Alcohol use Cardiology follow-up encounter Chest pain Diabetes Dietary restriction Exposure to COVID-19 virus Glucosuria H/O Mohs micrographic surgery for skin cancer History of echocardiogram History of stress test HLD (hyperlipidemia) HTN (hypertension) Leg cramps Lumbar strain Malignant neoplasm of skin New onset type 2 diabetes mellitus Nonischemic cardiomyopathy Obesity (BMI 30.0-34.9) KRISTOFER (obstructive sleep apnea) Pharyngitis TIA (transient ischemic attack) Tobacco use URI (upper respiratory infection) Varicose veins of both lower extremities Home Medications ascorbic acid (vitamin C) 1,000 mg tablet 1,000 mg PO DAILY supplement 02/18/20 [History Last Taken 10/14/22] aspirin 81 mg tablet,delayed release 81 mg PO DAILY health maintenance 02/18/20 [History Last Taken 10/14/22] multivitamin 1 ea PO DAILY supplement 02/18/20 [History Last Taken 10/14/22] fenofibrate nanocrystallized 145 mg tablet 145 mg PO DAILY 11/20/21 [History Last Taken 10/13/22] glipizide 10 mg tablet, extended release 24 hr 10 mg PO DAILY 11/20/21 [History Last Taken 10/14/22] Allergy/AdvReac Type Severity Reaction Status Date / Time Yuhlgne-GND-ZoS Reductase AdvReac painful Verified 10/14/22 11:05 Inhibitor joints [Uvzkagz-Elm-Sbu Reductase Inhibitor] Family History Father Heart disease Hypertension Hypercholesteremia Surgical History History of cardiac catheterization Hx of left cataract extraction Hx of right cataract extraction Social History Smoking Status: Current every day smoker tobacco type: cigarettes alcohol intake: current Alcohol type: beer ROS ROS ED Constitutional Constitutional ED: Denies chills, fever(s) or sweats Eyes Eyes: Reports change in vision ENT ENT ED: Denies dysphagia or sore throat Cardiovascular Cardiovascular: Reports chest pain; Denies leg edema, palpitations or racing heartbeat Respiratory/Chest Respiratory/Chest: Denies cough, dyspnea or dyspnea on exertion Gastrointestinal Gastrointestinal: Denies abdominal pain, diarrhea, nausea or vomiting Genitourinary Genitourinary ED: Denies dysuria, hematuria or urinary frequency Musculoskeletal Musculoskeletal: Denies back pain, extremity pain or neck pain Integumentary Denies rash or wounds Neurologic Neurologic: Reports headache(s) and paresthesias; Denies weakness EXAM Physical Exam Const Vital Signs: 10/14/22 10:59 10/14/22 11:05 10/14/22 11:44 Temperature 98.2 F Temperature Source Temporal Pulse Rate 114 H 102 H Respiratory Rate 20 H Respiratory Effort Normal Respiratory Pattern Normal Blood Pressure 183/101 H 158/86 H Blood Pressure Mean 128 Pulse Ox 96 Oxygen Delivery Method Room Air 10/14/22 11:45 10/14/22 11:34 10/14/22 11:48 Temperature Temperature Source Pulse Rate 101 H 105 H Respiratory Rate 18 Respiratory Effort Respiratory Pattern Blood Pressure 157/97 H 161/92 H Blood Pressure Mean 117 Pulse Ox 96 95 Oxygen Delivery Method Room Air Room Air 10/14/22 11:55 Temperature Temperature Source Pulse Rate 105 H Respiratory Rate Respiratory Effort Respiratory Pattern Blood Pressure 149/82 H Blood Pressure Mean Pulse Ox Oxygen Delivery Method Positive well nourished and well developed General Appearance ED: well developed and NAD HEENT Reports moist mucous membranes normocephalic and atraumatic Eyes PERRL, EOMs intact bilaterally and conjunctivae normal Eyes Narrative: Visual burton intact in all 4 quadrants. No nystagmus. General Eye ED: Yes normal appearance of both eyes Neck no lymphadenopathy and supple General: Negative for tenderness Chest Wall Chest: Negative for tenderness Resp normal respiratory effort and normal air movement Effort and Inspection: symmetric chest movement; Negative for respiratory distress Cardio regular rhythm and no murmurs Rate: tachycardic Peripheral Pulses: pulses 2+ throughout GI normal to inspection, nondistended, normoactive bowel sounds and non-tender Palpation: Negative for guarding or rebound tenderness present Back/Spine no CVA tenderness and no thoracic nor lumbar tenderness Extremity normal to inspection General Extremety ED: Negative for edema or tenderness General Extremity: Negative for edema Neuro oriented x3, CN's II-XII intact bilaterally and no sensory deficits noted Neuro Narrative: NIH of 0. Normal cerebellar upper and lower extremities. No paresthesias. Sensorium / Orientation: awake and alert Skin no rashes or lesions noted and no wounds MDM MDM MDM Narrative Medical decision making narrative: Interventions / MDM: Differential diagnosis:TIA, ACS, cervical radiculopathy Diagnosis considered but do not suspect:Pulmonary embolism however no hypoxia My EKG interpretation: Sinus rate of 105, No ST changes T wave inversions inferior lateral leads this is new compared to 2019. Imaging independently reviewed and interpreted by myself: CT brain in addition discussion with radiologist no acute process. 1 view chest x-ray no acute process. External documents reviewed: N/A Test considered but not ordered:N/A ED course: Patient NIH of 0 reporting blurry vision with no focal deficits. CTbrain was obtained. He had bilateral facial pain and paresthesias which is not typical of stroke symptoms. He is deals with radiculopathy of the right arm however he reports left arm pain also. He has new EKG changes with T wave inversions. After CT brain bedside swallow per nursing is given aspirin nitroglycerin x3 his chest tightness improved. He had residual left shoulder pain on the left for which morphine was given. His initial troponin was normal. Glucose 454 he is on oral medicines, normal anion gap therefore no DKA. He reports he ate just before arrival he took his diabetes medicines this morning. Due to new EKG changes, I do feel her work admission for further work-up. Re-evaluation: stable Disposition discussed with patient/family/significant other: Significant other and patient Case discussed with consulting clinician: Hospitalist, Dr. Sharp Lab Data Attestation: I reviewed the patient's lab results. Labs: Laboratory Results - last 24 hr 10/14/22 10/14/22 10/14/22 11:02 11:08 11:08 WBC 11.0 RBC 5.30 Hgb 16.2 Hct 48.6 MCV 91.7 MCH 30.6 MCHC 33.3 RDW Std Deviation 43.1 RDW Coeff of Leela 12.9 Plt Count 214 MPV 11.0 Immature Gran % (Auto) 0.700 Neut % (Auto) 55.8 Lymph % (Auto) 31.8 Trego % (Auto) 8.1 Eos % (Auto) 2.9 Baso % (Auto) 0.7 Absolute Neuts (auto) 6.2 Absolute Lymphs (auto) 3.50 Nucleated RBC % 0 PT 12.6 INR 1.0 APTT 24.5 Sodium Potassium Chloride Carbon Dioxide Anion Gap BUN Creatinine Estim Creat Clear Calc Est GFR (MDRD) Af Amer Est GFR (MDRD) Non-Af BUN/Creatinine Ratio Glucose Calcium Troponin I High Sens POC Glucose 454 H* 10/14/22 11:08 WBC RBC Hgb Hct MCV MCH MCHC RDW Std Deviation RDW Coeff of Leela Plt Count MPV Immature Gran % (Auto) Neut % (Auto) Lymph % (Auto) Trego % (Auto) Eos % (Auto) Baso % (Auto) Absolute Neuts (auto) Absolute Lymphs (auto) Nucleated RBC % PT INR APTT Sodium 136 Potassium 4.7 Chloride 102 Carbon Dioxide 26.0 Anion Gap 8 BUN 22 H Creatinine 1.49 H Estim Creat Clear Calc 60.56 Est GFR (MDRD) Af Amer 64 Est GFR (MDRD) Non-Af 53 L BUN/Creatinine Ratio 14.8 Glucose 431 H Calcium 9.1 Troponin I High Sens 12 POC Glucose Radiography Diagnostic Testing: Clinical Impression(s) from Imaging Studies Brain CT 10/14/22 11:09 IMPRESSION: Negative Brain CT without contrast. N.B. : The above Results were Read Back by Pete Darling MD to Walter Chapa MD, and understanding confirmed on 10/14/2022 11:32:36 (ET). Electronically Signed: Pete Darling MD at 11:34 EST , ADDENDUM: 10/14/22 1141 IMPRESSION: Negative Brain CT without contrast. N.B. : The above Results were Read Back by Pete Darling MD to Walter Chapa MD, and understanding confirmed on 10/14/2022 11:32:36 (ET). Electronically Signed: Pete Darling MD at 11:34 EST , Chest X-Ray 10/14/22 11:19 IMPRESSION: Normal x-ray examination of the chest. Electronically Signed: Pete Darling MD at 11:34 EST Reading Location ID and State: [facility] / [place] , Service support , EKG Initial EKG: Attestation: I personally reviewed and interpreted this EKG as follows: Comments: Sinus rate of 105, No ST changes T wave inversions inferior lateral leads this is new compared to 2019. Discharge Plan Dx/Rx/DC Orders Clinical Impression: Chest pain, Abnormal ECG, Hyperglycemia due to type 2 diabetes mellitus Disposition Disposition: Acute Care Hospital [facility] Discharge Date/Time: 10/14/22 12:53 What to do if you have Problems For any increased pain, shortness of breath, bleeding, nausea or vomiting, chestpain, or any unexpected problems, contact your Primary Care Provider. Call [facility] ([phone]) or report to the closest Emergency Room. Call 911 if necessary. 10/14/22 1528 <Electronically signed by Walter Nicolas> Cosigner Signature (if applicable): CC: Dr. Kimmy Miles DO ~ Signed [facility] Work Phone: Discharge summary Author Dr. Sharp [facility] October 15, 2022 3:22pm Note Date/Time October 15, 2022 3:19pm [facility] Medical Records Department [address] [place] [address] Instructions for Home/Discharge Instructions 10/15/22 1517 MR#: [id number] Acct: [id number] Name: LUPE ROGERS Rep #:[id number] : 1970 52 From: Kimmy Sharp DO PCP: Dr. Kimmy Miles DO Status:ADM JOAQUIN Discharge Instructions Diet Discharge Diet: 1800 Calorie Control Diet Activity Discharge Activity: Return to Normal Activity Weight Bearing Status: Full weight bearing Follow Up Care Test Results: Test results from this visit will be discussed in further detail at your follow- up appointment, if applicable. Discharge Plan Admission Admit Date/Time: 10/14/22 12:22 Primary Reason for Your Visit: facial parathesias, chest pain Attending Provider: Kimmy Sharp Primary Care Provider: Kimmy Miles Discharge Orders/Prescriptions Prescriptions: New rosuvastatin [Crestor] 10 mg tablet 10 mg PO DAILY Qty: 90 0RF fenofibrate micronized 200 mg capsule 200 mg PO DAILY Qty: 90 0RF Continued glipizide 10 mg tablet extended release 24hr 10 mg PO DAILY multivitamin 1 EACH tablet 1 ea PO DAILY ascorbic acid (vitamin C) 1,000 MG tablet 1,000 mg PO DAILY aspirin 81 MG tablet,delayed release (DR/EC) 81 mg PO DAILY Discontinued fenofibrate nanocrystallized 145 mg tablet 145 mg PO DAILY Referrals / Follow Up: Kimmy Miles DO [Primary Care Provider] - Disposition Disposition (needs filled in before D/C Order can be placed): Home, Self Care 10/15/22 1522<Electronically signed by Kimmy Sharp DO>Kimmy Sharp DO CC: Dr. Kimmy Miles DO ~ Signed [facility] Work Phone: Evaluation note* Diagnosis Onset Date Resolution Status Internal derangement of right knee acute Right knee pain acute Internal derangement of right knee acute Right knee pain acute [facility] Work Phone: Evaluation note* Diagnosis Onset Date Resolution Status Shingles acute Constipation chronic Diverticulitis resolved [facility] Work Phone: Evaluation note* Diagnosis Onset Date Resolution Status Constipation chronic Diverticulitis resolved [facility] Work Phone: Evaluation note* Diagnosis Onset Date Resolution Status Diverticular disease acute Constipation chronic HNP (herniated nucleus pulposus), cervical acute [facility] Work Phone: Evaluation note* Diagnosis Onset Date Resolution Status Diverticular disease acute Constipation chronic HNP (herniated nucleus pulposus), cervical acute Abnormal ECG acute Chest pain acute Hyperglycemia due to type 2 diabetes mellitus acute [facility] Work Phone: Evaluation note* Diagnosis Onset Date Resolution Status Diverticular disease acute Constipation chronic HNP (herniated nucleus pulposus), cervical acute Chest pain resolved Herniated nucleus pulposus, C4-5 acute Herniated nucleus pulposus, C5-6 left acute [facility] Work Phone: Evaluation noteNo assessment information available [facility] Work Phone: Summary Purpose Family History No Family History Records Found Relationship Condition Age at Onset Recorded Date/T mel Unknown Family History?Heart Disease Unknown February 18, 2020 12:20pm Family History?Heart Disease Unknown February 18, 2020 12:20pm Family History?No pe rtinent history Unknown June 12, 2014 9:46am Relationship Condition Age at Onset Recorded Date/T mel father Cardiac disease Unknown Hypertension Unknown Hypercholesterolemia Unknown Advance Directives No Advanced Directives Records Found Advance Directive Response Recorded Date/ Time Advance Directives No June 11, 2014 10:40pm Living Will No February 18, 2020 9:49am Power of Secondary Market Manager No February 17 9:49am Advance Directive Response Recorded Date/ Time Advance Directives No June 11, 2014 10:40pm Living Will No February 01, 2022 3 :40pm Power of Secondary Market Manager No February 01, 2022 3:40pm Advance Directive Response Recorded Date/ Time Advance Directives No June 11, 2014 9:40pm Living Will No July 16, 2 022 10:07am Power of Secondary Market Manager No July 16, 2022 10:07am Advance Directive Response Recorded Date/ Time Advance Directives No June 11, 2014 9:40pm Living Will No October 14, 2 023 1:02pm Power of Secondary Market Manager No October 14, 2022 1:02pm Advance Directive Response Recorded Date/ Time Advance Directives No June 11, 2014 10:40pm Living Will No October 14, 2 023 2:02pm Power of Secondary Market Manager No October 14, 2022 2:02pm Advance Directive Response Recorded Date/ Time Name of Medical Power of Secondary Market Manager July 30, 2023 9:13am Advance Directives No June 11, 2014 9:40pm Living Will Yes July 30, 2 023 9:13am Power of Secondary Market Manager Yes July 30, 2023 9:13am Chief Complaint and Reason for Visit Chief Complaint Right knee RIGHT KNEE PAIN RIGHT KNEE Reason for Visit Internal derangement of right knee Right knee pain Internal derangement of right knee Right knee pain Chief Complaint RASH/ CHEST AREA DIVERTICULITIS Reason for Visit Shingles Constipation Diverticulitis Chief Complaint DIVERTICULITIS Reason for Visit Constipation Diverticulitis Chief Complaint 2 WK FU EORDER- neck pain CERVICAL SPINE Reason for Visit Diverticular disease Constipation HNP (herniated nucleus pulposus), cervical Chief Complaint 2 WK FU EORDER- neck pain CERVICAL SPINE CHEST PAIN, DIZZINESS CHEST PAIN, DIZZINESS CHEST PAIN, DIZZINESS Reason for Visit Diverticular disease Constipation HNP (herniated nucleus pulposus), cervical Abnormal ECG Chest pain Hyperglycemia due to type 2 diabetes mellitus Chief Complaint 2 WK FU EORDER- neck pain CERVICAL SPINE CHEST PAIN, DIZZINESS CP CHEST PAIN, DIZZINESS CHEST PAIN, DIZZINESS CHEST PAIN, DIZZINESS LUMBAR EORDER Reason for Visit Diverticular disease Constipation HNP (herniated nucleus pulposus), cervical Chest pain Herniated nucleus pulposus, C4-5 Herniated nucleus pulposus, C5-6 left Chief Complaint 2 WK FU EORDER- neck pain CERVICAL SPINE CHEST PAIN, DIZZINESS CP CHEST PAIN, DIZZINESS CHEST PAIN, DIZZINESS CHEST PAIN, DIZZINESS LUMBAR EORDER EORDER Reason for Visit Diverticular disease Constipation HNP (herniated nucleus pulposus), cervical Chest pain Herniated nucleus pulposus, C4-5 Herniated nucleus pulposus, C5-6 left Chief Complaint Anterior Cervical Fu mari C4-5 and C PREOP Additional Source Comments (unrecognized sect ion and content) No Status Records FoundNo Status Records Found INFORMATION SOURCE (unrecogn ized section and content) DATE CREATED AUTHOR 03/24/2020 [facility] DATE CREATED AUTHOR AUTHOR'S ORGANIZ ATION 03/27/2024 [facility] Goals (unrecognized section and content) Goals may be documented in a n alternate sectionGoals may be documented in an alternate sectionGoals may be documented in an alternate section Care Teams (unrecognized sec tion and content) Team Status: Active Member Role Status Dates Dr. Shira Zuniga DO Family Provider Active Dr. Kimmy Miles DO Primary Care Provider Active Team Status: Active Member Role Status Dates Dr. Kimmy Miles DO Primary Care Provider Active Dr. Joseph Bee , Attending Provid er, Referring Provider, Other Provider Active Team Status: Inactive Member Role Status Dates Dr. Kimmy Miles DO Primary Care Provider, Referrin g Provider Active Flavia Pollard CUTTER MACHINE, CUTTER MACHINE-C Attending Provider Active Team Status: Inactive Member Role Status Dates Dr. Kimmy Miles , DO Primary Care Provider, Referrin g Provider Active Dr. Angus Finn , DO Attending Provider Active Team Status: Inactive Member Role Status Dates Dr. Kimmy Miles , DO Primary Care Provider Active Dr. Joseph Bee , DO Attending Provider, Referring Provider Active Team Status: Inactive Member Role Status Dates Dr. Kimym Miles , DO Primary Care Provider Active Jeffery Linda PA, PA Attending Provider, Referring Prov ider Active Team Status: Active Member Role Status Dates Dr. Kimmy Miles , DO Primary Care Provider Active Dr. Walter Chapa , DO Emergency Provider Active Dr. Kimmy Sharp , DO Admit Provider, Attending Provider, Other Provider Active Team Status: Active Member Role Status Dates Dr. Kimmy Miles , DO Primary Care Provider Active Dr. Walter Chapa , DO Emergency Provider Active Dr. Kimmy Sharp , DO Admit Provider, Other Provide r Active Dr. Torey Rodriguez MD Attending Provider Active Team Status: Inactive Member Role Status Dates Dr. Kimmy Miles , DO Primary Care Provider Active Dr. Walter Chapa , DO Emergency Provider Active Dr. Kimmy Sharp , DO Admit Provider, Attending Pro vider Active Team Status: Active Member Role Status Dates Dr. Kimmy Miles , Primary Care Provider Active Dr. Torey Rodriguez MD Attending Provider Active Dr. Kimmy Sharp , DO Referring Provider Active Team Status: Inactive Member Role Status Dates Dr. Kimmy Miles , DO Primary Care Provider Active Dr. Angus Finn , DO Attending Provider, Referring P rovider Active Team Status: Inactive Member Role Status Dates Dr. Kimmy Miles , DO Primary Care Prov ider, Attending Provider, Referring Provider Active Team Status: Active Member Role Status Dates Dr. Kimmy Miles DO Primary Care Provider Active Dr. Stephanie Coe MD Attending Provider Active Dr. Angus Finn , DO Referring Provider Active Team Status: Inactive Member Role Status Dates Dr. Kimmy Miles , DO Primary Care Provider Active Dr. Angus Finn , DO Attending Provider Active FOR RECORDS PERTAINING TO PATIENTS WHO ARE OR HAVE BEEN ENROLLED IN A CHEMICAL DEPENDENCY/SUBSTANCEABUSE PROGRAM, SOME INFORMATION MAY BE OMITTED. This clinical summary was aggregated from multiple sources. Caution should be exercised in using it in the provision of clinical care. This summary normalizes information from multiple sources, and as a consequence, information in this document may materially change the coding, format and clinical context of patient data. In addition, data may be omitted in some cases. CLINICAL DECISIONS SHOULD BE BASED ON THE PRIMARY CLINICAL RECORDS. [employer] [facility]. provides no warranty or guarantee of the accuracy or completeness of information in this document.
== END | disposition home or self-care (01) ==
LOC: BFHLAB 09:59
PROVIDERS: PCP Family Medicine; Visit Provider Family Medicine
DX: R10.9 Unspecified abdominal pain (principal); E11.65 Type 2 diabetes mellitus with hyperglycemia
CPT/HCPCS: 36415; 80053; 80061; 83036; 85025; 86140

== ENCOUNTER → 2025-02-24 | Outpatient (CLI) | payer OTHER, SELFPAY ==
--- NOTE | 2025-02-24 14:22 | CT_ITS ---
PROCEDURE: ABDOMEN/PELVIS WITH CONTRAST 02/24/2025 REASON FOR EXAM: RLW ABDOMINAL PAIN, POSSIBLE HERNIA TECHNIQUE: ABDOMEN/PELVIS WITH CONTRAST Coronal and Sagittal reconstruction series were provided. CONTRAST: Isovue-300 VOLUME: 95 ML One or more dose reduction techniques were used (e.g., Automated exposure control, adjustment of the mA and/or kV according to patient size, use of iterative reconstruction technique. RADIATION DOSE SUMMARY: CTDlvol: 11.2 mGy DLP: 1057.27 mGycm COMPARISON: Prior study dated February 01, 2022. FINDINGS: Lung bases: Lung bases are clear. Liver: Normal size. No mass. Gallbladder: Unremarkable Spleen: Normal size. Pancreas: Normal size without evidence of mass surrounding inflammation or ductal dilation. Adrenals: Unremarkable Kidneys: Normal renal sizes. No hydronephrosis. Bladder: Diffuse bladder wall thickening. Bowel: Colonic diverticulosis without diverticulitis. There is evidence of sigmoid wall thickening. Clinical correlation recommended. Appendix: Unremarkable Lymph nodes: Unremarkable. Vasculature: Mild diffuse atherosclerotic calcifications are noted. Peritoneum / Retroperitoneum: Unremarkable Bones: Degenerative changes of the spine. CT/Abdomen/Pelvis WITH Contrast IMPRESSION: Sigmoid diverticulosis with thickening of the sigmoid colon. Endoscopy is becca mmended for further evaluation. Reading Location: [place]
--- OUTSIDE RECORDS SUMMARY | 2025-02-24 22:36 | XMS RPT_ITS | CCD ---
Author Organization [facility] Care Team Providers Care Regulatory Affairs Specialist Name Role Phone Roof ASSISTANT QUALITY MANAGER, Felice Chambers Unavailable Norma RN, Enedina Diaz Unavailable Unavailable Gordon Nino Unavailable Unavailable Dr. Kimmy Miles Primary Care Provider [phone] Dr. Kimmy Miles Referring Provider Alexei BARAJAS PA Jeffery Attending Provider [phone] Dr. Kimmy Miles Primary Care Provider [phone] Dr. Kimmy Miles Referring Provider KARL Schaeffer Attending Provider Dr. Joseph Bee Attending Provider [phone] Dr. Kimmy Miles Primary Care Provider [phone] Dr. Kimmy Miles Referring Provider Dr. Joseph Bee Attending Provider [phone] Dr. Joseph Bee Referring Provider [phone] Dr. Joseph Bee Other Provider [phone] Kimmy Miles Primary Care Provider [phone] Dr. Joseph Bee Attending Provider [phone] Dr. Kimmy Miles Referring Provider Latrice LYON, ASSISTANT QUALITY MANAGER-Leonel Alvarado Attending Provider [phone] Dr. Angus Finn Attending Provider [phone] Walter Chapa Emergency Provider [phone] Kimmy Sharp Admit Provider Dr. Kimmy Sharp Attending Provider Dr. Kimmy Sharp Other Provider Dr. Torey Rodriguez Attending Provider Dr. Kimmy Miles Primary Care Provider [phone] Dr. Kimmy Miles Referring Provider Latrice ASSISTANT QUALITY MANAGER, ASSISTANT QUALITY MANAGERAnniaC Flavia Alvarado Attending Provider Dr. Angus Finn Attending Provider Dr. Torey Rodriguez Attending Provider Dr. Kimmy Sharp Referring Provider Dr. Walter Chapa Emergency Provider Dr. Kimmy Sharp Admit Provider Dr. Kimmy Sharp Attending Provider Dr. Kimmy Sharp Other Provider Dr. Kimmy Miles Primary Care Provider Dr. Stephanie Coe Attending Provider Dr. Angus Finn Referring Provider Dr. Kimmy Miles DO Primary Care Provider Dr. Kimmy Miles DO Attending Provider Kimmy Miles Primary Care Unavailable Torey Rodriguez Attending Unavailable Joppantonio, Mani Admitting Unavailable GingerKimmy plata Primary Care Unavailable Jopperi, Mani Consulting Unavailable Jopperi, Mani Attending Unavailable GingerKimmy plata Attending Unavailable GingerKimmy plata Primary Care Unavailable GingerKimmy plata Attending Unavailable GingerKimmy plata Referring Unavailable Ginger, Kimmy Primary Care Unavailable Ginger, Kimmy Primary Care Unavailable Jopperi, Mani Attending Unavailable Jopperi, Mani Admitting Unavailable Ginger, Kimmy Primary Care Unavailable Jopperi, Mani Admitting Unavailable Jopperi, Mani Consulting Unavailable Jopperi, Mani Attending Unavailable Stephanie Coe Attending Unavailable Allergies Allergy Classification Reported Allergen(s) Allergy Type Date of Onset Reaction(s) Facility (5 sources) codeine drug allergy 3 Vomiting [facility] Work Phone: (5 sources) simvastatin drug allergy 3 Myalgias [facility] Work Phone: (10 sources) Odmfplw-Vrt-Jwq Reductase Inhibitor; Translations: [Ialwbde-Zou-Wo a Reductase Inhibitor] Propensity to adverse reactions 2 painful joints [facility] Medications Current Medications Medication Drug Class(es) Dates Sig (Normalized) Sig (Original) ascorbic acid 1000 mg oral tablet (14 sources) Start: 02-18-2020 take 1 tablet by mouth once daily Ascorbic Acid (Vitamin C) 1,000 MG tablet Active 1000 mg PO DAILY February 18, 2020 12:00am Start: 11-15-2015 take 1 tablet by jeanne th once daily SM VITAMIN C 500 MG TABS 1 po qd ASCORBIC ACID [id number] Shira Zuniga DO citalopram 20 mg oral tablet (1 source) Serotonin Reuptake Inhibitor Start: 03-11-2024 take 10-20 mg by mouth at bedtime Citalopram 20 mg tablet Active 10 - 20 mg PO AT BEDTIME March 11, 2024 12:00am fenofibrate 145 mg oral tablet (20 sources) Peroxisome Proliferator Receptor alpha Agonist Start: 03-11-2024 take 1 tablet by mouth once daily Fenofibrate Nanocrystallized 145 mg tablet Active 145 mg PO DAILY March 11, 2024 12:00am Start: 10-15-2022 End: 03-11-2024 take 1 capsule by mouth once daily Fenofibrate Micronized 200 mg capsule Discontinued 200 mg PO DAILY October 15, 2022 1:00am March 11, 2024 12:42pm Start: 11-20-2021 End: 10-15-2022 take 1 tablet by mouth once daily Fenofibrate Nanocrystallized 145 mg tablet Discontinued 145 mg PO DAILY November 20, 2021 12:00am October 15, 2022 4:19pm Start: 02-19-2020 End: 02-01-2021 take 1 tablet by mouth once daily at mealtime Fenofibrate Nanocrystallized 145 MG tablet Discontinued 145 mg PO DAILY WITH MEALS February 19, 2020 12:00am February 01, 2021 8:09am Start: 04-17-2017 take 1 tablet by jeanne th once daily TRICOR 145 MG TABS One tablet by mouth daily FENOFIBRATE [id number] Felice Mccarty ASSISTANT QUALITY MANAGER gabapentin 300 mg oral capsule (10 sources) Anti-epileptic Agent Start: 03-11-2024 take 300-600 mg by mouth at bedtime as needed for pain Gabapentin 300 mg capsule Active 300 - 600 mg PO AT BEDTIME NEEDED as needed for pain March 11, 2024 12:00am Start: 02-19-2020 End: 02-01-2021 take 1 capsule by mouth three times daily at mealtime Gabapentin 100 MG capsule Discontinued 100 mg PO 3 TIMES DAILY WITH MEALS February 19, 2020 12:00am February 01, 2021 8:08am levoFLOXacin 500 mg oral tablet (1 source) Quinolone Antimicrobial Start: 05-09-2022 take 500 mg by mouth once daily Levofloxacin Active 500 MG PO DAILY May 09, 2022 12:00am Multivitamin 1 EACH tablet (1 source) Start: 02-18-2020 Multivitamin 1 EACH tablet Active 1 NMA PO DAILY February 18, 2020 12:00am Multivitamin preparation (8 sources) Start: 02-18-2020 Multivitamin Active 1 EACH PO DAILY February 18, 2020 6:27am Start: 02-18-2020 Multivitamin A ctive 1 EACH PO DAILY February 17, 2020 11:00pm Start: 02-18-2020 Multivitamin A ctive 1 EACH PO DAILY February 18, 2020 12:00am Tirzepatide (Mounjaro) 5 mg/ 0.5 mL pen injector (1 source) Start: 03-11-2024 Tirzepatide (M ounjaro) 5 mg/0.5 mL pen injector Active 5 mg SC MO March 11, 2024 12:00am Completed/Discontinued Medications Medication Drug Class(es) Dates Sig (Normalized) Sig (Original) acetaminophen / HYDROcodone (10 sources) Opioid Agonist Start: 05-26-2013 End: 06-16-2014 take 1 tablet by mouth every four hours as needed VICODIN 5-500 MG TABS One tablet by mouth every 4 hours as needed HYDROCODONE-ACETAM INOPHEN [id number] Conrad Rowland MD Start: 05-26-2013 take 1 tablet by jeanne th every four hours as needed VICODIN 5-500 MG TABS One tablet by mout h every 4 hours as needed HYDROCODONE-ACETAMINOPHEN [id number] Enedina Green RN amoxicillin 500 mg oral capsule (9 sources) Penicillin-class Antibacterial Start: 01-19-2019 End: 01-29-2019 take 2 capsules by mouth twice daily Amoxicillin 500 mg capsule Discontinued 1000 mg PO TWICE A DAY 40 January 19, 2019 12:00am January 28, 2019 12:00am January 29, 2019 12:06am Start: 01-19-2019 End: 01-29-2019 take 1000 mg by mouth twice daily Amoxicillin Discontinued 1000 MG PO TWICE A DAY 40 January 18, 2019 11:00pm January 28, 2019 11:06pm aspirin 81 mg chewable tablet (20 sources) Nonsteroidal Anti-inflammatory Drug Start: 02-19-2020 End: 02-19-2020 take 1 tablet by mouth once daily Aspirin 81 MG tablet,chewable Discontinued 81 mg PO DAILY@0800 February 19, 2020 12:00am February 19, 2020 10:29am Start: 02-18-2020 take 1 tablet by jeanne th once daily Aspirin 81 MG tablet,delayed release (DR/EC) Active 81 mg PO DAILY February 18, 2020 12:00am Start: 03-16-2017 End: 10-08-2018 take 1 tablet by mouth once daily Aspirin 81 MG tablet Discontinued 81 mg PO DAILY@0800 March 16, 2017 12:00am October 08, 2018 3:49pm Start: 02-05-2011 take 1 tablet by jeanne th once daily ASPIRIN 81 MG TABS One tablet by mouth daily ASPIRIN [id number] Kim Avendaño atorvastatin 20 mg oral tablet (10 sources) HMG-CoA Reductase Inhibitor Start: 05-26-2013 End: 05-28-2013 take 1 tablet by mouth once daily LIPITOR 20 MG TABS One tablet by mouth daily ATORVASTATIN CALCIUM [id number] PRASANTH MaeC carvedilol 3.125 mg oral tablet (20 sources) alpha-Adrenergic Dannie, beta-Adrenergic Dannie Start: 05-26-2013 take 1 tablet by mouth once daily COREG 3.125 MG TABS One tablet by mouth daily CARVEDILOL [id number] Enedina Green RN Start: 02-05-2011 End: 04-19-2017 take 1 tablet by mouth twice daily Carvedilol 3.125 MG tablet Discontinued 3.125 mg PO TWICE A DAY September 16, 2013 1:00am April 19, 2017 3:32pm ciprofloxacin 500 mg oral tablet (8 sources) Quinolone Antimicrobial Start: 02-01-2022 End: 05-09-2022 take 1 tablet by mouth twice daily Ciprofloxacin Hcl 500 MG tablet Discontinued 500 mg PO TWICE A DAY February 01, 2022 12:00am May 09, 2022 3:32pm clopidogrel 75 mg oral tablet (5 sources) P2Y12 Platelet Inhibitor Start: 04-17-2017 take 1 tablet by mouth once daily PLAVIX 75 MG TABS One tablet by mouth daily CLOPIDOGREL BISULFATE [id number] Felice Mccarty NP cyclobenzaprine hydrochloride 10 mg oral tablet (18 sources) Muscle Relaxant Start: 10-08-2018 End: 08-06-2019 take 1 tablet by mouth three times daily as needed for muscle spasms Cyclobenzaprine 10 mg tablet Discontinued 10 mg PO THREE TIMES A DAY as needed for muscle spasm 19 01July 31, 2019 1:00am August 04, 2019 1:00am August 06, 2019 1:07am diclofenac potassium 50 mg oral tablet (10 sources) Nonsteroidal Anti-inflammatory Drug Start: 10-29-2016 DICLOFENAC POTASSIUM 50 MG TABS as needed DICLOFENAC POTASSIUM [id number] Felice Mccarty NP ezetimibe 10 mg oral tablet (10 sources) Dietary Cholesterol Absorption Inhibitor Start: 05-19-2012 End: 05-26-2013 take 1 tablet by mouth once daily ZETIA 10 MG TABS one tablet by mouth daily EZETIMIBE [id number] Enedina Green RN famotidine 20 mg oral tablet (9 sources) Histamine-2 Receptor Antagonist Start: 02-19-2020 End: 02-01-2021 take 1 tablet by mouth twice daily Famotidine 20 MG tablet Discontinued 20 mg PO TWICE A DAY February 19, 2020 12:00am February 01, 2021 8:09am fish oil (10 sources) Start: 05-19-2012 End: 05-26-2013 take 1 tablet by mouth once daily FISH OIL CAPS One tablet by mouth daily OMEGA-3 FATTY ACIDS CAPS [id number] Enedina Green RN Start: 05-19-2012 take 1 tablet by jeanne th once daily FISH OIL CAPS One tablet by mouth daily OMEGA-3 FATTY ACIDS CAPS [id number] Pietro Apple MD glipiZIDE er 10 mg 24 hr extended release oral tablet (9 sources) Sulfonylurea Start: 11-20-2021 End: 03-11-2024 take 1 tablet by mouth once daily Glipizide 10 mg tablet extended release 24hr Discontinued 10 mg PO DAILY November 20, 2021 12:00am March 11, 2024 12:41pm lisinopril 5 mg oral tablet (15 sources) Angiotensin Converting Enzyme Inhibitor Start: 05-26-2013 End: 05-28-2013 take 1 tablet by mouth once daily LISINOPRIL 5 MG TABS One tablet by mouth daily LISINOPRIL [id number] Sherlyn Coelho PA-C Start: 02-05-2011 take 1 tablet by jeanne th twice daily LISINOPRIL 2.5 MG TABS One tablet by mouth twice daily LISINOPRIL [id number] Pietro Apple MD meloxicam 15 mg oral tablet (11 sources) Nonsteroidal Anti-inflammatory Drug Start: 11-20-2021 End: 11-20-2021 take 1 tablet by mouth once daily Meloxicam 15 mg tablet Discontinued 15 mg PO DAILY November 20, 2021 12:00am November 20, 2021 8:33am metFORMIN hydrochloride 500 mg oral tablet (9 sources) Biguanide Start: 02-19-2020 End: 02-01-2021 take 1 tablet by mouth twice daily Metformin 500 MG tablet Discontinued 500 mg PO TWICE A DAY 60 February 19, 2020 12:00am February 01, 2021 8:08am methylPREDNISolone 4 mg oral tablet (17 sources) Corticosteroid Start: 03-19-2022 End: 03-25-2022 take 1 tablet by mouth once Methylprednisolone (Medrol (Aleks)) 4 mg tablets,dose pack Discontinued 4 mg PO per package directions 20 02March 19, 2022 12:00am March 24, 2022 12:00am March 25, 2022 12:04am Start: 02-19-2020 End: 02-01-2021 Methylprednisolone 4 MG tabl et Discontinued 4 mg PO DIRECTED February 19, 2020 12:00am February 01, 2021 8:08am metroNIDAZOLE 500 mg oral tablet (16 sources) Nitroimidazole Antimicrobial Start: 05-09-2022 End: 05-23-2022 take 1 tablet by mouth every eight hours Metronidazole 500 mg tablet Discontinued 500 mg PO Q8H 42 14 May 09, 2022 3:31pm May 22, 2022 12:00am May 23, 2022 12:03am Start: 02-01-2022 End: 05-09-2022 take 1 tablet by mouth every six hours Metronidazole 500 MG tablet Discontinued 500 mg PO EVERY 6 HOURS 40 February 01, 2022 12:00am May 09, 2022 3:34pm Multivitamin,Ho-Npoe-Jgcuigh s (8 sources) Start: 09-16-2013 End: 10-08-2018 take 1 tablet by mouth once daily Multivitamin,Ed-Nruy-Hbaacmnh Discontinued 1 TABLET PO DAILY September 16, 2013 10:41am October 08, 2018 3:49pm Start: 09-16-2013 End: 10-08-2018 take 1 tablet by mouth once daily Multivitamin,Up-Nmzp-Jmbiiefr Discontinu ed 1 TABLET PO DAILY September 16, 2013 12:00am October 08, 2018 2:49pm Start: 09-16-2013 End: 10-08-2018 take 1 tablet by mouth once daily Multivitamin,Qk-Aqky-Olqfourd Discontinu ed 1 TABLET PO DAILY September 16, 2013 1:00am October 08, 2018 3:49pm Multivitamin,Vg-Hzay-Mmpslqt s 1 TABLET tablet (1 source) Start: 09-16-2013 End: 10-08-2018 take 1 tablet by mouth once daily Multivitamin,Dn-Tfvl-Ttwftzuk 1 TABLET tablet Discontinued 1 {tbl} PO DAILY September 16, 2013 1:00am October 08, 2018 3:49pm naproxen 500 mg oral tablet (9 sources) Nonster oidal Anti-in flammat ory Drug Start: 11-21-2017 End: 10-08-2018 take 1 tablet by mouth twice daily as needed Naproxen 500 MG tablet Discontinued 500 mg PO TWICE DAILY NEEDED November 21, 2017 12:00am October 08, 2018 3:49pm phentermine hydrochloride 37 .5 mg oral tablet (10 sources) Sympath omimeti c Amine Anorect ic Start: 11-15-2015 End: 04-17-2017 take 1 tablet by mouth once daily PHENTERMINE HCL 37.5 MG TABS 1 po daily PHENTERMINE HCL [id number] Sihra Zuniga DO rosuvastatin calcium 10 mg oral tablet (7 sources) HMG-CoA Reducta se Inhibit or Start: 07-30-2023 End: 03-11-2024 take 1 tablet by mouth every other day Rosuvastatin (Crestor) 10 mg tablet Discontinued 10 mg PO .QOD July 30, 2023 1:00am March 11, 2024 12:42pm Start: 10-15-2022 End: 07-30-2023 take 1 tablet by mouth once daily Rosuvastatin (Crestor) 10 mg tablet Discontinued 10 mg PO DAILY 90 October 15, 2022 1:00am July 30, 2023 10:11am simvastatin 20 mg oral tablet (10 sources) HMG-CoA Reductase Inhibitor Start: 02-05-2011 End: 05-19-2012 take 1 tablet by mouth at bedtime ZOCOR 20 MG TABS One tablet by mouth at bedtime. SIMVASTATIN [id number] Pietro Apple MD SUMAtriptan 100 mg oral tablet (10 sources) Serotonin-1b and Serotonin-1d Receptor Agonist Start: 05-26-2013 End: 06-16-2014 take 1 tablet by mouth once daily as needed, then take 3 tablets by mouth every week as needed IMITREX 100 MG TABS One tablet by mouth daily as needed for migraine, no more than 3 per week SUMATRIPTAN SUCCINATE [id number] Enedina Green RN traMADol hydrochloride 50 mg oral tablet (5 sources) Opioid Agonist Start: 11-15-2015 take 1 tablet by mouth every eight hours as needed for pain TRAMADOL HCL 50 MG TABS 1 po every 8 hours as needed for pain TRAMADOL HCL [id number] Shira Zuniga DO triamcinolone acetonide 40 mg/ml [...] 2021 9:06am valACYclovir 1000 mg oral tablet (8 sources) Herpesvirus Nucleoside Analog DNA Polymerase Inhibitor, Herpes Simplex Virus Nucleoside Analog DNA Polymerase Inhibitor, Herpes Zoster Virus Nucleoside Analog DNA Polymerase Inhibitor Start: 03-19-2022 End: 03-26-2022 Valacyclovir 1 gram tablet Discontinued 1000 mg PO THREE TIMES A DAY 22 03March 19, 2022 12:00am March 25, 2022 12:00am March 26, 2022 12:03am Start: 03-19-2022 End: 03-26-2022 take 1000 mg by mouth three times daily Valacyclovir Discontinued 1000 MG PO THREE TIMES A DAY 22 03March 18, 2022 11:00pm March 25, 2022 11:03pm Problems Active Problems Problem Classification Problem Date Documented Da te Episodic/Chronic Abdominal pain (10 sources) Acute abdominal pain; Translations: [Left lower quadrant pain] Onset: 5 02-09-2022 Episodic Coronary atherosclerosis and other heart disease (2 sources) Preinfarction syndrome; Translations: [Unstable angina] Onset: 4 03-20-2024 Chronic Diabetes mellitus with complications (6 sources) Hyperglycemia due to type 2 diabetes mellitus; Translations: [Type 2 diabetes mellitus with hyperglycemia] 10-14-2022 Chronic Diabetes mellitus without complication (13 sources) Type 2 diabetes mellitus; Translations: [Type 2 diabetes mellitus without complications] 10-25-2021 Chronic Comment on above: ORAL MED Diabetes mellitus without complication (9 sources) Glycosuria; Translations: [Glycosuria] 10-25-2021 Episodic Disorders of lipid metabolism (14 sources) Hyperlipidemia; Translations: [Hyperlipidemia, unspecified] Onset: 1 02-05-2011 Chronic Diverticulosis and diverticulitis (20 sources) Diverticulitis; Translations: [Diverticulitis of intestine, part unspecified, without perforation or abscess without bleeding] Chronic Essential hypertension (14 sources) Hypertensive disorder; Translations: [Essential (primary) hypertension] Onset: 1 02-05-2011 Chronic Comment on above: YRS AGO 10-12 YRS AGO Immunizations and screening for infectious disease (9 sources) Contact with or exposure to other viral diseases; Translations: [Exposure to COVID-19 virus] 10-25-2021 Episodic Joint disorders and dislocations; trauma-related (16 sources) Derangement of knee; Translations: [Derangement of right knee] Onset: 5 06-23-2015 Chronic Other and ill-defined heart disease (5 sources) Cardiomegaly; Translations: [Cardiomegaly] Onset: 1 02-05-2011 Chronic Other gastrointestinal disorders (8 sources) Constipation; Translations: [Constipation, unspecified] 05-09-2022 Episodic Other gastrointestinal disorders (6 sources) Constipation, unspecified; Translations: [Constipation, unspecified] Episodic Other nervous system disorders (4 sources) Paresthesia of upper limb; Translations: [Anesthesia of skin] 10-18-2022 Episodic Other non-traumatic joint disorders (11 sources) Pain in right knee; Translations: [Right knee pain] Episodic Other nutritional; endocrine; and metabolic disorders (5 sources) Obesity; Translations: [Obesity, unspecified] Onset: 6 12-05-2015 Chronic Other nutritional; endocrine; and metabolic disorders (9 sources) Obese class I; Translations: [Obesity, unspecified] 10-25-2021 Chronic Other screening for suspected conditions (not mental disorders or infectious disease) (6 sources) Electrocardiogram abnormal; Translations: [Abnormal electrocardiogram [ECG] [EKG]] 10-14-2022 Episodic Other upper respiratory infections (18 sources) Upper respiratory infection; Translations: [Acute upper respiratory infection, unspecified] 10-25-2021 Episodic Maren-; endo-; and myocarditis; cardiomyopathy (14 sources) Dilated cardiomyopathy; Translations: [Cardiomyopathy] Onset: 1 02-05-2011 Chronic Residual codes; unclassified (10 sources) Tobacco use and exposure - finding; Translations: [Tobacco use] 10-25-2021 Episodic Screening or history of mental health and substance abuse (5 sources) Tobacco dependence syndrome; Translations: [Nicotine dependence, unspecified, uncomplicated] Onset: 1 02-05-2011 Chronic Spondylosis; intervertebral disc disorders; other back problems (20 sources) Herniation of nucleus pulposus; Translations: [Other cervical disc displacement, unspecified cervical region] 09-17-2022 Chronic Spondylosis; intervertebral disc disorders; other back problems (6 sources) Neck pain; Translations: [Cervicalgia] 09-12-2022 Episodic Sprains and strains (9 sources) Low back strain; Translations: [Strain of muscle, fascia and tendon of lower back, initial encounter] 10-25-2021 Episodic Transient cerebral ischemia (9 sources) Transient cerebral ischemia; Translations: [Transient cerebral ischemic attack, unspecified] 10-25-2021 Chronic Unclassified (5 sources) Sleep apnea; Translations: [Sleep apnea, unspecified] Onset: 1 02-05-2011 Chronic Viral infection (9 sources) Herpes zoster; Translations: [Zoster without complications] [...] knee, initial encounter] Onset: 02-14-2015 02-14-2015 Episodic Nonspecific chest pain (20 sources) Precordial pain; Translations: [Chest pain] Onset: 02-05-2011 02-05-2011 Episodic Other aftercare (5 sources) Other middle or intermediate school principal (current) drug therapy; Translations: [Other penitentiary (current) drug therapy] Onset: 02-05-2011 02-05-2011 Episodic Other non-traumatic joint disorders (10 sources) Knee pain; Translations: [Pain in right knee] Onset: 02-14-2015 02-14-2015 Episodic Unclassified (10 sources) Family history of ischemic heart disease; Translations: [Chronic pain syndrome] Onset: 02-05-2011 02-05-2011 Episodic Results Test Name Value Interpretation Reference Range Facility Absolute lymphocyte countOrd ered By: Kimmy Miles on 02-12-2025 Lymphocytes Auto (Unsp spec) [#/Vol] 2.14 10*3/uL 0.83-4.51 [facility] Absolute neutrophil countOrd ered By: Kimmy Miles on 02-12-2025 Neutrophils (Bld) [#/Vol] 8.6 10*3/uL High 2.0-7.7 [facility] Anion gap in Serum or Plasma Ordered By: Kimmy Miles on 02-12-2025 Anion gap [Moles/Vol] 12 mmol/L 5-15 [facility] Automated lymphocyte count a s percentage of total leukocytesOrdered By: Kimmy Miles on 02-12-2025 Lymphocytes/100 WBC Auto (Unsp spec) 17.9 % Low 19-41 [facility] BUN/creatinine ratioOrdered By: Kimmy Miles on 02-12-2025 Urea nitrogen/Creatinine [Mass ratio] 16.4 mg/mg 10-20 [facility] Basophil percentageOrdered B y: Kimmy Miles on 02-12-2025 Basophils/100 WBC (Bld) 0.8 % 0-1 [facility] Bilirubin, totalOrdered By: Kimmy Miles on 02-12-2025 Bilirubin [Mass/Vol] 0.28 mg/dL Normal 0.00-1.30 [facility] Comment on above: Performed By: #### L 500.4050, L500.4100, L100.0100, L501.9985, L501.6710 ####[facility] [id number] [facility] [place], [place], [id number] Blood manual differential co mment interpretation (narrative result)Ordered By: Kimmy Miles on 02-12-2025 Manual differential comment Patel (Bld) [Interp] SCANNED [facility] CBC W/Diff, Automatedon 01-31 SMEAR COMMENT SCANNED Normal [facility] Comment on above: Performed By: #### L 500.4050, L500.4100, L100.0100, L501.9985, L501.6710 ####[facility] [id number] [facility] [place], [place], [id number] CRPon 02-12-2025 C-REACTIVE PROT < 3.00 Normal 0.0-3.0 [facility] Comment on above: Performed By: #### L 500.4050, L500.4100, L100.0100, L501.9985, L501.6710 ####[facility] [id number], [address] Calculated very low density lipoprotein (VLDL) cholesterol measurementOrdered By: Kimmy Miles on 02-12-2025 Calculated very low density lipoprotein (VLDL) cholesterol measurement 13 mg/dL 5-40 [facility] Carbon dioxide, total [Moles /volume] in Central venous bloodOrdered By: Kimmy Miles on 02-12-2025 CO2 [Moles/Vol] 22.8 mmol/L Normal 21.0-32.0 [facility] Comment on above: Performed By: #### L 500.4050, L500.4100, L100.0100, L501.9985, L501.6710 ####[facility] [id number] [place], [place], [id number] Chloride assayOrdered By: Kerri Miles on 02-12-2025 Chloride [Moles/Vol] 105 mmol/L Normal 98-108 [facility] Comment on above: Performed By: #### L 500.4050, L500.4100, L100.0100, L501.9985, L501.6710 ####[facility] [id number] [place], [address] Comprehensive Metabolic Prof ilon 02-12-2025 ALK PHOS 70 U/L Normal 40-129 [facility] Comment on above: Performed By: #### L 500.4050, L500.4100, L100.0100, L501.9985, L501.6710 ####[facility] [address] [place], [address] BUN/CRE 16.4 RATIO Normal 10-20 [facility] Comment on above: Performed By: #### L 500.4050, L500.4100, L100.0100, L501.9985, L501.6710 ####[facility] [address] [place], [address] GAP 12 Normal 5-15 [facility] Comment on above: Performed By: #### L 500.4050, L500.4100, L100.0100, L501.9985, L501.6710 ####[facility] [address] [place], [address] Potassium [Moles/Vol] 4.2 mmol/L Normal 3.3-5.1 [facility] Comment on above: Performed By: #### L 500.4050, L500.4100, L100.0100, L501.9985, L501.6710 ####[facility] [address] [place], [place], [id number] T PROT 7.1 g/dL Normal 5.9-8.4 [facility] Comment on above: Performed By: #### L 500.4050, L500.4100, L100.0100, L501.9985, L501.6710 ####[facility] [address] [place], [address] Comprehensive Metabolic Prof ilOrdered By: Kimmy Miles on 02-12-2025 AST [Catalytic activity/Vol] 22 U/L Normal <=37 [facility] Comment on above: Performed By: #### L 500.4050, L500.4100, L100.0100, L501.9985, L501.6710 ####[facility] [address] [place], [place], [id number] Eosinophil percentageOrdered By: Kimmy Miles on 02-12-2025 Eosinophils/100 WBC (Bld) 2.8 % 0-5 [facility] Erythrocyte distribution wid th ratioOrdered By: Kimmy Miles on 02-12-2025 Erythrocyte distribution width (RBC) [Ratio] 13.0 % 11.6-14.6 [facility] Erythrocyte distribution wid th standard deviationOrdered By: Kimmy Miles on 02-12-2025 Erythrocyte distribution width (RBC) [Ratio] 44.1 fl High 35.1-43.9 [facility] Glomerular filtration rate ( GFR) estimation/1.73 sq m using serum, plasma, or whole bOrdered By: Kimmy Miles on 02-12-2025 GFR/1.73 sq M.predicted among non-blacks MDRD (S/P/Bld) [Vol rate/Area] 105 mL/min/{1.73_m2} Normal >60 [facility] Comment on above: mL/min/1.73m2 CKD-EP I Creatinine Equation (2020) Result Comment: mL/m in/1.73m2 CKD-EPI Creatinine Equation (2020) Performed By: #### L 500.4050, L500.4100, L100.0100, L501.9985, L501.6710 ####[facility] [address] [place], [address] Hematocrit Auto (Bld) [Volum e fraction]Ordered By: Kimmy Miles on 02-12-2025 Hematocrit (Bld) [Volume fraction] 49.8 % 40-54 [facility] Hemoglobin A1c percentageOrd ered By: Kimmy Miles on 02-12-2025 HbA1c (Bld) [Mass fraction] 6.1 % High <=5.6 [facility] Comment on above: Normal < 5.7 % Predi abetic 5.7 - 6.4 % Diabetic >or= 6.5 % Please note range changes. Result Comment: Norm al < 5.7 % Prediabetic 5.7 - 6.4 % Diabetic >or= 6.5 % Please note range changes. Performed By: #### L 500.4050, L500.4100, L100.0100, L501.9985, L501.6710 ####[facility] [address] [place], [place], [phone] Hemoglobin measurementOrdere d By: Kimmy Miles on 02-12-2025 Hemoglobin (Bld) [Mass/Vol] 16.6 g/dL High 13.0-16.5 [facility] Immature granulocytes/100 WB C Auto (Bld)Ordered By: Kimmy Miles on 02-12-2025 Immature granulocytes/100 WBC (Bld) 0.200 % 0.0-0.9 [facility] Comment on above: IG% - Immature Granu locytes (promyelocytes, myelocytes and metamyelocytes) > 1% indicates that a LEFT SHIFT is Present. LDL calc ser/plasOrdered By: Kimmy Miles on 02-12-2025 Cholesterol in LDL [Mass/Vol] 94 mg/dL Normal [facility] Comment on above: Dndjvgxipz=129-755 m g/dL & Higher Twrc=311 mg/dL or greater Result Comment: Bord whvdfb=709-565 mg/dL Higher Swap=203 mg/dL or greater Performed By: #### L 500.4050, L500.4100, L100.0100, L501.9985, L501.6710 ####[facility] [address] [place], [address] Lipid Profileon 02-12-2025 CHOL:HDL 2.77 Normal [facility] Comment on above: Performed By: #### L 500.4050, L500.4100, L100.0100, L501.9985, L501.6710 ####[facility] [address] [place], [address] Cholesterol in VLDL [Mass/Vol] 13 mg/dL Normal 5-40 [facility] Comment on above: Performed By: #### L 500.4050, L500.4100, L100.0100, L501.9985, L501.6710 ####[facility] [address] [place], [address] MCV (mean corpuscular volume ) determinationOrdered By: Kimmy Miles on 02-12-2025 MCV (RBC) [Entitic vol] 92.4 fL 80-94 [facility] Mean corpuscular hemoglobin (MCH) determinationOrdered By: Kimmy Miles on 02-12-2025 MCH (RBC) [Entitic mass] 30.8 pg 27.0-32.0 [facility] Mean corpuscular hemoglobin concentration (MCHC) determinationOrdered By: Kimmy Miles on 02-12-2025 MCHC (RBC) [Mass/Vol] 33.3 g/dL 32-36 [facility] Mean platelet volume determi nationOrdered By: Kimmy Miles on 02-12-2025 Platelet mean volume (Bld) [Entitic vol] 11.9 fL 6.2-12.0 [facility] Monocyte percentageOrdered B y: Kimmy Miles on 02-12-2025 Monocytes/100 WBC (Bld) 7.0 % 0-10 [facility] Neutrophil percentageOrdered By: Kimmy Miles on 02-12-2025 Neutrophils/100 WBC (Bld) 71.3 % High 47-70 [facility] Nucleated red blood cell per centageOrdered By: Kimmy Miles on 02-12-2025 Nucleated RBC/100 WBC (Bld) [Ratio] 0 % 0-5 [facility] Platelet countOrdered By: Kerri Miles on 02-12-2025 Platelets (Bld) [#/Vol] 179 10*3/uL 150-450 [facility] Potassium measurement (mass/ volume)Ordered By: Kimmy Miles on 02-12-2025 Potassium (Unsp spec) [Mass/Vol] 4.2 mmol/L 3.3-5.1 [facility] RBC Auto (Bld) [#/Vol]Ordere d By: Kimmy Miles on 02-12-2025 RBC (Bld) [#/Vol] 5.39 10*6/uL 4.6-6.2 [facility] Screening total cholesterol/ high density lipoprotein (HDL) cholesterol ratioOrdered By: Kimmy Miles on 02-12-2025 Cholesterol.total/Sugar sterol in HDL [Mass ratio] 2.77 {ratio} [facility] Serum creatinine measurement (mass/volume)Ordered By: Kimmy Miles on 02-12-2025 Creatinine [Mass/Vol] 0.80 mg/dL Normal 0.70-1.20 [facility] Comment on above: Performed By: #### L 500.4050, L500.4100, L100.0100, L501.9985, L501.6710 ####[facility] [address] [place], [address] Serum globulin measurementOr dered By: Kimmy Miles on 02-12-2025 Globulin (S) [Mass/Vol] 2.7 g/dL Normal 2.2-4.2 [facility] Comment on above: Performed By: #### L 500.4050, L500.4100, L100.0100, L501.9985, L501.6710 ####[facility] [address] [place], [place], [phone] Serum glucose measurement (m ass/volume)Ordered By: Kimmy Miles on 02-12-2025 Glucose [Mass/Vol] 122 mg/dL High 70-99 [facility] Comment on above: Performed By: #### L 500.4050, L500.4100, L100.0100, L501.9985, L501.6710 ####[facility] [address] [place], [address] Serum or plasma C reactive p rotein measurement (mass/volume)Ordered By: Kimmy Miles on 02-12-2025 CRP [Mass/Vol] mg/L 0.0-3.0 [facility] Serum or plasma alanine shrestha otransferase (ALT) measurementOrdered By: Kimmy Miles on 02-12-2025 ALT [Catalytic activity/Vol] 24 U/L Normal <=46 [facility] Comment on above: Performed By: #### L 500.4050, L500.4100, L100.0100, L501.9985, L501.6710 ####[facility] [address] [place], [place], [phone] Serum or plasma albumin luis urement (mass/volume)Ordered By: Kimmy Miles on 02-12-2025 Albumin [Mass/Vol] 4.4 g/dL Normal 3.5-5.0 [facility] Comment on above: Performed By: #### L 500.4050, L500.4100, L100.0100, L501.9985, L501.6710 ####[facility] [address] [place], [place], [phone] Serum or plasma albumin/glob ulin mass ratioOrdered By: Kimmy Miles on 02-12-2025 Albumin/Globulin [Mass ratio] 1.7 {ratio} Normal 0.9-2.4 [facility] Comment on above: Performed By: #### L 500.4050, L500.4100, L100.0100, L501.9985, L501.6710 ####[facility] [address] [place], [place], [address] Serum or plasma alkaline olivia sphatase measurementOrdered By: Kimmy Miles on 02-12-2025 ALP [Catalytic activity/Vol] 70 U/L 40-129 [facility] Serum or plasma calcium luis urement (mass/volume)Ordered By: Kimmy Miles on 02-12-2025 Calcium [Mass/Vol] 9.3 mg/dL Normal 7.6-11.0 [facility] Comment on above: Performed By: #### L 500.4050, L500.4100, L100.0100, L501.9985, L501.6710 ####[facility] [address], [address] Serum or plasma cholesterol in HDL measurement (mass/volume)Ordered By: Kimmy Miles on 02-12-2025 Cholesterol in HDL [Mass/Vol] 60 mg/dL Normal [facility] Comment on above: National Cholesterol Education Program (NCEP) guidelines:<40 mg/dL: Low HDL-cholesterol (major risk factor for CHD)>= 60 mg/dL: High HDL-cholesterol (negative risk factor for CHD)HDL-cholesterol is affected by a number of factors, e.g. smoking, exercise, hormones, sex and age. Result Comment: Maria G onal Cholesterol Education Program (NCEP) guidelines: <40 mg/dL: Low HDL-cholesterol (major risk factor for CHD) >= 60 mg/dL: High HDL-cholesterol (negative risk factor for CHD) HDL-cholesterol is affected by a number of factors, e.g. smoking, exercise, hormones, sex and age. Performed By: #### L 500.4050, L500.4100, L100.0100, L501.9985, L501.6710 ####[facility] [address] [place], [place], [address] Serum or plasma cholesterol measurement (mass/volume)Ordered By: Kimmy Miles on 02-12-2025 Cholesterol [Mass/Vol] 167 mg/dL Normal <=200 [facility] Comment on above: Cholesterol level, D esirable <200 mg/dLBorderline high cholesterol 200-239 mg/dLHigh cholesterol >=240 mg/dLRecommendations of the NCEP Adult Treatment Panel for the following risk-cutoff thresholds for the [place] population. Result Comment: Chol esterol level, Desirable <200 mg/dL Borderline high cholesterol 200-239 mg/dL High cholesterol >=240 mg/dL Recommendations of the NCEP Adult Treatment Panel for the following risk-cutoff thresholds for the [place] population. Performed By: #### L 500.4050, L500.4100, L100.0100, L501.9985, L501.6710 ####[facility] [address] [place], [place], [id number] Serum or plasma urea nitroge n measurement (mass/volume)Ordered By: Kimmy Miles on 02-12-2025 Urea nitrogen [Mass/Vol] 13 mg/dL Normal 4-19 [facility] Comment on above: Performed By: #### L 500.4050, L500.4100, L100.0100, L501.9985, L501.6710 ####[facility] [address] [place], [address] Sodium levelOrdered By: Kimmy Miles on 02-12-2025 Sodium [Moles/Vol] 140 mmol/L Normal 133-145 [facility] Comment on above: Performed By: #### L 500.4050, L500.4100, L100.0100, L501.9985, L501.6710 ####[facility] [address] [place], [place], [address] Total proteinOrdered By: Lily leslie Ginger on 02-12-2025 Protein [Mass/Vol] 7.1 g/dL 5.9-8.4 [facility] Triglycerides measurementOrd ered By: Kimmy Miles on 02-12-2025 Triglyceride [Mass/Vol] 63 mg/dL Normal [facility] Comment on above: The drugs N-Acetylcy steine and Metamizole may falsely depress this assay. Normal range: <150 mg/dLBorderline High: 150-199 mg/dLHigh: 200-499 mg/dLVery High: >500 mg/dL Result Comment: The drugs N-Acetylcysteine and Metamizole may falsely depress this assay. Normal range: <150 mg/dL Borderline High: 150-199 mg/dL High: 200-499 mg/dL Very High: >500 mg/dL Performed By: #### L 500.4050, L500.4100, L100.0100, L501.9985, L501.6710 ####[facility] [address] [place], [place], [address] White blood cell (WBC) count Ordered By: Kimmy WillsGinger on 02-12-2025 WBC (Bld) [#/Vol] 12.0 10*3/uL High 4.4-11.0 [facility] 12 Lead EKGon 03-12-2024 12 Lead EKG [facility] Cardiovascular Services [address] [place] [address] 12 Lead EKG 03/11/24 1504 MR#: [id number] Acct: [id number] Name: LUPE ROGERS Rep #: [id number] : 1970 54 From: Pedro Pablo Boo MD Attending Dr: Dr. Mani Lubin DO Status: DIS JOAQUIN Ordering Dr: Mani Lubin DO Date: 03/12/24 Location: U Sex: M C Admitted: 03/11/24 [...] IS UNCONFIRMED Confirmed by Pedro Pablo Boo ([id number]), staff editor JOSÉ ANTONIO HUFFMAN ([id number]) on 03/13/2024 6:21:31 AM Referred By: Confirmed By:Pedro Pablo Boo 03/13/24620 Date Pedro Pablo Boo MD CC: Dr. Mani Lubin, DO; Dr. Kimmy Miles DO Signed Normal [facility] Bedside Glucoseon 03-12-2024 FINGERSTICK GLU 128 mg/dL High 74-106 [facility] Comment on above: Result Comment: [facility] GEMENT OF PATIENT CARE PER NURSING PROTOCOL Performed By: #### L 501.080 #### [facility] [address] [place], [address] Lipid Profileon 03-12-2024 Cholesterol [Mass/Vol] 194 mg/dL Normal 200 [facility] Comment on above: Result Comment: <200 mg/dL Desirable 200-240 mg/dL Borderline >240 mg/dL High Risk Performed By: #### L 500.0480 ####[facility] [address] [place], [address] Cholesterol in HDL [Mass/Vol] 42 mg/dL Normal [facility] Comment on above: Result Comment: The drugs N-Acetylcysteine and Metamizole may falsely depress this assay. Reference Range HDL <40 mg/dL Low HDL Cholesterol HDL >or= 60 mg/dL High HDL Cholesterol Performed By: #### L 500.3570 ####[facility] [address] [place], [address] Cholesterol in LDL [Mass/Vol] 102 mg/dL Normal 0-130 [facility] Comment on above: Performed By: #### L 500.4100 ####[facility] [address] [place], [address] Cholesterol in VLDL [Mass/Vol] 50 mg/dL High 5-40 [facility] Comment on above: Performed By: #### L 500.4100 ####[facility] [address] [place], [address] Triglyceride [Mass/Vol] 250 mg/dL High [facility] Comment on above: Result Comment: The drugs N-Acetylcysteine and Metamizole may falsely depress this assay. Serum Triglycerides Reference Interval Normal <150 mg/dL Borderline high 150 - 199 mg/dL High 200 - 499 mg/dL Very High > or = 500 mg/dL Performed By: #### L 500.4100 ####[facility] [address] [place], [address] Stress Reporton 03-12-2024 Stress Report [facility] Cardiovascular Services [address] [place] [address] MR#: [id number] Acct: [id number] Name: LUPE ROGERS Rep #: [id number] : 1970 54 From: Stephanie Coe MD [...] of 51%. This note was generated with [employer]ation software. It may contain incorrect words, spelling, and punctuation that were not noted in checking the note before signing. 03/12/24906 Date Stephanie Coe MD CC: Dr. Mani Lubin DO; Dr. Mani Shaw, DO; Dr. Kimmy Miles DO Date Dictated: 03/12/24903 Date Transcribed: 03/12/24903 [employer] Polisher: REID Signed Normal [facility] 12 Lead EKGon 03-11-2024 12 Lead EKG [facility] Cardiovascular Services [address] [place] [address] 12 Lead EKG 03/11/242000 MR#: [id number] Acct: [id number] Name: LUPE ROGERS Rep #: [id number] : 1970 54 From: Pedro Pablo Boo MD Attending Dr: Dr. Mani Lubin DO Status: DIS JOAQUIN Ordering Dr: Mani Lubin DO Date: 03/11/24 Location: [facility] Sex: M C Admitted: 03/11/24 Test Reason [...] UNCONFIRMED Confirmed by Pedro Pablo Boo ([id number]), staff editor JOSÉ ANTONIO HUFFMAN ([id number]) on 03/13/2024 6:20:32 AM Referred By: TEVIN Confirmed By:Pedro aPblo Boo 03/13/24 0620 Date Pedro Pablo Boo MD CC: Dr. Mani Lubin, ; Dr. Kimmy Miles DO Signed Normal [facility] 12 Lead EKG [facility] Cardiovascular Services [address] [place] [address] 12 Lead EKG 03/12/24 0556 MR#: [id number] Acct: [id number] Name: LUPE ROGERS Rep #: [id number] : 1970 54 From: Pedro Pablo Boo MD Attending Dr: Dr. Mani Lubin DO Status: DIS JOAQUIN Ordering Dr: Mani Lubin DO Date: 03/11/24 Location: [facility] Sex: M C Admitted: 03/11/24 Test Reason [...] IS UNCONFIRMED Confirmed by Pedro Pablo Boo ([id number]), staff editor JOSÉ ANTONIO HUFFMAN ([id number]) on 03/13/2024 6:19:01 AM Referred By: NAVEED Confirmed By:Pedro Pablo Boo 03/13/24 0619 Date Pedro Pablo Boo MD CC: Dr. Mani Lubin DO; Dr. Kimmy Miles DO Signed [facility] 12 Lead EKG [facility] Cardiovascular Services [address] [place] [address] 12 Lead EKG 03/11/24 0927 MR#: [id number] Acct: [id number] Name: LUPE ROGERS Rep #: [id number] : 1970 54 From: Leonard Stevens MD Attending Dr: Dr. Mani Lubin DO Status: DIS JOAQUIN Ordering Dr: Mani Shaw DO Date: 03/11/24 Location: [facility] Sex: M C Admitted: 03/11/24 Test Reason [...] ECG Confirmed by NICOLASA BARKER, YOLA ([id number]), staff editor JOSÉ ANTONIO HUFFMAN ([id number]) on 03/18/2024 10:26:02 AM Referred By: SHANNA Confirmed By:DUKE STEVENS MD 03/18/24 1026 Date Leonard Stevens MD CC: Dr. Mani Lubin DO; Dr. Mani Shaw DO; Dr. Kimmy Miles DO Signed [facility] Basic Metabolic Profile (BMP )on 03-11-2024 BUN/CRE 13.7 RATIO Normal 10-20 [facility] Comment on above: Order Comment: 1 Y Performed By: #### L 500.2500, L300.8000, L100.0100, L501.5425 #### [facility] [address] [place], [address] CA,Total 9.3 mg/dL Normal 8.5-10.1 [facility] Comment on above: Order Comment: 1 Y Performed By: #### L 500.2500, L300.8000, L100.0100, L501.5425 #### [facility] [address] [place], [address] Chloride [Moles/Vol] 106 mmol/L Normal 98-107 [facility] Comment on above: Order Comment: 1 Y Performed By: #### L 500.2500, L300.8000, L100.0100, L501.5425 #### [facility] [address] [place], [address] CO2 [Moles/Vol] 25.0 mmol/L Normal 21.0-32.0 [facility] Comment on above: Order Comment: 1 Y Performed By: #### L 500.2500, L300.8000, L100.0100, L501.5425 #### [facility] [address] [place], [address] Creatinine [Mass/Vol] 1.02 mg/dL Normal 0.70-1.30 [facility] Comment on above: Order Comment: 1 Y Result Comment: The validity of the calculated GFR GFRAA in patients over 70 years has not been determined. Clinical correlation is essential. Performed By: #### L 500.2500, L300.8000, L100.0100, L501.5425 #### [facility] [address] [place], [address] ECRCL 98.70 ml/min Normal [facility] Comment on above: Order Comment: 1 Y Performed By: #### L 500.2500, L300.8000, L100.0100, L501.5425 #### [facility] [address] [place], [address] EST GFR - AA 98 mL/min Normal >60 [facility] Comment on above: Order Comment: 1 Y Result Comment: Afri can [place] GFR Calc Performed By: #### L 500.2500, L300.8000, L100.0100, L501.5425 #### [facility] [address] [place], [address] GAP 6 Normal 5-15 [facility] Comment on above: Order Comment: 1 Y Performed By: #### L 500.2500, L300.8000, L100.0100, L501.5425 #### [facility] [address] [place], [address] GFR/1.73 sq M.predicted among non-blacks MDRD (S/P/Bld) [Vol rate/Area] 81 mL/min/{1.73_m2} Normal >60 [facility] Comment on above: Order Comment: 1 Y Result Comment: Non- GFR Calc Performed By: #### L 500.2500, L300.8000, L100.0100, L501.5425 #### [facility] [address] [place], [address] Glucose [Mass/Vol] 210 mg/dL High 74-106 [facility] Comment on above: Order Comment: 1 Y Result Comment: Gluc ose result greater than or equal to 200 mg/dL suggests DIABETES MELLITUS per A.D.A. criteria. Performed By: #### L 500.2500, L300.8000, L100.0100, L501.5425 #### [facility] [address] [place], [address] Potassium [Moles/Vol] 3.8 mmol/L Normal 3.5-5.1 [facility] Comment on above: Order Comment: 1 Y Performed By: #### L 500.2500, L300.8000, L100.0100, L501.5425 #### [facility] [address] [place], [address] Sodium [Moles/Vol] 137 mmol/L Normal 136-145 [facility] Comment on above: Order Comment: 1 Y Performed By: #### L 500.2500, L300.8000, L100.0100, L501.5425 #### [facility] [address] [place], [address] Urea nitrogen [Mass/Vol] 14 mg/dL Normal 7-18 [facility] Comment on above: Order Comment: 1 Y Performed By: #### L 500.2500, L300.8000, L100.0100, L501.5425 #### [facility] [address] [place], [address] Bedside Glucoseon 03-11-2023 FINGERSTICK GLU 100 mg/dL Normal 74-106 [facility] Comment on above: Result Comment: [facility] GEMENT OF PATIENT CARE PER NURSING PROTOCOL Performed By: #### L 501.080 ####[facility] [address] [place], [address] FINGERSTICK GLU 109 mg/dL High 74-106 [facility] Comment on above: Result Comment: [place] GEMENT OF PATIENT CARE PER NURSING PROTOCOL Performed By: #### L 501.080 #### [facility] [address] [place], [address] CBC W/Diff, Automatedon - Absolute Lymph 2.58 X10 3/uL Normal 0.83-4.51 [facility] Comment on above: Performed By: #### L 500.2500, L300.8000, L100.0100, L501.5425 #### [facility] [address] [place], [address] Absolute Neut 5.0 X10 3/uL Normal 2.0-7.7 [facility] Comment on above: Performed By: #### L 500.2500, L300.8000, L100.0100, L501.5425 #### [facility] [address] [place], [address] Basophils/100 WBC (Bld) 0.9 % Normal 0-1 [facility] Comment on above: Performed By: #### L 500.2500, L300.8000, L100.0100, L501.5425 #### [facility] [address] [place], [address] Eosinophils/100 WBC (Bld) 7.5 % High 0-5 [facility] Comment on above: Performed By: #### L 500.2500, L300.8000, L100.0100, L501.5425 #### [facility] [address] [place], [address] Erythrocyte distribution width (RBC) [Ratio] 13.0 % Normal 11.6-14.6 [facility] Comment on above: Performed By: #### L 500.2500, L300.8000, L100.0100, L501.5425 #### [facility] [address] [place], [address] Hematocrit (Bld) [Volume fraction] 48.3 % Normal 40-54 [facility] Comment on above: Performed By: #### L 500.2500, L300.8000, L100.0100, L501.5425 #### [facility] [address] [place], [address] Hemoglobin (Bld) [Mass/Vol] 16.2 g/dL Normal 13.0-16.5 [facility] Comment on above: Performed By: #### L 500.2500, L300.8000, L100.0100, L501.5425 #### [facility] [address] [place], [address] IG% 0.400 Normal 0.0-0.9 [facility] Comment on above: Result Comment: IG% - Immature Granulocytes (promyelocytes, myelocytes and metamyelocytes) > 1% indicates that a LEFT SHIFT is Present. Performed By: #### L 500.2500, L300.8000, L100.0100, L501.5425 #### [facility] [address] [place], [address] Lymphocytes/100 WBC (Bld) 28.6 % Normal 19-41 [facility] Comment on above: Performed By: #### L 500.2500, L300.8000, L100.0100, L501.5425 #### [facility] [address] [place], [address] MCH (RBC) [Entitic mass] 30.5 pg Normal 27.0-32.0 [facility] Comment on above: Performed By: #### L 500.2500, L300.8000, L100.0100, L501.5425 #### [facility] [address] [place], [address] MCHC (RBC) [Mass/Vol] 33.5 g/dL Normal 32-36 [facility] Comment on above: Performed By: #### L 500.2500, L300.8000, L100.0100, L501.5425 #### [facility] [address] [place], [address] MCV (RBC) [Entitic vol] 91.0 fL Normal 80-94 [facility] Comment on above: Performed By: #### L 500.2500, L300.8000, L100.0100, L501.5425 #### [facility] [address] [place], [address] Monocytes/100 WBC (Bld) 7.4 % Normal 0-10 [facility] Comment on above: Performed By: #### L 500.2500, L300.8000, L100.0100, L501.5425 #### [facility] [address] [place], [address] Neutrophils/100 WBC (Bld) 55.2 % Normal 47-70 [facility] Comment on above: Performed By: #### L 500.2500, L300.8000, L100.0100, L501.5425 #### [facility] [address] [place], [address] Nucleated RBC (Bld) [#/Vol] 0 10*3/uL Normal 0-5 [facility] Comment on above: Performed By: #### L 500.2500, L300.8000, L100.0100, L501.5425 #### [facility] [address] [place], [address] Platelet mean volume (Bld) [Entitic vol] 10.5 fL Normal 6.2-12.0 [facility] Comment on above: Performed By: #### L 500.2500, L300.8000, L100.0100, L501.5425 #### [facility] [address] [place], [address] Platelets (Bld) [#/Vol] 202 10*3/uL Normal 150-450 [facility] Comment on above: Performed By: #### L 500.2500, L300.8000, L100.0100, L501.5425 #### [facility] [address] [place], [address] RBC (Bld) [#/Vol] 5.31 10*6/uL Normal 4.6-6.2 [facility] Comment on above: Performed By: #### L 500.2500, L300.8000, L100.0100, L501.5425 #### [facility] [address] [place], [address] RDW SD 43.7 fl Normal 35.1-43.9 [facility] Comment on above: Performed By: #### L 500.2500, L300.8000, L100.0100, L501.5425 #### [facility] [address] [place], [address] WBC (Bld) [#/Vol] 9.0 10*3/uL Normal 4.4-11.0 [facility] Comment on above: Performed By: #### L 500.2500, L300.8000, L100.0100, L501.5425 #### [facility] [address] [place], [address] Chest 1 View (Portable)on Chest 1 View (Portable) [facility] Imaging Services [address] [place] [address] Chest 1 View (Portable) MR#: [id number] Acct: [id number] Name: LUPE ROGERS Rep #: [id number] : 1970 M 54 From: Jaxson mccollum MD PCP: Dr. Kimmy Miles, Status: REG ER Study: Chest 1 View (Portable) Date of Exam: 03/11/24 Exam# [id number] Ordering Dr: Mani Shaw DO [id number] STUDY: X-RAY CHEST REASON FOR EXAM: Male, [...] at 10:03 EDT , CC: Dr. Mani Shaw DO; Dr. Kimmy Miles DO [employer] Polisher: Signed Normal [facility] D-Dimer Quantitative (DVT/PE )on 03-11-2024 D-DIMER QUANT 0.34 FEU/ug/m Normal 0.27-0.49 [facility] Comment on above: Result Comment: NORM AL D-Dimer level (<0.50) indicates no DVT or PE. Performed By: #### L 500.2500, L300.8000, L100.0100, L501.5425 #### [facility] [address] [place], [address] Echo Completeon 03-11-2024 Echo Complete [facility] [address] [place] [address] Echo Complete 03/11/24 1557 MR#: [id number] Acct: [id number] Name: LUPE ROGERS Rep #: [id number] : 1970 54 From: Torey Rodriguez MD Attending Dr: Dr. Mani Lubin DO Status: ADM JOAQUIN Ordering Dr: Mani Lubin DO Date: 03/11/24 Location: U Sex: M C Admitted: 03/11/24 Reason For [...] KIMMY MILES Performed By: Gavi Alvarenga RDCS 03/11/24 1634 Date Torey Rodriguez MD CC: Dr. Mani Lubin DO; Dr. Kimmy Miles DO Date Dictated: 03/11/24 1557 Date Transcribed: 03/11/24 1634 [employer] Polisher: Signed Normal [facility] Emergency Department Summary on 03-11-2024 Emergency Department Summary [facility] Medical Records Department [address] [place] [address] Emergency Department Summary 03/11/24 MR#: [id number] Acct: [id number] Name: LUPE ROGERS Rep #: [id number] : 1970 54 From: Mani Shaw DO PCP: Dr. Kimmy Miles DO Status:ADM JOAQUIN Location: [address] History of Present Illness Chief Complaint: Chest [...] MO 03/11/24 03/09/24 History subcutaneous pen injector (Mounjaro) Allergy/AdvReac Type Severity Reaction Status Date / Time Sohzaxr-CTX-VsI Reductase AdvReac painful Verified 03/11/24 09:36 Inhibitor (Ftkbqyw-Saw-Bwn joints Reductase Inhibitor) Family History Father Heart [...] Delivery Method (more content not included)... Normal [facility] H AND P Exam - Hospitaliston 03-11-2024 H&P Exam - Hospitalist [facility] Medical Records Department [address] [place] [address] H P Exam - Hospitalist 03/11/24 1240 MR#: [id number] Acct: [id number] Name: LUPE ROGERS Rep #: [id number] : 1970 54 From: Mani Lubin DO PCP: Dr. Kimmy Miles DO Status:ADM JOAQUIN Location: [place] [id number] HPI - General General Date of Admission: [...] which actually got better with the nitroglycerin. COUNTS INCLUDE 234 BEDS AT THE [facility] Medical History Arthritis High cholesterol Injury of [...] MO 03/11/24 03/09/24 History subcutaneous pen injector (Mounjaro) Allergy/AdvReac Type Severity Reaction Status Date / Time Gsbadrr-FBJ-TmV Reductase AdvReac painful Verified 03/11/24 09:36 Inhibitor (Wyzagqw-Ngv-Odj joints Reductase Inhibitor) Family History Father Heart [...] accessory muscl (more content not included)... Normal [facility] Hemoglobin A1con 03-11-2024 HbA1c (Bld) [Mass fraction] 6.0 % High 3.8-5.6 [facility] Comment on above: Result Comment: Norm al < 5.7 % Prediabetic 5.7 - 6.4 % Diabetic >or= 6.5 % Please note range changes. Performed By: #### L 501.9985 #### [facility] [address] [place], [address] L501.4020on 03-11-2024 TROPONIN-I HS 8 pg/mL Normal 3.0-78.0 [facility] Comment on above: Order Comment: 'TROP ' Serial specimen #1, #2 or #3: 3 Result Comment: Plea se Note: New Test Units and Gender Specific Reference Ranges. For more information see Policy Stat Procedure [place] High Sensitivity Troponin (TNIH) and attachments. Performed By: #### L 501.4020 ####[facility] [address] [place], [place], [address] TROPONIN-I HS 7 pg/mL Normal 3.0-78.0 [facility] Comment on above: Result Comment: Alli arreola Note: New Test Units and Gender Specific Reference Ranges. For more information see Policy Stat Procedure [place] High Sensitivity Troponin (TNIH) and attachments. Performed By: #### L 501.4020 #### [facility] [address] [place], [address] Order Comment: 1Y Performed By: #### L 500.2500, L300.8000, L100.0100, L501.5425 ####[facility] [address] [place], [address] Absolute lymphocyte countOrd ered By: Angus Finn on 08-05-2023 Lymphocytes Auto (Unsp spec) [#/Vol] 2.15 10*3/uL 0.83-4.51 [facility] Basophil percentageOrdered B y: Angus Finn on 08-05-2023 Basophils/100 WBC (Bld) 0.9 % 0-1 [facility] Chloride [Moles/Vol] 109 mmol/L 98-107 [facility] Eosinophils/100 WBC (Bld) 5.8 % 0-5 [facility] Glucose [Mass/Vol] 223 mg/dL 74-106 [facility] Comment on above: Glucose result great er than or equal to 200 mg/dLsuggests DIABETES MELLITUS per A.D.A. criteria. Neutrophils (Bld) [#/Vol] 5.4 10*3/uL 2.0-7.7 [facility] Neutrophils/100 WBC (Bld) 60.0 % 47-70 [facility] Potassium [Moles/Vol] 4.1 mmol/L 3.5-5.1 [facility] Sodium [Moles/Vol] 137 mmol/L 136-145 [facility] WBC (Bld) [#/Vol] 9.0 10*3/uL 4.4-11.0 [facility] Blood erythrocytes count (nu mber/volume)Ordered By: Angus Finn on 08-05-2023 RBC (Bld) [#/Vol] 5.10 10*6/uL 4.6-6.2 [facility] Blood hemoglobin measurement (mass/volume)Ordered By: Angus Finn on 08-05-2023 Hemoglobin (Bld) [Mass/Vol] 15.4 g/dL 13.0-16.5 [facility] Blood lymphocytes/100 leukoc ytesOrdered By: Angus Finn on 08-05-2023 Lymphocytes/100 WBC (Bld) 23.9 % 19-41 [facility] Blood monocytes/100 leukocyt esOrdered By: Angus Finn on 08-05-2023 Monocytes/100 WBC (Bld) 9.0 % 0-10 [facility] Blood platelet mean volumeOr dered By: Angus Finn on 08-05-2023 Platelet mean volume (Bld) [Entitic vol] 11.0 fL 6.2-12.0 [facility] Determination of erythrocyte mean corpuscular volume (MCV)Ordered By: Angus Finn on 08-05-2023 MCV (RBC) [Entitic vol] 92.0 fL 80-94 [facility] HIV 1 and HIV-2 antibody ass ay with HIV-1 p24 antigen detectionOrdered By: Angus Finn on 08-05-2023 HIV 1+2 Ab+HIV1 p24 Ag IA Ql Non-Reactive Nonreactive [facility] Hematocrit Auto (Bld) [Volum e fraction]Ordered By: Angus Finn on 08-05-2023 Hematocrit (Bld) [Volume fraction] 46.9 % 40-54 [facility] - Chemistry and C hemistry - challengeOrdered By: Angus Finn on 08-05-2023 CO2 [Moles/Vol] 23.0 mmol/L 21.0-32.0 [facility] Urea nitrogen/Creatinine [Mass ratio] 16.1 mg/mg 10-20 [facility] - Chemistry and C hemistry - challengeOrdered By: Jefferson Lama on 08-05-2023 Magnesium [Mass/Vol] 2.4 mg/dL 1.6-2.6 [facility] - Hematology and Cell countsOrdered By: Angus Finn on 08-05-2023 Erythrocyte distribution width (RBC) [Entitic vol] 43.4 fL 35.1-43.9 [facility] Erythrocyte distribution width (RBC) [Ratio] 12.7 % 11.6-14.6 [facility] Immature granulocytes/100 WBC (Bld) 0.400 % 0.0-0.9 [facility] Comment on above: IG% - Immature Granu locytes (promyelocytes, myelocytes and metamyelocytes) > 1% indicates that a LEFT SHIFT is Present. MCH (RBC) [Entitic mass] 30.2 pg 27.0-32.0 [facility] Nucleated RBC/100 WBC (Bld) [Ratio] 0 % 0-5 [facility] MCHC Auto (RBC) [Mass/Vol]Or dered By: Angus Finn on 08-05-2023 MCHC (RBC) [Mass/Vol] 32.8 g/dL 32-36 [facility] No Panel InformationOrdered By: Angus Finn on 08-05-2023 Estimated GFR (MDRD) Amer 110 mL/min >60 [facility] Comment on above: GFR Calc Estimated GFR (MDRD) Non-Af Amer 91 mL/min >60 [facility] Comment on above: Non- GFR Calc Hepatitis A Antibody Total Negative Negative [facility] Comment on above: Comment: The HAV tot [...] HAVtotal antibody results to IgM (e.g., panel #[id number] HAVAntibody w/ Rfx).Performed at: [address] [id number] Director: Bari Driscoll PhD, Phone: [phone] Hepatitis C Antibody Non-Reactive Nonreactive [facility] Comment on above: Non Reactive: < 0.8 Equivocal: >/= 0.8 to < 1.0 Reactive: >/= 1.0The CDC recommends that a reactive/equivocal HCV antibody result be followed up by the HCV Nucleic Acid Amplificationtest (584861) Nasal Screen MRSA/MSSA [facility] Platelets bldOrdered By: Lily Finn on 08-05-2023 Platelets (Bld) [#/Vol] 209 10*3/uL 150-450 [facility] Serum hepatitis B virus surf cole antibody IgG detectionOrdered By: Angus Finn on 08-05-2023 HBV surface IgG Ql (S) Non-Reactive [facility] Comment on above: Non Reactive: Incons istent with immunity less than <10 mIU/mL Reactive: Consistent with immunity greater than or equal to 10 mIU/mL Serum or plasma calcium luis urement (mass/volume)Ordered By: Angus Finn on 08-05-2023 Calcium [Mass/Vol] 9.2 mg/dL 8.5-10.1 [facility] Serum or plasma creatinine m easurement (mass/volume)Ordered By: Angus Finn on 08-05-2023 Creatinine [Mass/Vol] 0.93 mg/dL 0.70-1.30 [facility] Comment on above: The validity of the calculated GFR & GFRAA in patients over 70 years has not been determined. Clinical correlation is essential. Serum or plasma urea nitroge n measurement (mass/volume)Ordered By: Angus Finn on 08-05-2023 Urea nitrogen [Mass/Vol] 15 mg/dL 7-18 [facility] Thin prep Papanicolaou smear with manual screeningOrdered By: Angus Finn on 08-05-2023 Thin prep Papanicolaou smear with manual screening 5 5-15 [facility] Whole blood hemoglobin A1c/t otal hemoglobin ratio (mass fraction)Ordered By: Jefferson Lama on 08-05-2023 HbA1c (Bld) [Mass fraction] 8.4 % 3.8-5.6 [facility] Comment on above: Normal < 5.7 % Predi abetic 5.7 - 6.4 % Diabetic >or= 6.5 % Please note range changes. Whole blood hemoglobin A1c/t otal hemoglobin ratio (mass fraction)Ordered By: Dr. Finn on 11-19-2022 HbA1c (Bld) [Mass fraction] 8.1 % 3.8-5.6 [facility] Comment on above: Normal < 5.7 % Predi abetic 5.7 - 6.4 % Diabetic >or= 6.5 % Please note range changes. No Panel InformationOrdered By: Dr. Miles on 11-09-2022 Fructosamine 281 umol/L 0-285 [facility] Comment on above: Published reference interval for apparently healthysubjects between age 20 and 60 is 205 - 285 umol/L and in apoorly controlled diabetic population is 228 - 563 umol/Lwith a mean of 396 umol/L.Performed at: [facility] [address] [id number] Director: Bari Driscoll PhD, Phone: [phone] No Panel InformationOrdered By: Dr. Finn on 10-18-2022 Fructosamine 336 umol/L 0-285 [facility] Comment on above: Published reference interval for apparently healthysubjects between age 20 and 60 is 205 - 285 umol/L and in apoorly controlled diabetic population is 228 - 563 umol/Lwith a mean of 396 umol/L.Performed at: [facility] [address] [id number] Director: Bari Driscoll PhD, Phone: [phone] Whole blood hemoglobin A1c/t otal hemoglobin ratio (mass fraction)Ordered By: Dr. Finn on 10-18-2022 HbA1c (Bld) [Mass fraction] 8.7 % 3.8-5.6 [facility] Comment on above: Normal < 5.7 % Predi abetic 5.7 - 6.4 % Diabetic >or= 6.5 % Please note range changes. Basophil percentageOrdered B y: Dr. Sharp on 10-15-2022 Cholesterol [Mass/Vol] 242 mg/dL <200 [facility] Comment on above: <200 mg/dL Desirable 200-240 mg/dL Borderline >240 mg/dL High Risk Triglyceride [Mass/Vol] 426 mg/dL <199 [facility] Comment on above: The drugs N-Acetylcy steine [...] Sharp on 10-15-2022 Glucose [Mass/Vol] 198 mg/dL -106 [facility] Comment on above: MANAGEMENT OF PATIEN T CARE PER NURSING PROTOCOL Serum or plasma cholesterol in HDL measurement (mass/volume)Ordered By: Dr. Sharp on 10-15-2022 Cholesterol in HDL [Mass/Vol] 38 mg/dL >40 [facility] Comment on above: The drugs N-Acetylcy steine and Metamizole may falsely depress this assay. Reference Range HDL <40 mg/dL Low HDL Cholesterol HDL >or= 60 mg/dL High HDL Cholesterol Serum or plasma cholesterol in VLDL measurement (mass/volume)Ordered By: Dr. Sharp on 10-15-2022 Cholesterol in VLDL [Mass/Vol] [facility] Comment on above: Test not performed Serum or plasma low density lipoprotein (LDL) cholesterol measurement (mass/volume)Ordered By: Dr. Sharp on 10-15-2022 Cholesterol in LDL [Mass/Vol] [facility] Comment on above: Test not performed Absolute lymphocyte countOrd ered By: Dr. Chapa on 10-14-2022 Lymphocytes Auto (Unsp spec) [#/Vol] 3.50 10*3/uL 0.83-4.51 [facility] Basophil percentageOrdered B y: Dr. Chapa on 10-14-2022 Basophils/100 WBC (Bld) 0.7 % 0-1 [facility] Chloride [Moles/Vol] 102 mmol/L 98-107 [facility] Eosinophils/100 WBC (Bld) 2.9 % 0-5 [facility] Glucose [Mass/Vol] 431 mg/dL 74-106 [facility] Comment on above: Slight Lipemia, Resu lt may be falsely increased.Glucose result greater than or equal to 200 mg/dLsuggests DIABETES MELLITUS per A.D.A. criteria. Neutrophils (Bld) [#/Vol] 6.2 10*3/uL 2.0-7.7 [facility] Neutrophils/100 WBC (Bld) 55.8 % 47-70 [facility] Potassium [Moles/Vol] 4.7 mmol/L 3.5-5.1 [facility] Comment on above: Slight Hemolysis, Re sult may be falsely increased.-Slight Lipemia, Result may be falsely increased. Sodium [Moles/Vol] 136 mmol/L 136-145 [facility] WBC (Bld) [#/Vol] 11.0 10*3/uL 4.4-11.0 [facility] Blood erythrocytes count (nu mber/volume)Ordered By: Dr. Chapa on 10-14-2022 RBC (Bld) [#/Vol] 5.30 10*6/uL 4.6-6.2 [facility] Blood hemoglobin measurement (mass/volume)Ordered By: Dr. Chapa on 10-14-2022 Hemoglobin (Bld) [Mass/Vol] 16.2 g/dL 13.0-16.5 [facility] Blood lymphocytes/100 leukoc ytesOrdered By: Dr. Chapa on 10-14-2022 Lymphocytes/100 WBC (Bld) 31.8 % 19-41 [facility] Blood monocytes/100 leukocyt esOrdered By: Dr. Chapa on 10-14-2022 Monocytes/100 WBC (Bld) 8.1 % 0-10 [facility] Blood platelet mean volumeOr dered By: Dr. Chapa on 10-14-2022 Platelet mean volume (Bld) [Entitic vol] 11.0 fL 6.2-12.0 [facility] Determination of erythrocyte mean corpuscular volume (MCV)Ordered By: Dr. Chapa on 10-14-2022 MCV (RBC) [Entitic vol] 91.7 fL 80-94 [facility] Hematocrit Auto (Bld) [Volum e fraction]Ordered By: Dr. Chapa on 10-14-2022 Hematocrit (Bld) [Volume fraction] 48.6 % 40-54 [facility] INR in Blood by Coagulation assayOrdered By: Dr. Chapa on 10-14-2022 INR Coag (Bld) [Relative time] 1.0 {INR} [facility] - Chemistry and C hemistry - challengeOrdered By: Dr. Chapa on 10-14-2022 CO2 [Moles/Vol] 26.0 mmol/L 21.0-32.0 [facility] Comment on above: Slight Lipemia, Resu lt may be falsely increased. Urea nitrogen/Creatinine [Mass ratio] 14.8 mg/mg 10-20 [facility] - CoagulationOrde red By: Dr. Chapa on 10-14-2022 aPTT Coag (Bld) [Time] 24.5 s 24.1-36.2 [facility] PT Coag (PPP) [Time] 12.6 s 11.7-14.9 [facility] Laboratory - Hematology and Cell countsOrdered By: Dr. Chapa on 10-14-2022 Erythrocyte distribution width (RBC) [Entitic vol] 43.1 fL 35.1-43.9 [facility] Erythrocyte distribution width (RBC) [Ratio] 12.9 % 11.6-14.6 [facility] Immature granulocytes/100 WBC (Bld) 0.700 % 0.0-0.9 [facility] Comment on above: IG% - Immature Granu locytes (promyelocytes, myelocytes and metamyelocytes) > 1% indicates that a LEFT SHIFT is Present. MCH (RBC) [Entitic mass] 30.6 pg 27.0-32.0 [facility] Nucleated RBC/100 WBC (Bld) [Ratio] 0 % 0-5 [facility] MCHC Auto (RBC) [Mass/Vol]Or dered By: Dr. Chapa on 10-14-2022 MCHC (RBC) [Mass/Vol] 33.3 g/dL 32-36 [facility] No Panel InformationOrdered By: Dr. Sharp on 10-14-2022 Troponin I High Sensitivity 11 pg/mL 3.0-78.0 [facility] Comment on above: Please Note: New Xochilt t Units and Gender Specific Reference Ranges. For more information see Policy Stat Procedure [place] High Sensitivity Troponin (TNIH) and attachments. No Panel InformationOrdered By: Dr. Chapa on 10-14-2022 Estimated Creatinine Clearance Calc 60.56 ml/min [facility] Estimated GFR (MDRD) Amer 64 mL/min >60 [facility] Comment on above: GFR Calc Estimated GFR (MDRD) Non-Af Amer 53 mL/min >60 [facility] Comment on above: Non- GFR Calc Platelets bldOrdered By: Dr. Chapa on 10-14-2022 Platelets (Bld) [#/Vol] 214 10*3/uL 150-450 [facility] Serum or plasma calcium luis urement (mass/volume)Ordered By: Dr. Chapa on 10-14-2022 Calcium [Mass/Vol] 9.1 mg/dL 8.5-10.1 [facility] Comment on above: Slight Lipemia, Resu lt may be falsely increased. Serum or plasma creatinine m easurement (mass/volume)Ordered By: Dr. Chapa on 10-14-2022 Creatinine [Mass/Vol] 1.49 mg/dL 0.70-1.30 [facility] Comment on above: Slight Lipemia, Resu lt may be falsely increased.The validity of the calculated GFR & GFRAA in patients over 70 years has not been determined. Clinical correlation is essential. Serum or plasma urea nitroge n measurement (mass/volume)Ordered By: Dr. Chapa on 10-14-2022 Urea nitrogen [Mass/Vol] 22 mg/dL 7-18 [facility] Comment on above: Slight Lipemia, Resu lt may be falsely increased. Thin prep Papanicolaou smear with manual screeningOrdered By: Dr. Chapa on 10-14-2022 Thin prep Papanicolaou smear with manual screening 8 5-15 [facility] Glucose Glucometer (BldC) [M ass/Vol]Ordered By: Joseph Bee on 07-18-2022 Glucose [Mass/Vol] 181 mg/dL 74-106 [facility] Comment on above: MANAGEMENT OF PATIEN T CARE PER NURSING PROTOCOL Laboratory - Microbiology an d Antimicrobial susceptibilityon 09-20-2021 SARS-CoV-2 (COVID-19) RNA ASHLEY+probe Ql (Unsp spec) Not detected Not Detect [facility] Work Phone: Comment on above: Normal Reference [...] 03-16-2020 CNOV Office Visit (SPNSLU) LUPE ROGERS ([id number]) 1970 M Date Time Provider Department 03/16/20 [...] C7 Left: C7 AMBULATORY STATUS: [facility] ANTIPLATELET OR ANTICOAGULATION STATUS: No PREVIOUS CONSERVATIVE [...] 1:07 PM PAGER: Referring Provider: JUANJOSE ABARCA [[id number]] Allergies As of Date: 03/16/2020 (Not on [...] 21 tabletRfl: 1 CONSULT TO PHYSICAL THERAPY [[id number]] Order #: [id number]: 1 FUTURE Prescriptions as of 03/16/2020 Sig: [...] Status:Closed by [place] PA-C on 03/16/20 [facility] PROGRESSon 03-16-2020 PROGRESS HNO ID: [id number] Author: [place] Service: ? Author Type: Physician Instrumentation Engineer Type: Progress Notes Filed: 03/16/2020 1:45 PM [...] March 16, 2020 TIME: 1:07 PM PAGER: Normal [facility] PROGRESSon 02-22-2020 PROGRESS HNO ID: [id number] Author: Tavia Rey Service: ? Author Type: ? Type: Progress Notes Filed: 02/29/2020 1:21 PM Note Text: Patient name: Lupe Rogers Are you being referred by a [facility] Spine Health Provider or Pain Management Provider at [facility]? No If answer is YES please schedule directly with surgeon, triage does not need to be completed. Is this a self-referral No If not, who is the Referring Provider [facility] MRI/CT/myelogram within 12 months? Yes If NO, please refer to medical spine or PCP to complete above imaging, triage does not need to be completed MRI/CT/myelogram viewable in Epic: No If not, please provide [phone] to fax in imaging reports for review. Also, please inform patient to hand carry imaging disc to appointment. XR (spine) within 12 months: Not sure If YES,? please ask for the name/address of the facility where the XR was completed: Requested provider (First and Last name): Ruben Salguero. Where are you having symptoms related to [...] the surgery was completed: Additional Comments Normal [facility] CR-Chest 1 View (Portable) I MPORTon 02-18-2020 CR-Chest 1 View (Portable) IMPORT Images were obtained outside of [facility] [id number] CN Normal [facility] Lab Report: Basic Metabolic Profile (BMP)on 04-18-2017 Anion gap 6 mmol/L Invalid Interpretation Code 5-15 [facility] Work Phone: [phone] BUN/Creatinine Ratio 14.6 RATIO Invalid Interpretation Code 10-20 [facility] Work Phone: [phone] Calcium 9.0 mg/dL Invalid Interpretation Code 8.5-10.1 [facility] Work Phone: [phone] Chloride 108 mmol/L High 98-107 [facility] Work Phone: [phone] CO2 27.0 mmol/L Invalid Interpretation Code 21.0-32.0 [facility] Work Phone: [phone] Creatinine 1.03 mg/dL Invalid Interpretation Code 0.70-1.30 [facility] Work Phone: [phone] eGFR (non-black) 83 mL/min/{1.73_m2} Invalid Interpretation Code >60 [facility] Work Phone: [phone] eGFR (non-black) 100 mL/min/{1.73_m2} Invalid Interpretation Code >60 [facility] Work Phone: [phone] Glucose 113 mg/dL High 70-110 [facility] Work Phone: [phone] Potassium 4.1 mmol/L Invalid Interpretation Code 3.5-5.1 [facility] Work Phone: [phone] Sodium 141 mmol/L Invalid Interpretation Code 136-145 [facility] Work Phone: [phone] Urea nitrogen 15 mg/dL Invalid Interpretation Code 7-18 [facility] Work Phone: [phone] Lab Report: CBC-Complete Blo od Cnt No Diffon 04-18-2017 Erythrocytes (RBC) 4.80 10*6/uL Invalid Interpretation Code 4.6-6.2 [facility] Work Phone: [phone] Hematocrit (HCT) 44.4 % Invalid Interpretation Code 40-54 [facility] Work Phone: [phone] Hemoglobin (HGB) 14.6 g/dL Invalid Interpretation Code 13.0-16.5 [facility] Work Phone: [phone] MCH 30.4 pg Invalid Interpretation Code 27.0-32.0 [facility] Work Phone: [phone] MCHC 32.9 G/GL Invalid Interpretation Code 32-36 [facility] Phone: [phone] MCV 92.5 fL Invalid Interpretation Code 80-94 [facility] Work Phone: [phone] Platelets 205 10*3/mm3 Invalid Interpretation Code 150-450 [facility] Work Phone: [phone] PMV by Shawn 10.9 fL Invalid Interpretation Code 6.2-12.0 [facility] Work Phone: [phone] RDW-CA 12.6 % Invalid Interpretation Code 11.6-14.6 [facility] Work Phone: [phone] red blood cell distribution width, size density 42.6 fL Invalid Interpretation Code 35.1-43.9 [facility] Work Phone: [phone] WBC (Leukocytes) 7.0 10*3/uL Invalid Interpretation Code 4.4-11.0 [facility] Work Phone: [phone] Lab Report: Lipid Profileon 04-18-2017 Cholesterol 178 mg/dL Invalid Interpretation Code 200 [facility] Work Phone: [phone] HDL Cholesterol 35 mg/dL Low [facility] Work Phone: [phone] LDL Cholesterol 112 mg/dL Invalid Interpretation Code 0-130 [facility] Work Phone: [phone] Triglyceride 155 mg/dL Invalid Interpretation Code [facility] Work Phone: [phone] very low density lipoproteins 31 mg/dL Invalid Interpretation Code 5-40 [facility] Work Phone: [phone] Lab Report: Liver Profileon 04-18-2017 Alanine aminotransferase (ALT) 86 U/L High 12-78 [facility] Work Phone: [phone] Albumin 3.8 g/dL Invalid Interpretation Code 3.4-5.0 [facility] Work Phone: [phone] Alkaline phosphatase (ALP) 63 U/L Invalid Interpretation Code 45-117 [facility] Work Phone: [phone] Aspartate aminotransferase (AST) 35 U/L Invalid Interpretation Code 15-37 [facility] Work Phone: [phone] Bilirubin (direct) 0.11 mg/dL Invalid Interpretation Code 0.00-0.30 [facility] Work Phone: [phone] Bilirubin (total) 0.30 mg/dL Invalid Interpretation Code 0.20-1.00 [facility] Work Phone: [phone] Globulin 3.3 g/dL Invalid Interpretation Code 2.3-3.5 [facility] Work Phone: [phone] Protein 7.1 g/dL Invalid Interpretation Code 6.4-8.2 [facility] Work Phone: [phone] Lab Report: Partial Thrombop last Timeon 04-18-2017 aPTT 24.8 s Invalid Interpretation Code 24.1-36.2 [facility] Work Phone: [phone] Lab Report: Prothrombin Time w/INRon 04-18-2017 Coagulation tissue factor induced in platelet poor plasma 12.7 s Invalid Interpretation Code 11.7-14.9 [facility] Work Phone: [phone] INR in blood by coagulation 1.0 {INR} Invalid Interpretation Code [facility] Phone: [phone] Office Visit: Cain 04-17-20 Dietary management education, guidance, and counseling (procedure) yes Invalid Interpretation Code [facility] Phone: [phone] Documentation of current medications (procedure) Done Invalid Interpretation Code [facility] Phone: [phone] Fall risk assessment No Invalid Interpretation Code [facility] Phone: [phone] Replaced Document: Mary Yoder CG Observationson 04-17-2017 electrocardiogram interpretation Sinus Rhythm - Nonspecific T-abnormality. ABNORMAL Invalid Interpretation Code [facility] Phone: [phone] GE use only - for [employer] import when terms are not otherwise specified 438 ms Invalid Interpretation Code [facility] Phone: [phone] P wave axis, electrocardiogram 63 deg Invalid Interpretation Code [facility] Phone: [phone] NH interval, electrocardiogram 160 ms Invalid Interpretation Code [facility] Phone: [phone] Pulse (Heart Rate) 91 /min Invalid Interpretation Code [facility] Phone: [phone] QRS axis, electrocardiogram 18 deg Invalid Interpretation Code [facility] Phone: [phone] QRS duration, electrocardiogram 96 ms Invalid Interpretation Code [facility] Phone: [phone] QT interval, electrocardiogram new path ms Invalid Interpretation Code [facility] Phone: [phone] T wave axis, electrocardiogram -1 deg Invalid Interpretation Code [facility] Phone: [phone] Office Visiton 10-29-2016 Alcoholism counseling (procedure) no Invalid Interpretation Code [facility] Phone: [phone] Dietary management education, guidance, and counseling (procedure) yes Invalid Interpretation Code [facility] Phone: [phone] Documentation of current medications (procedure) Done Invalid Interpretation Code [facility] Phone: [phone] Smoking cessation education (procedure) yes Invalid Interpretation Code [facility] Phone: [phone] Tobacco smoking status NHIS Never Invalid Interpretation Code [facility] Work Phone: [phone] Tobacco use [facility] Current every day smoker Invalid Interpretation Code [facility] Work Phone: [phone] Office Visiton 06-12-2014 Cholesterol 191 mg/dL Invalid Interpretation Code [facility] Work Phone: [phone] HDL Cholesterol 29 mg/dL Low [facility] Work Phone: [phone] Thyroid stimulating hormone (TSH) 2.61 u[iU]/mL Invalid Interpretation Code [facility] Work Phone: [phone] Triglyceride 516 mg/dL High [facility] Work Phone: [phone] very low density lipoproteins 103 mg/dL High [facility] Work Phone: [phone] Office Visiton 06-11-2014 Anion gap 8 mmol/L Invalid Interpretation Code [facility] Work Phone: [phone] BUN/Creatinine Ratio 17.8 mg/mg Invalid Interpretation Code [facility] Work Phone: [phone] Chloride 105 mmol/L Invalid Interpretation Code [facility] Work Phone: [phone] CO2 25.0 mmol/L Invalid Interpretation Code [facility] Work Phone: [phone] Creatinine 0.9 mg/dL Invalid Interpretation Code [facility] Work Phone: [phone] Erythrocytes (RBC) 5.01 10*6/uL Invalid Interpretation Code [facility] Work Phone: [phone] Glucose 101 mg/dL Invalid Interpretation Code [facility] Work Phone: [phone] Hematocrit (HCT) 44.9 % Invalid Interpretation Code [facility] Work Phone: [phone] Hemoglobin (HGB) 15.5 g/dL Invalid Interpretation Code [facility] Work Phone: [phone] MCH 30.9 pg Invalid Interpretation Code [facility] Work Phone: [phone] MCHC 34.5 g/dL Invalid Interpretation Code [facility] Work Phone: [phone] MCV 89.6 fL Invalid Interpretation Code [facility] Work Phone: [phone] Platelets 198 10*3/mm3 Invalid Interpretation Code [employer] [employer] Work Phone: [phone] Potassium 3.7 mmol/L Invalid Interpretation Code [employer] Work Phone: [phone] Sodium 138 mmol/L Invalid Interpretation Code [employer] Work Phone: [phone] Urea nitrogen 16 mg/dL Invalid Interpretation Code [employer] Work Phone: [phone] WBC (Leukocytes) 8.9 10*3/uL Invalid Interpretation Code [employer] Work Phone: [phone] Clinical Lists Update: Prelo bi report developer 09-27-2012 Calcium 8.7 mg/dL Invalid Interpretation Code [employer] Work Phone: [phone] LDL Cholesterol 71 mg/dL Invalid Interpretation Code [facility] Work Phone: [phone] Replaced Document: Mayr Yoder CG Observationson 05-19-2012 Pulse (Heart Rate) 391 ms Invalid Interpretation Code [facility] Work Phone: [phone] Vital Signs Date Time Vital Sign Value Performing Clinician Faci lity 10-15-2022 16:14-0500 Body mass index (BMI) [Ratio] 33.4 kg/m2 Dr. Kimmy Miles Work Phone: [facility] 10-15-2022 15:47-0500 Body temperature 98.2 [degF] Dr. Kimmy Miles Work Phone: [facility] 10-15-2022 15:47-0500 Diastolic blood pressure 74 mm[Hg] Dr. Kimmy Miles Work Phone: [facility] 10-15-2022 15:47-0500 Heart rate 84 /min Dr. Kimmy Miles Work Phone: [facility] 10-15-2022 15:47-0500 Respiratory rate 16 /min Dr. Kimmy Miles Work Phone: [facility] 10-15-2022 15:47-0500 SaO2% (BldA) [Mass fraction] 97 % Dr. Kimmy Miles Work Phone: [facility] 10-15-2022 15:47-0500 Systolic blood pressure 149 mm[Hg] Dr. Kimmy Miles Work Phone: [facility] 10-15-2022 10:56-0500 Body temperature 98.3 [degF] Dr. Kimmy Miles Work Phone: [facility] 10-15-2022 10:56-0500 Diastolic blood pressure 98 mm[Hg] Dr. Kimmy Miles Work Phone: [facility] 10-15-2022 10:56-0500 Heart rate 85 /min Dr. Kimmy Miles Work Phone: [facility] 10-15-2022 10:56-0500 Respiratory rate 18 /min Dr. Kimmy Miles Work Phone: [facility] 10-15-2022 10:56-0500 SaO2% (BldA) [Mass fraction] 97 % Dr. Kimmy Miles Work Phone: [facility] 10-15-2022 10:56-0500 Systolic blood pressure 145 mm[Hg] Dr. Kimmy Miles Work Phone: [facility] 10-14-2022 22:56-0500 Body mass index (BMI) [Ratio] 33.4 kg/m2 Dr. Kimmy Miles Work Phone: [facility] 10-14-2022 13:02-0500 Body height 177.[address] Kimmy Miles Work Phone: [facility] 10-14-2022 13:02-0500 Body weight 105.[address] Kimmy Miles Work Phone: [facility] 09-17-2022 08:19-0500 Body weight 111.[address] Kimmy Miles Work Phone: [facility] 08-17-2022 14:03-0500 Body height 177.[address] Kimmy Miles Work Phone: [facility] 08-17-2022 14:03-0500 Body mass index (BMI) [Ratio] 35.2 kg/m2 Dr. Kimmy Miles Work Phone: [facility] 08-17-2022 14:03-0500 Body weight 111.[address] Kimmy Miles Work Phone: [facility] 07-18-2022 11:15-0500 Body temperature 97.8 [degF] Dr. Kimmy Miles Work Phone: [facility] 07-18-2022 11:15-0500 Diastolic blood pressure 93 mm[Hg] Dr. Kimmy Miles Work Phone: [facility] 07-18-2022 11:15-0500 Heart rate 78 /min Dr. Kimmy Miles Work Phone: [facility] 07-18-2022 11:15-0500 Respiratory rate 16 /min Dr. Kimmy Miles Work Phone: [facility] 07-18-2022 11:15-0500 SaO2% (BldA) [Mass fraction] 99 % Dr. Kimmy Miles Work Phone: [facility] 07-18-2022 11:15-0500 Systolic blood pressure 156 mm[Hg] Dr. Kimmy Miles Work Phone: [facility] 07-18-2022 09:21-0500 Body height 177.[address] Kimmy Miles Work Phone: [facility] Work Phone: 07-18-2022 09:21-0500 Body mass index (BMI) [Ratio] 33.2 kg/m2 Dr. Kimmy Miles Work Phone: [facility] 07-18-2022 09:21-0500 Body weight [address] Kimmy Miles Work Phone: [facility] 03-19-2022 10:54-0400 Body temperature 98.2 [degF] Dr. Kimmy Miles Work Phone: [facility] Work Phone: 03-19-2022 10:54-0400 Diastolic blood pressure 82 mm[Hg] Dr. Kimmy Miles Work Phone: [facility] Work Phone: 03-19-2022 10:54-0400 Heart rate 91 /min Dr. Kimmy Miles Work Phone: [facility] Work Phone: 03-19-2022 10:54-0400 Respiratory rate 14 /min Dr. Kimmy Miles Work Phone: [facility] Work Phone: 03-19-2022 10:54-0400 SaO2% (BldA) [Mass fraction] 97 % Dr. Kimmy Miles Work Phone: [facility] Work Phone: 03-19-2022 10:54-0400 Systolic blood pressure 142 mm[Hg] Dr. Kimmy Miles Work Phone: [facility] Work Phone: 04-17-2017 11:43-0400 BMI (Body Mass Index) 34.06 kg/m2 Felice Mccarty NP [facility] Work Phone: 04-17-2017 11:43-0400 BP Diastolic 78 mm[Hg] Felice Mccarty NP [facility] Work Phone: 04-17-2017 11:43-0400 BP Systolic 118 mm[Hg] Felice Mccarty NP [facility] Work Phone: 04-17-2017 11:43-0400 Height 177.8 cm Felice Mccarty NP [facility] Work Phone: 04-17-2017 11:43-0400 Pulse (Heart Rate) 91 /min Felice Mccarty NP [facility] Work Phone: 04-17-2017 11:43-0400 Weight 107.68 kg Felice Mccarty NP [facility] Work Phone: 11-15-2015 08:01-0400 BMI (Body Mass Index) 32.74 kg/m2 Enedina Green RN [facility] Work Phone: 11-15-2015 08:01-0400 Body Temperature 98.3 [degF] Enedina Green RN [facility] Work Phone: 11-15-2015 08:01-0400 BP Diastolic 92 mm[Hg] Enedina Green RN [facility] Work Phone: 11-15-2015 08:01-0400 BP Systolic 140 mm[Hg] Enedina Green RN [facility] Work Phone: 11-15-2015 08:01-0400 BSA (Body Surface Area) 2.21 m2 Enedina Green RN [facility] Work Phone: 11-15-2015 08:01-0400 Pulse (Heart Rate) 86 /min Enedina Green RN [facility] Work Phone: 11-15-2015 08:01-0400 Respiratory Rate 18 /min Enedina Green RN [facility] Work Phone: 11-15-2015 08:01-0400 Weight 103.51 kg Enedina Green RN [facility] Work Phone: 05-19-2012 09:21-0400 Height 177.8 cm Enedina Green RN [facility] Work Phone: Encounters Encounter Date Encounter Type Care Provider Facility Start: 02-24-2025 ambulatory Kimmy Ginger Facility: [facility] Start: 02-12-2025 End: 02-12-[address] Kimmy Miles DO Work Phone: [facility] Work Phone: Start: 02-12-2025 End: 02-12-[address] Kimmy Miles DO -Laboratory [facility] Start: 02-12-2025 End: 02-12-2025 ambulatory Kimmy Miles Facility:[facility] Start: 03-11-2024 ambulatory Kimmy Miles Facility: [facility] Start: 03-11-2024 End: 03-12-2024 ambulatory Kimmy Miles Facility:[facility] Start: 08-05-2023 End: 08-05-2023 Non-patient / Non-visit Dr. Kimmy Miles Work Phone: [facility] Work Phone: Start: 07-30-2023 End: 07-30-[address] Kimmy Miles Work Phone: [facility] Work Phone: Start: 07-30-2023 End: 07-30-[address] Kimmy Miles Work Phone: [facility]-Pre-Admission Testing Work Phone: Start: 11-19-2022 End: 11-19-[address] Kimmy Miles Work Phone: [facility] Work Phone: Start: 11-19-2022 End: 11-19-[address] Kimmy Miles Work Phone: [facility] Start: 11-09-2022 End: 11-09-[address] Kimmy Miles Work Phone: [facility] Work Phone: Start: 11-09-2022 End: 11-09-[address] Kimmy Miles Work Phone: [facility] Start: 10-18-2022 End: 10-18-[address] Kimmy Miles Work Phone: [facility] Start: 10-18-2022 End: 10-18-[address] Kimmy Miles Work Phone: [facility] Start: 10-15-2022 Non-patient / Non-visit Dr. Kimmy Miles Work Phone: [facility] Start: 10-15-2022 Non-patient / Non-visit Dr. Kimmy Miles Work Phone: [facility] Start: 10-14-2022 Non-patient / Non-visit Dr. Kimmy Miles Work Phone: [facility] Start: 10-14-2022 End: 10-14-2022 Non-patient / Non-visit Dr. Kimmy Miles Work Phone: [facility] Start: 10-14-2022 End: 10-15-2022 Evaluation and management of inpatient Dr. Kimmy Miles Work Phone: [facility]-Progressive Care Unit Start: 10-14-2022 End: 10-15-[address] Kimmy Miles Work Phone: [facility] Work Phone: Start: 09-17-2022 End: 09-17-[address] Kimmy Miles Work Phone: [facility] Start: 09-14-2022 End: 09-14-[address] Kimmy Miles Work Phone: [facility] Work Phone: Start: 09-14-2022 End: 09-14-[address] Kimmy Miles Work Phone: [facility] Start: 08-17-2022 End: 08-17-[address] Kimmy Miles Work Phone: [facility] Start: 07-18-2022 Non-patient / Non-visit Dr. Kimmy Miles Work Phone: [facility] Start: 07-18-2022 End: 07-18-2022 Admission to same day surgery center Dr. Kimmy Miles Work Phone: [facility]-Endoscopy Start: 07-18-2022 End: 07-18-[address] Kimmy Miles Work Phone: [facility] Work Phone: Start: 05-09-2022 End: 05-09-[address] Kimmy Miles Work Phone: [facility] Start: 03-19-2022 End: 03-19-[address] Kimmy Miles Work Phone: [facility] Start: 11-20-2021 End: 11-20-[address] Kimmy Miles Work Phone: [facility] Start: 11-13-2021 End: 11-13-[address] Kimmy Miles Work Phone: [facility] Start: 10-25-2021 End: 10-25-[address] Kimmy Miles Work Phone: [facility] Start: 09-20-2021 End: 09-20-[address] Kimmy Miles Work Phone: [facility]-Laboratory, Specimen Procedures Date Procedure Procedure Detail Performing [...] Phone: Start: 04-17-2017 End: 04-18-2017 *BMP Felice Mccarty [employer] MA[employer] Work Phone: Start: 04-17-2017 End: 04-18-2017 *Hepatic Function Panel Felice Trish Bibiana ASSISTANT QUALITY MANAGER Work Phone: Start: 04-17-2017 End: 04-18-2017 aPTT Felice Chambers Bibiana ASSISTANT QUALITY MANAGER Work Phone: Start: 04-17-2017 End: 04-18-2017 CBC W Auto Differential panel - Blood Felice Trish Mccarty ASSISTANT QUAL[employer] MANAGER Work Phone: Start: 04-17-2017 End: 04-18-2017 Coagulation factor induced.INR assay in platelet poor plasma Felice Trish [place] ASSISTANT QUALITY MANAGER Work Phone: Start: 04-17-2017 End: 04-18-2017 Lipid panel [AGGREGATE] Felice Mccarty ASSISTANT QUAL[employer] MANAGER Work Phone: Start: 04-17-2017 End: 04-17-2017 Nurse, Teaching, Wound Check (no charge) Felice Mccarty ASSISTANT QUAL[employer] MANAGER Work Phone: Start: 10-29-2016 End: 11-08-2016 Drain/inject, [...] Activity Detail Author Start: 10-15-2022 Patient discharge [facility] Start: 10-14-2022 [facility] Start: 10-14-2022 Following clinical pathway protocol [facility] Start: 10-14-2022 Ambulation without limitation [facility] Start: 10-14-2022 Assessment of risk of venous thromboembolism [facility] Start: 02-12-2023 Care regimes management [facility] Start: 10-14-2022 Insertion of catheter into peripheral vein [facility] Start: 10-14-2022 Measuring intake and output [facility] Start: 10-14-2022 Notification of physician [facility] Start: 10-14-2022 Providing care according to standard [facility] Start: 10-14-2022 Referral to occupational therapist [facility] Start: 10-14-2022 Referral to service [facility] Start: 10-14-2022 [facility] Start: 10-14-2022 Admission procedure [facility] Start: 10-14-2022 Oxygen therapy [facility] Start: 07-18-2022 Colonoscopy w/biopsy single/multiple COLONOSCOPY AND BIOPSY [facility] Start: 07-18-2022 Patient discharge [facility] Start: 10-21-2017 End: 04-26-2017 *Hepatic Function Panel *Hepatic Function Panel [facility] [employer] Work Phone: Start: 10-21-2017 End: 04-26-2017 Lipid panel [AGGREGATE] *Lipid Profile CC PCP [employer] [employer] Work Phone: Start: 04-17-2017 End: 04-17-2017 Appointment Appointment [facility] [employer] Phone: Start: 04-17-2017 End: 04-18-2017 *BMP *BMP [facility] Work Phone: Start: 04-17-2017 End: 04-18-2017 *Hepatic Function Panel *Hepatic Function Panel [facility] [employer] Phone: Start: 04-17-2017 End: 04-18-2017 aPTT *PTT-Partial Thromboplastin Time [employer] Work Phone: Start: 04-17-2017 End: 04-18-2017 CBC W Auto Differential panel - Blood *CBC without Diff [facility] Work Phone: Start: 04-17-2017 End: 04-17-2017 Chest x-ray X-Ray, Chest, PA & Lateral [facility] Work Phone: Start: 04-17-2017 End: 04-18-2017 Coagulation factor induced.INR assay in platelet poor plasma *PT/INR [facility] Work Phone: Start: 04-17-2017 End: 04-17-2017 Electrocardiogram, complete EKG (In office) [facility] Work Phone: Start: 04-17-2017 End: 04-18-2017 Left Heart Cath Left Heart Cath [facility] Work Phone: Start: 04-17-2017 End: 04-18-2017 Lipid panel [AGGREGATE] *Lipid Profile CC PCP [facility] Work Phone: Start: 03-02-2016 End: 03-06-2016 Other Referral Other Referral [facility] Provider, [facility] Ramonita Santoro, [place], [address] [facility] Work Phone: Start: 06-23-2015 End: 06-23-2015 Mri jnt of lwr extre w/o dye MRI Joint Lower Extremity [facility] Work Phone: Start: 02-14-2015 End: 02-14-2015 X-ray exam, knee, 4 or more X-Ray, Knee [facility] Work Phone: Start: 06-16-2014 End: 06-16-2014 *BMP *BMP [facility] Work Phone: Start: 06-16-2014 End: 06-16-2014 *Hepatic Function Panel *Hepatic Function Panel [facility] Work Phone: Start: 06-16-2014 End: 06-16-2014 Follow Up Appt 1 year Follow Up Appt 1 year [facility] Work Phone: Start: 06-16-2014 End: 06-16-2014 Follow Up Appt Other Follow Up Appt Other [facility] Work Phone: Start: 06-16-2014 End: 06-16-2014 Lipid panel [AGGREGATE] *Lipid Profile CC PCP [facility] Work Phone: Start: 06-16-2014 End: 06-16-2014 PFM PFM [facility] Work Phone: Start: 05-28-2013 End: 05-28-2013 *Hepatic Function Panel *Hepatic Function Panel [facility] Work Phone: Start: 05-28-2013 End: 05-28-2013 Follow Up Appt 6 months Follow Up Appt 6 months [facility] Work Phone: Start: 05-28-2013 End: 05-28-2013 Lipid panel [AGGREGATE] *Lipid Profile CC PCP [facility] Work Phone: Start: 05-28-2013 End: 05-28-2013 PFM PFM [facility] Work Phone: Start: 08-06-2012 End: 10-29-2012 *Hepatic Function Panel *Hepatic Function Panel [facility] Work Phone: Start: 08-06-2012 End: 10-29-2012 Lipid panel [AGGREGATE] *Lipid Profile [facility] Work Phone: Start: 05-19-2012 End: 05-19-2012 Echocardiography Echocardiogram (complete) [facility] Work Phone: Start: 05-19-2012 End: 05-19-2012 Electrocardiogram, complete EKG (In office) [facility] Work Phone: Start: 05-19-2012 End: 05-19-2012 Follow Up Appt 6 months Follow Up Appt 6 months [facility] Work Phone: C reactive protein [Mass/volume] in Serum or Plasma [facility] Work Phone: CBC W Auto Different ial panel - Blood [facility] Work Phone: Erythrocyte sediment ation rate [facility] Work Phone: MR Cervical spine [facility] Patient Education HYPERLIPIDEMIA [facility] Work Phone: Patient referral [facility] Work Phone: [facility] Immunizations Immunization Date Immunization Notes Care Provider [place] perla 12-09-2020 Covid (Pfizer) Dr. Kimmy julio Work Phone: [facility] 11-18-2020 Covid (Pfizer) Dr. Kimmy julio Work Phone: [facility] 06-11-[address] Kimmy Miles Work Phone: [facility] 06-12-2014 influenza, injectabl e, quadrivalent, preservative free Dr. Kimmy Miles Work Phone: [facility] 06-12-2014 influenza, seasonal, injectable Dr. Kimmy Miles Work Phone: [facility] Payers Date Payer Category Payer Self-pay [id number] 2024 Unknown [id number] [facility] [id number] 2013 [id number] [id number] Unknown [id number] 2.16.8 [id number] Unknown [id number] 2.16.8 [id number] Unknown [id number] 2.16.8 [id number] Unknown [id number] 2.16.8 [id number] Unknown [id number] 2.16.8 [id number] Social History Date Type Detail Facility Start: 11-20-2021 End: 07-30-2023 Tobacco smoking status NHIS Unknown if ever smoked [facility] Start: 02-18-2020 Occasional [facility] Start: 02-18-2020 None [facility] Start: 02-18-2020 Spouse/ Signif icant Other [facility] Start: 02-19-2020 Cigarettes [facility] Start: 1970 Sex Assigned At Male [facility] Start: 03-11-2024 Tobacco smoking status NHIS Smokes tobacco daily (finding) [facility] Medical Equipment Procedure Code Equipment Code [...] Assessment Result Facility 10-15-2022 Functional status Ambulates [facility] Work Phone: Mental Status Date Assessment Result Facility 10-15-2022 Cognitive function Voice/Name [facility] Work Phone: 10-15-2022 Cognitive function Voice/Name [facility] Work Phone: 07-18-2022 Cognitive function Voice/Name [facility] Work Phone: Clinical Notes 10-14-2022 to 03-12-2024 Note Date & Type Note Facility 03-12-2024 Note [facility] Medical Records Department [address] [place] [address] Discharge Summary 03/12/24 1121 MR#: [id number] Acct: [id number] Name: LUPE ROGERS Rep #: [id number] : 1970 54 From: Mani Lubin DO PCP: Dr. Kimmy Miles DO Status:ADM JOAQUIN Location: [place] [address] Providers Date of Admission: 03/11/24 Primary Care Physician: Dr. Kimmy Miles DO Reason For Visit: CHEST PAIN, DIABETES [...] KIMMY MILES Performed By: Gavi Alvarenga RDCS D/C Instructions Discharge Diet: 1999 Calorie Control Diet Meaningful Use Info Meaningful Use Meaningful Use Diagnoses (Choose all that apply): None applicable Ischemic Stroke Statin Dosing Therapy Reference: STATIN DOSE THERAPY REFER (more content not included)... [facility] 10-14-2022 History and physi kacie note Note Date/Time October 14, 2022 5:54pm [facility] Medical Records Department [address] [place] [address] H&P Exam - Hospitalist 10/14/22 1741 MR#: [id number] Acct: [id number] Name: LUPE ROGERS Rep #:[id number] : 1970 52 From: Kimmy Sharp DO PCP: Dr. Kimmy Miles, Status:ADM JOAQUIN Location: [place] [address] HPI - General General Date of Admission: 10/14/22 Date of Service: 10/14/22 Chief Complaint: Chest pain, facial numbness HPI Narrative LUPE ROGERS, is a 52 M who presents to the emergency room at [facility] after being transported for evaluation of facial [...] history of cardiomyopathy, he had seen a plant manager many years ago and ultimately the cardiomyopathy [...] have it done while he is hospitalized COUNTS INCLUDE 234 BEDS AT THE [facility] Medical History Alcohol use Cardiology follow-up encounter [...] Type Severity Reaction Status Date / Time Nugkegp-AZS-YuG Reductase AdvReac painful Verified 10/14/22 11:05 Inhibitor joints [Kyzqbox-Mny-Vuv Reductase Inhibitor] Family History Father Heart disease [...] % (Auto) 55.8, Lymph % (Auto) 31.8, [place] % (Auto) 8.1, Eos % (Auto) 2.9, [...] cervical MRI performed while he is here [facility] rather than come back on Saturday [...] team: 75-minutes Charges/Coding Visit Charges Inpatient E&M: 40074 Init Hosp L3 10/14/22 2590 <Electronically signed by Kimmy Sharp DO> Cosigner Signature (if applicable): CC: Dr. Kimmy Miles DO; Dr. Kimmy Sharp DO~ Signed [facility] Work Phone: 1(941) 493-898402-12-[address] Chapa [facility] October 14, 2022 3:28pm Note Date/Time October 14, 2022 11:21am [facility] Medical Records Department [address] [place] [address] Emergency Department Summary 10/14/22 MR#: [id number] Acct: [id number] Name: LUPE ROGERS Rep #:[id number] : 1970 52 From: Walter Nicolas PCP: Dr. Kimmy Miles DO Status:ADM JOAQUIN Location: [place] [address] HPI History of Present Illness Chief Complaint: [...] Type Severity Reaction Status Date / Time Yzjptdp-JNT-UhH Reductase AdvReac painful Verified 10/14/22 11:05 Inhibitor joints [Cikqnjp-Rmj-Ava Reductase Inhibitor] Family History Father Heart disease [...] % (Auto) 55.8 Lymph % (Auto) 31.8 [place] % (Auto) 8.1 Eos % (Auto) 2.9 [...] (Auto) Neut % (Auto) Lymph % (Auto) [place] % (Auto) Eos % (Auto) Baso % [...] Pete Darling MD at 11:34 EST , EKG Initial EKG: Attestation: I personally reviewed and interpreted this EKG as follows: Comments: Sinus rate of 105, No ST changes T wave inversions inferior lateral leads this is new compared to 2019. Discharge Plan Dx/Rx/DC Orders Clinical Impression: Chest pain, Abnormal ECG, Hyperglycemia due to type 2 diabetes mellitus Disposition Disposition: Acute Care Hospital [facility] Discharge Date/Time: 10/14/22 12:53 What to do if you have Problems For any increased pain, shortness of breath, bleeding, nausea or vomiting, chestpain, or any unexpected problems, contact your Primary Care Provider. Call [facility] ([phone]) or report to the closest Emergency Room. Call 911 if necessary. 10/14/22 1528 <Electronically signed by Walter Nicolas> Cosigner Signature (if applicable): CC: Dr. Kimmy Miles DO ~ Signed [facility] Work Phone: Discharge summary Author Dr. Sharp [facility] October 15, 2022 3:22pm Note Date/Time October 15, 2022 3:19pm [facility] Medical Records Department [address] [place] [address] Instructions for Home/Discharge Instructions 10/15/22 1517 MR#: [id number] Acct: [id number] Name: LUPE ROGERS Paresh Rep #:[id number] : 1970 52 From: Kimmy Sharp DO [...] CC: Dr. Kimmy Miles DO ~ Signed [facility] Work Phone: Evaluation note* Diagnosis Onset Date Resolution Status Internal derangement of right knee acute Right knee pain acute Internal derangement of right knee acute Right knee pain acute [facility] Work Phone: Evaluation note* Diagnosis Onset Date Resolution Status Shingles acute Constipation chronic Diverticulitis resolved [facility] Work Phone: Evaluation note* Diagnosis Onset Date Resolution Status Constipation chronic Diverticulitis resolved [facility] Work Phone: Evaluation note* Diagnosis Onset Date Resolution Status Diverticular disease acute Constipation chronic HNP (herniated nucleus pulposus), cervical acute [facility] Work Phone: Evaluation note* Diagnosis Onset Date Resolution Status Diverticular disease acute Constipation chronic HNP (herniated nucleus pulposus), cervical acute Abnormal ECG acute Chest pain acute Hyperglycemia due to type 2 diabetes mellitus acute [facility] Work Phone: Evaluation note* Diagnosis Onset Date Resolution Status Diverticular disease acute Constipation chronic HNP (herniated nucleus pulposus), cervical acute Chest pain resolved Herniated nucleus pulposus, C4-5 acute Herniated nucleus pulposus, C5-6 left acute [facility] Work Phone: Evaluation noteNo assessment information available [facility] Work Phone: Reason for referral (narrative)No reason for [facility] Work Phone: Summary Purpose Family History No [...] No February 18, 2020 9:49am Power of Surgical Forceps Fabricator No February 17 9:49am Advance Directive Response Recorded Date/ Time Advance Directives No June 11, 2014 10:40pm Living Will No February 01, 2022 3 :40pm Power of Surgical Forceps Fabricator No February 01, 2022 3:40pm Advance Directive Response Recorded Date/ Time Advance Directives No June 11, 2014 9:40pm Living Will No July 16, 2 022 10:07am Power of Surgical Forceps Fabricator No July 16, 2022 10:07am Advance Directive Response Recorded Date/ Time Advance Directives No June 11, 2014 9:40pm Living Will No October 14, 2 023 1:02pm Power of Surgical Forceps Fabricator No October 14, 2022 1:02pm Advance Directive Response Recorded Date/ Time Advance Directives No June 11, 2014 10:40pm Living Will No October 14, 2 023 2:02pm Power of Surgical Forceps Fabricator No October 14, 2022 2:02pm Advance Directive Response Recorded Date/ Time Name of Medical Power of Surgical Forceps Fabricator July 30, 2023 9:13am Advance Directives No June 11, 2014 9:40pm Living Will Yes July 30, 2 023 9:13am Power of Surgical Forceps Fabricator Yes July 30, 2023 9:13am Advance Directive Response Recorded Date/ Time Advance Directives No June 11, 2014 10:40pm Chief Complaint and Reason for Visit Chief [...] section and content) DATE CREATED AUTHOR 03/24/2020 [facility] DATE CREATED AUTHOR AUTHOR'S ORGANIZ ATION 02/24/2025 [facility] Goals (unrecognized section and content) Goals may be documented in a n alternate sectionGoals may be documented in an alternate sectionGoals may be documented in an alternate sectionGoals may be documented in an alternate section Care Teams (unrecognized sec tion and content) Team Status: Active Member Role Status Dates Dr. Shira Zuniga , DO Family Provider Active Dr. Kimmy Miles DO Primary Care Provider Active Team Status: Active Member Role Status Dates Dr. Kimmy Miles DO Primary Care Provider Active Dr. Joseph Bee , DO Attending Provid er, Referring Provider, Other Provider Active Team Status: Inactive Member Role Status Dates Dr. Kimmy Miles , DO Primary Care Provider, Referrin g Provider Active Flavia Pollard ASSISTANT QUALITY MANAGER, ASSISTANT QUALITY MANAGER-C Attending Provider Active Team Status: Inactive Member [...] , DO Primary Care Provider Active Dr. Torey Rodriguez [...] , DO Primary Care Provider Active Dr. Stephanie Coe MD Attending Provider Active Dr. Angus Finn , DO Referring Provider Active Team Status: Inactive Member Role Status Dates Dr. Kimmy Miles , DO Primary Care Provider Active Dr. Angus Finn , DO Attending Provider Active Team Status: Inactive Member Role Status Dates Dr. Kimmy Ginger , DO Primary Care Provider Active Start: February 12, 2025 End: February 12, 2025 Dr. Kimmy Miles , Attending Provider Active Start: February 12, 2025 End: February 12, 2025 FOR RECORDS PERTAINING TO PATIENTS WHO ARE [...] BE BASED ON THE PRIMARY CLINICAL RECORDS. [facility] [employer] provides no warranty or guarantee of the accuracy or completeness of information in this document.
== END | disposition home or self-care (01) ==
LOC: CT 14:15
PROVIDERS: PCP Family Medicine; Referring Provider Family Medicine; Visit Provider Family Medicine
DX: R10.31 Right lower quadrant pain (principal)
CPT/HCPCS: 74177; Q9967; A4216